=== PATIENT | female | born 1955 | race Caucasian/White ===

== ENCOUNTER 2016-10-04 20:28 | Emergency (ER) | payer MEDICAID ==
[~2016-10-04] VITALS: Ht 160 cm; Wt 81.2 kg
[~2016-10-04 20:28] MED LIST: ACYCLOVIR800 MG PO; ASPIRIN ADULT L81 M2 PO; BACTRIM DS 8001 TA1 PO; BACTRIM DS 8001 TAB PO; CARVEDILOL6.25 M1 PO; CEPHALEXIN500 MG PO; CHEWABLE ASPIRI81 MG PO; CIPRO 500MG TA500 MG PO; CIPROFLOXACIN500 MG PO; CYCLOBENZAPRINE5 MG PO; EFFIENT10 M2 PO; ETODOLAC400 MG PO; FENOFIBRATE MI200 MG PO; FENOFIBRATE160 MG PO; FLEXERIL10 MG PO; FLOMAX 0.4MG C0.4 MG PO; FLOMAX0.4 MG PO; GABAPENTIN300 MG PO; GLIPIZIDE 5MG TA5 MG PO; GLIPIZIDE10 MG PO; HABITROL21 MG/24 H TD; IBU-8800 MG PO; IBU800 MG PO; KEFLEX 500MG.500 MG PO; KEFLEX500 M1 PO; LANTUS INS100 UNITS/ SC; LIPITOR80 MG PO; LISINOPRIL 10MG10 MG PO; LORTAB 5/500 501 TAB PO; LORTAB 500 MG-71 TAB PO; MECLIZINE 25MG25 MG PO; MEDROL 4MG. DOSE4 MG PO; METFORMIN1000 MG PO; MOTRIN600 M1 PO; NAPROSYN375 MG PO; NAPROXEN SODIU500 MG PO; NAPROXEN375 M1 PO; NITROSTAT 0.4M0.4 MG SL; NIZORAL 2%15 GM/TUBE EX; NORCO 325 MG-51 TAB PO; PERCOCET 5/3251 EACH PO; PHENAZOPYRIDIN200 MG PO; PHENERGAN 25MG.25 M1 PO; PREDNISONE 20MG20 MG PO; PREDNISONE50 MG PO; PROZAC 20MG CAP20 MG PO; PROZAC10 MG PO; PROZAC20 MG PO; PYRIDIUM200 M1 PO; PYRIDIUM200 M2 PO; REQUIP0.25 MG PO; ROPINIROLE HYDRO1 M1 PO; SEPTRA DS 800 M1 TAB PO; TESSALON PERLE100 MG PO; TRAZODONE 50MG50 MG PO; TRICOR145 MG PO; TRICOR160 MG PO; TRIMOX500 MG PO; VESICARE5 MG PO; VIBRAMYCIN 100100 MG PO; VICODIN ES 7501 TAB PO; ZITHROMAX Z PA250 MG PO; ZOFRAN ODT4 MG PO; ZOFRAN4 MG PO; [UNRECOGNIZED DRUG - OTHER] OT
[2016-10-04] MEDS ORDERED: FENOFIBRATE MI200 MG PO (20:40)
[2016-10-04] MEDS ORDERED: CLOPIDOGREL75 M2 PO (20:42)
--- OUTSIDE RECORDS SUMMARY | 2016-10-04 20:57 | External Medical Summary Rpt ---
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 45 20 20 14 AI E 30 17 17 50 D 10 1 84 PH AR MG MA CY TA BL #3 ET 93 8 ME 42 03 04 30 30 00 RI Ac TF 80 -3 -2 .0 00 TE ti OR 60 0- 8- 00 01 ve ID 22 20 20 14 AI N 10 17 17 50 D HC 5 86 PH L AR 1, MA 00 CY 0 MG #3 93 TA 8 BL ET NI 00 03 04 14 7 00 RI Ac TR 18 -3 -2 .0 00 TE ti OF 50 1- 8- 00 01 ve UR 12 20 20 17 AI AN 20 17 17 81 D TO 1 17 PH IN AR MA MO CY NO -M #3 CR 93 8 10 0 MG AC 31 04 04 14 7 00 RI Ac YC 72 -0 -2 .0 00 TE ti LO 20 3- 8- 00 01 ve 77 20 20 17 AI R 70 17 17 83 D 40 1 19 PH 0 AR MG MA CY TA BL #3 ET 93 8 PH 42 03 04 6. 2 00 RI Ac EN 19 -2 -2 00 00 TE ti AZ 20 8- 1- 0 01 ve OP 80 20 20 17 AI YR 20 17 17 74 D ID 1 79 PH IN AR E MA 20 CY 0 MG #3 93 TA 8 B AC 65 03 04 50 25 00 RI Ac CU 70 -2 -2 .0 00 TE ti -C 20 8- 1- 00 01 ve HE 49 20 20 14 AI K 21 17 17 51 D SM 0 21 PH AR AR TV MA IE CY W TE #[address] RI P AT 60 03 04 30 30 00 RI Ac OR 50 -2 -2 .0 00 TE ti VA 52 6- 1- [address] 67 20 20 17 AI AT 10 17 17 70 D IN 9 70 PH AR 80 MA CY MG #3 TA 93 BL 8 ET COLEY 53 03 04 10 5 00 RI Ac LF 48 -2 -2 .0 00 TE ti AM 90 8- 1- 00 01 ve ET 14 20 20 17 AI HO 60 17 17 74 D XA 1 78 PH ZO AR LE MA -T CY MP #3 DS 93 8 TA BL ET CA 68 03 04 60 30 00 RI Ac RV 38 -2 -2 .0 00 TE ti ED 20 6- 1- 00 01 ve IL 09 20 20 17 AI OL 30 17 17 70 D 1 71 PH 6. AR 25 MA CY MG #3 TA 93 BL 8 ET NI 59 03 04 25 15 00 RI Ac TR 76 -2 -2 .0 00 TE ti OG 23 6- 1- 00 01 ve LY 30 20 20 17 AI CE 40 17 17 70 D RI 3 72 PH N AR 0. MA 4 CY MG #3 TA 93 BL 8 ET SL RA 11 03 04 14 14 00 RI Ac 82 -2 -2 .0 00 TE ti NI 22 6- 1- 00 01 ve CO 22 20 20 17 AI TI 59 17 17 70 D NE 0 73 PH AR 21 MA CY MG /2 #3 4H 93 R 8 PA TC H CL 60 03 04 30 30 00 RI Ac OP 50 -2 -2 .0 00 TE ti ID 50 7- 1- 00 01 ve OG 25 20 20 17 AI RE 30 17 17 72 D L 2 63 PH 75 AR MA MG CY TA #3 BL 93 ET 8 AC 65 03 04 10 30 00 RI Ac CU 70 -2 -2 0. 00 TE ti -C 20 8- 1- 00 01 ve HE 28 20 20 0 14 AI K 81 17 17 51 D FA [address] AR CL MA IX CY LA #3 NC 93 ET 8 S LA 00 03 03 3. 30 00 RI Ac NT 08 -0 -3 00 00 TE ti US 82 3- 1- 0 01 ve 21 20 20 14 AI SO 90 17 17 73 D LO [address] AR AR MA CY 10 0 #3 UN 93 IT 8 S/ ML LI 00 02 03 30 30 00 RI Ac SI 18 -2 -2 .0 00 TE ti NO 50 7- 4- 00 01 ve NV 62 20 20 14 AI IL 00 17 17 50 D 1 81 PH 20 AR MA MG CY TA #3 BL 93 ET 8 FE 00 02 03 30 30 00 RI Ac NO 37 -2 -2 .0 00 TE ti FI 88 7- 4- 00 01 ve BR 63 20 20 14 AI AT 07 17 17 50 D E 7 83 PH 20 AR 0 MA MG CY CA #3 PS 93 UL 8 E GL 00 02 03 30 30 00 RI Ac IP 78 -2 -2 .0 00 TE ti IZ 11 7- 4- 00 01 ve ID 45 20 20 14 AI E 30 17 17 50 D 10 1 84 PH AR MG MA CY TA BL #3 ET 93 8 ME 42 02 03 30 30 00 RI Ac TF 80 -2 -2 .0 00 TE ti OR 60 7- 4- 00 01 ve ID 22 20 20 14 AI N 10 17 17 50 D HC 5 86 PH L AR 1, MA 00 CY 0 MG #3 93 TA 8 BL ET RO 43 02 03 30 30 00 RI Ac PI 54 -2 -2 .0 00 TE ti NI 70 7- 4- 00 01 ve RO 27 20 20 14 AI LE 01 17 17 50 D 0 80 PH HC AR L MA 1 CY MG #3 TA 93 BL 8 ET GA 43 02 03 40 1 00 RI Ac 38 -1 -1 00 00 TE ti LY 60 5- 0- .0 01 ve TE 09 20 20 00 17 AI -G 01 17 17 13 D 9 00 PH SO AR CHEPE MA TI CY ON #3 93 8 LA 00 02 02 3. 30 00 RI Ac NT 08 -0 -2 00 00 TE ti US 82 1- 4- 0 01 ve 21 20 20 14 AI SO 90 17 17 73 D LO [address] AR AR MA CY 10 0 #3 UN 93 IT 8 S/ ML RO 43 01 02 30 30 00 RI Ac PI 54 -3 -2 .0 00 TE ti NI 70 0- 4- 00 01 ve RO 27 20 20 14 AI LE 01 17 17 50 D 0 80 PH HC AR L MA 1 CY MG #3 TA 93 BL 8 ET LI 00 01 02 30 30 00 RI Ac SI 18 -3 -2 .0 00 TE ti NO 50 0- 4- 00 01 ve NV 62 20 20 14 AI IL 00 17 17 50 D 1 81 PH 20 AR MA MG CY TA #3 BL 93 ET 8 FE 00 01 02 30 30 00 RI Ac NO 37 -3 -2 .0 00 TE ti FI 88 0- 4- 00 01 ve BR 63 20 20 14 AI AT 07 17 17 50 D E 7 83 PH 20 AR 0 MA MG CY CA #3 PS 93 UL 8 E GL 00 01 02 30 30 00 RI Ac IP 78 -3 -2 .0 00 TE ti IZ 11 0- 4- 00 01 ve ID 45 20 20 14 AI E 30 17 17 50 D 10 1 84 PH AR MG MA CY TA BL #3 ET 93 8 ME 42 01 02 30 30 00 RI Ac TF 80 -3 -2 .0 00 TE ti OR 60 0- 4- 00 01 ve ID 22 20 20 14 AI N 10 17 17 50 D HC 5 86 PH L AR 1, MA 00 CY 0 MG #3 93 TA 8 BL ET GL 00 12 01 30 30 00 RI Ac IP 78 -3 -2 .0 00 TE ti IZ 11 0- 7- 00 01 ve ID 45 20 20 14 AI E 30 16 17 50 D 10 1 84 PH AR MG MA CY TA BL #3 ET 93 8 LA 00 01 01 3. 30 00 RI Ac NT 08 -0 -2 00 00 TE ti US 82 3- 7- 0 01 ve 21 20 20 14 AI SO 90 17 17 73 D LO [address] AR AR MA CY 10 0 #3 UN 93 IT 8 S/ ML RO 43 12 01 30 30 00 RI Ac PI 54 -3 -2 .0 00 TE ti NI 70 0- 7- 00 01 ve RO 27 20 20 14 AI LE 01 16 17 50 D 0 80 PH HC AR L MA 1 CY MG #3 TA 93 BL 8 ET FE 00 12 30 30 00 RI Ac NO 37 -3 -2 .0 00 TE ti FI 88 0- 7- 00 01 ve BR 63 20 20 14 AI AT 07 16 17 50 D E 7 83 PH 20 AR 0 MA MG CY CA #3 PS 93 UL 8 E LI 00 12 30 30 00 RI Ac SI 18 -3 -2 .0 00 TE ti NO 50 0- 7- 00 01 ve NV 62 20 20 14 AI IL 00 16 17 50 D 1 81 PH 20 AR MA MG CY TA #3 BL 93 ET 8 ME 23 12 01 30 30 00 RI Ac TF 15 -3 -2 .0 00 TE ti OR 50 0- 7- 00 01 ve ID 10 20 20 14 AI N 40 16 17 50 D HC 5 86 PH L AR 1, MA 00 CY 0 MG #3 93 TA 8 BL ET 66 11 0 No PI 55 -2 RI 30 0- Lo N 00 20 ng 32 10 13 er 5 1 MG Ac ti TA ve BL ET CI 65 10 10 20 10 RI 90 GR Ac NV 86 -3 -3 .0 TE 57 AY ti OF 20 1- 1- 00 35 ve LO 07 20 20 AI RO XA 70 11 11 D BE CI 1 PH RT N AR B HC MA L CY 50 0 03 MG 93 8 TA # B 03 93 NV 00 10 10 15 2 RI 90 GR Ac OM 60 -3 -3 .0 TE 57 AY ti ET 35 1- 1- 00 34 ve VALLEJO 43 20 20 AI RO ZI 82 11 11 D BE NE 1 PH RT AR B 25 MA CY MG 03 TA 93 BL 8 ET # 03 93 OX 00 10 10 15 2 RI 90 GR Ac YC 60 -3 -3 .0 TE 57 AY ti OD 34 1- 1- 00 32 ve ON 99 20 20 AI RO E- 82 11 11 D BE AC 1 PH RT ET AR B AM MA IN CY OP HE 03 N 93 5- 8 32 # 5 03 93 NV 00 10 10 25 5 RI 90 GR Ac ED 59 -2 -2 .0 TE 44 AY ti NI 15 1- 1- 00 38 ve SO 44 20 20 AI RO NE 20 11 11 D BE 1 PH RT 10 AR B MA MG CY TA 03 BL 93 ET 8 # 03 93 AC 00 10 10 42 7 RI 90 GR Ac YC 09 -2 -2 .0 TE 44 AY ti LO 38 1- 1- 00 37 ve 94 20 20 AI RO R 30 11 11 D BE 40 1 PH RT 0 AR B MG MA CY TA BL 03 ET 93 8 # 03 93 00 10 10 15 2 RI 90 GR Ac 60 -2 -2 .0 TE 44 AY ti 33 1- 1- 00 35 ve 88 20 20 AI RO 12 11 11 D BE 8 PH RT AR B MA CY 03 93 8 # 03 93 TR 00 06 08 1 30 30 RI 89 RA Ac IC 07 -2 -0 .0 TE 33 O ti OR 46 0- 3- 00 91 PA ve 12 20 20 AI DM 14 39 11 11 D A 5 0 PH G MG AR MA TA CY BL ET 03 93 8 # 03 93 LI 68 06 08 1 30 30 RI 89 RA Ac SI 18 -2 -0 .0 TE 33 O ti NO 00 0- 3- 00 90 PA ve NV 51 20 20 AI DM IL 40 11 11 D A 1 PH G 10 AR MA MG CY TA 03 BL 93 ET 8 # 03 93 LI 68 06 06 2 30 30 CV 50 RA Ac SI 18 -2 -2 .0 S 29 O ti NO 00 0- 0- 00 PH 20 PA ve NV 51 20 20 AR DM IL 40 11 11 MA A 3 CY G 10 # MG 02 33 TA 2 BL ET FL 50 06 06 2 30 30 CV 50 RA Ac UO 11 -2 -2 .0 S 29 O ti XE 10 0- 0- 00 PH 21 PA ve TI 64 20 20 AR DM NE 70 11 11 MA A 1 CY G HC # L 10 02 33 MG 2 CA PS UL E TR 00 06 06 2 30 30 CV 50 RA Ac IC 07 -2 -2 .0 S 29 O ti OR 46 0- 0- 00 PH 24 PA ve 12 20 20 AR DM 14 39 11 11 MA A 5 0 CY G MG # TA 02 BL 33 ET 2 AC 61 06 06 0 25 5 CV 50 RA Ac YC 44 -2 -2 .0 S 29 O ti LO 20 0- 0- 00 PH 28 PA ve 11 20 20 AR DM R 10 11 11 MA A 20 1 CY G 0 # MG 02 CA 33 PS 2 UL E CY 00 06 06 0 10 10 CV 49 RA Ac CL 37 -0 -0 .0 S 69 O ti OB 80 2- 2- 00 PH 52 PA ve EN 75 20 20 AR DM ZA 11 11 11 MA A NV 0 CY G IN # E 10 02 33 MG 2 TA BL ET LI 68 03 05 0 30 30 CV 49 RA Ac SI 18 -0 -1 .0 S 20 O ti NO 00 8- 8- 00 PH 34 PA ve NV 51 20 20 AR DM IL 40 11 11 MA A 3 CY G 10 # MG 02 33 TA 2 BL ET TR 00 03 05 0 30 30 CV 49 RA Ac IC 07 -0 -1 .0 S 20 O ti OR 46 8- 8- 00 PH 35 PA ve 12 20 20 AR DM 14 39 11 11 MA A 5 0 CY G MG # TA 02 BL 33 ET 2 AZ 00 04 04 6. 5 RI 87 RA Ac IT 78 -1 -1 00 TE 93 O ti HR 11 4- 4- 0 25 PA ve OM 49 20 20 AI DM YC 66 11 11 D A IN 8 PH G AR 25 MA 0 CY MG 03 TA 93 BL 8 ET # 03 93 63 03 04 2 30 30 RI 87 RA Ac 30 -0 -1 .0 TE 40 O ti 40 8- 0- 00 48 PA ve 53 20 20 AI DM 30 11 11 D A 1 PH G AR MA CY 03 93 8 # 03 93 TR 00 03 04 2 30 30 RI 87 RA Ac IC 07 -0 -1 .0 TE 40 O ti OR 46 8- 0- 00 49 PA ve 12 20 20 AI DM 14 39 11 11 D A 5 0 PH G MG AR MA TA CY BL ET 03 93 8 # 03 93 TR 00 03 03 2 30 30 RI 87 RA Ac IC 07 -0 -0 .0 TE 40 O ti OR 46 8- 8- 00 49 PA ve 12 20 20 AI DM 14 39 11 11 D A 5 0 PH G MG AR MA TA CY BL ET 03 93 8 # 03 93 63 03 03 2 30 30 RI 87 RA Ac 30 -0 -0 .0 TE 40 O ti 40 8- 8- 00 48 PA ve 53 20 20 AI DM 30 11 11 D A 1 PH G AR MA CY 03 93 8 # 03 93 FL 00 03 03 2 30 30 RI 87 RA Ac UO 09 -0 -0 .0 TE 40 O ti XE 37 8- 8- 00 50 PA ve TI 18 20 20 AI DM NE 85 11 11 D A 6 PH G HC AR L MA 10 CY MG 03 93 TA 8 BL # ET 03 93 PE 00 02 02 59 1 RI 87 RA Ac RM 47 -2 -2 .0 TE 26 O ti ET 25 8- 8- 00 68 PA ve HR 24 20 20 AI DM IN 26 11 11 D A 7 PH G 1% AR MA LO CY TI ON 03 93 8 # 03 93 COLEY 53 02 02 30 15 RI 87 GR Ac LF 74 -2 -2 .0 TE 24 AY ti AM 60 5- 5- 00 23 ve ET 27 20 20 AI RO HO 20 11 11 D BE XA 5 PH RT ZO AR B LE MA -T CY MP 03 DS 93 8 TA # BL 03 ET 93 00 02 02 12 2 RI 87 GR Ac 60 -2 -2 .0 TE 24 AY ti 33 5- 5- 00 22 ve 88 20 20 AI RO 12 11 11 D BE 8 PH RT AR B MA CY 03 93 8 # 03 93 [place] 51 02 02 30 5 RI [address] 67 -1 -2 .0 TE 14 IN ti AT 21 9- 0- 00 61 EY ve IN 28 20 20 AI 90 11 11 D ID 10 2 PH CH 0, AR AE 00 MA L 0 CY S UN IT 03 /G 93 M 8 CR # EA 03 M 93 ME 00 02 02 21 6 RI 87 GA Ac TH 60 -1 -2 .0 TE 14 IN ti YL 34 9- 0- 00 62 EY ve NV 59 20 20 AI ED 31 11 11 D ID NI 5 PH CH SO AR AE LO MA L NE CY S 4 03 MG 93 8 DO # SE 03 PK 93 DO 00 02 02 20 10 RI 87 GA Ac XY 14 -1 -2 .0 TE 14 IN ti CY 33 9- 0- 00 63 EY ve CL 14 20 20 AI IN 20 11 11 D ID E 5 PH CH HY AR AE CL MA L AT CY S E 10 03 0 93 MG 8 # CA 03 P 93 AC 00 11 11 15 7 RI 85 VALDEMAR Ac ET 60 -1 -1 .0 TE 78 HN ti IC 37 1- 2- 00 72 SO ve 03 20 20 AI N AC 84 10 10 D CH ID 1 PH AR AR LE 2% MA S CY M EA R 03 SO 93 CHEPE 8 TI # ON 03 93 IB 53 11 11 21 7 RI 85 VALDEMAR Ac UP 74 -1 -1 .0 TE 78 HN ti RO 60 1- 1- 00 12 SO ve FE 46 20 20 AI N N 60 10 10 D CH 80 5 PH AR 0 AR LE MG MA S CY M TA BL 03 ET 93 8 # 03 93 AM 00 11 11 30 10 RI 85 VALDEMAR Ac OX 78 -1 -1 .0 TE 78 HN ti IC 12 1- 1- 00 11 SO ve IL 61 20 20 AI N LI 30 10 10 D CH N 5 PH AR 50 AR LE 0 MA S MG CY M CA 03 PS 93 UL 8 E # 03 93 63 09 10 1 30 30 RI 84 RA Ac 30 -0 -0 .0 TE 82 O ti 40 2- 7- 00 67 PA ve 53 20 20 AI DM 30 10 10 D A 1 PH G AR MA CY 03 93 8 # 03 93 TR 00 09 09 2 30 30 RI 84 RA Ac IC 07 -1 -1 .0 TE 98 O ti OR 46 4- 4- 00 21 PA ve 12 20 20 AI DM 14 39 10 10 D A 5 0 PH G MG AR MA TA CY BL ET 03 93 8 # 03 93 CI 65 09 09 14 7 RI 84 RA Ac NV 86 -0 -0 .0 TE 82 O ti OF 20 2- 2- 00 68 PA ve LO 07 20 20 AI DM XA 70 10 10 D A CI 1 PH G N AR HC MA L CY 50 0 03 MG 93 8 TA # B 03 93 63 09 09 1 30 30 RI 84 RA Ac 30 -0 -0 .0 TE 82 O ti 40 2- 2- 00 67 PA ve 53 20 20 AI DM 30 10 10 D A 1 PH G AR MA CY 03 93 8 # 03 93 [place] 51 06 06 0 60 7 CV [address] 67 -2 -2 .0 S 85 VA ti AT 24 5- 5- 00 PH 45 GE ve IN 11 20 20 AR 70 10 10 MA SA 10 4 CY ND 0, # RA 00 L 0 02 UN 33 IT 2 /M L COLEY SP CY 00 06 06 15 5 RI 83 SO Ac CL 37 -1 -1 .0 TE 81 KA ti OB 80 5- 5- 00 21 N ve EN 75 20 20 AI BA ZA 11 10 10 D BA NV 0 PH TU IN AR ND E MA E 10 CY O MG 03 93 TA 8 BL # ET 03 93 IB 53 06 06 15 5 RI 83 SO Ac UP 74 -1 -1 .0 TE 81 KA ti RO 60 5- 5- 00 19 N ve FE 46 20 20 AI BA N 60 10 10 D BA 80 5 PH TU 0 AR ND MG MA E CY O TA BL 03 ET 93 8 # 03 93 00 06 06 12 2 RI 83 SO Ac 40 -1 -1 .0 TE 81 KA ti 60 5- 5- 00 18 N ve 35 20 20 AI BA 70 10 10 D BA 5 PH TU AR ND MA E CY O 03 93 8 # 03 93 TA 00 04 04 7. 7 RI 83 Ac MS 11 -1 -1 00 TE 03 OL ti UL 58 8- 8- 0 06 ET ve OS 21 20 20 AI TE IN 10 10 10 D 1 PH JE HC AR FF L MA RE 0. CY Y 4 M MG 03 93 CA 8 PS # UL 03 E 93 00 04 04 12 3 RI 83 Ac 40 -1 -1 .0 TE 03 OL ti 60 8- 8- 00 05 ET ve 36 20 20 AI TE 00 10 10 D 5 PH JE AR FF MA RE CY Y M 03 93 8 # 03 93 PH 65 04 04 6. 2 CV 35 SA Ac EN 16 -1 -1 00 S 53 VA ti AZ 20 5- 5- 0 PH 22 GE ve OP 52 20 20 AR YR 01 10 10 MA SA ID 0 CY ND IN # RA E L 20 02 0 33 MG 2 TA B NI 00 04 04 20 10 CV 35 SA Ac TR 37 -1 -1 .0 S 53 VA ti OF 83 5- 5- 00 PH 23 GE ve UR 42 20 20 AR AN 20 10 10 MA SA TO 1 CY ND IN # RA L MO 02 NO 33 -M 2 CR 10 0 MG 50 03 03 9. 3 CV 34 GA Ac 11 -2 -2 00 S 90 IN ti 10 5- 6- 0 PH 79 EY ve 85 20 20 AR 10 10 10 MA ID 1 CY CH # AE L 02 S 33 2 CI 16 03 03 14 7 CV 34 GA Ac NV 25 -2 -2 .0 S 90 IN ti OF 20 5- 6- 00 PH 80 EY ve LO 51 20 20 AR XA 50 10 10 MA ID CI 1 CY CH N # AE HC L L 02 S 50 33 0 2 MG TA B FL 00 12 12 00 14 14 CV 31 FA Ac OM 59 -0 -1 .0 S 05 RA ti AX 70 6- 7- 00 PH 11 GA ve 05 20 20 AR SS 0. 80 09 09 MA O 4 1 CY DE MG 23 N CA 32 PS UL E OX 00 12 12 00 20 1 CV 31 FA Ac YC 40 -0 -1 .0 S 05 RA ti OD 60 6- 7- 00 PH 09 GA ve ON 51 20 20 AR SS E- 20 09 09 MA O AC 1 CY DE ET AM 23 N IN 32 OP HE N 5- 32 5 IB 55 12 12 00 24 7 CV 31 FA Ac UP 11 -0 -1 .0 S 05 RA ti RO 10 6- 7- 00 PH 08 GA ve FE 68 20 20 AR SS N 40 09 09 MA O 80 5 CY DE 0 MG 23 N 32 TA BL ET CI 16 12 12 00 14 7 CV 31 FA Ac NV 25 -0 -1 .0 S 05 RA ti OF 20 6- 7- 00 PH 10 GA ve LO 51 20 20 AR SS XA 50 09 09 MA O CI 1 CY DE N HC 23 N L 32 50 0 MG TA B ET 51 08 08 00 30 10 CV 26 No Ac OD 67 -0 -1 .0 S 25 t ti OL 24 2- 3- 00 PH 04 Av ve AC 01 20 20 AR ai 70 09 09 MA la 30 1 CY bl 0 e MG 23 32 CA PS UL E SK 60 08 08 00 30 10 CV 26 No Ac EL 79 -0 -1 .0 S 25 t ti AX 30 2- 3- 00 PH 05 Av ve IN 13 20 20 AR ai 60 09 09 MA la 80 1 CY bl 0 e MG 23 32 TA BL ET CY 00 07 08 00 10 3 CV 26 CE Ac CL 37 -2 -1 .0 S 22 LL ti OB 80 6- 3- 00 PH 02 AR ve EN 75 20 20 AR OS ZA 11 09 09 MA I NV 0 CY - IN YO E 23 RB 10 32 A PA MG TR IC TA K BL M ET TR 00 07 08 00 15 3 CV 26 CE Ac AM 09 -2 -1 .0 S 22 LL ti AD 30 6- 3- 00 PH 04 AR ve OL 05 20 20 AR OS 80 09 09 MA I HC 5 CY - L YO 50 23 RB 32 A MG PA TR TA IC BL K ET M FL 00 06 06 00 2. 4 CV 24 OV Ac UC 17 -0 -1 00 S 41 ER ti ON 25 3- 8- 0 PH 92 BE ve AZ 41 20 20 AR E OL 21 09 09 MA TE E 1 CY RR 15 I 0 23 MG 32 TA BL ET NA 00 06 06 00 60 30 CV 24 OV Ac NV 09 -0 -1 .0 S 41 ER ti OX 30 3- 8- 00 PH 93 BE ve EN 14 20 20 AR E 90 09 09 MA TE 50 5 CY RR 0 I MG 23 32 TA BL ET ME 68 02 06 02 30 30 CV 21 OV Ac TF 38 -2 -1 .0 S 11 ER ti OR 20 7- 8- 00 PH 37 BE ve ID 02 20 20 AR E N 81 09 09 MA TE HC 0 CY RR L I 50 23 0 32 MG TA BL ET LI 68 06 06 00 30 30 CV 24 OV Ac SI 18 -0 -1 .0 S 41 ER ti NO 00 3 8- 00 PH 90 BE ve NV 51 20 20 AR E IL 40 09 09 MA TE 3 CY RR 10 I 23 MG 32 TA BL ET TR 00 05 06 00 12 4 RI 78 AH Ac AM 09 -2 -1 .0 TE 64 ME ti AD 30 9- 8- 00 06 D ve OL 05 20 20 AI MU 80 09 09 D VALLEJO HC 1 PH MM L AR AD 50 M A #3 MG 93 8 TA BL ET TR 00 05 06 00 15 2 CV 24 CE Ac AM 09 -2 -0 .0 S 00 LL ti AD 30 1- 4- 00 PH 73 AR ve OL 05 20 20 AR OS 80 09 09 MA I HC 5 CY - L YO 50 23 RB 32 A MG PA TR TA IC BL K ET M 00 05 05 00 15 3 CV 23 WA Ac 40 -0 -2 .0 S 57 GN ti 60 8- 1- 00 PH 72 ER ve 35 20 20 AR 70 09 09 MA PH 5 CY IL LI 23 P 32 L LI 68 01 04 03 30 30 CV 19 OV Ac SI 18 -0 -2 .0 S 32 ER ti NO 00 2- 3- 00 PH 74 BE ve NV 51 20 20 AR E IL 40 09 09 MA TE 3 CY RR 10 I 23 MG 32 TA BL ET ME 68 02 04 01 30 30 CV 21 OV Ac TF 38 -2 -2 .0 S 11 ER ti OR 20 7- 3- 00 PH 37 BE ve ID 02 20 20 AR E N 81 09 09 MA TE HC 0 CY RR L I 50 23 0 32 MG TA BL ET NA 00 02 04 01 60 30 CV 21 OV Ac NV 09 -2 -2 .0 S 11 ER ti OX 30 7- 3- 00 PH 36 BE ve EN 14 20 20 AR E 90 09 09 MA TE 50 5 CY RR 0 I MG 23 32 TA BL ET TR 00 03 04 00 12 4 CV 21 AH Ac AM 09 -2 -0 .0 S 91 ME ti AD 30 1- 9- 00 PH 22 D ve OL 05 20 20 AR MU 80 09 09 MA VALLEJO HC 5 CY MM L AD 50 23 A 32 MG TA BL ET LI 68 01 03 02 30 30 CV 19 OV Ac SI 18 -0 -1 .0 S 32 ER ti NO 00 2- 2- 00 PH 74 BE ve NV 51 20 20 AR E IL 40 09 09 MA TE 3 CY RR 10 I 23 MG 32 TA BL ET NA 00 02 03 00 60 30 CV 21 OV Ac NV 09 -2 -1 .0 S 11 ER ti OX 30 7- 2- 00 PH 36 BE ve EN 14 20 20 AR E 90 09 09 MA TE 50 5 CY RR 0 I MG 23 32 TA BL ET ME 68 02 03 00 30 30 CV 21 OV Ac TF 38 -2 -1 .0 S 11 ER ti OR 20 7- 2- 00 PH 37 BE ve ID 02 20 20 AR E N 81 09 09 MA TE HC 0 CY RR L I 50 23 0 32 MG TA BL ET 00 02 02 00 12 1 CV 20 CE Ac 60 -1 -2 .0 S 68 LL ti 33 6- 6- 00 PH 88 AR ve 88 20 20 AR OS 23 09 09 MA I 2 CY - YO 23 RB 32 A PA TR IC K M OX 00 01 02 00 40 14 CV 20 SL Ac YB 83 -2 -1 .0 S 07 AB ti UT 20 6- 2- 00 PH 66 AU ve YN 03 20 20 AR GH IN 85 09 09 MA 5 0 CY JR MG 23 TH 32 OM TA BL K ET LI 68 01 02 01 30 30 CV 19 No Ac SI 18 -0 -1 .0 S 32 t ti NO 00 2- 2- 00 PH 74 Av ve NV 51 20 20 AR ai IL 40 09 09 MA la 3 CY bl 10 e 23 MG 32 TA BL ET PH 65 01 01 00 20 6 CV 19 SL Ac EN 16 -1 -3 .0 S 65 AB ti AZ 20 3- 0- 00 PH 83 AU ve OP 52 20 20 AR GH YR 01 09 09 MA ID 0 CY JR IN E 20 32 OM 0 MG K TA B 60 01 01 00 20 10 CV 19 SL Ac 50 -1 -3 .0 S 65 AB ti 51 3- 0- 00 PH 81 AU ve 30 20 20 AR GH 90 09 09 MA 1 CY JR 23 TH 32 OM K ME 59 01 01 00 21 6 CV 19 SL Ac TH 74 -1 -3 .0 S 65 AB ti YL 60 3- 0- 00 PH 82 AU ve NV 00 20 20 AR GH ED 10 09 09 MA NI 3 CY JR SO LO 23 TH NE 32 OM 4 K MG DO SE PK 00 01 01 00 30 2 CV 19 SL Ac 40 -0 -1 .0 S 56 AB ti 60 9- 5- 00 PH 62 AU ve 35 20 20 AR GH 70 09 09 MA 5 CY JR 23 TH 32 OM K PH 65 01 01 00 30 10 CV 19 SL Ac EN 16 -0 -1 .0 S 56 AB ti AZ 20 9- 5- 00 PH 63 AU ve OP 52 20 20 AR GH YR 09 09 MA ID 0 CY JR IN E 20 32 OM 0 MG K TA B 60 12 01 00 20 10 CV 19 SL Ac 50 -3 -1 .0 S 23 AB ti 51 0- 5- 00 PH 93 AU ve 30 20 20 AR GH 90 08 09 MA 1 CY JR 23 TH 32 OM K 00 01 01 00 20 4 CV 19 SL Ac 40 -0 -1 .0 S 31 AB ti 60 2- 5- 00 PH 73 AU ve 35 20 20 AR GH 80 09 09 MA 5 CY JR 23 TH 32 OM K 00 12 01 00 30 7 CV 19 SL Ac 40 -3 -1 .0 S 23 AB ti 60 0- 5- 00 PH 92 AU ve 35 20 20 AR GH 70 08 09 MA 5 CY JR 23 TH 32 OM K 60 01 01 00 14 7 CV 19 SL Ac 50 -0 -1 .0 S 38 AB ti 51 5- 5- 00 PH 02 AU ve 30 20 20 AR GH 90 09 09 MA 1 CY JR 23 TH 32 OM K COLEY 53 12 01 00 14 7 CV 19 CE Ac LF 74 -2 -1 .0 S 14 LL ti AM 60 9- 5- 00 PH 91 AR ve ET 27 20 20 AR OS HO 20 08 09 MA I XA 5 CY - ZO YO LE 23 RB -T 32 A MP PA TR DS IC K TA M BL ET FL 00 12 01 00 10 10 CV 19 CE Ac OM 59 -2 -1 .0 S 12 LL ti AX 70 7- 5- 00 PH 65 AR ve 05 20 20 AR OS 0. 80 08 09 MA I 4 1 CY - MG YO 23 RB CA 32 A PS PA UL TR E IC K M 00 12 01 00 20 3 CV 19 CE Ac 40 -2 -1 .0 S 16 LL ti 60 9- 5- 00 PH 45 AR ve 35 20 20 AR OS 70 08 09 MA I 5 CY - YO 23 RB 32 A PA TR IC K M NV 00 12 01 00 15 4 CV 19 CE Ac OM 78 -2 -1 .0 S 12 LL ti ET 11 7- 5- 00 PH 66 AR ve VALLEJO 83 20 20 AR OS ZI 00 08 09 MA I NE 1 CY - YO 25 23 RB 32 A MG PA TR TA IC BL K ET M 00 12 01 00 15 2 CV 19 CE Ac 40 -2 -1 .0 S 12 LL ti 60 7- 5- 00 PH 67 AR ve 35 20 20 AR OS 70 08 09 MA I 5 CY - YO 23 RB 32 A PA TR IC K M HY 00 12 01 00 30 30 CV [address] 60 -0 -1 .0 S 28 t ti OC 33 1- 5- 00 PH 73 Av ve HL 85 20 20 AR ai OR 63 08 09 MA la OT 2 CY bl HI e AZ 23 ID 32 E 25 MG TA B LI 68 01 01 00 30 30 CV 19 No Ac SI 18 -0 -1 .0 S 32 t ti NO 00 2- 5- 00 PH 74 Av ve NV 51 20 20 AR ai IL 40 09 09 MA la 3 CY bl 10 e 23 MG 32 TA BL ET HY 00 12 12 00 30 30 CV [address] 60 -0 -1 .0 S 28 AV ti OC 33 1- 8- 00 PH 64 ES ve HL 85 20 20 AR OR 63 08 08 MA LE OT 2 CY SL HI IE AZ 23 W ID 32 E 25 MG TA B NA 00 01 12 01 [address] Ac NV 09 -2 -1 .0 S 26 EP ti OX 30 1- 8- 00 PH 78 HE ve EN 14 20 20 AR NS 90 08 08 MA 50 5 CY DO 0 N MG 23 R 32 TA BL ET HY 00 11 11 00 30 30 CV [address] 60 -1 -2 .0 S 78 AV ti OC 33 3- 0- 00 PH 49 ES ve HL 85 20 20 AR OR 63 08 08 MA AL OT 2 CY EC HI IA AZ 23 E ID 32 E 25 MG TA B 00 10 11 00 10 2 CV 17 WA Ac 40 -2 -0 .0 S 10 GN ti 60 3- 7- 00 PH 54 ER ve 35 20 20 AR 70 08 08 MA PH 5 CY IL LI 23 P 32 L 63 09 10 00 14 7 CV 16 SA Ac 30 -2 -0 .0 S 31 DE ti 40 8- 9- 00 PH 06 K ve 71 20 20 AR MO 00 08 08 MA VALLEJO 1 CY ME D 23 H 32 00 09 10 00 10 3 CV 16 SA Ac 40 -2 -0 .0 S 31 DE ti 60 8- 9- 00 PH 07 K ve 35 20 20 AR MO 70 08 08 MA VALLEJO 5 CY ME D 23 H 32 NA 00 01 09 00 [address] Ac NV 09 -2 -1 .0 S 26 EP ti OX 30 1- 1- 00 PH 78 HE ve EN 14 20 20 AR NS 90 08 08 MA 50 5 CY DO 0 N MG 23 R 32 TA BL ET CY 00 08 08 00 12 4 CV 15 CE Ac CL 37 -1 -2 .0 S 09 LL ti OB 80 9- 8- 00 PH 02 AR ve EN 75 20 20 AR OS ZA 11 08 08 MA I NV 0 CY - IN YO E 23 RB 10 32 A PA MG TR IC TA K BL M ET 00 08 08 00 15 1 CV 15 CE Ac 40 -1 -2 .0 S 09 LL ti 60 9- 8- 00 PH 01 AR ve 35 20 20 AR OS 70 08 08 MA I 5 CY - YO 23 RB 32 A PA TR IC K M 00 06 07 00 12 2 RI 73 SO Ac 40 -2 -0 .0 TE 89 KA ti 60 5- 3- 00 35 N ve 35 20 20 AI BA 80 08 08 D BA 1 PH TU AR ND M E #3 O 93 8 NA 00 01 07 02 [address] Ac NV 09 -2 -0 .0 TE 59 EP ti OX 30 1- 3- 00 48 HE ve EN 14 20 20 AI NS 90 08 08 D 50 1 PH DO 0 AR N MG M R #3 TA 93 BL 8 ET 00 05 05 00 30 7 RI 73 No Ac 60 -0 -2 .0 TE 19 t ti 35 5- 2- 00 56 Av ve 46 20 20 AI ai 82 08 08 D la 8 PH bl AR e M #3 93 8 00 05 05 00 30 7 RI 73 No Ac 60 -1 -2 .0 TE 36 t ti 35 6- 2- 00 00 Av ve 46 20 20 AI ai 82 08 08 D la 8 PH bl AR e M #3 93 8 NA 00 01 04 01 60 30 RI 71 No Ac NV 09 -2 -1 .0 TE 59 t ti OX 30 1- 0- 00 48 Av ve EN 14 20 20 AI ai 90 08 08 D la 50 1 PH bl 0 AR e MG M #3 TA 93 BL 8 ET NA 00 01 03 00 60 30 RI 71 No Ac NV 09 -2 -2 .0 TE 59 t ti OX 30 1- 5- 00 48 Av ve EN 14 20 20 AI ai 90 08 08 D la 50 1 PH bl 0 AR e MG M #3 TA 93 BL 8 ET 00 01 03 00 30 15 RI 71 No Ac 59 -1 -2 .0 TE 52 t ti 10 6- 5- 00 98 Av ve 33 20 20 AI ai 90 08 08 D la 1 PH bl AR e M #3 93 8 00 01 03 00 10 2 RI 71 No Ac 40 -1 -2 .0 TE 46 t ti 60 1- 4- 00 05 Av ve 35 20 20 AI ai 70 08 08 D la 5 PH bl AR e M #3 93 8 Vital Signs 03-22-2013 21:20 Name Value Interpretat Reference Comment ion Range Body 97.9 [degF] Temperature BP 92 mm[Hg] Diastolic BP Systolic 144 mm[Hg] Heart 74 /min Rate/Pulse O2% 97 % Respiratory 20 /min Rate 03-22-2013 20:03 Name Value Interpretat Reference Comment ion Range BP 83 mm[Hg] Diastolic BP Systolic 141 mm[Hg] Heart 91 /min Rate/Pulse O2% 98 % Respiratory 20 /min Rate Results Labs Lab Lab Date Result Refere Interp Status Commen Order Detail nces retati t Range on COMPREHENSIVE METABOLIC PANEL (03-22-2013 19:45) Glucose 20-2 247 74-106 complet 013 mg/dL ed Bld-mCn 19:45 c BUN 20-2 22 7-18 complet Bld-mCn 013 mg/dL ed c 19:45 Creat -20-2 0.9 0.6-1.0 complet SerPl-m 013 mg/dL ed Cnc 19:45 ESTIMAT -20-2 90 50-200 complet ED 013 ML/MIN ed CREATIN 19:45 INE CLEARAN CE GFR 20-2 64 59- complet (ESTIMA 013 ML/MIN ed MIKY) 19:45 Sodium 20-2 139 136-145 complet SerPl-s 013 mmoL/L ed Cnc 19:45 Potassi 20-2 3.6 3.5-5.1 complet um 013 mmoL/L ed SerPl-s 19:45 Cnc Chlorid 20-2 102 98-107 complet e 013 mmoL/L ed SerPl-s 19:45 Cnc CO2 20-2 25 21.0-32 complet SerPl-s 013 mmoL/L .0 ed Cnc 19:45 Calcium -20-2 8.6 8.5-10. complet 013 mg/dL 1 ed SerPl-m 19:45 Cnc Prot -20-2 7.6 6.4-8.2 complet SerPl-m 013 gm/dL ed Cnc 19:45 Albumin 11-20-2 3.9 3.4-5.0 complet 013 gm/dL ed SerPl-m 19:45 Cnc Globuli -20-2 3.7 1.3-3.2 complet n 013 gm/dL ed Ser-mCn 19:45 c Albumin -20-2 1.1 UNK 1.1-1.8 complet /Glob 013 ed SerPl-m 19:45 Rto Bilirub -20-2 0.6 0.2-1.0 complet 013 mg/dL ed SerPl-m 19:45 Cnc AST 11-20-2 20 U/L 15-37 complet SerPl-c 013 ed Cnc 19:45 ALT 11-20-2 46 U/L 30-65 complet SerPl-c 013 ed Cnc 19:45 ALP 11-20-2 144 U/L 50-136 complet SerPl-c 013 ed Cnc 19:45 CBC with AUTO DIFF (03-22-2013 19:45) WBC # 11-20-2 8.4 4.8-10. complet Bld 013 K/MM3 8 ed Auto 19:45 RBC # 11-20-2 5.00 4.2-5.4 complet Bld 013 M/mm3 ed Auto 19:45 Hgb 11-20-2 15.8 12.2-16 complet Bld-mCn 013 g/dL .2 ed c 19:45 Hct Fr 11-20-2 46.1 % 37.0-47 complet Bld 013 .0 ed 19:45 MCV RBC 11-20-2 92.2 fl 82.2-97 complet 013 .8 ed 19:45 MCH RBC 11-20-2 31.6 pg 27-31.2 complet Qn 013 ed Auto 19:45 MEAN 11-20-2 34.3 31.8-35 complet CORPUSC 013 g/dl .4 ed ULAR 19:45 HGB CONC RDW RBC 11-20-2 15.4 % 11.5-17 complet Auto 013 .5 ed 19:45 Platele 11-20-2 238 142-424 complet t Bld 013 K/mm3 ed Ql 19:45 Manual MEAN 11-20-2 7.4 fl 7.4-10. complet PLATELE 013 4 ed T 19:45 VOLUME Granulo 11-20-2 58.9 % 37.0-80 complet cytes 013 .0 ed Fr Bld 19:45 Auto LYMPH % 11-20-2 33.6 % 10-50.0 complet 013 ed 19:45 Monocyt 11-20-2 4.4 % 1.7-9.3 complet es Fr 013 ed Bld 19:45 Auto Eosinop 11-20-2 2.5 % 0.1-12. complet hil Fr 013 0 ed Bld 19:45 Auto Basophi 11-20-2 0.5 % 0.1-2.0 complet ls Fr 013 ed Bld 19:45 Auto Granulo 11-20-2 5.0 1.8-7.8 complet cytes # 013 K/mm3 ed Bld 19:45 Auto Lymphoc 03-22-2 2.8 0.7-4.5 complet ytes Fr 013 K/mm3 ed Bld 19:45 Auto Monocyt 20-2 0.4 0.1-1.0 complet es # 013 K/mm3 ed Bld 19:45 Auto Eosinop 03-22-2 0.2 0.0-0.4 complet hil # 013 K/mm3 ed Bld 19:45 Auto Basophi 20-2 0.0 0-0.2 complet ls # 013 K/MM3 ed Bld 19:45 Auto Procedures Procedure DOS Code Location Performer Comment ECG 20217 LEONEL LEE ROUTINE 7 PHYSICIAN ECG S, PLLC W/LEAST 12 LDS I&R ONLY RADIOLOGI 55909 [facility] 7 MEDICAL EXAMINATI IMAGING ON CHEST ASS SINGLE VIEW FRONTAL CULTURE 08618 [facility] BACTERIAL 7 [facility] [place], INC. INC. QUANTTATI VE COLONY COUNT URINE CULTURE 93217 [facility] BCT 7 [facility] [place], ISOL&PRSM INC. INC. PTV ID ISOLATE EA URINE URNLS DIP 74733 [facility] STICK/TAB INC INC LET RGNT AUTO W/[place] PRQ [address] [facility] NATHALIE TRLUML 7 PHYSICIAN CORONARY S GROUP STENT W/ANGIO ONE ART/BRNCH CATH PLMT 71063 [facility] 7 PHYSICIAN PHYSICIAN HRT/ARTS/ S GROUP S GROUP GRFTS WNJX & ANGIO IMG S&I ECG 86376 [facility] MAURICIO ROUTINE 7 [facility] W/LEAST P 12 LDS I&R ONLY CREATINE 25475 [facility] KINASE 7 [place] [address] [facility] HEAD/BRAI 7 [facility] N W/[place] [address] [facility] TROPONIN 7 [facility] QUANTITAT INC INC FAWAD BLOOD 62806 [facility] COUNT 7 [facility] HOSP COMPLETE INC INC AUTO&AUTO DIFRNTL WBC ECG 07552 [facility] ROUTINE 7 [facility] HOSP ECG INC INC W/LEAST 12 LDS TRCG ONLY W/O I&R ECG 84031 [facility] MAURICIO ROUTINE 7 [facility] W/LEAST P 12 LDS I&R ONLY RADIOLOGI 09991 [place] LIN[place] C EXAM 7 MEDICAL CHEST 2 IMAGING VIEWS ASS FRONTAL&L ATERAL FINAL G9638 [facility] REPORTS 7 MEDICAL W/O DOC IMAGING 1/MORE ASS DOSE REDUCTION TECH CREATINE 71207 [facility] KINASE MB 7 [facility] HOSP FRACTION INC INC ONLY COMPREHEN 72624 [facility] SIVE 7 [facility] HOSP METABOLIC INC INC PANEL FOR DIAB A5512 [place] [place] ONLY MX 7 MEDICAL MEDICAL DNSITY SUPPLY SUPPLY INSRT DIR [facility] FORMD PRFAB EA DIAB ONLY A5500 [place] FIT CSTM 7 MEDICAL MEDICAL PREP&SPL SUPPLY SUPPLY [employer] DNSITY INSRT BLOOD 04232 [facility] COUNT 7 [facility] [place], COMPLETE INC. INC. AUTO&AUTO DIFRNTL WBC LIPID 62619 [facility] PANEL 7 [facility] [employer], INC. INC. HEMOGLOBI 76524 [facility] N 7 [facility] [place], GLYCOS[employer]LA INC. INC. MIKY A1C COMPREHEN 67920 [facility] SIVE 7 [facility] [place], METABOLIC INC. INC. PANEL CYTP C/V 34148 [facility] AUTO THIN 7 [facility] [place], LYR INC. INC. PREPJ SCR MNL RESCR PHYS SCREENING G0202 [facility] [place] RADMANESH 6 RADIOLOGY SHA MAMMOGRAP HY TERESA INCL CAD WHEN PERFORMD COMPUTER- 78289 [facility] [place] RAD[facility] AIDED 6 RADIOLOGY SHA DETECTION SCREENING MAMMOGRAP HY VISUAL 18248 SCIFRES SCIFRES FIELD XM 6 ANG ANG UNI/BI W/INTERP EXTENDED EXAM OPHTH 87755 [facility] 6 ANG ANG XM&EVAL COMPRE NEW PT 1/> VST ARTHROCEN 52772 [facility] PETTEY TESIS 6 PHYSICIAN JAY ASPIR&/IN S GROUP J MAJOR JT/BURSA W/O US INJ J0702 [facility] PETTEY BETAMETHA 6 PHYSICIAN JAY SONE S GROUP ACETATE & PHOSPHATE 3 MG CREATINE 64697 [facility] KINASE MB 6 [facility] FRACTION INC INC ONLY COMPREHEN 71351 [facility] SIVE 6 [facility] METABOLIC INC INC PANEL RADEX 34244 [facility] ELBOW 6 [facility] COMPLETE INC INC MINIMUM 3 VIEWS BLOOD 59917 [facility] COUNT 6 [facility] COMPLETE INC INC AUTO&AUTO DIFRNTL WBC CREATINE 90686 [facility] KINASE 6 [facility] [place] [address] [facility] TROPONIN 6 [facility] QUANTITAT INC INC FAWAD ECG 18882 [facility] ROUTINE 6 [facility] ECG INC INC W/LEAST 12 LDS TRCG ONLY W/O I&R ECG 25450 LULY MAURICIO ROUTINE 6 ANGELICA ANGELICA ECG W/LEAST 12 LDS I&R ONLY RADEX 88729 [facility] SHOULDER 6 [facility] COMPLETE INC INC MINIMUM 2 VIEWS PHYSICAL 76556 [facility] THERAPY 6 [facility] EVALUATIO INC INC N ARTHROCEN 84793 CHANCE TRA CHANCE TRA TESIS 6 ASPIR&/IN J MAJOR JT/BURSA W/O US INJECTION S0020 CHANCE TRA CHANCE TRA 6 BUPIVICAI NE HYDROCHLO RIDE 30 ML RADEX HIP 86732 CHANCE TRA CHANCE TRA 6 UNILATERA L WITH PELVIS 2-3 VIEWS INJ J0702 CHANCE TRA CHANCE TRA BETAMETHA 6 SONE ACETATE & PHOSPHATE 3 MG SERVICE G0151 [facility]ERAP [facility] HE[facility] HOME AGENCY AGENCY HLTH/HOSP ICE [place] [address] [place] [address] [facility] LIPASE 6 [facility] INC INC BLOOD 69545 [facility] COUNT 6 [facility] COMPLETE INC INC AUTO&AUTO DIFRNTL WBC URNLS DIP 20776 [facility] 6 [facility] STICK/TAB INC INC LET REAGENT AUTO MICROSCOP Y INJECTION J2405 [facility] 6 [facility] ONDANSETR INC INC ON HCL PER 1 [place] [address] [facility] INFUSION 6 [facility] THERAPY/P INC INC ROPHYLAXI S /DX 1ST TO 1 HR THERAPEUT 01478 [facility] IC 6 [facility] INJECTION INC [place] [address] [facility] ALL ABDOMEN & 6 MEDICAL PELVIS IMAGING W/O ASS CONTRAST MATERIAL SERVICE G0151 [facility] PH[facility] 5 HOME HOME THERAP HEALTH HEALTH HOME AGENCY AGENCY HLTH/HOSP ICE EA 15 MIN SERVICE G0151 [facility] 5 HOME HOME THERAP HEALTH HEALTH HOME AGENCY AGENCY HLTH/HOSP ICE EA 15 MIN CREATINE 68371 [facility] KINASE 5 [facility] TOTAL INC INC ECG 87800 [facility] ROUTINE 5 [facility] ECG INC INC W/LEAST 12 LDS TRCG ONLY W/O I&[place] [address] [facility] TROPONIN 5 [facility] QUANTITAT INC INC FAWAD GLUC BLD 83914 [facility] GLUC MNTR 5 [facility] DEV INC INC CLEARED FDA SPEC HOME USE URNLS DIP 12330 [facility] 5 [facility] STICK/TAB INC INC LET REAGENT AUTO MICROSCOP Y NATRIURET 48304 [facility] IC 5 [facility] PEPTIDE INC INC RADIOLOGI 16376 [place] LIN[facility] C EXAM 5 MEDICAL KARLY CHEST 2 IMAGING VIEWS ASS FRONTAL&L ATERAL BLOOD 32885 [facility] COUNT 5 [facility] COMPLETE INC INC AUTO&AUTO DIFRNTL WBC THER 16877 [facility] PROPH/DX 5 [facility] NJX IV INC INC PUSH SINGLE/1S T SBST/DRUG CREATINE 21793 [facility] KINASE MB 5 [facility] FRACTION INC INC ONLY COMPREHEN 57964 [facility] SIVE 5 [facility] METABOLIC INC INC PANEL SERVICE G0151 [facility] PHYS 5 HOME HOME [facility] HE[facility] HOME AGENCY AGENCY HLTH/HOSP ICE EA 15 MIN SERVICE G0151 [facility] PHYS 5 HOME HOME [facility]ERAP [facility] HE[facility] HOME AGENCY AGENCY HLTH/HOSP ICE EA 15 MIN SERVICE G0151 [facility] PHYS 5 HOME HOME THERAP [facility] HEALTH HOME AGENCY AGENCY HLTH/HOSP ICE EA 15 MIN HEMOGLOBI 61750 [facility] N 5 DIAGNOSTI DIAGNOSTI GLYCOSYLA CS CS MIKY A1C COMPREHEN 38589 [facility] SIVE 5 DIAGNOSTI DIAGNOSTI METABOLIC CS CS PANEL SERVICE G0151 [facility] PHYS 5 HOME HOME [facility] HOME AGENCY AGENCY HLTH/HOSP ICE EA 15 MIN RADEX HIP 83765 CHANEC TRA CHANCE TRA 5 UNILATERA L COMPLETE MINIMUM 2 VIEWS ARTHROCEN 95039 CHANCE TRA CHANCE TRA TESIS 5 ASPIR&/IN J MAJOR JT/BURSA W/O US INJECTION S0020 CHANCE TRA CHANCE TRA 5 BUPIVICAI NE HYDROCHLO RIDE 30 ML INJ J0702 CHANCE TRA CHANCE TRA BETAMETHA 5 SONE ACETATE & PHOSPHATE 3 MG RADEX HIP 64038 [facility] TRA 5 [place] UNILATER[place] ORTHOPAED L [facility] COMPLETE MINIMUM 2 VIEWS SBSQ 87553 [facility] 5 JUAN JUAN CARE/DAY 25 MINUTES SBSQ 42421 [facility] 5 JUAN JUNA CARE/DAY 25 MINUTES SBSQ 61529 [facility] 5 JUAN JUAN CARE/DAY 25 MINUTES WALKER E0143 [facility] FOLDING 5 WHEELED ADJUSTABL E/FIXED HEIGHT COMMODE E0163 [facility] CHAIR 5 MOBILE OR STATIONAR Y W/FIXED ARMS ARTHRP 30614 [facility] CHANCE TRA ACETBLR/P 5 [place] CANDACE FEM ORTHOPAED PROSTC ICS PLC AGRFT/ALG RFT REPL LT [id number] [facility] HIP JNT [address] [place] [address] CERAM POLY SYNTH UNCEMENTE D OPEN ANESTHESI 73197 ANESTHESI TERRA HEA A OPEN 5 A TOTAL HIP ASSOCIATE S PSC ARTHROPLA STY LEVEL III 00419 [place] SURG 5 [facility] PATHOLOGY CLINIC PSC GROSS&AZAR ROSCOPIC EXAM DECALCIFI 99063 [place] CATION 5 [facility] PROCEDURE CLINIC PSC INITIAL [address] [place] [address] JUAN JUAN CARE/DAY 70 MINUTES RADIOLOGI 73375 [facility] [place] RABIA C EXAM 5 RADIOLOGY RHO CHEST 2 VIEWS FRONTAL&L ATERAL RADIOLOGI 92653 [facility] [place] WESTERFIE C EXAM 5 RADIOLOGY LD IV ALL CHEST 2 VIEWS FRONTAL&L ATERAL LIPID [address] HEPATIC [address] PANEL HEMOGLOBI [address] GLYCOSYLA MIKY A1C ECG [address] ECG W/LEAST 12 LDS TRCG ONLY W/O I&R URNLS DIP [address] STICK/TAB LET RGNT AUTO W/O MICROSCOP Y BLOOD [address] COMPLETE AUTOMATED PROTHROMB 66706 [facility] IN TIME [address] [place] [address] PANEL CALCIUM TOTAL THROMBOPL 62002 [facility] AST[address] TIME PARTIAL PLASMA/WH OLE BLOOD RADIOLOGI 41077 CHRISTI BRASWELL ALL C EXAM 5 MEDICAL CHEST 2 IMAGING VIEWS ASS FRONTAL&L ATERAL INJECTION J2785 [address] REGADENOS ON 0.1 MG TECHNETIU A9502 [facility] TC-99M [address] [place] [address] TETROFOSM IN DX PER STUDY DOSE MYOCARDIA 59425 [facility] SPECT [address] [place] [address] MULTIPLE STUDIES RADEX 57147 [facility] CHANCE TRA SPINE 5 [place] LUMBOSACR ORTHOPAED AL 2/3 [facility] VIEWS CANE INCL E0100 IDRIS IDRIS CANES 5 HOME HOME ALL MEDICAL MEDICAL MATERIAL EQUIPME EQUIPME ADJUSTBLE /FIX W/TIP APPLICATI 92444 [facility] ON 5 [facility] MODALITY INC INC 1/> AREAS HOT/COLD PACKS APPL 83152 [facility] MODALITY 5 [facility] 1/> AREAS INC INC ULTRASOUN D EA 15 MIN APPL 79891 [facility] MODALITY 5 [facility] 1/> AREAS INC INC ELEC STIMJ UNATTENDE D THERAPEUT 46610 [facility] IC PX 1/> 5 [facility] AREAS INC INC EACH 15 MIN EXERCISES THERAPEUT 01776 [facility] IC PX 1/> 5 [facility] AREAS INC INC EACH 15 MIN EXERCISES APPL 19127 [facility] MODALITY 5 [facility] 1/> AREAS INC INC ELEC STIMJ UNATTENDE D APPL 23398 [facility] MODALITY 5 [facility] 1/> AREAS INC INC ULTRASOUN D EA 15 MIN APPLICATI 26405 [facility] ON 5 [facility] MODALITY INC INC 1/> AREAS HOT/COLD PACKS APPLICATI 64562 [facility] ON 5 [facility] MODALITY INC INC 1/> AREAS HOT/COLD PACKS APPL 99653 [facility] MODALITY 5 [facility] 1/> AREAS INC INC ULTRASOUN D EA 15 MIN APPL 14555 [facility] MODALITY 5 [facility] 1/> AREAS INC INC ELEC STIMJ UNATTENDE D THERAPEUT 76067 [facility] IC PX 1/> 5 [facility] AREAS INC INC EACH 15 MIN EXERCISES THERAPEUT 89866 [facility] IC PX 1/> 5 [facility] AREAS INC INC EACH 15 MIN EXERCISES APPL 40578 [facility] MODALITY 5 [facility] 1/> AREAS INC INC ELEC STIMJ UNATTENDE D MANUAL 42301 [facility] THERAPY 5 [facility] TQS 1/> INC INC REGIONS EACH 15 MINUTES APPLICATI 95081 [facility] ON 5 [facility] MODALITY INC INC 1/> AREAS HOT/COLD PACKS PHYSICAL 69264 [facility] THERAPY 5 [facility] EVALUATIO INC INC N RADIOLOGI 15093 [facility] [place] RABIA C EXAM 5 RADIOLOGY RHO CHEST 2 VIEWS FRONTAL&L ATERAL RADIOLOGI 04280 [facility] TRA C 5 [place] EXAMINATI ORTHOPAED ON PELVIS [facility] 1/2 VIEWS RADEX 61272 [facility]AL CHANCE TRA SPINE 5 [place] LUMBOSACR ORTHOPAED AL 2/[address] [place] [address] [facility] [place] ABDOMEN & 4 MEDICAL KARLY PELVIS IMAGING W/O ASS CONTRAST MATERIAL RADEX 48039 [facility] SHOULDER 4 N N COMPLETE [facility] MINIMUM 2 HOSPITA HOSPITA VIEWS RADEX 28263 [facility] SPINE 4 N N CERVICAL [facility] 2 OR 3 HOSPITA HOSPITA VIEWS RADEX 39402 [facility]RISTI [place] HUMERUS 4 MEDICAL KARLY MINIMUM 2 IMAGING VIEWS ASS RADEX 40489 [facility] [place] FOREARM 2 4 MEDICAL KARLY VIEWS IMAGING ASS ECG 79456 SHAZIA ANGELICA SHAZIA ANGELICA ROUTINE 4 ECG W/LEAST 12 LDS I&R ONLY RADIOLOGI 32032 CHRISTI MCCARTNEYCHER C EXAM 4 MEDICAL KARLY CHEST 2 IMAGING VIEWS ASS FRONTAL&L ATERAL LIPID 44419 [facility] CHERYL PANEL 4 [place] [employer] [employer] HEMOGLOBI 59175 [facility] LAB CHERYL N 4 [facility]Y GLYCOSYLA [employer] HOLDINGS MIKY A1C COMPREHEN 92042 [facility] CHERYL SIVE 4 [place] METABOLIC [employer] PANEL COMPREHEN 59185 LAB [facility] LAB CHERYL SIVE 3 [facility] BONY METABOLIC [employer] PANEL ECG 41139 JOSE MARIA ROSS ROUTINE 3 MARCELINA ECG PEDIATRIC W/LEAST S & INTER 12 LDS W/I&R BLOOD 95309 LAB [facility] LAB CHERYL COUNT 3 BONY BONY COMPLETE [employer] HOLDINGS AUTO&[place] [address] CHRISTI [place] HEAD/BRAI 3 MEDICAL KARLY N W/O IMAGING CONTRAST ASS MATERIAL ECG 70940 COURTNEY PACHECO ROUTINE 3 EMERGENCY AZAR ECG SERVICES W/LEAST 12 LDS I&R ONLY RADIOLOGI 96217 CHRISTI [place] C EXAM 3 MEDICAL KARLY CHEST 2 IMAGING VIEWS ASS FRONTAL&L ATERAL RADEX HIP 34339 [facility] 3 N N UNILATERA [facility] L HOSPITA HOSPITA COMPLETE MINIMUM 2 VIEWS RADEX 61113 COURTNEY BELLAMY BRA FOOT 3 EMERGENCY COMPLETE SERVICES MINIMUM 3 VIEWS HEMOGLOBI 28318 LAB [facility] LAB CHERYL N 3 BONY BONY GLYCOSYLA [employer] MIKY A1C BASIC 16753 LAB [facility] LAB CHERYL METABOLIC 3 BONY BONY PANEL [employer] CALCIUM TOTAL RADIOLOGI 46347 [facility] [place] LESLIE MAT C 3 RADIOLOGY EXAMINATI ON KNEE 3 VIEWS CYTP C/V 29663 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 THIN 3 Y CHERYL OF Y CHERYL OF LYR BONY BONY PREPJ SCR H H MNL RESCR PHYS IADNA 86222 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 PAPILLOMA 3 Y CHERYL OF Y CHERYL OF VIRUS BONY BONY HUMAN H H AMPLIFIED PROBE TQ COMPREHEN 96030 LAB [facility]L LAB CHERYL SIVE 3 B[place] BONY METABOLIC [employer] PANEL HEMOGLOBI 81638 LAB [facility]L LAB CHERYL N 3 BONY BONY GLYCOSYLA [employer] MIKY A1C LIPID 89779 LAB [facility]L LAB CHERYL PANEL 3 [facility] [employer] INCISION 26131 [facility] & 3 [facility] DRAINAGE INC INC ABSCESS SIMPLE/SI NGLE NONEMERG A0120 LKLP LKLP TRNSPRT: 2 [facility] MINI-BUS ACTION ACTION MTN AREA/OTH SYS COMPREHEN 15112 [facility] GARCIAON SIVE 2 [facility] METABOLIC INC INC PANEL CREATINE 43447 [facility] KINASE MB 2 [facility] FRACTION INC INC ONLY ECG 28315 COURT[facility] STEPHENS ROUTINE 2 EMERGENCY III ADRIENNE ECG SERVICES W/LEAST 12 LDS I&[place] [address] CHRISTI [place] HEAD/BRAI 2 MEDICAL KARLY N W/O IMAGING CONTRAST ASS MATERIAL CREATINE 68734 [facility] KINASE 2 [facility] TOTAL INC INC BLOOD 57060 [facility] COUNT 2 [facility] COMPLETE INC INC AUTO&AUTO DIFRNTL WBC ECG 71094 [facility] ROUTINE 2 [facility] ECG INC INC W/LEAST 12 LDS TRCG ONLY W/O I&[place] [address] [facility] TROPONIN 2 [facility] QUANTITAT INC INC FAWAD 3D 63212 [facility] RENDERING 2 [facility] W/INTERP INC INC & POSTPROCE SS SUPERVISI ON THERAPEUT 23773 [facility] IC 2 [facility] PROPHYLAC INC INC TIC/DX INJECTION SUBQ/IM BLOOD 27563 [facility] COUNT 2 [facility] COMPLETE INC INC AUTO&AUTO DIFRNTL WBC URNLS DIP 40013 [facility] GARCIAON 2 [facility] STICK/TAB INC INC LET REAGENT AUTO MICROSCOP Y BASIC 75614 B[facility] METABOLIC 2 [facility] [place] [address] CHRISTI PERALTAUTCHER ABDOMEN & 2 MEDICAL KARLY PELVIS IMAGING W/O ASS CONTRAST MATERIAL 3D 54906 CHRISTI LINUS RENDERING 2 MEDICAL KARLY IMAGING W/INTERP& ASS POSTPROC DIFF WORK STATION THERAPEUT 63248 [facility] IC 2 [facility] PROPHYLAC INC INC TIC/DX INJECTION SUBQ/IM NONEMERG A0120 LKLP LKLP TRNSPRT: 2 [facility] MINI-BUS ACTION ACTION MTN AREA/OT SYS CREATINE 48611 [facility] KINASE MB 2 [facility] FRACTION INC INC ONLY COMPREHEN 10038 [facility] SIVE 2 [facility] METABOLIC INC INC PANEL ECG 48319 COURTNEY RIVAS ROUTINE 2 EMERGENCY ECG SERVICES W/LEAST 12 LDS I&R ONLY ECG 21927 [facility] ROUTINE 2 [facility] ECG INC INC W/LEAST 12 LDS TRCG ONLY W/O I&[place] [address] [facility] TROPONIN 2 [facility] QUANTITAT INC INC FAWAD BLOOD 69312 [facility] COUNT 2 [facility] COMPLETE INC INC AUTO&AUTO DIFRNTL WBC CREATINE 99917 B[facility] KINASE 2 [facility] TOTAL INC INC RADIOLOGI 33142 [facility] 2 MEDICAL KARLY EXAMINATI IMAGING ON CHEST ASS SINGLE VIEW FRONTAL BASIC 19648 [facility] METABOLIC 2 [facility] PANEL INC INC CALCIUM TOTAL URNLS DIP 72881 [facility] 1 [facility] LET RGNT P P NON-AUTO W/O MICRSCP FIBRIN 61604 [facility] DGRADJ 1 [facility] PRODUCTS INC INC D-DIMER QUAL/SEMI JUANIS BLOOD 71562 [facility] COUNT 1 [facility] COMPLETE INC INC AUTO&AUTO DIFRNTL WBC RADEX 39347 [facility] ABDOMEN 1 1 MEDICAL MEDICAL IMAGING IMAGING ANTEROPOS ASS ASS TERIOR VIEW URNLS DIP 76581 [facility] 1 [facility] STICK/TAB INC INC LET REAGENT AUTO MICROSCOP Y BASIC 64320 [facility] METABOLIC 1 [facility] PANEL INC INC CALCIUM TOTAL DUP-SCAN 92739 [facility] XTR VEINS 1 [facility] COMPLETE INC INC BILATERAL STUDY CULTURE 07738 [facility] BACTERIAL 1 [facility] INC INC QUANTTATI VE COLONY COUNT URINE CALCULUS 17397 [facility] INFRARED 1 DIAGNOSTI DIAGNOSTI SPECTROSC CS CS OPY PROSTHETI L8699 NEW NEW C IMPLANT 1 [facility] NOT CLINIC CLINIC OTHERWISE PSC PSC SPECIFIED CYSTO 92133 NEW NEW W/INSERT 1 [facility] URETERAL CLINIC CLINIC STENT PSC PSC CYSTO 75379 NEW NEW W/URETERO 1 [facility] SCOPY CLINIC CLINIC W/LITHOTR PSC PSC IPSY INJECTION J2405 NEW NEW 1 [facility] ONDANSETR CLINIC CLINIC ON HCL PSC PSC PER 1 MG URNLS DIP 02720 [facility] VALERO 1 [facility] STICK/TAB [facility] LET RGNT P NON-AUTO W/O MICRSCP URNLS DIP 35857 [facility] VALERO 1 [facility] STICK/TAB [facility] LET RGNT P NON-AUTO W/O MICRSCP THERAPEUT 09591 [facility] IC 1 [facility] INJECTION INC [place] [address] [facility] INFUSION 1 [facility] THERAPY/P INC INC ROPHYLAXI S /DX 1ST TO 1 HR CYSTO 11448 [facility] W/INSERT 1 [facility] URETERAL INC INC STENT ECG 25641 [facility] ROUTINE 1 [facility] ECG INC INC W/LEAST 12 LDS TRCG ONLY W/O I&R ECG 82822 [facility] TEJADA JR ROUTINE 1 [facility] W/LEAST P 12 LDS I&R ONLY RAD 6045F [facility] EXPOS/ROBERT 1 MEDICAL MEDICAL E IN LAST IMAGING IMAGING RPRT ASS ASS FLUORO PRXD DOCD INTRO 42248 [facility] URETERAL 1 [facility] CATH/STEN INC INC T PRQ RS&I FLUOROSCO 25813 [facility] PY SPX UP 1 MEDICAL MEDICAL TO 1 IMAGING IMAGING HOUR ASS ASS PHYS/QHP TIME STENT C2617 [facility] NON-COR 1 [facility] TEMPORARY INC INC WITHOUT DELIVERY SYSTEM GUIDE C1769 [facility] WIRE 1 [facility] INC INC 3D 91747 [place] [facility] 1 MEDICAL [facility] IMAGING W/INTERP& ASS POSTPROC DIFF WORK STATION CULTURE 10-31-201 77966 [facility] BACTERIAL 1 [facility] INC [place] [address] [facility] PERALTAUT[facility] ABDOMEN & 1 MEDICAL [facility] PELVIS IMAGING W/O ASS CONTRAST MATERIAL URNLS DIP 32941 [facility] 1 [facility] STICK/TAB INC INC LET REAGENT AUTO MICROSCOP Y BLOOD 21309 [facility] COUNT 1 [facility] COMPLETE INC INC AUTO&[place] [address] [facility] INFUSION 1 [facility] THERAPY/P INC INC ROPHYLAXI S /DX 1ST TO 1 HR COMPREHEN 56025 [facility] SIVE 1 [facility] METABOLIC INC INC PANEL INJECTION J2405 [facility] 1 [facility] ONDANSETR INC INC ON HCL [place] 1 [place] [address] [facility] INFUSION 1 [facility] THER INC INC PROPH ADDL SEQUENTIA L TO 1 HR SLINGS A4565 HE L.P. HE L.P. 1 CREATINE 18056 [facility] KINASE 1 N N [facility] COMPREHEN 85398 [facility] SIVE 1 N N METABOLIC [facility] PANEL HOSPITA HOSPITA COLLECTIO 22699 [facility] N VENOUS 1 N N BLOOD [facility] VENIPUNCT HOSPITA HOSPITA URE HEMOGLOBI 67300 [facility] N 1 [facility] GLYCOSYLA MIKY A1C MRI BRAIN 39004 [facility] BRAIN 1 N N STEM W/O COMMUNITY COMMUNITY W/CONTRAS HOSPITA HOSPITA T MATERIAL LIPOPROTE 72012 [facility] IN DIRECT 1 [facility] MEASUREME NT LDL CHOLESTER OL LIPID 59004 [facility] PANEL 1 [facility] INC COMPREHEN 05318 [facility] SIVE 1 [facility] INC METABOLIC PANEL COLLECTIO 88534 LEE PAD LEE PAD N VENOUS 1 BLOOD VENIPUNCT URE 3D 20949 [facility] RENDERING 1 MEDICAL MEDICAL W/INTERP IMAGING IMAGING & [place] [address] [place] [facility] HEAD/BRAI 1 MEDICAL KARLY N W/O IMAGING CONTRAST ASS MATERIAL CYANOCOBA 49488 [facility] KNECHI 1 [facility] VITAMIN INC INC B-12 BLOOD 63019 [facility] COUNT 1 [facility] COMPLETE INC INC AUTO&AUTO DIFRNTL WBC COMPREHEN 56603 [facility] SIVE 1 [facility] METABOLIC INC INC PANEL SEDIMENTA 44691 B[facility] TIMATEO RATE 1 [facility] RBC INC INC NON-AUTOM ATED RADEX 49367 [facility]BS [facility] W/POSTERO INC INC ANT CH MINIMUM 3 VIEWS URNLS DIP 31734 [facility] STICK/TAB INC INC LET REAGENT AUTO MICROSCOP Y RADIOLOGI 06907 [place] [facility] C EXAM 0 MEDICAL KARLY CHEST 2 IMAGING VIEWS ASS FRONTAL&L ATERAL CULTURE 95472 [facility] BACTERIAL [facility] INC INC QUANTTATI VE COLONY COUNT URINE [facility] A4258 M E D M E D WERED 0 SUPPLIES SUPPLIES DEVICE FOR LANCET EACH BLD GLU A4253 M E D M E D TEST/REAG 0 SUPPLIES SUPPLIES T STRIPS HOME BLD GLU MON-50 NORMAL A4256 M E D M E D LOW AND 0 SUPPLIES SUPPLIES HIGH CALIBRATO R SOLUTION/ CHIPS LANCETS A4259 M E D M E D PER BOX 0 SUPPLIES SUPPLIES OF 100 SCREENING G0202 [facility] [place]AB[place] 0 RADIOLOGY RHO MAMMOGRAP HY TERESA INCL CAD WHEN PERFORMD COMPUTER- 52575 [facility] [place] AIDED 0 RADIOLOGY RHO DETECTION SCREENING MAMMOGRAP HY LIPID 22237 [facility] PANEL 0 [facility] INC HEMOGLOBI 60949 [facility] N 0 [facility] GLYCOSYLA MIKY A1C LIPOPROTE 06518 [facility] IN DIRECT 0 [facility] MEASUREME NT LDL CHOLESTER OL CYTP C/V 57359 PATHOLOGY PATHOLOGY AUTO THIN 0 & & LYR CYTOLOGY CYTOLOGY PREPJ SCR LAB LAB MNL RESCR PHYS COMPREHEN 63428 [facility] SIVE 0 [facility] METABOLIC PANEL COLLECTIO 09443 LEE PAD LEE PAD N VENOUS 0 BLOOD VENIPUNCT URE COMPREHEN 48567 [facility] SIVE [facility] METABOLIC INC INC PANEL URNLS DIP 89798 [facility] STICK/TAB INC INC LET REAGENT AUTO MICROSCOP Y RADIOLOGI 43363 [facility] C EXAM 0 [facility] CHEST 2 INC INC VIEWS FRONTAL&L ATERAL BLOOD 16477 [facility] COUNT 0 [facility] COMPLETE INC INC AUTO&AUTO DIFRNTL WBC BLD GLU A4253 M E D M E D TEST/REAG 0 SUPPLIES SUPPLIES T STRIPS HOME BLD GLU WED-50 LANCETS A4259 M E D M E D PER BOX 0 SUPPLIES SUPPLIES OF 100 REPL JOSE DE JESUS A4235 M E D M E D LITHIUM 0 SUPPLIES SUPPLIES MED NECES AYLIN BG MON OWN PT EA BLD GLU A4253 M E D M E D TEST/REAG 0 SUPPLIES SUPPLIES T STRIPS HOME BLD GLU WED-50 NORMAL A4256 M E D M E D LOW AND 0 SUPPLIES SUPPLIES HIGH CALIBRATO R SOLUTION/ [place] LANCETS A4259 M E D M E D PER BOX 0 SUPPLIES SUPPLIES OF 100 LANCETS A4259 M E D M E D PER BOX 0 SUPPLIES SUPPLIES OF 100 BLD GLU A4253 M E D M E D TEST/REAG 0 SUPPLIES SUPPLIES T STRIPS HOME BLD GLU WED-50 RADIOLOGI 94977 Carlos ALCAZAR EXAM 0 MEDICAL MONIQUE CHEST 2 IMAGING VIEWS ASSOCIATE FRONTAL&L S ATERAL URNLS DIP 16098 [facility] STICK/TAB INC INC LET REAGENT AUTO MICROSCOP Y URINE 69172 [facility] TEST INC INC VISUAL COLOR CMPRSN METHS CULTURE 52908 [facility] BACTERIAL [facility] INC INC QUANTTATI VE COLONY COUNT URINE LANCETS A4259 M E D M E D PER BOX 0 SUPPLIES SUPPLIES OF 100 BLD GLU A4253 M E D M E D TEST/REAG 0 SUPPLIES SUPPLIES T STRIPS HOME BLD GLU MON-50 BLD GLU A4253 M E D M E D TEST/REAG 0 SUPPLIES SUPPLIES T STRIPS HOME BLD GLU MON-50 LANCETS A4259 M E D M E D PER BOX 0 SUPPLIES SUPPLIES OF 100 NORMAL A4256 M E D M E D LOW AND 0 SUPPLIES SUPPLIES HIGH CALIBRATO R SOLUTION/ [place] [address] [facility] ABDOMEN 0 [facility] W/O INC INC CONTRAST MATERIAL CT PELVIS 09256 [facility] W/O 0 [facility] CONTRAST INC INC MATERIAL URNLS DIP 50912 [facility] STICK/TAB INC INC LET REAGENT AUTO MICROSCOP Y 3D 88938 [place] CHRISTY WILSON 0 MEDICAL JAMES P IMAGING W/INTERP& ASSOCIATE POSTPROC S DIFF WORK STATION LANCETS A4259 M E D M E D PER BOX 0 SUPPLIES SUPPLIES OF 100 BLD GLU A4253 M E D M E D TEST/REAG 0 SUPPLIES SUPPLIES T STRIPS HOME BLD GLU MON-50 [place] [address] [facility] STREPTOCO [facility] CCUS INC INC GROUP A BLD GLU A4253 M E D M E D TEST/REAG 0 SUPPLIES SUPPLIES T STRIPS HOME BLD GLU MON-50 LANCETS A4259 M E D M E D PER BOX 0 SUPPLIES SUPPLIES OF 100 REPL JOSE DE JESUS A4235 M E D M E D LITHIUM 0 SUPPLIES SUPPLIES MED NECES AYLIN BG MON OWN PT EA SPRING-PO A4258 M E D M E D WERED 0 SUPPLIES SUPPLIES DEVICE FOR LANCET EACH BLD GLU A4253 M E D M E D TEST/REAG 0 SUPPLIES SUPPLIES T STRIPS HOME BLD GLU MON-50 LANCETS A4259 M E D M E D PER BOX 0 SUPPLIES SUPPLIES OF 100 NORMAL A4256 M E D M E D LOW AND 0 SUPPLIES SUPPLIES HIGH CALIBRATO R SOLUTION/ [place] BLD GLU A4253 M E D M E D TEST/REAG 9 SUPPLIES SUPPLIES T STRIPS HOME BLD GLU MON-50 LANCETS A4259 M E D M E D PER BOX 9 [place] [address] [place] [address] [facility] [place], ABDOMEN 9 RADIOLOGY MARY K W/O CONTRAST MATERIAL CT PELVIS 42221 [facility] [place], W/O 9 RADIOLOGY MARY K CONTRAST MATERIAL LANCETS A4259 M E D M E D PER BOX 9 SUPPLIES SUPPLIES OF 100 BLD GLU A4253 M E D M E D TEST/REAG 9 SUPPLIES SUPPLIES T STRIPS HOME BLD GLU MON-50 BLD GLU A4253 M E D M E D TEST/REAG 9 SUPPLIES SUPPLIES T STRIPS HOME BLD GLU MON-50 NORMAL 200 A4256 M E D M E D LOW AND 9 SUPPLIES SUPPLIES HIGH CALIBRATO R SOLUTION/ [place] LANCETS A4259 M E D M E D PER BOX 9 SUPPLIES SUPPLIES OF 100 LANCETS A4259 M E D M E D PER BOX 9 SUPPLIES SUPPLIES OF 100 BLD GLU A4253 M E D M E D TEST/REAG 9 SUPPLIES SUPPLIES T STRIPS HOME BLD GLU MON-50 BLD GLU 200 A4253 M E D M E D TEST/REAG 9 SUPPLIES SUPPLIES T STRIPS HOME BLD GLU MON-50 LANCETS 200 A4259 M E D M E D PER BOX 9 SUPPLIES SUPPLIES OF 100 NORMAL 200 A4256 M E D M E D LOW AND 9 SUPPLIES SUPPLIES HIGH CALIBRATO R SOLUTION/ [place] BLD GLU 200 A4253 M E D M E D TEST/REAG 9 SUPPLIES SUPPLIES T STRIPS HOME BLD GLU MON-50 LANCETS 200 A4259 M E D M E D PER BOX 9 SUPPLIES SUPPLIES OF 100 REPL JOSE DE JESUS A4235 M E D M E D LITHIUM 9 SUPPLIES SUPPLIES MED NECES AYLIN BG MON OWN PT EA INCISION 74479 COURTNEY LAZARO, & 9 EMERGENCY ALVERTO L DRAINAGE SERVICES ABSCESS SIMPLE/SI ASSOCIATE DORIE S BLD GLU A4253 M E D M E D TEST/REAG 9 SUPPLIES SUPPLIES T STRIPS HOME BLD GLU MON-50 LANCETS A4259 M E D M E D PER BOX 9 SUPPLIES SUPPLIES OF 100 INCISION 97871 MICHELLE YOUNG, & 9 KEVIN ANITA L DRAINAGE EMERGENCY ABSCESS PHYS INC COMPLICAT ED/MULTIP LE BLD GLU A4253 M E D M E D TEST/REAG 9 SUPPLIES SUPPLIES T STRIPS HOME BLD GLU MON-50 LANCETS A4259 M E D M E D PER BOX 9 SUPPLIES SUPPLIES OF 100 RADIOLOGI 62933 [facility] TIFFANY EH, C 9 RADIOLOGY J EXAMINATI ON KNEE 3 VIEWS HOME E0607 M E D M E D BLOOD 9 SUPPLIES SUPPLIES GLUCOSE MONITOR LANCETS A4259 M E D M E D PER BOX 9 SUPPLIES SUPPLIES OF 100 BLD GLU A4253 M E D M E D TEST/REAG 9 SUPPLIES SUPPLIES T STRIPS HOME BLD GLU MON-50 NORMAL A4256 M E D M E D LOW AND 9 SUPPLIES SUPPLIES HIGH CALIBRATO R SOLUTION/ [place] BLD GLU A4253 M E D M E D TEST/REAG 9 SUPPLIES SUPPLIES T STRIPS HOME BLD GLU MON-50 LANCETS A4259 M E D M E D PER BOX 9 SUPPLIES SUPPLIES OF 100 COMPREHEN 13173 LAB [facility] LAB CHERYL SIVE 9 [facility] METABOLIC [employer]ING PANEL COLLECTIO 35357 Broderick ROE VENOUS 9 [facility] VENIPUNCT URE LIPID 34294 LAB CH[facility]L LAB CHERYL PANEL 9 [employer]ING BLD GLU A4253 M E D M E D TEST/REAG 9 SUPPLIES SUPPLIES T STRIPS HOME BLD GLU MON-50 LANCETS A4259 M E D M E D PER BOX 9 SUPPLIES SUPPLIES OF 100 URNLS DIP 03890 [facility] 9 LTH JR, STICK/TAB UROLOGY MAR Osuna LET RGNT PSC AUTO W/O MICROSCOP Y LANCETS A4259 M E D M E D PER BOX 9 SUPPLIES SUPPLIES OF 100 NORMAL A4256 M E D M E D LOW AND 9 SUPPLIES SUPPLIES HIGH CALIBRATO R SOLUTION/ [place] BLD GLU A4253 M E D M E D TEST/REAG 9 SUPPLIES SUPPLIES T STRIPS HOME BLD GLU WED-50 REPL JOSE DE JESUS A4235 M E D M E D LITHIUM 9 SUPPLIES SUPPLIES MED NECES AYLIN BG MON OWN PT EA SPRING-PO A4258 M E D M E D WERED 9 SUPPLIES SUPPLIES DEVICE FOR LANCET EACH CT PELVIS 58774 [facility] [place], W/O 9 [place] [address] [facility] [place], ABDOMEN 9 RADIOLOGY MARY K W/O CONTRAST MATERIAL CYSTO 94575 [facility] [place] W/INSERT 9 LTH JR, URETERAL UROLOGY MAR Osuna STENT PSC CYSTO 54297 [facility] [place] W/URETERO 9 LTH JR, SCOPY UROLOGY MAR Osuna W/RMVL/MA PSC [place] STONES ANES 94299 ANESTHESI TORIFEE, TRANSURET 9 Deniz Murphy HRAL ASSOCIATE W/URETHRO S, PSC CYSTOSCOP Y NOS URNLS DIP 73224 [facility] 9 LTH JR, STICK/TAB UROLOGY MAR Osuna LET RGNT PSC AUTO W/O MICROSCOP Y CYSTO 38748 [facility] [place] W/INSERT 8 LTH JR, URETERAL UROLOGY MAR Osuna STENT PSC ANES 40219 ANESTHESI SMITH, TRANSURET 8 Deniz Gonzalez HRAL ASSOCIATE W/URETHRO S, PSC CYSTOSCOP Y NOS URETERAL [address] AMB A0427 [facility] SERVICE 8 CARTER MACHADO [facility] EMS [facility] EMS EMERGENCY TRANSPORT LEVEL 1 CT PELVIS 12-29-200 21144 [facility] [place] NER[place], W/O 8 RADIOLOGY J CONTRAST MATERIAL ECG 02282 [place], ROUTINE 8 [place] J C ECG CLINIC W/LEAST PSC 12 LDS I&R ONLY INITIAL 81234 [facility] 8 [facility] JR, CARE/DAY UROLOGY [place] [address] [place] [address] [place] [place]ER[place], ABDOMEN 8 RADIOLOGY J W/O CONTRAST MATERIAL GROUND A0425 [facility] CARTER [facility]ACH[facility] [place] [address] [facility] [place], ABDOMEN 8 RADIOLOGY MARY Osuna W/O CONTRAST MATERIAL CT PELVIS 65748 [facility] [place], W/O 8 RADIOLOGY MARY Osuna CONTRAST MATERIAL COLLECTIO 79900 [facility] COL[place], N VENOUS 8 [facility] BLOOD [facility] CENTER VENIPUNCT URE HEMOGLOBI 71445 LAB CHERYL LAB CHERYL N 8 [facility] GLYCOSYLA HOLDING HOLDING MIKY A1C GLUCOSE 20681 LAB [facility] LAB CHERYL QUANTITAT 8 [facility] FAWAD BLOOD HOLDING HOLDING XCPT REAGENT STRIP LIPID 55122 LAB [facility] LAB CHERYL PANEL 8 [facility] [facility] SCREENING G0202 [facility] 8 N N MAMMOGRAP [facility] INCL CAD WHEN PERFORMD COLLECTIO 21500 H[place]IZ[place] OVERBEE, N VENOUS 8 [facility] BLOOD E CENTER VENIPUNCT URE GENERAL 95548 LAB CHERYL LAB CHERYL HEALTH 8 [facility] [employer] 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- 07353 [facility] AIDED 8 N N [facility] SCREENING MAMMOGRAP HY IADNA 60317 [facility] [place], CHLAMYDIA 8 [place] INC MICHAEL D TRACHOMAT IS AMPLIFIED PROBE TQ CYTP 86223 [facility] [place], CERV/VAG 8 [place] INC MICHAEL D AUTO THIN LAYER PREP MNL SCREEN IADNA 56272 [facility] [place], NEISSERIA 8 [place] INC MICHAEL D GONORRHOE AE AMPLIFIED PROBE TQ IADNA 93710 [facility] [place], MELLO 8 [place] INC MICHAEL D SPECIES AMPLIFIED PROBE TQ IADNA 23435 [facility] [place], GARDNEREL 8 [place] INC MICHAEL D LA VAGINALIS AMPLIFIED PROBE TQ IADNA 55871 [facility] TRICHOMON 8 [facility] INC INC VAGINALIS DIRECT PROBE TQ URNLS DIP 81945 [facility] OSP[place], 8 [facility] STICK/TAB E CENTER LET RGNT AUTO W/[place] [address] [facility] [place] MARCEL[place], ABDOMEN 8 RADIOLOGY ONIEL P W/O CONTRAST MATERIAL CT PELVIS 11433 [facility] [place] MARCEL[place], W/O 8 RADIOLOGY ONIEL P CONTRAST MATERIAL 3D 29050 [place] [facility], RENDERING 8 MEDICAL MONIQUE IMAGING W/INTERP& [place]OCI[place] [address] [place] [facility], ABDOMEN 8 MEDICAL MONIQUE W/O IMAGING CONTRAST ASSOCIATE MATERIAL S CT PELVIS 14387 [place] [facility], W/O 8 MEDICAL MONIQUE CONTRAST IMAGING MATERIAL ASSOCIATE S URNLS DIP 35111 [facility] STICK/TAB INC INC LET REAGENT AUTO MICROSCOP Y RADIOLOGI 62236 [facility] C EXAM 8 [facility] CHEST 2 INC INC VIEWS FRONTAL&L ATERAL BLOOD 96080 [facility] COUNT 8 [facility] COMPLETE INC INC AUTO&AUTO DIFRNTL WBC IAADI 78652 [facility] INFLUENZA 8 [facility] B VIRUS INC INC IAADI 58602 [facility] INFFLUENZ 8 [facility] A A VIRUS INC INC BASIC 54134 [facility] METABOLIC 8 [facility] [place] [address] [facility] [facility] THER 8 [facility] PROPH/DX INC INC 1ST >1 HR THERAPEUT 42185 [facility] IC PX 1/> 8 [facility] AREAS INC INC EACH 15 MIN EXERCISES PHYSICAL 86833 [facility] THERAPY 8 [facility] EVALUATIO INC INC N APPL 19852 [facility] MODALITY 8 [facility] 1/> AREAS INC INC ELEC STIMJ UNATTENDE D CT LUMBAR 89631 [facility] SPINE 8 [facility] W/O INC INC CONTRAST MATERIAL 3D 01601 [facility] RENDERING 8 [facility] INC INC W/INTERP& POSTPROC DIFF WORK STATION RADEX HIP 35732 [facility] 8 [facility] UNILATERA INC INC L COMPLETE MINIMUM 2 VIEWS RADIOLOGI 47280 [facility] C 8 [facility] EXAMINATI INC INC ON FEMUR 2 VIEWS RADEX 44507 [facility] SPINE 8 [facility] LUMBOSACR INC INC AL MINIMUM 4 VIEWS Encounters Encounter Start End Date Code Location Performer Type Date [facility] 7 7 [facility] OUTPATIEN INC T EMERGENCY 55860 LEONEL LEE DEPT 7 7 PHYSICIAN VISIT S, PLLC HIGH SEVERITY& THREAT FUNCJ EMERGENCY 01766 [facility] 7 7 [facility] DEPARTMEN INC T VISIT LOW/MODER SEVERITY [facility] 7 [facility] OUTPATIEN INC T OFFICE 81152 [facility] AGUILERAEN 7 7 [facility] T VISIT 5 INC MINUTES EMERGENCY 37384 [facility] 7 7 [facility] DEPARTMEN INC T VISIT LOW/MODER SEVERITY [facility] 7 7 [facility] OUTPATIEN INC T OFFICE 06503 JOSE MARIA ROSS OUTPATIEN 6 6 MARCELINA T VISIT PEDIATRIC 15 S & INTER MINUTES HOSPITAL [facility] 6 6 N OUTPATIEN COMMUNTIY T HOSPITA OFFICE 51030 SCIFRES SCIFRES OUTPATIEN 6 6 ANG ANG T VISIT 15 MINUTES OFFICE 24219 SCIFRES SCIFRES OUTPATIEN 6 6 ANG ANG T VISIT 15 MINUTES OFFICE 30933 [facility] PETTEY OUTPATIEN 6 6 PHYSICIAN JAM T NEW 20 S GROUP MINUTES EMERGENCY 15956 LEONEL CROWDER DEPT 6 6 PHYSICIAN OLGA VISIT [facility] HIGH SEVERITY& THREAT FUNCJ EMERGENCY 81934 [facility] 6 6 [facility] DEPARTMEN INC T VISIT MODERATE SEVERITY [facility] 6 6 [facility] OUTPATIEN INC T OFFICE 28643 ANN KEARNS OUTPATIEN 6 6 PHYSCIAN LES T VISIT PRACTICE 15 LL MINUTES [facility]OSPITAL [facility] 6 6 [facility] OUTPATIEN INC T OFFICE 19599 CHANCE TRA CHANCE TRA OUTPATIEN 6 6 T VISIT 15 MINUTES OFFICE 22087 ANN KEARNS CONSULTAT 6 6 PHYSCIAN LES ION PRACTICE NEW/ESTAB LL PATIENT 40 MIN OFFICE 65857 JOSE MARIA ROSS OUTPATIEN 6 6 MARCELINA T VISIT PEDIATRIC 15 S & INTER MINUTES HOME [facility], 6 6 HOME INPATIENT HEALTH AGENCY EMERGENCY 01705 [facility] 6 6 [facility] DEPARTMEN INC T VISIT MODERATE SEVERITY [facility]OSP[facility] - 6 6 [facility] OUTPATIEN INC T EMERGENCY 68983 LEONEL US 6 6 PHYSICIAN Payal KINSEY DEPARTMEN S, [facility] T VISIT HIGH/URGE NT SEVERITY [facility]OSPITAL [facility] - 5 5 [facility] OUTPATIEN INC T EMERGENCY 46681 LEONEL PACHECO DEPT 5 5 PHYSICIAN AZAR VISIT S, [facility] HIGH SEVERITY& THREAT FUNCJ EMERGENCY 35006 [facility] 5 5 [facility] DEPARTMEN INC T VISIT HIGH/URGE NT SEVERITY OFFICE 47079 JOSE MARIA ROSS OUTPATIEN 5 5 MARCELINA T VISIT PEDIATRIC 15 S & INTER MINUTES HOME [facility], 5 5 HOME INPATIENT HEALTH [facility] [address] INPATIENT HOSPITAL [facility] - 5 5 N OUTPATIEN COMMUNTIY T HOSPITA OFFICE 24595 LISAMONICA ROSS OUTPATIEN 5 5 MARCELINA T VISIT PEDIATRIC 15 S & INTER MINUTES HOSPITAL [address] OUTPATIEN T EMERGENCY 72206 LEONEL PACHECO DEPT 5 5 PHYSICIAN AZAR VISIT S, PLL HIGH SEVERITY& THREAT [facility] [address] OUTPATIEN T OFFICE 14089 JOSE MARIA ROSS OUTPATIEN 5 5 MARCELINA T VISIT PEDIATRIC 15 S & INTER MINUTES OFFICE 89483 [facility] CHANCE TRA OUTPATIEN 5 5 [place] T VISIT ORTHOPAED 15 [facility] MINUTES EMERGENCY 46861 BARRY Ruth 5 5 DEPARTMEN T VISIT MODERATE SEVERITY OFFICE 26722 JOSE MARIA ROSS OUTPATIEN 5 5 MARCELINA T VISIT PEDIATRIC 15 S & INTER MINUTES EMERGENCY 19133 NALLELY PACHECO DEPT 5 5 AZAR AZAR VISIT HIGH SEVERITY& THREAT FUNCJ OFFICE 63142 [facility] TRA OUTPATIEN 5 5 [place] T VISIT ORTHOPAED 15 [facility] MINUTES HOSPITAL [facility] - 5 5 [facility] OUTPATIEN INC T EMERGENCY 05201 CHRISTEL KEARNEY 5 5 DORI DORI DEPARTMEN T VISIT HIGH/URGE NT SEVERITY OFFICE 90377 [facility] CHANCE TRA OUTPATIEN 5 5 [place] T NEW 45 ORTHOPAED MINUTES [facility] OFFICE 78440 JOSE MARIA ROSS OUTPATIEN 4 4 MARCELINA T VISIT PEDIATRIC 15 S & INTER MINUTES EMERGENCY 14504 NALLELY PACHECO 4 4 AZAR AZAR DEPARTMEN T VISIT MODERATE SEVERITY EMERGENCY 95320 NALLELY PACHECO DEPT 4 4 AZAR AZAR VISIT HIGH SEVERITY& THREAT [facility] - 4 4 N OUTPATIEN COMMUNITY T HOSPITA EMERGENCY 98437 LEATHA MURISAIN 4 4 IMT IMT DEPARTMEN T VISIT MODERATE SEVERITY OFFICE 74160 JOSE MARIA ROSS OUTPATIEN 4 4 MARCELINA T VISIT PEDIATRIC 15 S & INTER MINUTES EMERGENCY 16503 ALFARIS ALFARIS 4 4 [facility] MOH DEPARTMEN T VISIT HIGH/URGE NT SEVERITY EMERGENCY 94190 SHAZIA ANGELICA SHAZIA ANGELICA DEPT 4 4 VISIT HIGH SEVERITY& THREAT FUNCJ OFFICE 30312 JOSE MARIA ROSS OUTPATIEN 4 4 MARCELINA T VISIT PEDIATRIC 15 S & INTER MINUTES EMERGENCY 66887 [facility] 4 4 BRO BRO DEPARTMEN T VISIT HIGH/URGE NT SEVERITY OFFICE 43003 JOSE MARIA ROSS OUTPATIEN 3 3 MARCELINA T VISIT PEDIATRIC 15 S & INTER MINUTES Emergency PAULINE Pacheco MD (ER) 3 19:30 3 21:20 [facility] EMERGENCY 22441 COURTNEY PACHECO DEPT 3 3 EMERGENCY AZAR VISIT SERVICES HIGH SEVERITY& THREAT FUNJ OFFICE 96045 JOSE MARIA ROSS OUTPATIEN 3 3 MARCELINA T VISIT PEDIATRIC 15 S & INTER MINUTES HOSPITAL [facility] - 3 3 N OUTPATIEN COMMUNITY T HOSPITA OFFICE 25796 JOSE MARIA ROSS OUTPATIEN 3 3 MARCELINA T VISIT PEDIATRIC 10 S & INTER MINUTES EMERGENCY 54646 COURTNEY LEWIS 3 3 EMERGENCY DEPARTMEN SERVICES T VISIT MODERATE SEVERITY OFFICE 33455 JOSE MARIA ROSS OUTPATIEN 3 3 MARCELINA T VISIT PEDIATRIC 15 S & INTER MINUTES EMERGENCY 86471 COURTNEY GARCIA 3 3 EMERGENCY RYA DEPARTMEN SERVICES T VISIT HIGH/URGE NT SEVERITY PERIODIC 49814 LISAMONICA VANDANA PREVENTIV 3 3 MARCELINA E MED EST PEDIATRIC PATIENT S & INTER 40-64YRS OFFICE 08998 LUZ BAKER 3 3 MARKO MARKO T VISIT 15 MINUTES OFFICE 93022 [facility] EDIL BAKER 3 3 PHYSICIAN CAM T NEW 45 S GROUP MINUTES EMERGENCY 68306 [facility] 3 3 [facility] DEPARTMEN INC T VISIT LOW/MODER SEVERITY EMERGENCY 43797 COURTNEY STEPHENS 3 3 EMERGENCY III ADRIENNE DEPARTMEN SERVICES T VISIT HIGH/URGE NT SEVERITY [facility] - 3 3 [facility] OUTPATIEN INC T OFFICE 04246 LUZ BAKER 2 2 MARKO MARKO T VISIT 15 MINUTES HOSPITAL [facility] - 2 2 [facility] OUTPATIEN INC T EMERGENCY 20931 COURTNEY STEPHENS DEPT 2 2 EMERGENCY III ADRIENNE VISIT SERVICES HIGH SEVERITY& THREAT FUNCJ EMERGENCY 27068 [facility] 2 2 [facility] DEPARTMEN INC T VISIT MODERATE SEVERITY EMERGENCY 44703 [facility] 2 2 [facility] DEPARTMEN INC T VISIT MODERATE SEVERITY EMERGENCY 42008 COURTNEY MCKENNA DEPT 2 2 EMERGENCY ADRIENNE VISIT SERVICES HIGH SEVERITY& THREAT FUN [facility] [place] - 2 2 [facility] OUTPATIEN INC T OFFICE 39681 LUZ BAKER 2 2 MARKO MARKO T VISIT 15 MINUTES EMERGENCY 52372 COURTNEY MCKENNA 2 2 EMERGENCY ADRIENNE DEPARTMEN SERVICES T VISIT HIGH/URGE NT SEVERITY [facility] - 2 2 [facility] OUTPATIEN INC T EMERGENCY 32616 [facility] 2 2 [facility] DEPARTMEN INC T VISIT MODERATE SEVERITY EMERGENCY 34681 COURTNEY PACHECO 2 2 EMERGENCY AZAR DEPARTMEN SERVICES T VISIT MODERATE SEVERITY OFFICE 34952 TIFFANY VILLAGOMEZ CONSULTAT 2 2 MEDICAL L ION SERV NEW/ESTAB FOUNDATIO PATIENT 80 MIN OFFICE 38923 LUZ ESCOBAR OUTPATIEN 2 2 MARKO MARKO T VISIT 15 MINUTES EMERGENCY 10934 [facility] 2 2 [facility] DEPARTMEN INC T VISIT MODERATE SEVERITY EMERGENCY 12732 COURTNEY FRANKS DEPT 2 2 EMERGENCY VISIT SERVICES HIGH SEVERITY& THREAT [facility] - 2 2 [facility] OUTPATIEN INC T EMERGENCY 43098 COURTNEY VALDEZ 1 1 EMERGENCY EMERGENCY DEPARTMEN SERVICES SERVICES T VISIT HIGH/URGE NT SEVERITY [facility] T EMERGENCY 06613 [facility] T VISIT MODERATE SEVERITY OFFICE 90944 [facility] 1 [facility] 25 P MINUTES OFFICE 10327 [facility] 1 1 [facility] 25 P MINUTES [facility] [place] [facility] T EMERGENCY 19353 COURTNEY RIVAS DEPT 1 1 EMERGENCY VISIT SERVICES HIGH SEVERITY& THREAT [facility] [place] [facility] T EMERGENCY 18427 [facility] T VISIT HIGH/URGE NT SEVERITY EMERGENCY 93172 [facility] T VISIT LOW/MODER SEVERITY [facility] [place] [facility] 1 1 [facility] T EMERGENCY 49440 COURTNEY FRANKS 1 1 EMERGENCY DEPARTMEN SERVICES T VISIT HIGH/URGE NT SEVERITY EMERGENCY 26269 [place] 1 1 [facility] INC T VISIT LOW/MODER SEVERITY EMERGENCY 45194 COURTNEY FRANKS 1 1 EMERGENCY DEPARTMEN SERVICES T VISIT HIGH/URGE NT SEVERITY [facility] [place] [facility] 1 1 [facility] T [facility] [place] [facility] 1 1 [facility] T EMERGENCY 37395 [facility] T VISIT LOW/MODER SEVERITY EMERGENCY 66306 COURTNEY FRANKS 1 1 EMERGENCY DEPARTMEN SERVICES T VISIT MODERATE SEVERITY [facility]OS[facility] - 1 N OUTPATIEN COMMUNITY T HOSPITA OFFICE 65138 [facility] OUTPATIEN 1 1 T VISIT 15 MINUTES [facility] [place] [facility] 1 1 [facility] INC T EMERGENCY 54175 [place] 1 1 [facility] LOW/MODER SEVERITY EMERGENCY 94769 COURTNEY STOVALL BAB 1 1 EMERGENCY DEPARTMEN SERVICES T VISIT MODERATE SEVERITY OFFICE 99032 L[facility] PAD L[facility] PAD OUTPATIEN 1 1 T VISIT 25 MINUTES [facility] [place] [id number] 1 N OUTPATIEN COMMUNITY T HOSPITA EMERGENCY 29846 [place] 1 1 [facility] DE[facility]MEN INC T VISIT LOW/MODER SEVERITY EMERGENCY 70100 COURTNEY FRANKS DEPT 1 1 EMERGENCY VISIT SERVICES HIGH SEVERITY& THREAT [facility] [place] [facility] 1 1 [facility] INC T [facility] [place] [facility] 1 1 [facility] INC T EMERGENCY 96574 [facility] 1 1 [facility] DE[facility] INC T VISIT LOW/MODER SEVERITY EMERGENCY 60783 COURTNEY PACHECO 1 1 EMERGENCY [facility] DEPARTMEN SERVICES T VISIT HIGH/URGE NT SEVERITY EMERGENCY 54063 COURTNEY ROSS 0 0 EMERGENCY [facility] DEPARTMEN SERVICES T VISIT MODERATE SEVERITY EMERGENCY 81531 [facility] INC T VISIT LOW/MODER SEVERITY [facility] [place] [facility] OUTPATIEN INC T EMERGENCY 87567 [facility] 0 0 [facility] DE[facility]MEN INC T VISIT LOW/MODER SEVERITY [facility] [place] [facility] OUT[facility] INC T EMERGENCY 12235 COURTNEY ROSS 0 0 EMERGENCY [facility] DEPARTMEN SERVICES T VISIT HIGH/URGE NT SEVERITY OFFICE 94929 LEE PAD LEE PAD OUTPATIEN 0 0 T VISIT 15 MINUTES [facility] OUTPATIEN COMMUNITY T HOSPITA [facility] 53783 LEE PAD LEE PAD [facility] 0 0 E MED EST PATIENT [id number] [facility] [place] 0 0 [facility] INC T EMERGENCY 40351 COURTNEY [place] 0 0 EMERGENCY DEPARTMEN SERVICES T VISIT HIGH/URGE NT SEVERITY EMERGENCY 11159 [facility] INC T VISIT MODERATE SEVERITY OFFICE 81376 LEE PAD LEE PAD OUTPATIEN 0 0 T NEW 30 MINUTES EMERGENCY 15616 COURTNEY KEARNEY, 0 0 EMERGENCY [facility] DEPARTMEN SERVICES T VISIT MODERATE ASSOCIATE SEVERITY S EMERGENCY 65699 [facility] 0 0 [facility] INC T VISIT LOW/MODER SEVERITY [facility] [facility] 0 [facility] OUTPATI[facility] INC T EMERGENCY 59879 COURTNEY STOVALL, 0 0 EMERGENCY [facility] DEPARTMEN SERVICES O T VISIT HIGH/URGE ASSOCIATE NT S SEVERITY [facility] [facility] 0 0 [facility] OUT[facility] INC T EMERGENCY 76526 COURTNEY NELSON, DEPT 0 0 EMERGENCY [facility] VISIT SERVICES M HIGH SEVERITY& ASSOCIATE THREAT S [facility] EMERGENCY 96701 [place] 0 0 [facility] DEPARTMEN INC T VISIT LOW/MODER SEVERITY EMERGENCY 68169 COURTNEY PARIKH 0 0 [facility]ISIT MODERATE SEVERITY EMERGENCY 23212 COURTNEY PARIKH 0 0 [facility] T VISIT MODERATE SEVERITY EMERGENCY 58178 COURTNEY [place], 0 0 EMERGENCY [facility] DEPARTMEN SERVICES T VISIT HIGH/URGE ASSOCIATE NT S SEVERITY [facility] [place] [facility] 0 0 [facility] OUTPATIEN INC T EMERGENCY 89507 [place] 0 0 [facility] DEPARTMEN INC T VISIT MODERATE SEVERITY [facility] N OUTPATIEN [facility] EMERGENCY 28796 COURTNEY HERNANDEZ DEPT 9 9 EMERGENCY , KAYLYNN VISIT SERVICES HIGH SEVERITY& ASSOCIATE THREAT S FUNCJ EMERGENCY 56002 COURTNEY FOY, 9 9 EMERGENCY MIKY DEPARTMEN SERVICES T VISIT MODERATE ASSOCIATE SEVERITY S EMERGENCY 82987 COURTNEY MCCORD 9 9 EMERGENCY - YORBA, DEPARTMEN SERVICES BRI T VISIT M MODERATE ASSOCIATE SEVERITY S EMERGENCY 47592 COURTNEY ZHENGAROSI 9 9 EMERGENCY - YORBA, DEPARTMEN SERVICES BRI T VISIT M MODERATE ASSOCIATE SEVERITY S EMERGENCY 84329 COURTNEY LAZARO, 9 9 EMERGENCY ALVERTO L DEPARTMEN SERVICES T VISIT HIGH/URGE ASSOCIATE NT S SEVERITY EMERGENCY 40055 [place] 9 9 N DEPARTMEN COMMUNITY T VISIT HOSPITAL MODERATE SEVERITY [facility] 9 9 N OUTPATIEN [facility] T H[facility]PITAL OFFICE 12001 [facility] OUT[facility] 9 9 [facility] T VISIT E CENTER 15 MINUTES [facility]OSPITAL [facility] - 9 9 N OUTPATIEN COMM[facility]ITY T HOSPITAL EMERGENCY 95134 [facility] 9 9 N DEPARTMEN COMMUNITY T VISIT HOSPITAL LOW/MODER SEVERITY EMERGENCY 87509 [facility] 9 9 N DEPARTMEN COMMUNITY T VISIT HOSPITAL LOW/MODER SEVERITY HOSPITAL [facility] - 9 9 N OUTPATIEN COMMUNITY T HOSPITAL EMERGENCY 61931 [facility], 9 9 KEVIN Ruth DEPARTMEN EMERGENCY T VISIT PHYS INC MODERATE SEVERITY EMERGENCY 00415 [facility] 9 9 [facility] T VISIT PHYS INC M MODERATE SEVERITY EMERGENCY 70844 [facility] 9 9 N DEPARTMEN COMMUNITY T VISIT HOSPITAL LOW/MODER SEVERITY [facility]OSPITAL [facility] - 9 9 N OUTPATIEN COMMUNITY T HOSPITAL EMERGENCY 73665 [facility], 9 9 KEVIN Ruth DEPARTMEN EMERGENCY T VISIT PHYS INC MODERATE SEVERITY EMERGENCY 65541 [facility], 9 9 KEVIN SALLY Hendricks DEPARTMEN EMERGENCY T VISIT PHYS INC MODERATE SEVERITY EMERGENCY 77952 [facility], 9 9 KEVIN HENRY DEPARTMEN EMERGENCY A T VISIT PHYS INC MODERATE SEVERITY OFFICE 05015 [facility] OUT[facility] 9 9 [facility] T VISIT E CENTER 15 MINUTES EMERGENCY 89691 [facility] 9 9 KEVIN Sheila LESTER DEPARTMEN EMERGENCY BRI T VISIT PHYS INC M MODERATE SEVERITY OFFICE 26805 [facility] 9 9 [facility] T VIS[facility] CENTER 15 MINUTES OFFICE 98343 [facility] 9 9 LTH JR, T VISIT UROLOGY MAR K 15 PSC MINUTES EMERGENCY 27036 [facility] 9 9 KEVIN - YORBA, DEPARTMEN EMERGENCY BRI T VISIT PHYS INC M HIGH/URGE NT SEVERITY OFFICE 08565 [facility] 9 9 [facility] T VIS[facility] CENTER 15 MINUTES OFFICE 50625 [facility] 9 9 LTH JR, T VISIT UROLOGY MAR K 10 PSC MINUTES OFFICE 54095 [facility] 9 9 LTH JR, T VISIT UROLOGY MAR K 10 PSC MINUTES OFFICE 00162 [facility] 9 9 [facility] T VISIT E CENTER 15 MINUTES EMERGENCY 53513 [facility] DEPT 8 8 KEVIN - YORBA, VISIT EMERGENCY BRI HIGH PHYS INC M SEVERITY& THREAT [facility] [place] [address] 8 HOSPITAL INPATIENT EMERGENCY 59535 [facility] 8 8 KEVIN - YORBA, DEPARTMEN EMERGENCY BRI T VISIT PHYS INC M HIGH/URGE NT SEVERITY OFFICE 23821 [facility] 8 8 [facility] T VISIT E CENTER 15 MINUTES HOSPITAL [place] [address]95 8 N OUTPATIEN [facility] OFFICE 89729 [facility] 8 8 [facility] T VISIT E CENTER 15 MINUTES EMERGENCY 11536 [facility], 8 8 KEVIN ANITA Ruth DEPARTMEN EMERGENCY T VISIT PHYS INC HIGH/URGE NT SEVERITY OFFICE 80819 [facility] [place] OUTPATIEN 8 8 [facility] T [facility] MINUTES EMERGENCY 44725 [facility] EMERGENCY BRI T VISIT PHYS INC M MODERATE SEVERITY OFFICE 17438 [facility]E OUTPATIEN 8 8 DON R DON R T VISIT 15 MINUTES EMERGENCY 98170 [place] 8 8 [facility] T VISIT MODERATE SEVERITY [facility] [place] - 8 8 [facility] [place] [facility] 8 8 [facility] EMERGENCY 76564 [place] 8 8 [facility] VISIT MODERATE [facility]VERITY [facility] [place] - 8 8 [facility] [place] - 8 8 [facility] OFFICE 56737 MIKKI KAYE OUTPATIEN 8 8 DON R DON R T VISIT 15 MINUTES EMERGENCY 23497 [place] 8 8 [facility] T VISIT LOW/MODER SEVERITY EMERGENCY 95445 [place], 8 8 [facility] T VISIT PROF SERV MODERATE SEVERITY [facility]PITAL [place] - 8 8 [facility]
--- OUTSIDE RECORDS SUMMARY | 2016-10-04 20:57 | External Medical Summary Rpt ---
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 33486 [facility] THERAPY 6 [facility] EVALUATIO INC INC N ARTHROCEN 46886 CHANCE TRA CHANCE TRA TESIS 6 ASPIR&/IN J MAJOR JT/BURSA W/O US INJECTION S0020 CHANCE TRA CHANCE TRA 6 BUPIVICAI NE HYDROCHLO RIDE 30 ML RADEX HIP 62387 CHANCE TRA CHANCE TRA 6 UNILATERA L WITH PELVIS 2-3 VIEWS INJ J0702 CHANCE TRA CHANCE TRA BETAMETHA 6 SONE ACETATE & PHOSPHATE 3 MG SERVICE G0151 [facility] THERAP HEALTH HEALTH HOME AGENCY AGENCY HLTH/HOSP ICE EA 15 [place] [address] [facility] LIPASE 6 [facility] INC INC BLOOD 37467 [facility] COUNT 6 [facility] COMPLETE INC INC AUTO&AUTO DIFRNTL WBC URNLS DIP 45964 [facility] 6 [facility] STICK/TAB INC INC LET REAGENT AUTO MICROSCOP Y INJECTION J2405 [facility] 6 [facility] ONDANSETR INC INC ON HCL PER 1 [place] [address] [facility] INFUSION 6 [facility] THERAPY/P INC INC ROPHYLAXI S /DX 1ST TO 1 HR THERAPEUT 81707 [facility] IC 6 [facility] INJECTION [place] [address] [facility] ALL ABDOMEN & 6 MEDICAL PELVIS IMAGING W/O ASS CONTRAST MATERIAL SERVICE G0151 [facility] 5 HOME HOME THERAP HEALTH HEALTH HOME AGENCY AGENCY HLTH/HOSP ICE EA 15 MIN SERVICE G0151 [facility] 5 HOME HOME THERAP [facility] HEALTH HOME AGENCY AGENCY HLTH/HOSP ICE EA 15 MIN CREATINE 14478 [facility] KINASE 5 [facility] TOTAL INC INC ECG 54205 [facility] ROUTINE 5 [facility] ECG INC INC W/LEAST 12 LDS TRCG ONLY W/O I&[place] [address] [facility] TROPONIN 5 [facility] QUANTITAT INC INC FAWAD GLUC BLD 78250 [facility] GLUC MNTR 5 [facility] DEV INC INC CLEARED FDA SPEC HOME USE URNLS DIP 35251 [facility] 5 [facility] STICK/TAB INC INC LET REAGENT AUTO MICROSCOP Y NATRIURET 66945 [facility] IC 5 [facility] PEPTIDE INC INC RADIOLOGI 39652 [place] LIN[place] C EXAM 5 MEDICAL KARLY CHEST 2 IMAGING VIEWS ASS FRONTAL&L ATERAL BLOOD 37490 [facility] COUNT 5 [facility] COMPLETE INC INC AUTO&AUTO DIFRNTL WBC THER 26783 [facility] PROPH/DX 5 [facility] NJX IV INC INC PUSH SINGLE/1S T SBST/DRUG CREATINE 28115 [facility] KINASE MB 5 [facility] FRACTION INC INC ONLY COMPREHEN 49347 B[facility] SIVE 5 [facility] MEM [...] AGENCY HLTH/HOSP ICE EA 15 MIN HEMOGLOBI 81350 [facility] N 5 DIAGNOSTI DIAGNOSTI GLYCOSYLA CS CS MIKY A1C COMPREHEN 99187 [facility] QUEST SIVE 5 DIAGNOSTI DIAGNOSTI METABOLIC CS CS PANEL SERVICE G0151 [facility] PHYS 5 HOME HOME [facility] HOME AGENCY AGENCY HLTH/HOSP ICE EA 15 MIN RADEX HIP 16231 CHANCE TRA CHANCE TRA 5 UNILATERA L COMPLETE MINIMUM 2 VIEWS ARTHROCEN 33951 CHANCE TRA CHANCE TRA TESIS 5 ASPIR&/IN J MAJOR JT/BURSA W/O US INJECTION S0020 CHANCE TRA CHANCE TRA 5 BUPIVICAI NE HYDROCHLO RIDE 30 ML INJ J0702 CHANCE TRA CHANCE TRA BETAMETHA 5 SONE ACETATE & PHOSPHATE 3 MG RADEX HIP 73627 [facility] TRA 5 [place] UNILATER[place] ORTHOPAED L [facility] COMPLETE MINIMUM 2 VIEWS SBSQ 98331 [facility] 5 JUAN JUAN CARE/DAY 25 MINUTES SBSQ 28254 [facility] 5 JUAN JUAN CARE/DAY 25 MINUTES SBSQ 94460 [facility] 5 JUAN JUAN CARE/DAY 25 MINUTES WALKER E0143 [facility] FOLDING 5 WHEELED ADJUSTABL E/FIXED HEIGHT COMMODE E0163 [facility] CHAIR 5 MOBILE OR STATIONAR Y W/FIXED ARMS ARTHRP 68266 [facility] CHANCE TRA ACETBLR/P 5 [place] CANDACE FEM ORTHOPAED PROSTC [facility] AGRFT/ALG RFT REPL LT [id number] [facility] HIP JNT [address] [place] [address] CERAM POLY SYNTH UNCEMENTE D OPEN ANESTHESI 87407 ANESTHESI TERRA HEA A OPEN 5 A TOTAL HIP ASSOCIATE S PSC ARTHROPLA STY LEVEL III 03248 [facility] [place] SURG 5 [facility] PATH[facility]Y [facility]IN[facility] PSC GROSS&AZAR ROSCOPIC EXAM DECALCIFI 02625 [place] CATION 5 [facility] PROCEDURE CLINIC PSC INITIAL [address] [place] [address] JUAN JUAN CARE/DAY 70 MINUTES RADIOLOGI 79397 [facility] [place] RABIA C EXAM 5 RADIOLOGY RHO CHEST 2 VIEWS FRONTAL&L ATERAL RADIOLOGI 88357 [facility] [place] WESTERFIE C EXAM 5 RADIOLOGY LD IV ALL CHEST 2 VIEWS FRONTAL&L ATERAL LIPID [address] HEPATIC [address] PANEL HEMOGLOBI [address] GLYCOSYLA MIKY A1C ECG [address] ECG W/LEAST 12 LDS TRCG ONLY W/O I&R URNLS DIP [address] STICK/TAB LET RGNT AUTO W/O MICROSCOP Y BLOOD [address] COMPLETE AUTOMATED PROTHROMB 12466 [facility] IN TIME [address] [place] [address] PANEL CALCIUM TOTAL THROMBOPL 32654 [facility] AST[address] TIME PARTIAL PLASMA/WH OLE BLOOD RADIOLOGI 24298 CHRISTI BRASEWLL ALL C EXAM 5 MEDICAL CHEST 2 IMAGING VIEWS ASS FRONTAL&L ATERAL INJECTION J2785 [address] REGADENOS ON 0.1 MG TECHNETIU A9502 [facility] TC-99M [address] [place] [address] TETROFOSM IN DX PER STUDY DOSE MYOCARDIA 84675 [facility] SPECT [address] [place] [address] MULTIPLE STUDIES RADEX 19311 [facility] CHANCE TRA SPINE 5 [place] LUMBOSACR ORTHOPAED AL 2/3 [facility] VIEWS CANE INCL E0100 IDRIS IDRIS CANES 5 HOME HOME ALL MEDICAL MEDICAL MATERIAL EQUIPME EQUIPME ADJUSTBLE /FIX W/TIP APPLICATI 37880 [facility] ON 5 [facility] MODALITY INC INC 1/> AREAS HOT/COLD PACKS APPL 78047 [facility] MODALITY 5 [facility] 1/> AREAS INC INC ULTRASOUN D EA 15 MIN APPL 80733 [facility] MODALITY 5 [facility] 1/> AREAS INC INC ELEC STIMJ UNATTENDE D THERAPEUT 90380 [facility] IC PX 1/> 5 [facility] AREAS INC INC EACH 15 MIN EXERCISES THERAPEUT 46813 [facility] IC PX 1/> 5 [facility] AREAS INC INC EACH 15 MIN EXERCISES APPL 15798 [facility] MODALITY 5 [facility] 1/> AREAS INC INC ELEC STIMJ UNATTENDE D APPL 19248 [facility] MODALITY 5 [facility] 1/> AREAS INC INC ULTRASOUN D EA 15 MIN APPLICATI 41228 [facility] ON 5 [facility] MODALITY INC INC 1/> AREAS HOT/COLD PACKS APPLICATI 70207 [facility] ON 5 [facility] MODALITY INC INC 1/> AREAS HOT/COLD PACKS APPL 17174 [facility] MODALITY 5 [facility] 1/> AREAS INC INC ULTRASOUN D EA 15 MIN APPL 10974 [facility] MODALITY 5 [facility] 1/> AREAS INC INC ELEC STIMJ UNATTENDE D THERAPEUT 89701 [facility] IC PX 1/> 5 [facility] AREAS INC INC EACH 15 MIN EXERCISES THERAPEUT 24767 [facility] IC PX 1/> 5 [facility] AREAS INC INC EACH 15 MIN EXERCISES APPL 47169 [facility] MODALITY 5 [facility] 1/> AREAS INC INC ELEC STIMJ UNATTENDE D MANUAL 65957 [facility] THERAPY 5 [facility] TQS 1/> INC INC REGIONS EACH 15 MINUTES APPLICATI 17042 [facility] ON 5 [facility] MODALITY INC INC 1/> AREAS HOT/COLD PACKS PHYSICAL 73770 [facility] THERAPY 5 [facility] EVALUATIO INC INC N RADIOLOGI 51703 [facility] [place] RAB[place] C EXAM 5 RADIOLOGY RHO CHEST 2 VIEWS FRONTAL&L ATERAL RADIOLOGI 80458 [facility]ANCE TRA C 5 [place] EXAMINATI ORTHOPAED ON PELVIS [facility] 1/2 VIEWS RADEX 90396 [facility] CHANCE TRA SPINE 5 [place] LUMBOSACR ORTHOPAED AL 2/[address] [place] [address] [facility] [place] ABDOMEN & 4 MEDICAL KARLY PELVIS IMAGING W/O ASS CONTRAST MATERIAL RADEX 08372 [facility] SHOULDER 4 N N COMPLETE [facility] MINIMUM 2 HOSPITA HOSPITA VIEWS RADEX 65521 [facility] SPINE 4 N N CERVICAL [facility] 2 OR 3 HOSPITA HOSPITA VIEWS RADEX 81045 [facility]RISTI [place] HUMERUS 4 MEDICAL KARLY MINIMUM 2 IMAGING VIEWS ASS RADEX 61505 [facility] [place] FOREARM 2 4 MEDICAL KARLY VIEWS IMAGING ASS ECG 36017 SHAZIA ANGELICA SHAZIA ANGELICA ROUTINE 4 ECG W/LEAST 12 LDS I&R ONLY RADIOLOGI 90621 CHRISTI MCCARTNEYCHER C EXAM 4 MEDICAL KARLY CHEST 2 IMAGING VIEWS ASS FRONTAL&L ATERAL LIPID 18658 [facility] PANEL 4 [place] HEMOGLOBI 99177 [facility] CHERYL N 4 [place] GLYCOSYLA [facility] [facility] MIKY A1C COMPREHEN 54368 [facility] CH[facility] SIVE 4 [place] METABOLIC [facility] [facility] PANEL COMPREHEN 65263 [facility] LAB CHERYL SIVE 3 OBNY BONY METABOLIC [facility] PANEL ECG 52191 JOSE MARIA ROSS ROUTINE 3 MARCELINA ECG PEDIATRIC W/LEAST S & INTER 12 LDS W/I&R BLOOD 93220 LAB [facility] CHERYL COUNT 3 BONY BONY COMPLETE [facility] HOLDINGS AUTO&[place] [address] CHIRSTI [place] HEAD/BRAI 3 MEDICAL KARLY N W/O IMAGING CONTRAST ASS MATERIAL ECG 12105 COURTNEY PACHECO ROUTINE 3 EMERGENCY AZAR ECG SERVICES W/LEAST 12 LDS I&R ONLY RADIOLOGI 61639 CHRISTI [place] C EXAM 3 MEDICAL KARLY CHEST 2 IMAGING VIEWS ASS FRONTAL&L ATERAL RADEX HIP 82613 [facility] 3 N N UNILATERA [facility] L HOSPITA HOSPITA COMPLETE MINIMUM 2 VIEWS RADEX 74085 COURTNEY BELLAMY BRA FOOT 3 EMERGENCY COMPLETE SERVICES MINIMUM 3 VIEWS HEMOGLOBI 73113 [facility] CHERYL N 3 B[place] B[place]Y GLYCOSYLA [facility] [facility] MIKY A1C BASIC 26893 LAB [facility] LAB CHERYL METABOLIC 3 BONY BONY PANEL [facility] HOLDINGS CALCIUM TOTAL RADIOLOGI 79404 [facility] [place] LESLIE MAT C 3 RADIOLOGY EXAMINATI ON KNEE 3 VIEWS CYTP C/V 71765 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 THIN 3 Y CHERYL OF Y CHERYL OF LYR BONY BONY PREPJ SCR H H MNL RESCR PHYS IADNA 27394 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 PAPILLOMA 3 Y CHERYL OF Y CHERYL OF VIRUS BONY BONY HUMAN H H AMPLIFIED PROBE TQ COMPREHEN 90715 LAB [facility] LAB CHERYL SIVE 3 [place] METABOLIC [facility] PANEL HEMOGLOBI 25667 LAB [facility] LAB CHERYL N 3 BONY BONY GLYCOSYLA [facility] HOLDINGS MIKY A1C LIPID 08876 LAB [facility]L LAB CHERYL PANEL 3 B[place] B[place] [employer] INCISION 75146 [facility] & 3 [facility] DRAINAGE INC INC ABSCESS SIMPLE/SI NGLE NONEMERG A0120 LKLP LKLP TRNSPRT: 2 [facility] MINI-BUS ACTION ACTION MTN AREA/OTH SYS COMPREHEN 41091 [facility] GARCIAON SIVE 2 [facility] METABOLIC INC INC PANEL CREATINE 89333 [facility] KINASE MB 2 [facility] FRACTION INC INC ONLY ECG 51484 COURTNEY STEPHENS ROUTINE 2 EMERGENCY III ADRIENNE ECG SERVICES W/LEAST 12 LDS I&[place] [address] CHRISTI [place] HEAD/BRAI 2 MEDICAL KARLY N W/O IMAGING CONTRAST ASS MATERIAL CREATINE 43420 [facility] KINASE 2 [facility] TOTAL INC INC BLOOD 27527 [facility] COUNT 2 [facility] COMPLETE INC INC AUTO&AUTO DIFRNTL WBC ECG 43139 [facility] ROUTINE 2 [facility] ECG INC INC W/LEAST 12 LDS TRCG ONLY W/O I&[place] [address] [facility] TROPONIN 2 [facility] QUANTITAT INC INC FAWAD 3D 51728 [facility] RENDERING 2 [facility] W/INTERP INC INC & POSTPROCE SS SUPERVISI ON THERAPEUT 41464 [facility] IC 2 [facility] PROPHYLAC INC INC TIC/DX INJECTION SUBQ/IM BLOOD 51908 [facility] COUNT 2 [facility] COMPLETE INC INC AUTO&AUTO DIFRNTL WBC URNLS DIP 59744 [facility]MATEO GARCIAON 2 [facility] STICK/TAB INC INC LET REAGENT AUTO MICROSCOP Y BASIC 44601 [facility] METABOLIC 2 [facility] [place] [address] CHRISTI PERALTAUTCHER ABDOMEN & 2 MEDICAL KARLY PELVIS IMAGING W/O ASS CONTRAST MATERIAL 3D 51632 CHRISTI LINUS RENDERING 2 MEDICAL KARLY IMAGING W/INTERP& ASS POSTPROC DIFF WORK STATION THERAPEUT 82730 [facility] IC 2 [facility] PROPHYLAC INC INC TIC/DX INJECTION SUBQ/IM NONEMERG A0120 LKLP LKLP TRNSPRT: 2 [facility] MINI-BUS ACTION ACTION MTN AREA/OT SYS CREATINE 69846 [facility] KINASE MB 2 [facility] FRACTION INC INC ONLY COMPREHEN 15384 [facility] SIVE 2 [facility] METABOLIC INC INC PANEL ECG 65954 COURTNEY RIVAS ROUTINE 2 EMERGENCY ECG SERVICES W/LEAST 12 LDS I&R ONLY ECG 11258 [facility] ROUTINE 2 [facility] ECG INC INC W/LEAST 12 LDS TRCG ONLY W/O I&[place] [address] [facility] TROPONIN 2 [facility] QUANTITAT INC INC FAWAD BLOOD 89744 [facility] COUNT 2 [facility] COMPLETE INC INC AUTO&AUTO DIFRNTL WBC CREATINE 33532 [facility] KINASE 2 [facility] TOTAL INC INC RADIOLOGI 13717 [facility] 2 MEDICAL KARLY EXAMINATI IMAGING ON CHEST ASS SINGLE VIEW FRONTAL BASIC 70138 [facility] METABOLIC 2 [facility] PANEL INC INC CALCIUM TOTAL URNLS DIP 88541 [facility] 1 [facility] LET RGNT P P NON-AUTO W/O MICRSCP FIBRIN 58348 [facility] DGRADJ 1 [facility] PRODUCTS INC INC D-DIMER QUAL/SEMI JUANIS BLOOD 68900 [facility] COUNT 1 [facility] COMPLETE INC INC AUTO&AUTO DIFRNTL WBC RADEX 43654 [facility] ABDOMEN 1 1 MEDICAL MEDICAL IMAGING IMAGING ANTEROPOS ASS ASS TERIOR VIEW URNLS DIP 98274 [facility] 1 [facility] STICK/TAB INC INC LET REAGENT AUTO MICROSCOP Y BASIC 04973 [facility] METABOLIC 1 [facility] PANEL INC INC CALCIUM TOTAL DUP-SCAN 22522 [facility] XTR VEINS 1 [facility] COMPLETE INC INC BILATERAL STUDY CULTURE 73722 [facility] BACTERIAL 1 [facility] INC INC QUANTTATI VE COLONY COUNT URINE CALCULUS 56534 [facility] QUEST INFRARED 1 DIAGNOSTI DIAGNOSTI SPECTROSC CS CS OPY PROSTHETI L8699 NEW NEW C IMPLANT 1 [facility] NOT CLINIC CLINIC OTHERWISE PSC PSC SPECIFIED CYSTO 84589 NEW NEW W/INSERT 1 [facility] URETERAL CLINIC CLINIC STENT PSC PSC CYSTO 92584 NEW NEW W/URETERO 1 [facility] SCOPY CLINIC CLINIC W/LITHOTR PSC PSC IPSY INJECTION J2405 NEW NEW 1 [facility] ONDANSETR CLINIC CLINIC ON HCL PSC PSC PER 1 MG URNLS DIP 70671 [facility] VALERO 1 [facility] STICK/TAB [facility] LET RGNT P NON-AUTO W/O MICRSCP URNLS DIP 16197 [facility] VALERO 1 [facility] STICK/TAB [facility] LET RGNT P NON-AUTO W/O MICRSCP THERAPEUT 27030 [facility] IC 1 [facility] INJECTION INC [place] [address] [facility] INFUSION 1 [facility] THERAPY/P INC INC ROPHYLAXI S /DX 1ST TO 1 HR CYSTO 34887 [facility] W/INSERT 1 [facility] URETERAL INC INC STENT ECG 32380 [facility] ROUTINE 1 [facility] ECG INC INC W/LEAST 12 LDS TRCG ONLY W/O I&R ECG 50879 [facility] TEJADA JR ROUTINE 1 [facility] W/LEAST P 12 LDS I&R ONLY RAD 6045F [facility] EXPOS/ROBERT 1 MEDICAL MEDICAL E IN LAST IMAGING IMAGING RPRT ASS ASS FLUORO PRXD DOCD INTRO 10238 [facility] URETERAL 1 [facility] CATH/STEN INC INC T PRQ RS&I FLUOROSCO 97587 [facility] PY SPX UP 1 MEDICAL MEDICAL TO 1 IMAGING IMAGING HOUR ASS ASS PHYS/QHP TIME STENT C2617 [facility] NON-COR 1 [facility] TEMPORARY INC INC WITHOUT DELIVERY SYSTEM GUIDE C1769 [facility] WIRE 1 [facility] INC INC 3D 91904 [place] LIN[place] RENDERING 1 MEDICAL KARLY IMAGING W/INTERP& ASS POSTPROC DIFF WORK STATION CULTURE 10-31-201 40115 [facility] BACTERIAL 1 [facility] INC [place] [address] CHRISTI PERALTAUTCHER ABDOMEN & 1 MEDICAL KARLY PELVIS IMAGING W/O ASS CONTRAST MATERIAL URNLS DIP 10238 [facility] 1 [facility] STICK/TAB INC INC LET REAGENT AUTO MICROSCOP Y BLOOD 51088 [facility] COUNT 1 [facility] COMPLETE INC INC AUTO&[place] [address] [facility] INFUSION 1 [facility] THERAPY/P INC INC ROPHYLAXI S /DX 1ST TO 1 HR COMPREHEN 00061 [facility] SIVE 1 [facility] METABOLIC INC INC PANEL INJECTION J2405 [facility] VERMA 1 [facility] ONDANSETR INC INC ON HCL [place] 1 [place] [address] [facility] INFUSION 1 [facility] THER INC INC PROPH ADDL SEQUENTIA L TO 1 HR SLINGS A4565 HE L.P. HE L.P. 1 CREATINE 07036 [facility] KINASE 1 N N TOTAL [facility] H[facility] HOSPITA COMPREHEN 02986 [facility] SIVE 1 N N METABOLIC [facility] PANEL HOSPITA HOSPITA COLLECTIO 95341 [facility] N VENOUS 1 N N BLOOD [facility] VENIPUNCT HOSPITA HOSPITA URE HEMOGLOBI 62753 [facility] OF N 1 [facility] GLYCOSYLA MIKY A1C MRI BRAIN 76351 [facility] BRAIN 1 N N STEM W/O COMMUNITY COMMUNITY W/CONTRAS HOSPITA HOSPITA T MATERIAL LIPOPROTE 14219 [facility] OF IN DIRECT 1 [employer] [facility] [employer] [facility] MEASUREME NT LDL CHOLESTER OL LIPID 44324 [facility] PANEL 1 [facility] INC COMPREHEN 71931 [facility] OF SIVE 1 [employer] [facility] INC METABOLIC PANEL COLLECTIO 78987 LEE PAD LEE PAD N VENOUS 1 BLOOD VENIPUNCT URE 3D 53694 [facility] RENDERING 1 MEDICAL MEDICAL W/INTERP IMAGING IMAGING & [place] [address] [place] HEAD/BRAI 1 MEDICAL KARLY N W/O IMAGING CONTRAST ASS MATERIAL CYANOCOBA 43470 [facility] NKECHI 1 [facility] VITAMIN INC INC B-12 BLOOD 72976 [facility] COUNT 1 [facility] COMPLETE INC INC AUTO&AUTO DIFRNTL WBC COMPREHEN 48553 [facility] SIVE 1 [facility] METABOLIC INC INC PANEL SEDIMENTA 18742 [facility] TIMATEO RATE 1 [facility] RBC INC INC NON-AUTOM ATED RADEX 65937 [facility] RIBS UNI 0 [facility] W/POSTERO INC INC ANT CH MINIMUM 3 VIEWS URNLS DIP 74171 [facility] 0 [facility] STICK/TAB INC INC LET REAGENT AUTO MICROSCOP Y RADIOLOGI 45270 [place] LIN[place] C EXAM 0 MEDICAL KARLY CHEST 2 IMAGING VIEWS ASS FRONTAL&L ATERAL CULTURE 14742 [facility] BACTERIAL 0 [facility] INC INC QUANTTATI VE COLONY COUNT URINE [facility] A4258 M E D M E D [...] HY TERESA INCL CAD WHEN PERFORMD COMPUTER- 25519 [facility] [place] AIDED 0 RADIOLOGY RHO DETECTION SCREENING MAMMOGRAP HY LIPID 31841 [facility] PANEL 0 [facility] INC HEMOGLOBI 84322 [facility] N 0 [facility] GLYCOSYLA MIKY A1C LIPOPROTE 06470 [facility] IN DIRECT 0 [facility] MEASUREME NT LDL CHOLESTER OL CYTP C/V 68140 PATHOLOGY PATHOLOGY AUTO THIN 0 & & LYR CYTOLOGY CYTOLOGY PREPJ SCR LAB LAB MNL RESCR PHYS COMPREHEN 26609 [facility] SIVE 0 [facility] METABOLIC PANEL COLLECTIO 73485 LEE PAD LEE PAD N VENOUS 0 BLOOD VENIPUNCT URE COMPREHEN 26592 [facility] [facility] SIVE 0 [facility] MET[facility]OLIC INC INC PANEL URNLS DIP 22142 [facility] [facility] STICK/TAB INC INC LET REAGENT AUTO MICROSCOP Y RADIOLOGI 64100 [place] [facility] C EXAM 0 [facility] CHEST 2 INC INC VIEWS FRONTAL&L ATERAL BLOOD 74610 [facility] [facility] COUNT 0 [facility] MEM [...] T STRIPS HOME BLD GLU WED-50 RADIOLOGI 81050 Carlos ALCAZAR EXAM 0 MEDICAL MONIQUE CHEST 2 IMAGING VIEWS ASSOCIATE FRONTAL&L S ATERAL URNLS DIP 38830 [facility] [facility] STICK/TAB INC INC LET REAGENT AUTO MICROSCOP Y URINE 09475 [place] [facility] 0 [facility] TEST INC INC VISUAL COLOR CMPRSN METHS CULTURE 21230 [facility] BACTERIAL 0 [facility] INC INC QUANTTATI VE COLONY COUNT [...] SUPPLIES HIGH CALIBRATO R SOLUTION/ [place] [address] [facility] [facility] ABDOMEN 0 [facility] W/O INC INC CONTRAST MATERIAL CT PELVIS 67861 [facility] [facility] W/O 0 [facility] CONTRAST INC INC MATERIAL URNLS DIP 52999 [place] [facility] 0 [facility] STICK/TAB INC INC LET REAGENT AUTO MICROSCOP Y 3D 93640 [place] CHRISTY WILSON 0 MEDICAL JAMES P IMAGING W/INTERP& ASSOCIATE POSTPROC S DIFF WORK STATION LANCETS A4259 M E D M E D PER BOX 0 SUPPLIES SUPPLIES OF 100 BLD GLU A4253 M E D M E D TEST/REAG 0 SUPPLIES SUPPLIES T STRIPS HOME [place]LD GLU MON-50 [place] [address] [facility] [facility] STREPTOCO 0 [facility] MEM [...] BOX [address] [place] [address] [place] [address] [facility] [place], ABDOMEN 9 RADIOLOGY MARY K W/O CONTRAST MATERIAL CT PELVIS 86047 [facility] [place], W/O 9 RADIOLOGY MARY [...] AYLIN BG MON OWN PT EA INCISION 06488 COURTNEY LAZARO, & 9 EMERGENCY ALVERTO L DRAINAGE SERVICES ABSCESS SIMPLE/SI ASSOCIATE DORIE S BLD GLU A4253 M E D M E D TEST/REAG 9 SUPPLIES SUPPLIES T STRIPS HOME BLD GLU MON-50 LANCETS A4259 M E D M E D PER BOX 9 SUPPLIES SUPPLIES OF 100 INCISION 15168 MICHELLE YOUNG, & 9 KEVIN ANITA L DRAINAGE EMERGENCY ABSCESS PHYS INC COMPLICAT ED/MULTIP LE BLD GLU A4253 M E D M E D TEST/REAG 9 SUPPLIES SUPPLIES T STRIPS HOME BLD GLU MON-50 LANCETS A4259 M E D M E D PER BOX 9 SUPPLIES SUPPLIES OF 100 RADIOLOGI 86639 [facility] [place] HE, C 9 RADIOLOGY J EXAMINATI ON KNEE [...] BOX 9 SUPPLIES SUPPLIES OF 100 COMPREHEN 62017 LAB CHERYL LAB CHERYL SIVE 9 [employer] PANEL COLLECTIO 32428 [place] ROE VENOUS 9 [facility] BLOOD E CENTER VENIPUNCT URE LIPID 84430 LAB CHERYL LAB CHERYL PANEL 9 [employer] BLD GLU A4253 M E D M E D TEST/REAG 9 SUPPLIES SUPPLIES T STRIPS HOME BLD GLU MON-50 LANCETS A4259 M E D M E D PER BOX 9 SUPPLIES SUPPLIES OF 100 URNLS DIP 57192 [facility] [place] 9 LTH JR, STICK/TAB UROLOGY [...] SUPPLIES DEVICE FOR LANCET EACH CT PELVIS 24489 [facility] [place], W/O 9 [place] [address] [facility] [place], ABDOMEN 9 RADIOLOGY MARY K W/O CONTRAST MATERIAL CYSTO 31879 [facility] [place] W/INSERT 9 LTH JR, URETERAL UROLOGY MAR [place] STENT PSC CYSTO 12676 [facility] [place] W/URETERO 9 LTH JR, SCOPY UROLOGY MAR [place] W/RMVL/MA PSC [place] STONES ANES 25898 ANESTHESI [place]OR[place], TRANSURET 9 Deniz Murphy HRAL ASSOCIATE W/URETHRO S, PSC CYSTOSCOP Y NOS URNLS DIP 08029 [facility] 9 LTH JR, STICK/TAB UROLOGY MAR Osuna LET RGNT PSC AUTO W/O MICROSCOP Y CYSTO 10851 [facility] W/INSERT 8 LTH JR, URETERAL UROLOGY MAR Osuna STENT PSC ANES 60000 ANESTHESI SMITH, TRANSURET 8 Deniz Gonzalez HRAL ASSOCIATE W/URETHRO S, PSC CYSTOSCOP Y NOS URETERAL [address] AMB [id number] [facility] SERVICE 8 [facility] EMS CO EMS EMERGENCY TRANSPORT LEVEL 1 CT PELVIS 12-29-200 39455 [facility] [place] NER[place], W/O 8 RADIOLOGY J CONTRAST MATERIAL ECG 11405 [place], ROUTINE 8 [place] J C ECG CLINIC W/LEAST PSC 12 LDS I&R ONLY INITIAL 36395 [facility] 8 [facility] JR, CARE/DAY [place]OLOGY [place] [address] [place] [address] [facility], ABDOMEN 8 RADIOLOGY J W/O CONTRAST MATERIAL GROUND A0425 [facility] [place] [address] [facility] [place] KOSTEL[place], ABDOMEN 8 RADIOLOGY MARY Osuna W/O CONTRAST MATERIAL CT PELVIS 51237 [facility] [place] KOST[place], W/O 8 RADIOLOGY MARY Osuna CONTRAST MATERIAL COLLECTIO 52446 H[facility] COLIN, N VENOUS 8 [facility] BLOOD E CENTER VENIPUNCT URE HEMOGLOBI 05731 LAB [facility]ERYL LAB CHERYL N 8 [facility] GLYCOSYLA HOLDING HOLDING MIKY A1C GLUCOSE 49039 LAB [facility]L LAB CHERYL QUANTITAT 8 [facility] FAWAD BLOOD HOLDING HOLDING XCPT REAGENT STRIP LIPID 48040 LAB [facility]L LAB CHERYL PANEL 8 [facility] SCREENING G0202 [facility] 8 N N MAMMOGRAP [facility] INCL CAD WHEN PERFORMD COLLECTIO 58941 H[facility] OVERBEE, N VENOUS 8 [facility] BLOOD E CENTER VENIPUNCT URE GENERAL 77679 LAB CHERYL LAB CHERYL HEALTH 8 AMERIC AMER[employer] 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- 06919 [facility] AIDED 8 N N DETECTION [facility] SCREENING MAMMOGRAP HY IADNA 23815 [facility] [place], CHLAMYDIA 8 [place] INC MICHAEL D TRACHOMAT IS AMPLIFIED PROBE TQ CYTP 05779 [facility] [place], CERV/VAG 8 [place] INC MICHAEL D AUTO THIN LAYER PREP MNL SCREEN IADNA 20914 [facility] [place], NEISSERIA 8 [place] INC MICHAEL D GONORRHOE AE AMPLIFIED PROBE TQ IADNA 73434 [facility] [place], MELLO 8 [place] INC MICHAEL D SPECIES AMPLIFIED PROBE TQ IADNA 18017 [facility] [place], GARDNEREL 8 [place] INC MICHAEL D LA VAGINALIS AMPLIFIED PROBE TQ IADNA 04034 [facility] TRICHOMON 8 [facility] INC INC VAGINALIS DIRECT PROBE TQ URNLS DIP 26727 [facility] OSPINA, 8 [facility] STICK/TAB E CENTER LET RGNT AUTO W/[place] [address] [place] MARCELINO, ABDOMEN 8 RADIOLOGY ONIEL P W/O CONTRAST MATERIAL CT PELVIS 02325 [facility] [place] MARCEL[place], W/O 8 RADIOLOGY ONIEL P CONTRAST MATERIAL 3D 10408 [place] [facility], RENDERING 8 [facility]ICAL [place] IMAGING W/INTERP& [place]OCI[place] [address] [place] [facility], ABDOMEN 8 MEDICAL [place] W/O IMAGING CONTRAST ASSOCIATE MATERIAL S CT PELVIS 84839 [place] [facility], W/O 8 MEDICAL [place] CONTRAST IMAGING MATERIAL ASSOCIATE S URNLS DIP 62564 [facility] [facility] 8 [facility] STICK/TAB INC INC LET REAGENT AUTO MICROSCOP Y RADIOLOGI 75301 [facility] C EXAM 8 [facility] CHEST 2 INC INC VIEWS FRONTAL&L ATERAL BLOOD 18977 [facility] COUNT 8 [facility] COMPLETE INC INC AUTO&AUTO DIFRNTL WBC IAADI 56126 [facility] INFLUENZA 8 [facility] B VIRUS INC INC IAADI 98665 [facility] INFFLUENZ 8 [facility] A A VIRUS INC INC BASIC 19782 [facility] METABOLIC 8 [facility] [place] [address] [place] [facility] THER 8 [facility] PROPH/DX INC INC 1ST >1 HR THERAPEUT 80872 [facility] IC PX 1/> 8 [facility] AREAS INC INC EACH 15 MIN EXERCISES PHYSICAL 89531 [facility] THERAPY 8 [facility] EVALUATIO INC INC N APPL 20583 [facility] MODALITY 8 [facility] 1/> AREAS INC INC ELEC STIMJ UNATTENDE D CT LUMBAR 06764 [facility] [facility] SPINE 8 [facility] W/O INC INC CONTRAST MATERIAL 3D 21318 [facility] [facility] RENDERING 8 [facility] INC INC W/INTERP& POSTPROC DIFF WORK STATION RADEX HIP 04935 [facility] [facility] 8 [facility] UNILATERA INC INC L COMPLETE MINIMUM 2 VIEWS RADIOLOGI 19920 [facility] C 8 [facility] EXAMINATI INC INC ON FEMUR 2 VIEWS RADEX 60926 [facility] [facility] SPINE 8 [facility] LUMBOSACR INC INC AL MINIMUM 4 VIEWS Encounters Encounter Start End Date Code Location Performer Type Date [facility] 7 [facility] OUTPATIEN INC T EMERGENCY 85355 LEONEL LEE DEPT 7 7 PHYSICIAN VISIT S, PLLC HIGH SEVERITY& THREAT [facility] EMERGENCY 49406 [facility] 7 7 [facility] DEPARTMEN INC T VISIT LOW/MODER SEVERITY [facility] OUTPATIEN INC T OFFICE 73951 [facility] AGUILERAEN 7 7 [facility] T VISIT 5 INC MINUTES EMERGENCY 63853 [facility] 7 7 [facility] DEPARTMEN INC T VISIT LOW/MODER SEVERITY [facility] OUTPATIEN INC T OFFICE 17631 JOSE MARIA ROSS OUTPATIEN 6 6 MARCELINA T VISIT PEDIATRIC 15 S & INTER MINUTES [facility]OSP[facility] 6 6 N OUTPATIEN COMMUNTIY T HOSPITA OFFICE 68976 SCIFRES SCIFRES OUTPATIEN 6 6 ANG ANG T VISIT 15 MINUTES OFFICE 39808 SCIFRES SCIFRES OUTPATIEN 6 6 ANG ANG T VISIT 15 MINUTES OFFICE 33077 [facility] PETTEY OUTPATIEN 6 6 PHYSICIAN JAM T NEW 20 S GROUP MINUTES EMERGENCY 96985 LEONEL CROWDER DEPT 6 6 PHYSICIAN OLGA VISIT [facility] HIGH SEVERITY& THREAT FUNCJ EMERGENCY 01922 [place] 6 6 [facility] DEPARTMEN INC T VISIT MODERATE SEVERITY [facility] 6 6 [facility] OUTPATIEN INC T OFFICE 88278 NAN KEARNS OUTPATIEN 6 6 PHYSCIAN LES T VISIT PRACTICE 15 LL MINUTES [facility]OSP[facility] 6 6 [facility] OUTPATIEN INC T OFFICE 82730 CHANCE TRA CHANCE TRA OUTPATIEN 6 6 T VISIT 15 MINUTES OFFICE 83121 ANN KEARNS CONSULTAT 6 6 PHYSCIAN LES ION PRACTICE NEW/ESTAB LL PATIENT 40 MIN OFFICE 84298 JOSE MARIA ROSS OUTPATIEN 6 6 MARCELINA T VISIT PEDIATRIC 15 S & INTER MINUTES HOME [facility], 6 6 HOME INPATIENT HEALTH AGENCY EMERGENCY 77997 [place] 6 6 [facility] DEPARTMEN INC T VISIT MODERATE SEVERITY [facility] [place] - 6 6 [facility] OUTPATIEN INC T EMERGENCY 46461 LEONEL US 6 6 PHYSICIAN Payal KINSEY DEPARTMEN S, [facility] T VISIT HIGH/URGE NT SEVERITY [facility] 5 5 [facility] OUTPATIEN INC T EMERGENCY 10093 LEONEL PACHECO DEPT 5 5 PHYSICIAN ZAAR VISIT S, [facility] HIGH SEVERITY& THREAT FUNCJ EMERGENCY 18061 [place] 5 5 [facility] DEPARTMEN INC T VISIT HIGH/URGE NT SEVERITY OFFICE 51292 JOSE MARIA ROSS OUTPATIEN 5 5 MARCELINA T VISIT PEDIATRIC 15 S & INTER MINUTES HOME [facility] 5 5 HOME INPATIENT HEALTH [facility] [address] INPATIENT HOSPITAL [facility] - 5 5 N OUTPATIEN COMMUNTIY T HOSPITA OFFICE 51296 LISAMONICA ROSS OUTPATIEN 5 5 MARCELINA T VISIT PEDIATRIC 15 S & INTER MINUTES HOSPITAL [address] OUTPATIEN T EMERGENCY 72716 LEONEL PACHECO DEPT 5 5 PHYSICIAN AZAR VISIT S, PLL HIGH SEVERITY& THREAT [facility] [address] OUTPATIEN T OFFICE 51137 JOSE MARIA ROSS OUTPATIEN 5 5 MARCELINA T VISIT PEDIATRIC 15 S & INTER MINUTES OFFICE 30740 [facility] TRA OUTPATIEN 5 5 [place] T VISIT ORTHOPAED 15 [facility] MINUTES EMERGENCY 10805 BARRY Ruth 5 5 DEPARTMEN T VISIT MODERATE SEVERITY OFFICE 20818 JOSE MARIA ROSS OUTPATIEN 5 5 MARCELINA T VISIT PEDIATRIC 15 S & INTER MINUTES EMERGENCY 99326 NALLELY PACHECO DEPT 5 5 AZAR AZAR VISIT HIGH SEVERITY& THREAT FUNCJ OFFICE 24927 [facility] OUTPATIEN 5 5 [place] T VISIT ORTHOPAED 15 [facility] MINUTES [facility] 5 5 [facility] OUTPATIEN INC T EMERGENCY 56392 CHRISTEL KEARNEY 5 5 DORI DORI DEPARTMEN T VISIT HIGH/URGE NT SEVERITY OFFICE 70504 [facility] TRA OUTPATIEN 5 5 [place] T NEW 45 ORTHOPAED MINUTES [facility] OFFICE 08067 JOSE MARIA ROSS OUTPATIEN 4 4 MARCELINA T VISIT PEDIATRIC 15 S & INTER MINUTES EMERGENCY 24828 NALLELY PACHECO 4 4 AZAR AZAR DEPARTMEN T VISIT MODERATE SEVERITY EMERGENCY 52918 NALLELY PACHECO DEPT 4 4 AZAR AZAR VISIT HIGH SEVERITY& THREAT [facility]OSPITAL [facility] - 4 4 N OUTPATIEN COMMUNITY T HOSPITA EMERGENCY 52000 LEATHA MUIRSAIN 4 4 IMT IMT DEPARTMEN T VISIT MODERATE SEVERITY OFFICE 79940 JOSE MARIA ROSS OUTPATIEN 4 4 MARCELINA T VISIT PEDIATRIC 15 S & INTER MINUTES EMERGENCY 22465 ALFARIS ALFARIS 4 4 [facility] MOH DEPARTMEN T VISIT HIGH/URGE NT SEVERITY EMERGENCY 02309 SHAZIA ANGELICA SHAZIA ANGELICA DEPT 4 4 VISIT HIGH SEVERITY& THREAT FUNCJ OFFICE 14434 JOSE MARIA ROSS OUTPATIEN 4 4 MARCELNIA T VISIT PEDIATRIC 15 S & INTER MINUTES EMERGENCY 53355 [facility] 4 4 BRO BRO DEPARTMEN T VISIT HIGH/URGE NT SEVERITY OFFICE 31197 JOSE MAIRA ROSS OUTPATIEN 3 3 MARCELINA T VISIT PEDIATRIC 15 S & INTER MINUTES Emergency PAULINE Pacheco MD (ER) 3 19:30 3 21:20 [facility] EMERGENCY 12000 COURTNEY PACHECO DEPT 3 3 EMERGENCY AZAR VISIT SERVICES HIGH SEVERITY& THREAT FUNJ OFFICE 82432 JOSE MARIA ROSS OUTPATIEN 3 3 MARCELINA T VISIT PEDIATRIC 15 S & INTER MINUTES HOSPITAL [facility] - 3 3 N OUTPATIEN COMMUNITY T HOSPITA OFFICE 45349 JOSE MARIA ROSS OUTPATIEN 3 3 MARCELINA T VISIT PEDIATRIC 10 S & INTER MINUTES EMERGENCY 96818 COURTNEY LEWIS 3 3 EMERGENCY DEPARTMEN SERVICES T VISIT MODERATE SEVERITY OFFICE 30754 JOSE MARIA ROSS OUTPATIEN 3 3 MARCELINA T VISIT PEDIATRIC 15 S & INTER MINUTES EMERGENCY 99305 COURTNEY GARCIA 3 3 EMERGENCY RYA DEPARTMEN SERVICES T VISIT HIGH/URGE NT SEVERITY PERIODIC 73436 LISAMONICA VANDANA PREVENTIV 3 3 MARCELINA E MED EST PEDIATRIC PATIENT S & INTER 40-64YRS OFFICE 97210 LUZ BAKER 3 3 MARKO MARKO T VISIT 15 MINUTES OFFICE 79894 [facility] EDIL BAKER 3 3 PHYSICIAN CAM T NEW 45 S GROUP MINUTES EMERGENCY 11971 [facility] 3 3 [facility] DEPARTMEN INC T VISIT LOW/MODER SEVERITY EMERGENCY 55104 COURTNEY STEPHENS 3 3 EMERGENCY III ADRIENNE DEPARTMEN SERVICES T VISIT HIGH/URGE NT SEVERITY [facility] - 3 3 [facility] OUTPATIEN INC T OFFICE 51485 LUZ BAKER 2 2 MARKO MARKO T VISIT 15 MINUTES [facility]OSPITAL [facility] - 2 2 [facility] OUTPATIEN INC T EMERGENCY 73389 COURTNEY STEPHENS DEPT 2 2 EMERGENCY III ADRIENNE VISIT SERVICES HIGH SEVERITY& THREAT FUNCJ EMERGENCY 27986 [facility] 2 2 [facility] DEPARTMEN INC T VISIT MODERATE SEVERITY EMERGENCY 10752 [facility] 2 2 [facility] DEPARTMEN INC T VISIT MODERATE SEVERITY EMERGENCY 70435 COURTNEY MCKENNA DEPT 2 2 EMERGENCY ADRIENNE VISIT SERVICES HIGH SEVERITY& THREAT FUN [facility] [place] 2 2 [facility] OUTPATIEN INC T OFFICE 14711 LUZ BAKER 2 2 MARKO MARKO T VISIT 15 MINUTES EMERGENCY 50744 COURTNEY MCKENNA 2 2 EMERGENCY ADRIENNE DEPARTMEN SERVICES T VISIT HIGH/URGE NT SEVERITY [facility] 2 2 [facility] OUTPATIEN INC T EMERGENCY 72083 [facility] 2 2 [facility] DEPARTMEN INC T VISIT MODERATE SEVERITY EMERGENCY 56606 COURTNEY PACHECO 2 2 EMERGENCY AZAR DEPARTMEN SERVICES T VISIT MODERATE SEVERITY OFFICE 35562 TIFFANY VILLAGOMEZ CONSULTAT 2 2 MEDICAL L ION SERV NEW/ESTAB FOUNDATIO PATIENT 80 MIN OFFICE 62880 LUZ ESCOBAR OUTPATIEN 2 2 MARKO MARKO T VISIT 15 MINUTES EMERGENCY 80312 [facility] 2 2 [facility] DEPARTMEN INC T VISIT MODERATE SEVERITY EMERGENCY 55204 COURTNEY FRANKS DEPT 2 2 EMERGENCY VISIT SERVICES HIGH SEVERITY& THREAT [facility] [place] - 2 2 [facility] OUTPATIEN INC T EMERGENCY 37143 COURTNEY VALDEZ 1 1 EMERGENCY EMERGENCY DEPARTMEN SERVICES SERVICES T VISIT HIGH/URGE NT SEVERITY [facility] 1 1 [facility] OUTPATIEN INC T EMERGENCY 54985 [facility] 1 1 [facility] DEPARTMEN INC T VISIT MODERATE SEVERITY OFFICE 25706 [facility] VALERO OUTPATIEN 1 1 [facility] 25 P MINUTES OFFICE 32165 [facility] OUTPATIEN 1 1 [facility] 25 P MINUTES [facility]OSP[facility] [place] - 1 1 [facility] OUTPATIEN INC T EMERGENCY 41070 COURTNEY RIVAS DEPT 1 1 EMERGENCY VISIT SERVICES HIGH SEVERITY& THREAT [facility] [place] - 1 1 [facility] OUTPATIEN INC T EMERGENCY 20256 [facility] 1 1 [facility] DEPARTMEN INC T VISIT HIGH/URGE NT SEVERITY EMERGENCY 77300 [facility] 1 1 [facility] DEPARTMEN INC T VISIT LOW/MODER SEVERITY [facility] - 1 1 [facility] OUTPATIEN INC T EMERGENCY 28690 COURTNEY FRANKS 1 1 EMERGENCY DEPARTMEN SERVICES T VISIT HIGH/URGE NT SEVERITY EMERGENCY 64707 [facility] 1 1 [facility] DEPARTMEN INC T VISIT LOW/MODER SEVERITY EMERGENCY 83974 COURTNEY FRANKS 1 1 EMERGENCY DEPARTMEN SERVICES T VISIT HIGH/URGE NT SEVERITY [facility] 1 1 [facility] OUTPATIEN [facility] T [facility]OSPITAL [place] - 1 1 [facility] OUTPATIEN INC T EMERGENCY 52025 [facility] 1 1 [facility] T VISIT LOW/MODER SEVERITY EMERGENCY 12558 COURTNEY FRANKS 1 1 EMERGENCY DEPARTMEN SERVICES T VISIT MODERATE SEVERITY HOSPITAL [facility] - 1 N OUTPATIEN COMMUNITY T HOSPITA OFFICE 17706 LEE PAD LEE PAD OUTPATIEN 1 1 T VISIT 15 MINUTES HOSPITAL [facility] 1 1 [facility] OUTPATIEN INC T EMERGENCY 75607 [facility] 1 1 [facility] T VISIT LOW/MODER SEVERITY EMERGENCY 96540 COURTNEY STOVALL BAB 1 1 EMERGENCY DEPARTMEN SERVICES T VISIT MODERATE SEVERITY OFFICE 59989 LEE PAD LEE PAD OUTPATIEN 1 1 T VISIT 25 MINUTES [facility] [place] [address] 1 N OUTPATIEN COMMUNITY T HOSPITA EMERGENCY 75047 [place] 1 1 [facility] DEPARTMEN INC T VISIT LOW/MODER SEVERITY EMERGENCY 38777 COURTNEY FRANKS DEPT 1 1 EMERGENCY VISIT SERVICES HIGH SEVERITY& THREAT [facility] [place] - 1 1 [facility] OUTPATIEN INC T [facility]OSPITAL [place] - 1 1 [facility] OUTPATIEN INC T EMERGENCY 33948 [facility] 1 1 [facility] DEPARTMEN INC T VISIT LOW/MODER SEVERITY EMERGENCY 33497 COURTNEY PACHECO 1 1 EMERGENCY [facility] DEPARTMEN SERVICES T VISIT HIGH/URGE NT SEVERITY EMERGENCY 29362 COURTNEY ROSS 0 0 EMERGENCY [facility] DEPARTMEN SERVICES T VISIT MODERATE SEVERITY EMERGENCY 78514 [facility] 0 0 [facility] DEPARTMEN INC T VISIT LOW/MODER SEVERITY [facility] 0 0 [facility] OUTPATIEN INC T EMERGENCY 95966 [facility] 0 0 [facility] DEPARTMEN INC T VISIT LOW/MODER SEVERITY [facility] 0 0 [facility] OUTPATIEN INC T EMERGENCY 12713 COURTNEY ROSS 0 0 EMERGENCY [facility] DEPARTMEN SERVICES T VISIT HIGH/URGE NT SEVERITY OFFICE 15583 LEE PAD LEE PAD OUTPATIEN 0 0 T VISIT 15 MINUTES [facility] 0 0 N OUTPATIEN COMMUNITY T HOSPITA PERIODIC 28106 LEE PAD LEE PAD PREVENTIV 0 0 E MED EST PATIENT 40-64YRS [facility] - 0 0 [facility] OUTPATIEN INC T EMERGENCY 90111 COURTNEY SCHO[place] 0 0 EMERGENCY DEPARTMEN SERVICES T VISIT HIGH/URGE NT SEVERITY EMERGENCY 80440 [facility] 0 0 [facility] DEPARTMEN INC T VISIT MODERATE SEVERITY OFFICE 94493 LEE PAD LEE PAD OUTPATIEN 0 0 T NEW 30 MINUTES EMERGENCY 82564 COURTNEY KEARNEY, 0 0 EMERGENCY [facility] DEPARTMEN SERVICES T VISIT MODERATE ASSOCIATE SEVERITY S EMERGENCY 10237 [facility] 0 0 [facility] DEPARTMEN INC T VISIT LOW/MODER SEVERITY [facility] 0 0 [facility] OUTPATIEN INC T EMERGENCY 91057 COURTNEY STOVALL, 0 0 EMERGENCY [place] DEPARTMEN SERVICES O T VISIT HIGH/URGE ASSOCIATE NT S SEVERITY [facility] 0 0 [facility] OUTPATIEN INC T EMERGENCY 21807 COURTNEY NELSON, DEPT 0 0 EMERGENCY MARJORIE VISIT SERVICES M HIGH SEVERITY& ASSOCIATE THREAT S F[facility]J EMERGENCY 02587 [facility] 0 0 [facility] DEPARTMEN INC T VISIT LOW/MODER SEVERITY EMERGENCY 05370 COURTNEY PARIKH 0 0 [facility] T VISIT MODERATE SEVERITY EMERGENCY 43525 COURTNEY PARIKH 0 0 [facility] T VISIT MODERATE SEVERITY EMERGENCY 78356 COURTNEY PACHECO, 0 0 EMERGENCY [facility] DEPARTMEN SERVICES T VISIT HIGH/URGE ASSOCIATE NT S SEVERITY [facility] 0 0 [facility] OUTPATIEN INC T EMERGENCY 67208 [facility] 0 0 [facility] DEPARTMEN INC T VISIT MODERATE SEVERITY [facility] - 0 0 N OUTPATIEN [facility] EMERGENCY 46533 COURTNEY HERNANDEZ DEPT 9 9 EMERGENCY , KAYLYNN VISIT SERVICES HIGH SEVERITY& ASSOCIATE THREAT S FUNCJ EMERGENCY 23588 COURTNEY FOY, 9 9 EMERGENCY MIKY DEPARTMEN SERVICES T VISIT MODERATE ASSOCIATE SEVERITY S EMERGENCY 90646 COURTNEY MCCORD 9 9 EMERGENCY - YORBA, DEPARTMEN SERVICES BRI T VISIT M MODERATE ASSOCIATE SEVERITY S EMERGENCY 97266 COURTNEY ZHENGAROSI 9 9 EMERGENCY - YORBA, DEPARTMEN SERVICES BRI T VISIT M MODERATE ASSOCIATE SEVERITY S EMERGENCY 31698 COURTNEY LAZARO, 9 9 EMERGENCY ALVERTO L DEPARTMEN SERVICES T VISIT HIGH/URGE ASSOCIATE NT S SEVERITY EMERGENCY 47734 [facility] 9 9 N DEPARTMEN COMMUNITY T VISIT HOSPITAL MODERATE SEVERITY [facility] 9 9 N OUTPATIEN COMMUNITY T HOSPITAL OFFICE 32483 [facility] OUTPATIEN 9 9 [facility] T VISIT E CENTER 15 MINUTES [facility]OSP[facility] - 9 9 N OUTPATIEN COMMUNITY T HOSPITAL EMERGENCY 61134 [facility] 9 9 N DEPARTMEN COMMUNITY T VISIT HOSPITAL LOW/MODER SEVERITY EMERGENCY 60954 [facility] 9 9 N DEPARTMEN COMMUNITY T VISIT HOSPITAL LOW/MODER SEVERITY [facility]OSPITAL [facility] - 9 9 N OUTPATIEN COMMUNITY T HOSPITAL EMERGENCY 97896 [facility] 2], 9 9 KEVIN Ruth DEPARTMEN EMERGENCY T VISIT PHYS INC MODERATE SEVERITY EMERGENCY 30572 [facility] 9 9 KEVIN [facility] BRI T VISIT PHYS INC M MODERATE SEVERITY EMERGENCY 77253 [facility] 9 9 N DEPARTMEN COMMUNITY T VISIT HOSPITAL LOW/MODER SEVERITY [facility]OSPITAL [facility] - 9 9 N OUTPATIEN COMMUNITY T HOSPITAL EMERGENCY 24219 [facility]NOTE 2], 9 9 KEVIN Ruth DEPARTMEN EMERGENCY T VISIT PHYS INC MODERATE SEVERITY EMERGENCY 15179 [facility], 9 9 KEVIN SALLY Hendricks DEPARTMEN EMERGENCY T VISIT PHYS INC MODERATE SEVERITY EMERGENCY 81801 [facility], 9 9 KEVIN HENRY DEPARTMEN EMERGENCY A T VISIT PHYS INC MODERATE SEVERITY OFFICE 51126 [facility] OUTPATIEN 9 9 [facility] T VISIT E CENTER 15 MINUTES EMERGENCY 73348 [facility] CE[facility] 9 9 EKVIN Sheila LESTER DEPARTMEN EMERGENCY BRI T VISIT PHYS INC M MODERATE SEVERITY OFFICE 50761 [facility] OUTPATIEN 9 9 [facility] T VISIT E CENTER 15 MINUTES OFFICE 49395 [facility] OUT[facility]IEN 9 9 LTH JR, T VISIT UROLOGY MAR K 15 PSC MINUTES EMERGENCY 04920 [facility] 9 9 KEVIN - YORBA, DEPARTMEN EMERGENCY BRI T VISIT PHYS INC M HIGH/URGE NT SEVERITY OFFICE 13094 JORGE LUIS [facility]AB[facility] OUTPATIEN 9 9 [facility] W T VISIT E CENTER 15 MINUTES OFFICE 39901 [facility] OUT[facility] 9 9 LTH JR, T VISIT UROLOGY MAR K 10 PSC MINUTES OFFICE 50436 [facility] OUT[facility] 9 9 LTH JR, T VISIT UROLOGY MAR K 10 PSC MINUTES OFFICE 24339 JORGE LUIS [facility] OUTPATIEN 9 9 [facility]ALTH[facility]ELENE W T VISIT E CENTER 15 MINUTES EMERGENCY 93749 [facility] DEPT 8 8 KEVIN - YORBA, VISIT EMERGENCY BRI HIGH PHYS INC M SEVERITY& THREAT [facility] [place] [address] 8 HOSPITAL INPATIENT EMERGENCY 00820 [facility] 8 8 KEVIN - YORBA, DEPARTMEN EMERGENCY BRI T VISIT PHYS INC M HIGH/URGE NT SEVERITY OFFICE 61315 [facility] OUTPATIEN 8 8 [facility] W T VISIT E CENTER 15 MINUTES [facility] [place] [address] 8 N OUTPATIEN [facility] OFFICE 34543 [facility] OUTPATIEN 8 8 [facility]ELENE W T VISIT E CENTER 15 MINUTES EMERGENCY 07515 [facility] 2], 8 8 KEVIN ANITA Ruth DEPARTMEN EMERGENCY T VISIT PHYS INC HIGH/URGE NT SEVERITY OFFICE 47269 JORGE LUIS OSPINA OUTPATIEN 8 8 [facility]ONATHAN T [facility] E [facility]ENTER MINUTES [facility]GENCY [id number] [facility] EM[facility]GENC[facility] BRI T VISIT PHYS INC M MODERATE SEVERITY OFFICE 07584 MIKKI KAYE OUTPATIEN 8 8 DON R DON R T VISIT 15 MINUTES EMERGENCY 35078 [place] 8 8 [facility] T VISIT MODERATE [facility]VERITY [facility] [place] - 8 8 [facility] [id number] [facility] 8 8 [facility] VIS[facility] MOD[facility]VER[facility] [place] - 8 8 [facility] [place] [facility] 8 8 [facility] [id number] MIKKI KAYE OUTPATIEN 8 8 DON R DON R T VISIT 15 MINUTES EMERGENCY 26287 [place] 8 8 [facility] T VISIT LOW/MODER SEVERITY EMERGENCY 22950 [place], 8 8 [facility] T VISIT PROF SERV MODERATE SEVERITY [facility] [place] - 8 8 [facility]
[2016-10-04 21:08] LABS: HEMOGLOBIN 12.5 g/dL (12.2-16.2); LYMPH # 2.3 K/mm3 (0.7-4.5); LYMPH % 36.6 % (10-50.0)
--- OUTSIDE RECORDS SUMMARY | 2016-10-04 21:10 | External Medical Summary Rpt ---
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 BE 8 PH RT AR B MA CY 03 93 8 # 03 93 COLEY [...] 8 TA # BL 03 ET 93 [place] 51 02 02 30 5 RI [address] 67 -1 -2 .0 TE 14 IN ti AT 21 9- 0- 00 61 EY ve IN 28 20 20 AI 90 11 11 D TN 10 2 PH CH 0, AR AE 00 MA L 0 CY S UN IT 03 /G 93 M 8 CR # EA 03 M 93 ME 00 02 02 21 6 RI 87 GA Ac TH 60 -1 -2 .0 TE 14 IN ti YL 34 9- 0- 00 62 EY ve IL 59 20 20 AI ED 31 11 11 D TN NI 5 PH CH SO AR AE LO MA L NE CY S 4 03 MG 93 8 DO # SE 03 PK 93 DO 00 02 02 20 10 RI 87 GA Ac XY 14 -1 -2 .0 TE 14 IN ti CY 33 9- 0- 00 63 EY ve CL 14 20 20 AI IN 20 11 11 D TN E 5 PH CH HY AR AE [...] CHEPE 8 TI # ON 03 93 AM 00 11 11 30 [...] 93 UL 8 E # 03 93 IB 53 11 11 21 7 RI 85 VALDEMAR Ac UP 74 -1 -1 .0 TE 78 HN ti RO 60 1- 1- 00 12 SO ve FE 46 20 20 AI N N 60 10 10 D CH 80 5 PH AR 0 AR LE MG MA S CY M TA BL 03 ET 93 8 # 03 93 63 09 10 1 [...] 03 93 8 # 03 93 63 09 09 1 30 30 RI 84 RA Ac 30 -0 -0 .0 TE 82 O ti 40 2- 2- 00 67 PA ve 53 20 20 AI DM 30 10 10 D A 1 PH G AR MA CY 03 93 8 # 03 93 CI 65 09 09 14 7 RI 84 RA Ac IL 86 -0 -0 .0 TE 82 O ti OF 20 2- 2- 00 68 PA ve LO 07 20 20 AI DM XA 70 10 10 D A CI 1 PH G N AR HC MA L CY 50 0 03 MG 93 8 TA # B 03 93 [place] 51 06 06 0 60 7 CV [address] 67 -2 -2 .0 S 85 VA ti AT 24 5- 5- 00 PH 45 GE ve IN 11 20 20 AR 70 10 10 MA SA 10 4 CY ND 0, # RA 00 L 0 02 UN 33 IT 2 /M L COLEY SP 00 06 06 12 2 RI 83 SO Ac 40 -1 -1 .0 TE 81 KA ti 60 5- 5- 00 18 N ve 35 20 20 AI BA 70 10 10 D BA 5 PH TU AR ND MA E CY O 03 93 8 # 03 93 IB 53 06 06 15 5 RI 83 SO Ac UP 74 -1 -1 .0 TE 81 KA ti RO 60 5- 5- 00 19 N ve FE 46 20 20 AI BA N 60 10 10 D BA 80 5 PH TU 0 AR ND MG MA E CY O TA BL 03 ET 93 8 # 03 93 CY 00 06 06 15 5 RI 83 SO Ac CL 37 -1 -1 .0 TE 81 KA ti OB 80 5- 5- 00 21 N ve EN 75 20 20 AI BA ZA 11 10 10 D BA IL 0 PH TU IN AR ND E MA E 10 CY O MG 03 93 TA 8 BL # ET 03 93 00 04 04 12 3 RI 83 Ac 40 -1 -1 .0 TE 03 OL ti 60 8- 8- 00 05 ET ve 36 20 20 AI TE 00 10 10 D 5 PH JE AR FF MA RE CY Y M 03 93 8 # 03 93 TA [...] 8 PS # UL 03 E 93 PH 65 04 04 6. 2 [...] 20 20 AR 10 10 10 MA TN 1 CY CH # AE L 02 S 33 2 CI 16 03 03 14 7 CV 34 GA Ac IL 25 -2 -2 .0 S 90 IN ti OF 20 5- 6- 00 PH 80 EY ve LO 51 20 20 AR XA 50 10 10 MA TN CI 1 CY CH N # AE [...] 00 14 7 CV 31 FA Ac IL 25 -0 -1 .0 S 05 RA [...] OS ZA 11 09 09 MA I IL 0 CY - IN YO E 23 [...] 00 60 30 CV 24 OV Ac IL 09 -0 -1 .0 S 41 ER [...] 7- 8- 00 PH 37 BE ve TN 02 20 20 AR E N 81 09 09 MA TE HC 0 CY RR L I 50 23 0 32 MG TA BL ET LI 68 06 06 00 30 30 CV 24 OV Ac SI 18 -0 -1 .0 S 41 ER ti NO 00 3 8- 00 PH 90 BE ve IL 51 20 20 AR E IL 40 [...] .0 S 00 LL ti AD 30 1 4- 00 PH 73 AR ve OL [...] CY IL LI 23 P 32 L NA 00 02 04 01 60 30 CV 21 OV Ac IL 09 -2 -2 .0 S 11 ER [...] 7- 3- 00 PH 37 BE ve TN 02 20 20 AR E N 81 09 09 MA TE HC 0 CY RR L I 50 23 0 32 MG TA BL ET LI 68 01 04 03 30 30 CV 19 OV Ac SI 18 -0 -2 .0 S 32 ER ti NO 00 2- 3- 00 PH 74 BE ve IL 51 20 20 AR E IL 40 09 09 MA TE 3 CY RR 10 I 23 MG 32 TA BL ET TR 00 03 [...] 2- 2- 00 PH 74 BE ve IL 51 20 20 AR E IL 40 09 09 MA TE 3 CY RR 10 I 23 MG 32 TA BL ET NA 00 02 03 00 60 30 CV 21 OV Ac IL 09 -2 -1 .0 S 11 ER [...] 7- 2- 00 PH 37 BE ve TN 02 20 20 AR E N 81 [...] 32 A PA TR IC K M LI 68 01 02 01 30 30 CV 19 No Ac SI 18 -0 -1 .0 S 32 t ti NO 00 2- 2- 00 PH 74 Av ve IL 51 20 20 AR ai IL 40 09 09 MA la 3 CY bl 10 e 23 MG 32 TA BL ET OX 00 01 02 00 40 14 CV 20 SL Ac YB 83 -2 -1 .0 S 07 AB ti UT 20 6- 2- 00 PH 66 AU ve YN 03 20 20 AR GH IN 85 09 09 MA 5 0 CY JR MG 32 OM TA BL K ET PH 65 01 01 00 20 6 CV 19 SL Ac EN 16 -1 -3 .0 S 65 AB ti AZ 20 3- 0- 00 PH 83 AU ve OP 52 20 20 AR GH YR 01 09 09 MA ID 0 CY JR IN E 20 32 OM 0 MG K TA B ME 59 01 01 00 21 6 CV 19 SL Ac TH 74 -1 -3 .0 S 65 AB ti YL 60 3- 0- 00 PH 82 AU ve IL 00 20 20 AR GH ED 10 09 09 MA NI 3 CY JR SO LO 23 TH NE 32 OM 4 K MG DO SE PK 60 01 01 00 20 10 CV 19 SL Ac 50 -1 -3 .0 S 65 AB ti 51 3- 0- 00 PH 81 AU ve 30 20 20 AR GH 90 09 09 MA 1 CY JR 32 OM K 00 01 01 00 20 4 CV 19 SL Ac 40 -0 -1 .0 S 31 AB ti 60 2- 5- 00 PH 73 AU ve 35 20 20 AR GH 80 09 09 MA 5 CY JR 23 32 OM K 60 12 01 00 20 10 CV 19 SL Ac 50 -3 -1 .0 S 23 AB ti 51 0- 5- 00 PH 93 AU ve 30 20 20 AR GH 90 08 09 MA 1 CY JR 23 32 OM K 00 12 01 00 30 7 CV 19 SL Ac 40 -3 -1 .0 S 23 AB ti 60 0- 5- 00 PH 92 AU ve 35 20 20 AR GH 70 08 09 MA 5 CY JR 23 32 OM K PH 65 01 01 00 30 10 CV 19 SL Ac EN 16 -0 -1 .0 S 56 AB ti AZ 20 9- 5- 00 PH 63 AU ve OP 52 20 20 AR GH YR 01 09 09 MA ID 0 CY JR IN E 20 32 OM 0 MG K TA B 00 01 01 00 30 2 CV 19 SL Ac 40 -0 -1 .0 S 56 AB ti 60 9- 5- 00 PH 62 AU ve 35 20 20 AR GH 70 09 09 MA 5 CY JR 32 OM K 60 01 01 00 14 7 CV 19 SL Ac 50 -0 -1 .0 S 38 AB ti 51 5- 5- 00 PH 02 AU ve 30 20 20 AR GH 90 09 09 MA 1 CY JR 23 TH 32 OM K HY 00 12 01 00 30 30 [...] 2- 5- 00 PH 74 Av ve IL 51 20 20 AR ai IL 40 09 09 MA la 3 CY bl 10 e 23 MG 32 TA BL ET FL 00 12 01 00 [...] 32 A PA TR IC K M IL 00 12 01 00 15 4 CV 19 CE Ac OM 78 -2 -1 .0 S 12 LL ti ET 11 7- 5- 00 PH 66 AR ve VALLEJO 83 20 20 AR OS ZI 00 08 09 MA I NE 1 CY - YO 25 23 RB 32 A MG PA TR TA IC BL K ET M COLEY 53 12 01 00 14 7 CV 19 CE Ac LF 74 -2 -1 .0 S 14 LL ti AM 60 9- 5- 00 PH 91 AR ve ET 27 20 20 AR OS HO 20 08 09 MA I XA 5 CY - ZO YO LE 23 RB -T 32 A MP PA TR DS IC K TA M BL ET 00 12 01 00 15 2 CV 19 CE Ac 40 -2 -1 .0 S 12 LL ti 60 7- 5- 00 PH 67 AR ve 35 20 20 AR OS 70 08 09 MA I 5 CY - YO 23 RB 32 A PA TR IC K M HY 00 12 12 00 30 30 [...] 01 [address] Ac IL 09 -2 -1 .0 S 26 EP [...] 00 [address] Ac IL 09 -2 -1 .0 S 26 EP ti OX 30 1- 1- 00 PH 78 HE ve EN 14 20 20 AR NS 90 08 08 MA 50 5 CY DO 0 N MG 23 R 32 TA BL ET 00 08 08 00 15 1 CV 15 CE Ac 40 -1 -2 .0 S 09 LL ti 60 9- 8- 00 PH 01 AR ve 35 20 20 AR OS 70 08 08 MA I 5 CY - YO 23 RB 32 A PA TR IC K M CY 00 08 08 00 12 4 CV 15 CE Ac CL 37 -1 -2 .0 S 09 LL ti OB 80 9- 8- 00 PH 02 AR ve EN 75 20 20 AR OS ZA 11 08 08 MA I IL 0 CY - IN YO E 23 RB 10 32 A PA MG TR IC TA K BL M ET 00 06 07 00 12 2 RI 73 SO Ac 40 -2 -0 .0 TE 89 KA ti 60 5- 3- 00 35 N ve 35 20 20 AI BA 80 08 08 D BA 1 PH TU AR ND M E #3 O 93 8 NA 00 01 07 02 [address] Ac IL 09 -2 -0 .0 TE 59 EP [...] 01 60 30 RI 71 No Ac IL 09 -2 -1 .0 TE 59 t ti OX 30 1- 0- 00 48 Av ve EN 14 20 20 AI ai 90 08 08 D la 50 1 PH bl 0 AR e MG M #3 TA 93 BL 8 ET NA 00 01 03 00 60 30 RI 71 No Ac IL 09 -2 -2 .0 TE 59 t [...] bl AR e M #3 93 8 Procedures Procedure DOS Code Location Performer Comment RADIOLOGI 55566 [facility] C 7 MEDICAL EXAMINATI IMAGING ON CHEST ASS SINGLE VIEW FRONTAL ECG 32808 LEONEL LEE ROUTINE 7 PHYSICIAN ECG S, PLLC W/LEAST 12 LDS I&R ONLY CULTURE 96335 [facility] BACTERIAL 7 [facility] [place] INC. INC. QUANTTATI VE COLONY COUNT URINE CULTURE 46670 [facility] BCT 7 [facility] [place], ISOL&PRSM INC. INC. PTV ID ISOLATE EA URINE URNLS DIP 40195 [facility] STICK/TAB INC INC LET RGNT AUTO W/[place]CROS[place] PRQ 81201 [facility] NATHALIE TRLUML 7 PHYSICIAN CORONARY S GROUP STENT W/ANGIO ONE ART/BRNCH CATH PLMT 80017 [facility] L 7 PHYSICIAN PHYSICIAN HRT/ARTS/ S GROUP S GROUP GRFTS WNJX & ANGIO IMG S&I ECG 01027 [facility] RICHARDSSON ROUTINE 7 [facility] W/LEAST P 12 LDS I&R ONLY ECG 95986 [facility] SUSIESON ROUTINE 7 [facility] W/LEAST P 12 LDS I&R ONLY [facility]OLOGI 33264 [facility] C EXAM 7 MEDICAL CHEST 2 IMAGING VIEWS ASS FRONTAL&L ATERAL CREATINE 00626 [facility] KINASE MB 7 [facility] [place] [address] [facility] TROPONIN 7 [facility] QUANTITAT INC INC FAWAD BLOOD 42181 [facility] COUNT 7 [facility] COMPLETE INC INC AUTO&AUTO DIFRNTL WBC ECG 31694 [facility] ROUTINE 7 [facility] ECG INC INC W/LEAST 12 LDS TRCG ONLY W/O I&R CREATINE 72888 [facility] KINASE 7 [facility] TOTAL INC INC COMPREHEN 03242 [facility] SIVE 7 [facility] [place] [address] CH[facility]STI [place] HEAD/BRAI 7 MEDICAL N W/O IMAGING CONTRAST ASS MATERIAL FINAL G9638 [place] LIN[place] REPORTS 7 MEDICAL W/O DOC IMAGING 1/MORE ASS DOSE REDUCTION TECH DIAB ONLY A5500 [facility] FIT CSTM 7 MEDICAL MEDICAL PREP&SPL SUPPLY SUPPLY SHOE MX Trapit [facility] DNSITY INSRT FOR DIAB A5512 [facility] ELITE ONLY MX 7 MEDICAL MEDICAL DNSITY SUPPLY SUPPLY INSRT DIR [employer] FORMD PRFAB EA HEMOGLOBI 10545 [facility] N 7 [facility] INC. INC. MIKY A1C LIPID 78675 [facility] PANEL 7 [facility] [place] INC. INC. BLOOD 18700 [facility] COUNT 7 [facility] [place], COMPLETE INC. INC. AUTO&AUTO DIFRNTL WBC COMPREHEN 02532 [facility] SIVE 7 [facility] [place], METABOLIC INC. INC. PANEL CYTP C/V 87465 [facility] AUTO THIN 7 [facility] [place], LYR INC. INC. PREPJ SCR MNL RESCR PHYS COMPUTER- 29014 [facility] [place] RADMANESH AIDED 6 RADIOLOGY SHA DETECTION SCREENING MAMMOGRAP HY SCREENING G0202 [facility] [place] RADMANESH 6 RADIOLOGY SHA MAMMOGRAP HY TERESA INCL CAD WHEN PERFORMD VISUAL 94700 [email or web address] FIELD XM 6 ANG ANG UNI/BI W/INTERP EXTENDED EXAM OPHTH 76483 [facility] MEDICAL 6 ANG ANG XM&EVAL COMPRE NEW PT 1/> VST ARTHROCEN 02103 [facility] PETTEY TESIS 6 PHYSICIAN JAY ASPIR&/IN S GROUP J MAJOR JT/BURSA W/O US INJ J0702 [facility] PETTEY BETAMETHA 6 PHYSICIAN JAY SONE S GROUP ACETATE & PHOSPHATE 3 MG ECG 50059 [facility] ROUTINE 6 [facility] ECG INC INC W/LEAST 12 LDS TRCG ONLY W/O I&R RADEX 63400 [place] BEINEKE ELBOW 6 MEDICAL AMELIE COMPLETE IMAGING MINIMUM 3 ASS VIEWS CREATINE 55859 [facility] KINASE 6 [facility] TOTAL INC INC COMPREHEN 63474 [facility] SIVE 6 [facility] METABOLIC INC INC PANEL BLOOD 42032 [facility] COUNT 6 [facility] COMPLETE INC INC AUTO&[place] [address] [facility] TROPONIN 6 [facility] QUANTITAT INC INC FAWAD RADEX 50990 [place] SHOULDER 6 MEDICAL AMELIE COMPLETE IMAGING MINIMUM 2 ASS VIEWS CREATINE 17069 [facility] KINASE MB 6 [facility] FRACTION INC INC ONLY ECG 44970 LULY MAURICIO ROUTINE 6 ANGELICA ANGELICA ECG W/LEAST 12 LDS I&R ONLY PHYSICAL 04588 [facility] THERAPY 6 [facility] EVALUATIO INC INC N INJ J0702 CHANCE TRA CHANCE TRA BETAMETHA 6 SONE ACETATE & PHOSPHATE 3 MG INJECTION S0020 CHANCE TRA CHANCE TRA 6 BUPIVICAI NE HYDROCHLO RIDE 30 ML ARTHROCEN 72878 CHANCE TRA CHANCE TRA TESIS 6 ASPIR&/IN J MAJOR JT/BURSA W/O US RADEX HIP 00158 CHANCE TRA CHANCE TRA 6 UNILATERA L WITH PELVIS 2-3 VIEWS SERVICE G0151 [facility] PH[facility] 6 HOME HOME THERAP HEALTH HEALTH HOME AGENCY AGENCY HLTH/HOSP ICE EA 15 MIN BLOOD 22464 [facility] COUNT 6 [facility] COMPLETE INC INC AUTO&[place] [address] [facility] LIPASE 6 [facility] INC INC URNLS DIP 18146 [facility] 6 [facility] STICK/TAB INC [place] [address] [facility] ABDOMEN & 6 [facility] PELVIS INC INC W/O CONTRAST MATERIAL INJECTION J2405 [facility] 6 [facility] ONDANSETR INC INC ON HCL PER 1 [place] [address] [facility] INFUSION 6 [facility] THERAPY/P INC INC ROPHYLAXI S /DX 1ST TO 1 HR THERAPEUT 64533 [facility] IC 6 [facility] INJECTION INC INC IV PUSH EACH NEW DRUG SERVICE G0151 [facility] PHYS 5 HOME HOME THERAP HEALTH HEALTH HOME AGENCY AGENCY HLTH/HOSP ICE EA 15 MIN SERVICE G0151 [facility] PHYS 5 HOME HOME THERAP HEALTH HEALTH HOME AGENCY AGENCY HLTH/HOSP ICE EA 15 MIN BLOOD 55349 [facility] COUNT 5 [facility] COMPLETE INC INC AUTO&[place] [address] [facility] TROPONIN 5 [facility] QUANTITAT INC INC FAWAD RADIOLOGI 97566 [facility] C EXAM 5 [facility] CHEST 2 INC INC VIEWS FRONTAL&L ATERAL CREATINE 21987 [facility] KINASE MB 5 [facility] FRACTION INC INC ONLY URNLS DIP 09378 [facility] 5 [facility] STICK/TAB INC INC LET REAGENT AUTO MICROSCOP Y GLUC BLD 70337 [facility] GLUC MNTR 5 [facility] DEV INC INC CLEARED FDA SPEC HOME USE NATRIURET 99055 [facility] IC 5 [facility] PEPTIDE INC INC THER 60679 [facility] PROPH/DX 5 [facility] NJX IV INC INC PUSH SINGLE/1S T SBST/DRUG ECG 81161 [facility] ROUTINE 5 [facility] ECG INC INC W/LEAST 12 LDS TRCG ONLY W/O I&R COMPREHEN 53929 [facility] SIVE 5 [facility] METABOLIC INC INC PANEL CREATINE 06797 [facility] KINASE 5 [facility] TOTAL INC INC SERVICE G0151 [facility] PHYS 5 HOME HOME THERAP HEALTH HEALTH HOME AGENCY AGENCY HLTH/HOSP ICE EA 15 MIN SERVICE G0151 [facility] PHYS 5 HOME HOME THERAP HEALTH HEALTH HOME AGENCY AGENCY HLTH/HOSP ICE EA 15 MIN SERVICE G0151 [facility] PHYS 5 HOME HOME THERAP HEALTH HEALTH HOME AGENCY AGENCY HLTH/HOSP ICE EA 15 MIN HEMOGLOBI 43848 [facility] N 5 DIAGNOSTI DIAGNOSTI GLYCOSYLA CS CS MIKY A1C COMPREHEN 29873 [facility]ST SIVE 5 DIAGNOSTI DIAGNOSTI METABOLIC CS CS PANEL SERVICE G0151 [facility] PHYS 5 HOME HOME THERAP HEALTH HEALTH HOME AGENCY AGENCY HLTH/HOSP ICE EA 15 MIN ARTHROCEN 50369 CHANCE TRA CHANCE TRA TESIS 5 ASPIR&/IN J MAJOR JT/BURSA W/O US INJECTION S0020 CHANCE TRA CHANCE TRA 5 BUPIVICAI NE HYDROCHLO RIDE 30 ML RADEX HIP 18331 CHANCE TRA CHANCE TRA 5 UNILATERA L COMPLETE MINIMUM 2 VIEWS INJ J0702 CHANCE TRA CHANCE TRA BETAMETHA 5 SONE ACETATE & PHOSPHATE 3 MG RADEX HIP 94568 [facility] TRA 5 [place] UNILATER[place] ORTHOPAED L [facility] PLC COMPLETE MINIMUM 2 VIEWS SBSQ 33693 [facility] 5 JUAN JUAN CARE/DAY 25 MINUTES SBSQ 94374 [facility] 5 JUAN JUAN CARE/DAY 25 MINUTES SBSQ 36667 [facility] 5 JUAN JUAN CARE/DAY 25 MINUTES WALKER E0143 [facility] F[facility]ING 5 WHEELED ADJUSTABL E/FIXED HEIGHT COMMODE E0163 [facility] CHAIR 5 MOBILE OR STATIONAR Y W/FIXED ARMS LEVEL III 54478 [facility] 5 [facility] PATHOLOGY CLINIC PSC GROSS&AZAR ROSCOPIC EXAM ANESTHESI [address] HEA A OPEN 5 A TOTAL HIP ASSOCIATE S PSC ARTHROPLA STY DECALCIFI 28010 [facility] CATION 5 [facility] PROCEDURE CLINIC PSC ARTHRP 36175 [facility] CHANCE TRA ACETBLR/P 5 [place] CANDACE FEM ORTHOPAED PROSTC ICS PLC AGRFT/ALG RFT INITIAL 32605 [facility] 5 JUAN JUAN CARE/DAY 70 MINUTES REPL LT [id number] [facility] HIP JNT [address] [place] [address] CERAM POLY SYNTH UNCEMENTE D OPEN RADIOLOGI 31020 [facility] [place] C EXAM 5 RADIOLOGY RHO CHEST 2 VIEWS FRONTAL&L ATERAL RADIOLOGI 16819 [facility] [place] WESTER[place] C EXAM 5 RADIOLOGY LD IV ALL CHEST 2 VIEWS FRONTAL&L ATERAL BLOOD [address] COMPLETE AUTOMATED HEMOGLOBI [address] GLYCOSYLA MIKY A1C HEPATIC 42906 [facility] FUNCTION [address] [place] [address] PANEL LIPID 88675 [facility] PANEL [address] [place] [address] HOSPITAL BASIC 89619 [facility] METABOLIC [address] [place] [address] PANEL CALCIUM TOTAL THROMBOPL 35808 [facility] ASTIN [address] [place] [address] TIME PARTIAL PLASMA/WH OLE BLOOD URNLS DIP [address] STICK/TAB LET RGNT AUTO W/O MICROSCOP Y ECG 20874 [facility] ROUTINE [address] [place] [address] ECG W/LEAST 12 LDS TRCG ONLY W/O I&R PROTHROMB 62775 [facility] IN TIME [address] [place] [address] RADIOLOGI 21202 XANDERY BRASWELL ALL C EXAM 5 MEDICAL CHEST 2 IMAGING VIEWS ASS FRONTAL&L ATERAL INJECTION J[address] REGADENOS ON 0.1 MG TECHNETIU A9502 [facility] TC-99M [address] [place] [address] TETROFOSM IN DX PER STUDY DOSE MYOCARDIA 56905 [facility] SPECT [address] [place] [address] MULTIPLE STUDIES RADEX 60942 [facility] TRA SPINE 5 [place] LUMBOSACR ORTHOPAED AL 2/3 [facility] VIEWS CANE INCL E0100 IDRIS IDRIS CANES 5 HOME HOME ALL MEDICAL MEDICAL MATERIAL EQUIPME EQUIPME ADJUSTBLE /FIX W/TIP APPL 00984 [facility] MODALITY 5 [facility] 1/> AREAS INC INC ELEC STIMJ UNATTENDE D THERAPEUT 95589 [facility] IC PX 1/> 5 [facility] AREAS INC INC EACH 15 MIN EXERCISES APPL 11038 [facility] MODALITY 5 [facility] 1/> AREAS INC INC ULTRASOUN D EA 15 MIN APPLICATI 71565 [facility] ON 5 [facility] MODALITY INC INC 1/> AREAS HOT/COLD PACKS APPLICATI 83775 [facility] ON 5 [facility] MODALITY INC INC 1/> AREAS HOT/COLD PACKS APPL 24035 [facility] MODALITY 5 [facility] 1/> AREAS INC INC ULTRASOUN D EA 15 MIN THERAPEUT 42170 [facility] IC PX 1/> 5 [facility] AREAS INC INC EACH 15 MIN EXERCISES APPL 84263 [facility] MODALITY 5 [facility] 1/> AREAS INC INC ELEC STIMJ UNATTENDE D APPL 00090 [facility] MODALITY 5 [facility] 1/> AREAS INC INC ELEC STIMJ UNATTENDE D THERAPEUT 20992 [facility] IC PX 1/> 5 [facility] AREAS INC INC EACH 15 MIN EXERCISES APPLICATI 81469 [facility] ON 5 [facility] MODALITY INC INC 1/> AREAS HOT/COLD PACKS APPL 79743 [facility] MODALITY 5 [facility] 1/> AREAS INC INC ULTRASOUN D EA 15 MIN APPLICATI 74780 [facility] ON 5 [facility] MODALITY INC INC 1/> AREAS HOT/COLD PACKS MANUAL 47487 [facility] THERAPY 5 [facility] TQS 1/> INC INC REGIONS EACH 15 MINUTES THERAPEUT 54155 [facility] IC PX 1/> 5 [facility] AREAS INC INC EACH 15 MIN EXERCISES APPL 18408 [facility] MODALITY 5 [facility] 1/> AREAS INC INC ELEC STIMJ UNATTENDE D PHYSICAL 93255 [facility] THERAPY 5 [facility] EVALUATIO INC INC N RADIOLOGI 56933 [facility] [place] C EXAM 5 RADIOLOGY RHO CHEST 2 VIEWS FRONTAL&L ATERAL RADIOLOGI 76288 [facility] TRA C 5 [place] EXAMINATI ORTHOPAED ON PELVIS [facility] 1/2 VIEWS RADEX 08499 [facility] TRA SPINE 5 [place] LUMBOSACR ORTHOPAED AL 2/[address] [place] [address] [place] LINUS ABDOMEN & 4 MEDICAL KARLY PELVIS IMAGING W/O ASS CONTRAST MATERIAL RADEX 71647 [facility] [place] SCALF MARKO SPINE 4 RADIOLOGY CERVICAL 2 OR 3 VIEWS RADEX 81971 [facility] [place] SCALF MARK[place] SHOULDER 4 RADIOLOGY COMPLETE MINIMUM 2 VIEWS RADEX 54775 [facility] LINUS HUMERUS 4 MEDICAL KARLY MINIMUM 2 IMAGING VIEWS ASS RADEX 59873 [facility] PERALTAUTCHER FOREARM 2 4 MEDICAL KARLY VIEWS IMAGING ASS RADIOLOGI 13339 [facility] BARRIGA C EXAM 4 MEDICAL KARLY CHEST 2 IMAGING VIEWS ASS FRONTAL&L ATERAL ECG 39914 [facility] ANGELICA SHAZIA ANGELICA ROUTINE 4 ECG W/LEAST 12 LDS I&R ONLY LIPID 07223 [facility] PANEL 4 [facility] HEMOGLOBI 97207 [facility] CH[facility] N 4 [facility]ON[facility] BONY GLYCOSYLA [facility] MIKY A1C COMPREHEN 23669 [facility] CH[facility] SIVE 4 [facility]ONY METABOLIC [facility] PANEL COMPREHEN 07677 LAB CHERYL LAB CHERYL SIVE 3 [facility] METABOLIC [facility] HOLD[facility] PANEL ECG 09127 JOSE MARIA ROSS ROUTINE 3 MARCELINA ECG PEDIATRIC W/LEAST S & INTER 12 LDS W/I&R BLOOD 03381 LAB CHERYL LAB CHERYL COUNT 3 [facility] COMPLETE [facility] AUTO&AUTO DIFRNTL WBC ECG 41354 COURTNEY BROWNING ROUTINE 3 EMERGENCY AZAR ECG SERVICES W/LEAST 12 LDS I&R ONLY RADIOLOGI 68539 CHRISTI BARRIGA C EXAM 3 MEDICAL KARLY CHEST 2 IMAGING VIEWS ASS FRONTAL&[place] [address] CHRISTI BARRIGA HEAD/BRAI 3 MEDICAL KARLY N W/O IMAGING CONTRAST ASS MATERIAL RADEX HIP 02565 [facility] 3 N N [facility] L H[facility] HOSPITA COMPLETE MINIMUM 2 VIEWS RADEX 31264 COURTNEY BELLAMY BRA FOOT 3 EMERGENCY COMPLETE SERVICES MINIMUM 3 VIEWS BASIC 43950 LAB [facility] LAB CHERYL METABOLIC 3 [facility] PANEL [facility] CALCIUM TOTAL HEMOGLOBI 22813 LAB CHERYL LAB CHERYL N 3 [facility] GLYCOSYLA [facility] HOLDINGS MIKY A1C RADIOLOGI 25881 COURTNEY GARCIA C 3 EMERGENCY RYA EXAMINATI SERVICES ON KNEE 3 VIEWS IADNA 42503 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 PAPILLOMA 3 Y CHERYL OF Y CHERYL OF VIRUS BONY BONY HUMAN H H AMPLIFIED PROBE TQ CYTP C/V 48332 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 THIN 3 Y CHERYL OF Y CHERYL OF LYR BONY BONY PREPJ SCR H H MNL RESCR PHYS COMPREHEN 63315 LAB CHERYL LAB CHERYL SIVE 3 [facility] METABOLIC [facility] HOLDINGS PANEL HEMOGLOBI 53292 LAB [facility]ERYL LAB CHERYL N 3 [facility] GLYCOSYLA [facility]INGS HOLDINGS MIKY A1C LIPID 92251 LAB CHERYL LAB CHERYL PANEL 3 [facility] INCISION 83390 COURTNEY STEPHENS & 3 EMERGENCY III [facility] DRAINAGE SERVICES ABSCESS SIMPLE/SI NGLE NONEMERG A0120 LKLP LKLP TRNSPRT: 2 [facility] ACTION ACTION MTN AREA/[place] [address] XANDERParag LINUS HEAD/BRAI 2 MEDICAL KARLY N W/O IMAGING CONTRAST ASS MATERIAL COMPREHEN 27227 [facility] SIVE 2 [facility] METABOLIC INC INC PANEL CREATINE 38923 [facility] KINASE MB 2 [facility] FRACTION INC INC ONLY CREATINE 77826 [facility] KINASE 2 [facility] TOTAL INC INC ECG 79105 [facility] ROUTINE 2 [facility] ECG INC INC W/LEAST 12 LDS TRCG ONLY W/O I&R 3D 12766 [facility] RENDERING 2 [facility] W/INTERP INC INC & POSTPROCE SS SUPERVISI ON ECG 41487 COURTNEY STEPHENS ROUTINE 2 EMERGENCY III ADRIENNE ECG SERVICES W/LEAST 12 LDS I&[place] [address] [facility] TROPONIN 2 [facility] QUANTITAT INC INC FAWAD BLOOD 50852 [facility] COUNT 2 [facility] COMPLETE INC INC AUTO&AUTO DIFRNTL WBC THERAPEUT 45900 [facility] IC 2 [facility] PROPHYLAC INC INC TIC/DX INJECTION SUBQ/IM 3D 46524 CHRISTI PERALTAUTCHER RENDERING 2 MEDICAL KARLY IMAGING W/INTERP& [place] [address] CHRISTI BARRIGA ABDOMEN & 2 MEDICAL KARLY PELVIS IMAGING W/O ASS CONTRAST MATERIAL BASIC 61190 [facility] METABOLIC 2 [facility] PANEL INC INC CALCIUM TOTAL BLOOD 92581 [facility] COUNT 2 [facility] COMPLETE INC INC AUTO&AUTO DIFRNTL WBC URNLS DIP 68653 [facility] 2 [facility] STICK/TAB INC INC LET REAGENT AUTO MICROSCOP Y THERAPEUT 69407 [facility] IC 2 [facility] PROPHYLAC INC INC TIC/DX INJECTION SUBQ/IM NONEMERG A0120 LKLP LKLP TRNSPRT: 2 [facility] ACTION ACTION MTN AREA/OTH SYS ECG 20514 [facility]MA ROUTINE 2 [facility] W/LEAST P P 12 LDS I&R ONLY RADIOLOGI 18511 [facility] C 2 [facility] EXAMINATI INC INC ON CHEST SING[place] VIEW FRONTAL BASIC 23907 [facility] PANEL INC INC CALCIUM TOTAL CREATINE 29059 [facility] KINASE 2 [facility] TOTAL INC INC CREATINE 92347 [facility] KINASE MB 2 [facility] FRACTION INC INC ONLY COMPREHEN 99395 [facility] SIVE 2 [facility] METABOLIC INC INC PANEL ECG 77079 [facility] ROUTINE 2 [facility] ECG INC INC W/LEAST 12 LDS TRCG ONLY W/O I&R BLOOD 23705 [facility] COUNT 2 [facility] COMPLETE INC INC AUTO&[place] [address] [facility] TROPONIN 2 [facility] QUANTITAT INC INC FAWAD URNLS DIP 41537 [facility] 1 [facility] LET RGNT P P NON-AUTO W/O MICRSCP BASIC 31233 [facility] METABOLIC 1 [facility] PANEL INC INC CALCIUM TOTAL CULTURE 30880 [facility] BACTERIAL [address] [facility] INC INC QUANTTATI VE COLONY COUNT URINE RADEX 38783 [facility] ABDOMEN 1 1 MEDICAL MEDICAL IMAGING IMAGING ANTEROPOS ASS ASS TERIOR VIEW FIBRIN 72287 [facility] DGRADJ 1 [facility] PRODUCTS INC INC D-DIMER QUAL/SEMI JUANIS DUP-SCAN 52282 [facility] XTR VEINS 1 [facility] COMPLETE INC INC BILATERAL STUDY BLOOD 97165 [facility] COUNT [address] [facility] COMPLETE INC INC AUTO&AUTO DIFRNTL WBC URNLS DIP 09942 [facility] 1 [facility] STICK/TAB INC INC LET REAGENT AUTO MICROSCOP Y CYSTO 48120 ANJUM VALERO W/INSERT 1 ROBERT ROBERT URETERAL STENT PROSTHETI L8699 [facility] IMPLANT 1 [facility] CLINIC OTHERWISE PSC PSC SPECIFIED INJECTION [id number] [facility] ON HCL PSC PSC PER 1 MG CYSTO 84167 ANJUM VALERO W/URETERO 1 ROBERT ROBERT SCOPY W/LITHOTR IPSY CALCULUS 56046 [facility] INFRARED 1 DIAGNOSTI DIAGNOSTI SPECTROSC CS CS OPY URNLS DIP 25634 [facility] VALERO 1 [facility] LET RGNT P NON-AUTO W/O MICRSCP URNLS DIP 36035 [facility] 1 [facility] LET RGNT P P NON-AUTO W/O MICRSCP STENT C2617 [facility] NON-COR 1 [facility] TEMPORARY INC INC WITHOUT DELIVERY SYSTEM INTRO 83583 [facility] URETERAL 1 [facility] CATH/STEN INC INC T PRQ RS&I FLUOROSCO 95483 [facility] PY SPX UP 1 MEDICAL MEDICAL TO 1 IMAGING IMAGING HOUR ASS ASS PHYS/QHP TIME ECG 24287 [facility] ROUTINE 1 [facility] ECG INC INC W/LEAST 12 LDS TRCG ONLY W/O I&R GUIDE C1769 [facility] WIRE 1 [facility] INC INC RAD 6045F [facility] EXPOS/ROBERT 1 MEDICAL MEDICAL E IN LAST IMAGING IMAGING RPRT ASS ASS FLUORO PRXD DOCD ECG 02544 [facility] TERRELL CALHOUN ROUTINE 1 [facility] W/LEAST P 12 LDS I&[place] [address] [facility] INFUSION 1 [facility] THERAPY/P INC INC ROPHYLAXI S /DX 1ST TO 1 HR THERAPEUT 88169 [facility] IC [address] [facility] INJECTION INC INC IV PUSH EACH NEW DRUG CYSTO 57576 [facility] W/INSERT 1 [facility] URETERAL INC INC STENT BLOOD 39492 [facility] COUNT 1 [facility] COMPLETE INC INC AUTO&AUTO DIFRNTL WBC URNLS DIP 32259 [facility] 1 [facility] STICK/TAB INC [place] [address] [facility] INFUSION 1 [facility] THERAPY/P INC INC ROPHYLAXI S /DX 1ST TO 1 HR INJECTION J2405 [facility] [address] [facility] ONDANSETR INC INC ON HCL [place] 1 [place] [address] [facility] INFUSION 1 [facility] THER INC INC PROPH ADDL SEQUENTIA L TO 1 HR 3D 12010 [place] LIN[place] RENDERING 1 MEDICAL KARLY IMAGING W/INTERP& [place] [address] [place] ABDOMEN & 1 MEDICAL KARLY PELVIS IMAGING W/O ASS CONTRAST MATERIAL CULTURE 69098 [facility] BACTERIAL 1 [facility] INC INC QUANTTATI VE COLONY COUNT URINE COMPREHEN 49891 [facility] SIVE 1 [facility] METABOLIC INC INC PANEL SLINGS A4565 [facility] 1 COMPREHEN 11663 [facility] SIVE 1 N N METABOLIC COMM[facility]ITY COMM[facility]ITY PANEL HOSPITA HOSPITA CREATINE 65061 [facility] KINASE 1 N N TOTAL COMMUNITY COMMUNITY HOSPITA HOSPITA COLLECTIO 15135 [facility] N VENOUS 1 N N BLOOD [facility] VENIPUNCT HOSPITA HOSPITA URE HEMOGLOBI 98444 [facility] N 1 [employer] INC GLYCOSYLA MIKY A1C MRI BRAIN 83874 [facility] [place] L[place] MAT BRAIN 1 RADIOLOGY STEM W/O W/CONTRAS T MATERIAL COLLECTIO 83590 LEE PAD LEE PAD N VENOUS 1 BLOOD VENIPUNCT URE COMPREHEN 06838 [facility] SIVE 1 Intoo [facility] METABOLIC PANEL LIPOPROTE 36797 [facility] IN DIRECT 1 Intoo [place] LS9 MEASUREME NT LDL CHOLESTER OL LIPID 37803 [facility] PANEL 1 [place] [employer] 3D 29376 [facility] RENDERING 1 MEDICAL MEDICAL W/INTERP IMAGING IMAGING & [place] [address] [place] LIN[place] HEAD/BRAI 1 MEDICAL KARLY N W/O IMAGING CONTRAST ASS MATERIAL SEDIMENTA 34529 [facility] TION RATE [address] [facility] RBC INC INC NON-AUTOM ATED COMPREHEN 30592 [facility] SIVE [address] [facility] METABOLIC INC INC PANEL CYANOCOBA 29318 [facility] NKECHI 1 [facility] VITAMIN INC INC B-12 BLOOD 12956 [facility] COUNT 1 [facility] COMPLETE INC INC AUTO&AUTO DIFRNTL WBC RADIOLOGI 53695 [facility] C EXAM 0 MEDICAL KARLY CHEST 2 IMAGING VIEWS ASS FRONTAL&L ATERAL URNLS DIP [address] [facility] [address] [facility] STICK/TAB INC INC LET REAGENT AUTO MICROSCOP Y CULTURE 60650 [facility] BACTERIAL 0 [facility] INC INC QUANTTATI VE COLONY COUNT URINE RADEX 09411 [facility] RIBS UNI 0 MEDICAL KARLY W/POSTERO IMAGING ANT CH ASS MINIMUM 3 VIEWS LANCETS A4259 M E D M E D PER BOX 0 SUPPLIES SUPPLIES OF 100 NORMAL A4256 M E D M E D LOW AND 0 SUPPLIES SUPPLIES HIGH CALIBRATO R SOLUTION/ CHIPS BLD GLU A4253 M E D M E D TEST/REAG 0 SUPPLIES SUPPLIES T STRIPS HOME BLD GLU SPRING-PO A4258 M E D M E D WERED 0 SUPPLIES SUPPLIES DEVICE FOR LANCET EACH COMPUTER- 24018 [facility] [place]AB[place] AIDED 0 RADIOLOGY RHO DETECTION SCREENING MAMMOGRAP HY SCREENING G0202 [facility] [place] RABIA 0 RADIOLOGY RHO MAMMOGRAP HY TERESA INCL CAD WHEN PERFORMD LIPID 25764 [facility] PANEL 0 [facility] HEMOGLOBI 25423 [facility] N 0 [facility] GLYCOSYLA MIKY A1C LIPOPROTE 58718 [facility] IN DIRECT 0 [facility] MEASUREME NT LDL CHOLESTER OL CYTP C/V 82377 PATHOLOGY PATHOLOGY AUTO THIN 0 & & LYR CYTOLOGY CYTOLOGY PREPJ SCR LAB LAB MNL RESCR PHYS COMPREHEN 67454 [facility] SIVE 0 [facility] METABOLIC PANEL COLLECTIO 19968 LEE PAD LEE PAD N VENOUS 0 BLOOD VENIPUNCT URE COMPREHEN 39561 [facility] SIVE 0 [facility] METABOLIC INC INC PANEL URNLS DIP 80298 [facility] 0 [facility] STICK/TAB INC INC LET REAGENT AUTO MICROSCOP Y BLOOD 94620 [facility] COUNT 0 [facility] COMPLETE INC INC AUTO&AUTO DIFRNTL WBC RADIOLOGI 53178 [facility] C EXAM 0 [facility] CHEST 2 INC INC VIEWS FRONTAL&L ATERAL BLD GLU A4253 M E D M E D TEST/REAG 0 SUPPLIES SUPPLIES T STRIPS HOME BLD GLU LANCETS A4259 M E D M E [...] SUPPLIES T STRIPS HOME BLD GLU MON-50 REPL JOSE DE JESUS A4235 M E D M E D LITHIUM 0 SUPPLIES SUPPLIES MED NECES AYLIN BG MON OWN PT EA BLD GLU A4253 M E D M E D TEST/REAG 0 SUPPLIES SUPPLIES T STRIPS HOME BLD GLU MON-50 LANCETS A4259 M E D M E D PER BOX 0 SUPPLIES SUPPLIES OF 100 URINE 53186 [facility] 0 [facility] TEST INC INC VISUAL COLOR CMPRSN METHS CULTURE 16625 [facility] BACTERIAL 0 [facility] INC INC QUANTTATI VE COLONY COUNT URINE RADIOLOGI 29750 [place] Carlos BARRIGA EXAM 0 MEDICAL MONIQUE CHEST 2 IMAGING VIEWS ASSOCIATE FRONTAL&L S ATERAL URNLS DIP 14691 [facility] 0 [facility] STICK/TAB INC INC LET REAGENT AUTO MICROSCOP Y LANCETS A4259 M E D [...] SUPPLIES SUPPLIES HIGH CALIBRATO R SOLUTION/ CHIPS 3D 76047 [place]AT[place], RENDERING 0 MEDICAL JAMES P IMAGING W/INTERP& ASSOCIATE POSTPROC S DIFF WORK STATION CT PELVIS 99097 [place] KAT[place], W/O 0 MEDICAL JAMES [place] [address] [place], ABDOMEN 0 MEDICAL JAMES P W/O IMAGING CONTRAST ASSOCIATE MATERIAL S URNLS DIP 31462 [facility] 0 [facility] STICK/TAB INC INC LET REAGENT AUTO MICROSCOP Y LANCETS A4259 M E D M E D PER BOX 0 SUPPLIES SUPPLIES OF 100 BLD GLU A4253 M E D M E D TEST/REAG 0 SUPPLIES SUPPLIES T STRIPS HOME BLD GLU MON-50 [place] [address] [facility] STREPTOCO 0 [facility] [...] SUPPLIES T STRIPS HOME BLD GLU MON-50 SPRING-PO A4258 M E D M E D WERED 0 SUPPLIES SUPPLIES DEVICE FOR LANCET EACH REPL JOSE DE JESUS A4235 M E D M E D LITHIUM 0 SUPPLIES SUPPLIES MED NECES AYLIN BG MON OWN PT EA BLD GLU A4253 M E D M E D TEST/REAG 9 SUPPLIES SUPPLIES T STRIPS HOME BLD GLU MON-50 LANCETS A4259 M E D M E D PER BOX 9 SUPPL[address] SUP[address] P[place] [address] [facility] [place], W/O 9 [place] [address] [facility] [place], ABDOMEN 9 RADIOLOGY MARY K W/O CONTRAST MATERIAL LANCETS A4259 M E D [...] BOX 9 SUPPLIES SUPPLIES OF 100 NORMAL 10-26-200 A4256 M E D M E D [...] SUPPLIES T STRIPS HOME BLD GLU MON-50 REPL JOSE DE JESUS A4235 M E D M E D LITHIUM 9 SUPPLIES SUPPLIES MED NECES AYLIN BG MON OWN PT EA INCISION 32187 COURTNEY LAZARO, & 9 EMERGENCY ALVERTO L DRAINAGE SERVICES ABSCESS SIMPLE/SI ASSOCIATE NGLE S BLD GLU A4253 M E D M E D TEST/REAG 9 SUPPLIES SUPPLIES T STRIPS HOME BLD GLU MON-50 LANCETS A4259 M E D M E D PER BOX 9 SUPPLIES SUPPLIES OF 100 INCISION 87378 MICHELLE YOUNG, & 9 KEVIN ANITA L DRAINAGE EMERGENCY ABSCESS PHYS INC COMPLICAT ED/MULTIP LE LANCETS A4259 M E D M E D PER BOX 9 SUPPLIES SUPPLIES OF 100 BLD GLU 200 A4253 M E D M E D TEST/REAG 9 SUPPLIES SUPPLIES T STRIPS HOME BLD GLU MON-50 RADIOLOGI 56631 [facility] LYLES 9 RADIOLOGY J EXAMINATI ON KNEE 3 VIEWS LANCETS A4259 M E D M E D PER BOX 9 SUPPLIES SUPPLIES OF 100 NORMAL 200 A4256 M E D M E D LOW AND 9 SUPPLIES SUPPLIES HIGH CALIBRATO R SOLUTION/ CHIPS BLD GLU A4253 M E D M E D TEST/REAG 9 SUPPLIES SUPPLIES T STRIPS HOME BLD GLU MON-50 HOME E0607 M E D M E D BLOOD 9 SUPPLIES SUPPLIES GLUCOSE MONITOR BLD GLU A4253 M E D M E D TEST/REAG 9 SUPPLIES SUPPLIES T STRIPS HOME BLD GLU MON-50 LANCETS A4259 M E D M E D PER BOX 9 SUPPLIES SUPPLIES OF 100 COLLECTIO 91237 [facility], N VENOUS 9 [facility] B[facility] VENIPUNCT URE COMPREHEN 52302 [facility] CH[facility] SIVE 9 [employer] MET[employer]OL[employer] HOLDING PANEL LIPID 53773 LAB [facility] CHERYL PANEL 9 [employer] LANCETS A4259 M E D M E D PER BOX 9 SUPPLIES SUPPLIES OF 100 BLD GLU A4253 M E D M E D TEST/REAG 9 SUPPLIES SUPPLIES T STRIPS HOME BLD GLU WED-50 URNLS DIP 85545 [facility] 9 LTH JR, STICK/TAB UROLOGY MAR Osuna LET RGNT PSC AUTO W/O MICROSCOP Y BLD GLU A4253 M E D M E D TEST/REAG 9 SUPPLIES SUPPLIES T STRIPS HOME BLD GLU WED-50 NORMAL A4256 M E D M E D LOW AND 9 SUPPLIES SUPPLIES HIGH CALIBRATO R SOLUTION/ CHIPS REPL JOSE DE JESUS A4235 M E D M E D LITHIUM 9 SUPPLIES SUPPLIES MED NECES AYLIN BG MON OWN PT EA SPRING-PO A4258 M E D M E D WERED 9 SUPPLIES SUPPLIES DEVICE FOR LANCET EACH LANCETS A4259 M E D M E D PER BOX 9 SUPPLIES SUPPLIES OF [address] P[place] [address] [facility] [place], W/O [address] [place] [address] [facility] [place], ABDOMEN 9 RADIOLOGY MARY K W/O CONTRAST MATERIAL CYSTO 34480 [facility] W/URETERO 9 LTH JR, SCOPY UROLOGY MAR [place] W/RMVL/MA PSC [place] STONES ANES 38865 ANESTHESI DUNSHEREE, TRANSURET 9 A REYNA Murphy HRAL ASSOCIATE W/URETHRO S, PSC CYSTOSCOP Y NOS CYSTO 18816 [facility] W/INSERT 9 LTH JR, URETERAL UROLOGY MAR [place] STENT PSC URNLS DIP 83600 [facility] 9 LTH JR, STICK/TAB UROLOGY MAR [place] LET RGNT PSC AUTO W/O MICROSCOP Y ANES 99542 ANESTHESI SMITH, TRANSURET 8 Deniz Gonzalez HRAL ASSOCIATE W/URETHRO S, PSC CYSTOSCOP Y NOS CYSTO 05594 [facility] W/INSERT 8 LTH JR, URETERAL UROLOGY MAR [place] STENT PSC URETERAL [address] GROUND A0425 [facility] MILEAGE 8 CARTER MACHADO PER CO EMS CO EMS STATUTE MILE AMB A0427 [facility] SERVICE 8 [facility]TER [place] ALS CO EMS CO EMS EMERGENCY TRANSPORT LEVEL 1 INITIAL 22350 [facility] 8 LT JR, CARE/DAY UROLOGY MAR [place] [address] PELVIS [address] [facility] [place] NERI, W/O 8 RADIOLOGY J CONTRAST MATERIAL ECG 53202 [place], ROUTINE 8 [place] J C ECG CLINIC W/LEAST PSC 12 LDS I&[place] [address] [facility] [place], ABDOMEN 8 RADIOLOGY J W/[place] [address] [facility] [place] LUZ ELENATELIC, ABDOMEN 8 RADIOLOGY MARY K W/O CONTRAST MATERIAL CT PELVIS 38673 [facility] [place]OST[place], W/O 8 RADIOLOGY MARY K CONTRAST MATERIAL COLLECTIO 68673 [facility], N VENOUS 8 [facility] SARAH BLOOD E CENTER VENIPUNCT URE HEMOGLOBI 69695 LAB [facility] CHERYL N 8 [facility] [employer] GLYCOSYLA HOLDING HOLDING MIKY A1C GLUCOSE 08585 [facility] CH[facility]L QUANTITAT 8 [employer] FAWAD BLOOD HOLDING HOLDING XCPT REAGENT STRIP LIPID 79866 [facility]L PANEL 8 [employer] HOLDING SCREENING G0202 [facility] 8 N N MAMMOGRAP [facility] INCL CAD WHEN PERFORMD COLLECTIO 53210 [facility] OVER[place]EE, N VENOUS 8 [facility] BLOOD E CENTER VENIPUNCT URE COMPUTER- 17916 [facility] AIDED 8 N N DETECTION [facility] SCREENING MAMMOGRAP HY GENERAL 67618 LAB CHERYL LAB CHERYL HEALTH 8 [employer] PANEL HOLDING HOLDING IADNA 47299 [employer] [place], MELLO 8 [place] INC MICHAEL D SPECIES AMPLIFIED PROBE TQ IADNA 09960 [employer] [place], GARDNEREL 8 [place] INC MICHAEL D LA VAGINALIS AMPLIFIED PROBE TQ IADNA 63609 [facility] TRICHOMON 8 [facility] INC INC VAGINALIS DIRECT PROBE TQ IADNA 93452 [employer] [place], CHLAMYDIA 8 [place] INC MICHAEL D TRACHOMAT IS AMPLIFIED PROBE TQ CYTP 21236 [employer] [place], CERV/VAG 8 [place] INC MICHAEL D AUTO THIN LAYER PREP MNL SCREEN IADNA 66837 [employer] [place], NEISSERIA 8 [place] INC MICHAEL D GONORRHOE AE AMPLIFIED PROBE TQ URNLS DIP 79756 [facility] OSPINA, 8 [facility] JONATHAN STICK/TAB E CENTER LET RGNT AUTO W/[place] [address] [place] MARCEL[place], ABDOMEN 8 RADIOLOGY ONIEL P W/O CONTRAST [place] PELVIS 22403 [facility] [place] MARCEL[place], W/O 8 RADIOLOGY ONIEL P CONTR[place] PELVIS 57879 [facility] W/O 8 [facility] CONTRAST INC INC MATERIAL 3D 66215 [facility] RENDERING 8 [facility] INC INC W/INTERP& [place] [address] [facility] ABDOMEN 8 [facility] W/O INC INC CONTRAST MATERIAL URNLS DIP 71598 [facility] 8 [facility] STICK/TAB INC INC LET REAGENT AUTO MICROSCOP Y RADIOLOGI 32683 [facility] C EXAM 8 [facility] CHEST 2 INC INC VIEWS FRONTAL&L ATERAL BLOOD 94966 [facility] COUNT 8 [facility] COMPLETE INC INC AUTO&AUTO DIFRNTL WBC IAADI 72853 [facility] INFLUENZA 8 [facility] B VIRUS INC INC BASIC 99897 [facility] METABOLIC 8 [facility] PANEL INC INC CALCIUM TOTAL IAADI 50438 [facility] INFFLUENZ 8 [facility] [place] [address] [facility] THER 8 [facility] PROPH/DX INC INC 1ST >1 HR APPL 07934 [facility] MODALITY 8 [facility] 1/> AREAS INC INC ELEC STIMJ UNATTENDE D PHYSICAL 51260 [facility] THERAPY 8 [facility] EVALUATIO INC INC N THERAPEUT 16155 [facility] IC PX 1/> 8 [facility] AREAS INC INC EACH 15 MIN EXERCISES 3D 34012 [place] KAT[place], RENDERING 8 MEDICAL JAMES P IMAGING W/INTERP& ASSOCIATE POSTPROC S DIFF WORK STATION CT LUMBAR 72549 [place]AT[place], SPINE 8 MEDICAL JAMES P W/O IMAGING CONTRAST ASSOCIATE MATERIAL S RADIOLOGI 88528 [facility] Gonzalez 8 [facility] EXAMINATI INC INC ON FEMUR 2 VIEWS RADEX 26874 [place] KAT[place], SPINE 8 MEDICAL JAMES P LUMBOSACR IMAGING AL ASSOCIATE MINIMUM 4 S VIEWS RADEX HIP 35116 [place]AT[place], 8 MEDICAL JAMES P UNILATERA IMAGING L ASSOCIATE COMPLETE S MINIMUM 2 VIEWS Encounters Encounter Start End Date Code Location Performer Type Date EMERGENCY 95546 [facility] 7 7 [facility] DEPARTMEN INC T VISIT LOW/MODER SEVERITY EMERGENCY 42188 LEONEL LEE DEPT 7 7 PHYSICIAN VISIT S, [facility] HIGH SEVERITY& THREAT [facility] Sosa 7 7 [facility] OUTPATIEN INC T OFFICE 37051 [facility] OUTPATIEN 7 7 [facility] T VISIT 5 INC MINUTES [facility] - 7 7 [facility] OUTPATIEN INC T [facility] - 7 7 [facility] OUTPATIEN INC T EMERGENCY 86706 [facility] 7 7 [facility] DEPARTMEN INC T VISIT LOW/MODER SEVERITY OFFICE 63955 JOSE MARIA ROSS OUTPATIEN 6 6 MARCELINA T VISIT PEDIATRIC 15 S & INTER MINUTES [facility]OSP[facility] - 6 6 N OUTPATIEN COMMUNTIY T HOSPITA OFFICE 52785 GENE SCIFRRENUKA OUTPATIEN 6 6 ANG ANG T VISIT 15 MINUTES OFFICE 53690 GENE SCIFRES OUTPATIEN 6 6 ANG ANG T VISIT 15 MINUTES OFFICE 02770 [facility] PRIYANK OUTPATIEN 6 6 PHYSICIAN JAY T NEW 20 S GROUP MINUTES EMERGENCY 00066 [facility] DEPT 6 6 PHYSICIAN OLGA VISIT S, [facility] HIGH SEVERITY& THREAT [facility] - 6 6 [facility] OUTPATIEN INC T EMERGENCY 00437 [facility] [address] [facility] DEPARTMEN INC T VISIT MODERATE SEVERITY OFFICE 99842 ANN KEARNS OUTPATIEN 6 6 PHYSCIAN LES T VISIT PRACTICE 15 LL MINUTES [facility]OSPITAL [facility] - 6 6 [facility] OUTPATIEN INC T OFFICE 00557 [facility] TRA CHANCE TRA OUTPATIEN 6 6 T VISIT 15 MINUTES OFFICE 48489 ANN KEARNS CONSULTAT 6 6 PHYSCIAN LES ION PRACTICE NEW/ESTAB LL PATIENT 40 MIN OFFICE 17453 JOSE MARIA ROSS OUTPATIEN 6 6 MARCELINA T VISIT PEDIATRIC 15 S & INTER MINUTES HOME [facility], 6 6 HOME INPATIENT HEALTH AGENCY EMERGENCY 29340 [facility] 6 6 [facility] DEPARTMEN INC T VISIT MODERATE SEVERITY EMERGENCY 92561 LEONEL US 6 6 PHYSICIAN U AMEILE DEPARTMEN S, PLLC T VISIT HIGH/URGE NT SEVERITY [facility]OSP[facility] - 6 6 [facility] OUTPATIEN INC T EMERGENCY 57550 LEONEL BROWNING DEPT 5 5 PHYSICIAN AZAR VISIT S, PLLC HIGH SEVERITY& THREAT [facility] EMERGENCY 44726 [facility] 5 5 [facility] DEPARTMEN INC T VISIT HIGH/URGE NT SEVERITY [facility] - 5 5 [facility] OUTPATIEN INC T OFFICE 27487 JOSE MARIA ROSS OUTPATIEN 5 5 MARCELINA T VISIT PEDIATRIC 15 S & INTER MINUTES HOME [place] [address] 5 HOME [facility] [address] INPATIENT HOSPITAL [place] [address] 5 N OUTPATIEN COMMUNTIY T HOSPITA OFFICE 99154 JOSE MARIA ROSS OUTPATIEN 5 5 MARCELINA T VISIT PEDIATRIC 15 S & INTER MINUTES HOSPITAL [address] OUTPATIEN T EMERGENCY 40619 LEONEL BROWNING DEPT 5 5 PHYSICIAN AZAR VISIT S, PLLC HIGH SEVERITY& THREAT [facility] [address] OUTPATIEN T OFFICE 95023 JOSE MARIA ROSS OUTPATIEN 5 5 MARCELINA T VISIT PEDIATRIC 15 S & INTER MINUTES OFFICE 67229 JOELLEN DAVIS OUTPATIEN 5 5 [place] T VISIT ORTHOPAED [facility] MINUTES EMERGENCY 68186 BARRY Ruth 5 5 DEPARTMEN T VISIT MODERATE SEVERITY OFFICE 41752 JOSE MARIA ROSS OUTPATIEN 5 5 MARCELINA T VISIT PEDIATRIC 15 S & INTER MINUTES EMERGENCY 61222 NALLELY BROWNING DEPT 5 5 AZAR AZAR VISIT HIGH SEVERITY& THREAT FUN OFFICE 24169 [facility] TRA OUTPATIEN 5 5 [place] T VISIT ORTHOPAED 15 [facility] MINUTES HOSPITAL [facility] - 5 5 [facility] OUTPATIEN INC T EMERGENCY 70731 CHRISTEL KEARNEY 5 5 DORI DORI DEPARTMEN T VISIT HIGH/URGE NT SEVERITY OFFICE 75876 [facility] TRA OUTPATIEN 5 5 [place] T NEW 45 ORTHOPAED MINUTES ICS [facility] OFFICE 19214 JOSE MARIA ROSS OUTPATIEN 4 4 MARCELINA T VISIT PEDIATRIC 15 S & INTER MINUTES EMERGENCY 82917 NALLELY BROWNING 4 4 AZAR AZAR DEPARTMEN T VISIT MODERATE SEVERITY EMERGENCY 05321 NALLELY BROWNING DEPT 4 4 AZAR AZAR VISIT HIGH SEVERITY& THREAT [facility] - 4 4 N OUTPATIEN COMMUNITY T HOSPITA EMERGENCY 44051 LEATHA LEMONIN 4 4 IMT IMT DEPARTMEN T VISIT MODERATE SEVERITY OFFICE 50899 JOSE MARIA ROSS OUTPATIEN 4 4 MARCELINA T VISIT PEDIATRIC 15 S & INTER MINUTES EMERGENCY 04540 ALFARIS ALFARIS [address] [facility] DEPARTMEN T VISIT HIGH/URGE NT SEVERITY EMERGENCY 28265 SHAZIA ANGELICA SHAZIA ANGELICA DEPT 4 4 VISIT HIGH SEVERITY& THREAT FUN OFFICE 45982 JOSE MARIA ROSS OUTPATIEN 4 4 MARCELINA T VISIT PEDIATRIC 15 S & INTER MINUTES EMERGENCY 97719 ABIGAIL HAYES 4 4 BRO BRO DEPARTMEN T VISIT HIGH/URGE NT SEVERITY OFFICE 84956 JOSE MARIA ROSS OUTPATIEN 3 3 MARCELINA T VISIT PEDIATRIC 15 S & INTER MINUTES EMERGENCY 93007 COURTNEY BROWNING DEPT 3 3 EMERGENCY AZAR VISIT SERVICES HIGH SEVERITY& THREAT FUNCJ OFFICE 09297 JOSE MARIA ROSS OUTPATIEN 3 3 MARCELINA T VISIT PEDIATRIC 15 S & INTER MINUTES HOSPITAL [facility] - 3 3 N OUTPATIEN COMMUNITY T HOSPITA OFFICE 28798 JOSE MARIA ROSS OUTPATIEN 3 3 MARCELINA T VISIT PEDIATRIC 10 S & INTER MINUTES EMERGENCY 72832 COURTNEY LEWIS 3 3 EMERGENCY DEPARTMEN SERVICES T VISIT MODERATE SEVERITY OFFICE 96977 JOSE MARIA ROSS OUTPATIEN 3 3 MARCELINA T VISIT PEDIATRIC 15 S & INTER MINUTES EMERGENCY 16934 COURTNEY GARCIA 3 3 EMERGENCY RYA DEPARTMEN SERVICES T VISIT HIGH/URGE NT SEVERITY PERIODIC 13059 JOSE MARIA ROSS PREVENTIV 3 3 MARCELINA E MED EST PEDIATRIC PATIENT S & INTER 40-64YRS OFFICE 38087 LUZ BAKER 3 3 MARKO MARKO T VISIT 15 MINUTES OFFICE 63744 [facility] EDIL BAKER 3 3 PHYSICIAN CAM T NEW 45 S GROUP MINUTES EMERGENCY 15148 COURTNEY STEPHENS 3 3 EMERGENCY III ADRIENNE DEPARTMEN SERVICES T VISIT HIGH/URGE NT SEVERITY EMERGENCY 26851 [facility] DEPART[facility] INC T VISIT LOW/MODER SEVERITY [facility] OUT[facility] T OFFICE 96083 LUZ BAKER 2 2 MARKO MARKO T VISIT 15 MINUTES [facility] 2 [facility] OUTPATI[facility] INC T EMERGENCY 22142 [facility] 2 2 [facility] DEPARTMEN INC T VISIT MODERATE SEVERITY EMERGENCY 95942 COURTNEY STEPHENS DEPT 2 2 EMERGENCY III ADRIENNE VISIT SERVICES HIGH SEVERITY& THREAT FUNCJ [facility] 2 [facility] OUTPATIEN INC T EMERGENCY 08144 [facility] 2 2 [facility] DEPARTMEN INC T VISIT MODERATE SEVERITY EMERGENCY 84245 COURTNEY MCKENNA DEPT 2 2 EMERGENCY ADRIENNE VISIT SERVICES HIGH SEVERITY& THREAT FUNCJ OFFICE 41166 LUZ BOATENGPATIEN 2 2 MARKO MARKO T VISIT 15 MINUTES EMERGENCY 59231 COURTNEY MCKENNA 2 2 EMERGENCY ADRIENNE DEPARTMEN SERVICES T VISIT HIGH/URGE NT SEVERITY EMERGENCY 07964 [facility] 2 2 [facility] DEPARTMEN INC T VISIT MODERATE SEVERITY [facility] 2 [facility] OUTPATIEN INC T EMERGENCY 79587 COURTNEY BROWNING 2 2 EMERGENCY AZAR DEPARTMEN SERVICES T VISIT MODERATE SEVERITY OFFICE 06530 TIFFANY VILLAGOMEZ CONSULTAT 2 2 MEDICAL L ION SERV NEW/ESTAB FOUNDATIO PATIENT 80 MIN OFFICE 93975 LUZ BAKER 2 2 MARKO MARKO T VISIT 15 MINUTES [facility] 2 [facility] OUTPATIEN INC T EMERGENCY 52950 COURTNEY RIVAS DEPT 2 2 EMERGENCY VISIT SERVICES HIGH SEVERITY& THREAT FUNCJ EMERGENCY 75535 [facility] 2 2 [facility] DEPARTMEN INC T VISIT MODERATE SEVERITY EMERGENCY 29544 [facility] 1 1 [facility] DE[facility]MEN INC T VISIT MODERATE SEVERITY [facility] OUT[facility] T EMERGENCY 39775 COURTNEY VALDEZ 1 1 EMERGENCY EMERGENCY DEPARTMEN SERVICES SERVICES T VISIT HIGH/URGE NT SEVERITY OFFICE 64716 [facility] BAKER [address] [facility] T VISIT HOSPITAL 25 P MINUTES OFFICE 71711 [facility] OUTPATIEN 1 1 [facility] T V[facility] 25 P MINUTES [facility] [address] [facility] OUTPATIEN INC T EMERGENCY [address] [place] [address] [facility] DEPARTMEN INC T VISIT HIGH/URGE NT SEVERITY EMERGENCY 51383 COURTNEY FRANKS DEPT 1 1 EMERGENCY VISIT SERVICES HIGH SEVERITY& THREAT [facility] [facility] [address] [facility] OUTPATIEN INC T EMERGENCY [address] [facility] [address] [facility] [facility] T VISIT LOW/MODER SEVERITY [facility] [place] [facility] [address] [facility] OUTPATIEN INC T EMERGENCY 89709 COURTNEY FRANKS 1 1 EMERGENCY DEPARTMEN SERVICES T VISIT HIGH/URGE NT SEVERITY [facility] [place] [facility] [address] [facility] OUTPATIEN INC T EMERGENCY 20798 COURTNEY FRANKS 1 1 EMERGENCY DEPARTMEN SERVICES T VISIT HIGH/URGE NT SEVERITY EMERGENCY [address] [place] [address] [facility] DEPARTMEN INC T VISIT LOW/MODER SEVERITY EMERGENCY 42633 COURTNEY FRANKS 1 1 EMERGENCY DEPARTMEN SERVICES T VISIT MODERATE SEVERITY EMERGENCY [address] [place] [address] [facility] DEPARTMEN INC T VISIT LOW/MODER SEVERITY [facility] [place] [facility] [address] [facility] OUTPATIEN INC T OFFICE 70703 LEE PAD LEE PAD OUTPATIEN 1 1 T VISIT 15 MINUTES [facility] N OUTPATIEN COMM[facility]ITY T HOSPITA EMERGENCY 9[address]34 [place] [address] [facility] DEPARTMEN INC T VISIT LOW/MODER SEVERITY EMERGENCY 32649 COURTNEY STOVALL BAB 1 1 EMERGENCY DEPARTMEN SERVICES T VISIT MODERATE SEVERITY [facility] [place] [facility] 1 [facility] OFFICE 15854 LEE PAD LEE PAD OUTPATIEN 1 1 T VISIT 25 MINUTES [facility]OSPITAL [facility] 1 1 N OUTPATIEN [facility] [place] [facility] 1 [facility] EMERGENCY 31076 COURTNEY RIVAS DEPT 1 1 EMERGENCY VISIT SERVICES HIGH SEVERITY& THREAT FUNCJ EMERGENCY [address] [place] [address] [facility]OW/MODER SEVERITY [facility] [place] [facility] 1 1 [facility] EMERGENCY [address] [place] [address] [facility] T VISIT LOW/MODER SEVERITY EMERGENCY 20762 COURTNEY BROWNING 1 1 EMERGENCY [facility] SERVICES T VISIT HIGH/URGE NT SEVERITY EMERGENCY [address] [place] [address] [facility] LOW/MODER SEVERITY [facility] [place] [facility] 0 0 [facility] T EMERGENCY 39186 COURTNEY ROSS 0 0 [facility] T VISIT MODERATE SEVERITY EMERGENCY 18318 COURTNEY ROSS 0 0 [facility] T VISIT HIGH/URGE NT SEVERITY EMERGENCY [address] [place] [address] [facility] LOW/MODER SEVERITY [facility] [place] [facility] 0 0 [facility] - 0 0 N [facility]EN [facility] 75500 LEE PAD LEE PAD OUTPATIEN 0 0 T VISIT 15 MINUTES PERIODIC 88759 LEE PAD LEE PAD PREVENTIV 0 0 E MED EST PATIENT 40-64YRS EMERGENCY 73405 [place] 0 0 [facility] DEPARTMEN INC T VISIT MODERATE SEVERITY [facility] [place] [facility] 0 [facility] INC T EMERGENCY 83964 COURTNEY DEGROOT AND 0 0 EMERGENCY DEPARTMEN SERVICES T VISIT HIGH/URGE NT SEVERITY OFFICE 34637 LEE PAD LEE PAD OUTPATIEN 0 0 T NEW 30 MINUTES EMERGENCY 44748 COURTNEY KEARNEY, 0 0 EMERGENCY [facility] DEPARTMEN SERVICES T VISIT MODERATE ASSOCIATE SEVERITY S EMERGENCY 61500 [place] 0 0 [facility] T VISIT LOW/MODER SEVERITY [facility] [place] [facility] OUT[facility] INC T EMERGENCY 62505 COURTNEY STOVALL, 0 0 EMERGENCY [place] DEPARTMEN SERVICES O T VISIT HIGH/URGE ASSOCIATE NT S SEVERITY EMERGENCY 44666 COURTNEY NELSON, DEPT 0 0 EMERGENCY [place] VISIT SERVICES M HIGH SEVERITY& ASSOCIATE THREAT S FUNCJ EMERGENCY 36644 [place] 0 0 [facility] INC T VISIT LOW/MODER SEVERITY [facility] [place] [facility] INC T EMERGENCY 20752 COURTNEY HERNANDEZAGE 0 0 EMERGENCY [facility] DEPARTMEN SERVICES T VISIT MODERATE SEVERITY EMERGENCY 27139 COURTNEY PARIKH 0 0 [facility] VISIT MODERATE SEVERITY EMERGENCY 28567 COURTNEY BROWNING, 0 0 EMERGENCY [facility] DEPARTMEN SERVICES T VISIT HIGH/URGE ASSOCIATE NT S SEVERITY EMERGENCY 12974 [place] 0 0 [facility] INC T VISIT MODERATE SEVERITY [facility] [place] [facility] [place] - 0 0 N OUTPATIEN [facility]OSPITAL EMERGENCY 15621 COURTNEY HERNANDEZ DEPT 9 9 EMERGENCY , [place] VISIT SERVICES HIGH SEVERITY& ASSOCIATE THREAT S FUNCJ EMERGENCY 90663 COURTNEY FOY, 9 9 EMERGENCY [place] DEPARTMEN SERVICES T VISIT MODERATE ASSOCIATE SEVERITY S EMERGENCY 44542 COURTNEY CELLAROSI 9 9 EMERGENCY - Y[place], DEPARTMEN SERVICES BRI T VISIT M MODERATE ASSOCIATE SEVERITY S EMERGENCY 67192 COURTNEY CELLAROSI 9 9 EMERGENCY - [place], DEPARTMEN SERVICES BRI T VISIT M MODERATE ASSOCIATE SEVERITY S EMERGENCY 23582 [facility] 9 9 N [facility] COMMUNITY T VISIT HOSPITAL MODERATE SEVERITY [facility] - 9 9 N [facility] H[facility] EMERGENCY 42681 COURTNEY LAZARO, 9 9 EMERGENCY [place] [facility] DEPARTMEN SERVICES T VISIT HIGH/URGE ASSOCIATE NT S SEVERITY OFFICE 48124 [facility] 9 9 [facility] T VIS[facility] E CENTER 15 MINUTES EMERGENCY 10853 [facility] 9 9 N [facility] T VISIT HOSPITAL LOW/MODER SEVERITY [facility]OSPITAL [facility] - 9 9 N [facility] - 9 9 N [facility] HOSPITAL EMERGENCY 78220 [facility] 9 9 N [facility] COMMUNITY T VISIT HOSPITAL LOW/MODER SEVERITY EMERGENCY 90271 MICHELLE YOUNG, 9 9 KEVIN Ruth DEPARTMEN EMERGENCY T VISIT PHYS INC MODERATE SEVERITY EMERGENCY 59315 [facility] 9 9 KEVIN - YORBA, DEPARTMEN EMERGENCY BRI T VISIT PHYS INC M MODERATE SEVERITY [facility]OSPITAL [facility] - 9 9 N [facility] HOSP[facility] EMERGENCY 63188 MICHELLE YOUNG, 9 9 KEVIN Ruth DEPARTMEN EMERGENCY T VISIT PHYS INC MODERATE SEVERITY EMERGENCY 03437 [facility] 9 9 N [facility] COMMUNITY T VISIT HOSPITAL LOW/MODER SEVERITY EMERGENCY 39954 [facility], 9 9 KEVIN TASIAAMED H DEPARTMEN EMERGENCY T VISIT PHYS INC MODERATE SEVERITY EMERGENCY 86812 [facility] AHMED, 9 9 KEVIN FIGUEROA DEPARTMEN EMERGENCY A T VISIT PHYS INC MODERATE SEVERITY OFFICE 19609 [facility], OUTPATIEN 9 9 [facility] T VISIT E CENTER 15 MINUTES EMERGENCY 68414 [facility] CELLAROSI 9 9 KEVIN - YORBA, DEPARTMEN EMERGENCY BRI T VISIT PHYS INC M MODERATE SEVERITY OFFICE 22700 [facility], OUTPATIEN 9 9 [facility] T VISIT E CENTER 15 MINUTES OFFICE 17030 [facility] 9 9 LTH JR, T VISIT UROLOGY MAR K 15 PSC MINUTES EMERGENCY 62970 [facility] CELLAROSI 9 9 KEVIN - YORBA, DEPARTMEN EMERGENCY BRI T VISIT PHYS INC M HIGH/URGE NT SEVERITY OFFICE 20743 [facility], OUTPATIEN 9 9 [facility] T VISIT E CENTER 15 MINUTES OFFICE 69691 [facility] OUT[facility] 9 9 LTH JR, T VISIT UROLOGY MAR K 10 PSC MINUTES OFFICE 44291 [facility] OUTPATIEN 9 9 LTH JR, T VISIT UROLOGY MAR K 10 PSC MINUTES OFFICE 08538 [facility], OUTPATIEN 9 9 [facility] T VISIT E CENTER 15 MINUTES H[facility]PITAL [facility] - 8 8 HOSPITAL INPATIENT EMERGENCY 37455 [facility] CELLAROSI DEPT 8 8 KEVIN - YORBA, VISIT EMERGENCY BRI HIGH PHYS INC M SEVERITY& THREAT FUNCJ EMERGENCY 85510 [facility] CELLAROS[facility] 8 8 KEVIN - YORBA, DEPARTMEN EMERGENCY BRI T VISIT PHYS INC M HIGH/URGE NT SEVERITY OFFICE 99129 [facility]OR[facility] LUIS [facility] OUTPATIEN 8 8 [facility] T VISIT E CENTER 15 MINUTES [facility] N OUTPATIEN COMMUNITY T HOSPITAL OFFICE 26399 JORGE LUIS [facility] OUTPATIEN 8 8 [facility] W T VISIT E CENTER 15 MINUTES EMERGENCY 78217 [facility] YOUNG, 8 8 KEVIN ANITA Ruth [facility] EMERGENCY T VISIT PHYS INC HIGH/URGE NT SEVERITY OFFICE 15529 JORGE LUIS [place] OUTPATIEN 8 8 [facility]AN T [facility] E CENTER MINUTES EMERGENCY 86137 [facility] CELLAROS[facility] 8 8 KEVIN LESTER [facility] EMERGENCY BRI T VISIT PHYS INC M MODERATE SEVERITY OFFICE 82749 MIKKI KAYE OUTPATIEN 8 8 DON R DON R T VISIT 15 MINUTES EMERGENCY 62715 [place] 8 8 [facility] DE[facility]MEN INC T VISIT MODERATE SEVERITY [facility] [place] [facility] 8 [facility] T [facility] [place] [facility] 8 8 [facility] OUT[facility] INC T EMERGENCY 00225 [place] 8 8 [facility] DEPARTMEN INC T VISIT MODERATE SEVERITY [facility] [place] - 8 8 [facility] [place] [facility] INC T OFFICE 12417 MIKKI KAYE OUTPATIEN 8 8 DON R DON R T VISIT 15 MINUTES EMERGENCY 00362 [place] BROWN, 8 8 [facility] T VISIT PROF SERV MODERATE SEVERITY [facility] [place] - 8 8 [facility] OUTPATIEN INC T EMERGENCY 79705 [place] 8 8 [facility] DEPARTMEN INC T VISIT LOW/MODER SEVERITY
--- OUTSIDE RECORDS SUMMARY | 2016-10-04 21:10 | External Medical Summary Rpt ---
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 5 HOME HOME THERAP HEALTH HEALTH HOME AGENCY AGENCY HLTH/HOSP ICE EA 15 MIN SERVICE G0151 [facility] 5 HOME HOME THERAP HEALTH HEALTH HOME AGENCY AGENCY HLTH/HOSP ICE EA 15 MIN BLOOD 80370 [facility] COUNT 5 [facility] COMPLETE INC INC AUTO&[place] [address] [facility] TROPONIN 5 [facility] QUANTITAT INC INC FAWAD RADIOLOGI 70684 B[facility] C EXAM 5 [facility] CHEST 2 INC INC VIEWS FRONTAL&L ATERAL CREATINE 25860 [facility] KINASE MB 5 [facility] FRACTION INC INC ONLY URNLS DIP 36283 [facility] 5 [facility] STICK/TAB INC INC LET REAGENT AUTO MICROSCOP Y GLUC BLD 90340 [facility] GLUC MNTR 5 [facility] DEV INC INC CLEARED FDA SPEC HOME USE NATRIURET 39496 [facility] IC 5 [facility] PEPTIDE INC INC THER 55070 [facility] PROPH/DX 5 [facility] NJX IV INC INC PUSH SINGLE/1S T SBST/DRUG ECG 43704 [facility] ROUTINE 5 [facility] ECG INC INC W/LEAST 12 LDS TRCG ONLY W/O I&R COMPREHEN 73539 [facility] SIVE 5 [facility] METABOLIC INC INC PANEL CREATINE 29726 [facility] KINASE 5 [facility] MEM [...] AGENCY HLTH/HOSP ICE EA 15 MIN HEMOGLOBI 37295 [facility] N 5 DIAGNOSTI DIAGNOSTI GLYCOSYLA CS CS MIKY A1C COMPREHEN 92934 [facility] QUE[facility] SIVE 5 DIAGNOSTI DIAGNOSTI METABOLIC CS CS PANEL SERVICE G0151 [facility] PHYS 5 HOME HOME THERAP HEALTH HEALTH HOME AGENCY AGENCY HLTH/HOSP ICE EA 15 MIN ARTHROCEN 34468 CHANCE TRA CHANCE TRA TESIS 5 ASPIR&/IN J MAJOR JT/BURSA W/O US INJECTION S0020 CHANCE TRA CHANCE TRA 5 BUPIVICAI NE HYDROCHLO RIDE 30 ML RADEX HIP 53753 CHANCE TRA CHANCE TRA 5 UNILATERA L COMPLETE MINIMUM 2 VIEWS INJ J0702 CHANCE TRA CHANCE TRA BETAMETHA 5 SONE ACETATE & PHOSPHATE 3 MG RADEX HIP 36348 [facility]ANCE TRA 5 [place] UN[place]ATER[place] ORTHOPAED L [facility] COMPLETE MINIMUM 2 VIEWS SBSQ 93900 [facility] 5 JUAN JUAN CARE/DAY 25 MINUTES SBSQ 04833 [facility] 5 JUAN JUAN CARE/DAY 25 MINUTES SBSQ 12299 [facility] 5 JUAN JUAN CARE/DAY 25 MINUTES WALKER E0143 [facility] F[facility]ING 5 WHEELED ADJUSTABL E/FIXED HEIGHT COMMODE E0163 [facility] CHAIR 5 MOBILE OR STATIONAR Y W/FIXED ARMS LEVEL III 24966 [facility] 5 [facility] PATHOLOGY CLINIC PSC GROSS&AZAR ROSCOPIC EXAM ANESTHESI [address]RA HEA A OPEN 5 A TOTAL HIP ASSOCIATE S PSC ARTHROPLA STY DECALCIFI 10106 [facility] CATION 5 [facility] PROCEDURE CLINIC PSC ARTHRP 48586 [facility] CHANCE TRA ACETBLR/P 5 [place] CANDACE FEM ORTHOPAED PROSTC ICS PLC AGRFT/ALG RFT INITIAL 26576 [facility] 5 JUAN JUAN CARE/DAY 70 MINUTES REPL LT [id number] [facility] HIP JNT [address] [place] [address] CERAM POLY SYNTH UNCEMENTE D OPEN RADIOLOGI 15790 [facility] [place] RABIA C EXAM 5 RADIOLOGY RHO CHEST 2 VIEWS FRONTAL&L ATERAL RADIOLOGI 69019 [facility] [place] WESTERFIE C EXAM 5 RADIOLOGY LD IV ALL CHEST 2 VIEWS FRONTAL&L ATERAL BLOOD [address] COMPLETE AUTOMATED HEMOGLOBI [address] GLYCOSYLA MIKY A1C HEPATIC 14179 [facility] FUNCTION [address] [place] [address] PANEL LIPID 07837 [facility] PANEL [address] [place] [address] HOSPITAL BASIC 29017 [facility] METABOLIC [address] [place] [address] PANEL CALCIUM TOTAL THROMBOPL 14777 [facility] ASTIN [address] [place] [address] TIME PARTIAL PLASMA/WH OLE BLOOD URNLS DIP [address] STICK/TAB LET RGNT AUTO W/O MICROSCOP Y ECG 39091 [facility] ROUTINE [address] [place] [address] ECG W/LEAST 12 LDS TRCG ONLY W/O I&R PROTHROMB 02828 [facility] IN TIME [address] [place] [address] RADIOLOGI 58105 XANDERY BRASWELL ALL C EXAM 5 MEDICAL CHEST 2 IMAGING VIEWS ASS FRONTAL&L ATERAL INJECTION J2785 [address] REGADENOS ON 0.1 MG TECHNETIU A9502 [facility] TC-99M [address] [place] [address] TETROFOSM IN DX PER STUDY DOSE MYOCARDIA 79331 [facility] SPECT [address] [place] [address] MULTIPLE STUDIES RADEX 38824 [facility] CHANCE TRA SPINE 5 [place] LUMBOSACR ORTHOPAED AL 2/3 [facility] VIEWS CANE INCL E0100 IDRIS IDRIS CANES 5 HOME HOME ALL MEDICAL MEDICAL MATERIAL EQUIPME EQUIPME ADJUSTBLE /FIX W/TIP APPL 83087 [facility] MODALITY 5 [facility] 1/> AREAS INC INC ELEC STIMJ UNATTENDE D THERAPEUT 26547 [facility] IC PX 1/> 5 [facility] AREAS INC INC EACH 15 MIN EXERCISES APPL 26508 [facility] MODALITY 5 [facility] 1/> AREAS INC INC ULTRASOUN D EA 15 MIN APPLICATI 89217 [facility] ON 5 [facility] MODALITY INC INC 1/> AREAS HOT/COLD PACKS APPLICATI 55411 [facility] ON 5 [facility] MODALITY INC INC 1/> AREAS HOT/COLD PACKS APPL 07486 [facility] MODALITY 5 [facility] 1/> AREAS INC INC ULTRASOUN D EA 15 MIN THERAPEUT 43938 [facility] IC PX 1/> 5 [facility] AREAS INC INC EACH 15 MIN EXERCISES APPL 13724 [facility] MODALITY 5 [facility] 1/> AREAS INC INC ELEC STIMJ UNATTENDE D APPL 29044 [facility] MODALITY 5 [facility] 1/> AREAS INC INC ELEC STIMJ UNATTENDE D THERAPEUT 20228 [facility] IC PX 1/> 5 [facility] AREAS INC INC EACH 15 MIN EXERCISES APPLICATI 02108 [facility] ON 5 [facility] MODALITY INC INC 1/> AREAS HOT/COLD PACKS APPL 68242 [facility] MODALITY 5 [facility] 1/> AREAS INC INC ULTRASOUN D EA 15 MIN APPLICATI 19068 [facility] ON 5 [facility] MODALITY INC INC 1/> AREAS HOT/COLD PACKS MANUAL 95277 [facility] THERAPY 5 [facility] TQS 1/> INC INC REGIONS EACH 15 MINUTES THERAPEUT 38075 [facility] IC PX 1/> 5 [facility] AREAS INC INC EACH 15 MIN EXERCISES APPL 25718 [facility] MODALITY 5 [facility] 1/> AREAS INC INC ELEC STIMJ UNATTENDE D PHYSICAL 02775 B[facility] THERAPY 5 [facility] EVALUATIO INC INC N RADIOLOGI 26955 [facility] [place] RABIA C EXAM 5 RADIOLOGY RHO CHEST 2 VIEWS FRONTAL&L ATERAL RADIOLOGI 45717 [facility] CHANCE TRA C 5 [place] EXAMINATI ORTHOPAED ON PELVIS [facility] 1/2 VIEWS RADEX 08520 [facility] CHANCE TRA SPINE 5 [place] LUMBOSACR ORTHOPAED AL 2/[address] [place] [address] [place] LINUS ABDOMEN & 4 MEDICAL KARLY PELVIS IMAGING W/O ASS CONTRAST MATERIAL RADEX 36846 [facility] [place] SCALF MARKO SPINE 4 RADIOLOGY CERVICAL 2 OR 3 VIEWS RADEX 28349 [facility] [place] SCALF MARKO SHOULDER 4 RADIOLOGY COMPLETE MINIMUM 2 VIEWS RADEX 95016 [facility] LINUS HUMERUS 4 MEDICAL KARLY MINIMUM 2 IMAGING VIEWS ASS RADEX 01883 [facility] PERALTAUTCHER FOREARM 2 4 MEDICAL KARLY VIEWS IMAGING ASS RADIOLOGI 96091 CHRISTI BARRIGA C EXAM 4 MEDICAL KARLY CHEST 2 IMAGING VIEWS ASS FRONTAL&L ATERAL ECG 86922 SHAZIA ANGELICA SHAZIA ANGELICA ROUTINE 4 ECG W/LEAST 12 LDS I&R ONLY LIPID 91721 [facility] PANEL 4 [facility] HEMOGLOBI 41838 [facility]ERY[facility] N 4 [facility] GLYCOSYLA [facility] MIKY A1C COMPREHEN 67854 [facility] CH[facility] SIVE 4 [place] METABOLIC [facility] PANEL COMPREHEN 21055 [facility] LAB CHERYL SIVE 3 [facility] METABOLIC [facility] HOLDINGS PANEL ECG 06458 JOSE MARIA ROSS ROUTINE 3 MARCELINA ECG PEDIATRIC W/LEAST S & INTER 12 LDS W/I&R BLOOD 96004 [facility] COUNT 3 [place] COMPLETE [facility] HOLDINGS AUTO&AUTO DIFRNTL WBC ECG 52070 COURTNEY BROWNING ROUTINE 3 EMERGENCY AZAR ECG SERVICES W/LEAST 12 LDS I&R ONLY RADIOLOGI 31682 CHRISTI BARRIGA C EXAM 3 MEDICAL KARLY CHEST 2 IMAGING VIEWS ASS FRONTAL&[place] [address] CHRISTI BARRIGA HEAD/BRAI 3 MEDICAL KARLY N W/O IMAGING CONTRAST ASS MATERIAL RADEX HIP 11003 [facility] 3 N N [facility] COMMUNITY COMMUNITY L HOSPITA HOSPITA COMPLETE MINIMUM 2 VIEWS RADEX 85662 COURTNEY BELLAMY BRA FOOT 3 EMERGENCY COMPLETE SERVICES MINIMUM 3 VIEWS BASIC 60001 [facility] CHERYL METABOLIC 3 [place] PANEL [facility] CALCIUM TOTAL HEMOGLOBI 55018 LAB [facility] LAB CHERYL N 3 [facility] GLYCOSYLA HOLDINGS HOLDINGS MIKY A1C RADIOLOGI 06287 COURTNEY GARCIA C 3 EMERGENCY RYA EXAMINATI SERVICES ON KNEE 3 VIEWS IADNA 16321 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 PAPILLOMA 3 Y CHERYL OF Y CHERYL OF VIRUS BONY BONY HUMAN H H AMPLIFIED PROBE TQ CYTP C/V 54659 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 THIN 3 Y CHERYL OF Y CHERYL OF LYR BONY BONY PREPJ SCR H H MNL RESCR PHYS COMPREHEN 81947 [facility] LAB [facility]ERYL SIVE 3 [facility] METABOLIC HOLDINGS HOLDINGS PANEL HEMOGLOBI 11494 [facility] LAB CHERYL N 3 [facility] GLYCOSYLA HOLDINGS HOLDINGS MIKY A1C LIPID 95704 LAB [facility] LAB CHERYL PANEL 3 [place] [facility] INCISION 83283 COURTNEY STEPHENS & 3 EMERGENCY III ADRIENNE DRAINAGE SERVICES ABSCESS SIMPLE/SI NGLE NONEMERG A0120 LKLP LKLP TRNSPRT: 2 COMM[facility]ITY COMM[facility] ACTION ACTION MTN AREA/[place] [address] XANDERParag LINUS HEAD/BRAI 2 MEDICAL KARLY N W/O IMAGING CONTRAST ASS MATERIAL COMPREHEN 74825 [facility] SIVE 2 [facility] METABOLIC INC INC PANEL CREATINE 82563 [facility] KINASE MB 2 [facility] FRACTION INC INC ONLY CREATINE 98889 [facility] KINASE 2 [facility] TOTAL INC INC ECG 80067 [facility] ROUTINE 2 [facility] ECG INC INC W/LEAST 12 LDS TRCG ONLY W/O I&R 3D 19021 [facility] RENDERING 2 [facility] W/INTERP INC INC & POSTPROCE SS SUPERVISI ON ECG 63892 COURTNEY STEPHENS ROUTINE 2 EMERGENCY III ADRIENNE ECG SERVICES W/LEAST 12 LDS I&[place] [address] [facility] TROPONIN 2 [facility] QUANTITAT INC INC FAWAD BLOOD 97481 [facility] COUNT 2 [facility] COMPLETE INC INC AUTO&AUTO DIFRNTL WBC THERAPEUT 17475 [facility] IC 2 [facility] PROPHYLAC INC INC TIC/DX INJECTION SUBQ/IM 3D 57872 CHRISTI PERALTAUTCHER RENDERING 2 MEDICAL KARLY IMAGING W/INTERP& [place] [address] CHRISTI BARRIGA ABDOMEN & 2 MEDICAL KARLY PELVIS IMAGING W/O ASS CONTRAST MATERIAL BASIC 98118 [facility] METABOLIC 2 [facility] PANEL INC INC CALCIUM TOTAL BLOOD 95986 [facility] COUNT 2 [facility] COMPLETE INC INC AUTO&AUTO DIFRNTL WBC URNLS DIP 34105 [facility] 2 [facility] STICK/TAB INC INC LET REAGENT AUTO MICROSCOP Y THERAPEUT 26329 [facility] IC 2 [facility] PROPHYLAC INC INC TIC/DX INJECTION SUBQ/IM NONEMERG A0120 LKLP LKLP TRNSPRT: 2 [facility] COMMUNITY MINI-BUS ACTION ACTION MTN AREA/OTH SYS ECG 16887 [facility] ROUTINE 2 [facility] IMPERIAL POINT W/LEAST P P 12 LDS I&R ONLY RADIOLOGI 16865 [facility] C 2 [facility] EXAMINATI INC INC ON CHEST SING[place]IEW FRONTAL BASIC 33560 [facility] METABOLIC 2 [facility] PANEL INC INC CALCIUM TOTAL CREATINE 88213 [facility] KINASE 2 [facility] TOTAL INC INC CREATINE 84022 [facility] KINASE MB 2 [facility] FRACTION INC INC ONLY COMPREHEN 59076 [facility] SIVE 2 [facility] METABOLIC INC INC PANEL ECG 23723 [facility] ROUTINE 2 [facility] ECG INC INC W/LEAST 12 LDS TRCG ONLY W/O I&R BLOOD 39898 [facility] COUNT 2 [facility] COMPLETE INC INC AUTO&[place] [address] [facility] TROPONIN 2 [facility] QUANTITAT INC INC FAWAD URNLS DIP 56978 [facility] 1 [facility] LET RGNT P P NON-AUTO W/O MICRSCP BASIC 81976 [facility] METABOLIC 1 [facility] PANEL INC INC CALCIUM TOTAL CULTURE 26758 B[facility] BACTERIAL 1 [facility] INC INC QUANTTATI VE COLONY COUNT URINE RADEX 64038 [facility] ABDOMEN 1 1 MEDICAL MEDICAL IMAGING IMAGING ANTEROPOS ASS ASS TERIOR VIEW FIBRIN 69563 [facility] DGRADJ 1 [facility] PRODUCTS INC INC D-DIMER QUAL/SEMI JUANIS DUP-SCAN 71295 [facility] XTR VEINS 1 [facility] COMPLETE INC INC BILATERAL STUDY BLOOD 61685 [facility] COUNT 1 [facility] COMPLETE INC INC AUTO&AUTO DIFRNTL WBC URNLS DIP 33587 [facility] 1 [facility] MEM HOSP STICK/TAB INC INC LET REAGENT AUTO MICROSCOP Y CYSTO 99231 ANJUM VALERO W/INSERT 1 ROB[facility] ROBERT URETERAL STENT PROSTHETI L8699 [facility] IMPLANT 1 [facility] OTHERWISE PSC PSC SPECIFIED INJECTION J24[address] [facility] ON HCL PSC PSC PER 1 MG CYSTO 19851 ANJUM VALERO W/URETERO 1 [facility]ERT ROBERT SCOPY W/LITHOTR IPSY CALCULUS 85600 [facility] QUEST INFRARED 1 DIAGNOSTI DIAGNOSTI SPECTROSC CS CS OPY URNLS DIP 01533 [facility] VALERO 1 [facility] LET RGNT P NON-AUTO W/O MICRSCP URNLS DIP 56158 [facility] VERMA 1 [facility] LET RGNT P P NON-AUTO W/O MICRSCP STENT C2617 [facility] NON-COR 1 [facility] TEMPORARY INC INC WITHOUT DELIVERY SYSTEM INTRO 37972 [facility] URETERAL 1 [facility] CATH/STEN INC INC T PRQ RS&I FLUOROSCO 97936 [facility] PY SPX UP 1 MEDICAL MEDICAL TO 1 IMAGING IMAGING HOUR ASS ASS PHYS/QHP TIME ECG 79024 [facility] ROUTINE 1 [facility] ECG INC INC W/LEAST 12 LDS TRCG ONLY W/O I&R GUIDE C1769 [facility] WIRE 1 [facility] INC INC RAD 6045F [facility] EXPOS/ROBERT 1 MEDICAL MEDICAL E IN LAST IMAGING IMAGING RPRT ASS ASS FLUORO PRXD DOCD ECG 62882 [facility] TERRELL CALHOUN ROUTINE 1 [facility] W/LEAST P 12 LDS I&[place] [address] [facility] INFUSION 1 [facility] THERAPY/P INC INC ROPHYLAXI S /DX 1ST TO 1 HR THERAPEUT 63928 [facility] IC 1 [facility] INJECTION INC INC IV PUSH EACH NEW DRUG CYSTO 08297 [facility] W/INSERT 1 [facility] URETERAL INC INC STENT BLOOD 09816 [facility] COUNT 1 [facility] COMPLETE INC INC AUTO&AUTO DIFRNTL WBC URNLS DIP 74952 [facility]MA 1 [facility]OSP STICK/TAB INC [place] [address] [facility] INFUSION 1 [facility] THERAPY/P INC INC ROPHYLAXI S /DX 1ST TO 1 HR INJECTION J2405 [facility] 1 [facility] ONDANSETR INC INC ON HCL PER 1 [place] [address] [facility]AR[facility] VER[facility] INFUSION 1 [facility] THER INC INC PROPH ADDL SEQUENTIA L TO 1 HR 3D 26631 [place] LINUS RENDERING 1 MEDICAL KARLY IMAGING W/INTERP& [place] [address] [place] LINUS ABDOMEN & 1 MEDICAL KARLY PELVIS IMAGING W/O ASS CONTRAST MATERIAL CULTURE 08133 [facility] BACTERIAL 1 [facility] INC INC QUANTTATI VE COLONY COUNT URINE COMPREHEN 03235 [facility] SIVE 1 [facility] METABOLIC INC INC PANEL SLINGS A4565 [facility] L[facility] L.P. 1 COMPREHEN 79792 [facility] SIVE 1 N N METABOLIC COMMUNITY COMMUNITY PANEL HOSPITA HOSPITA CREATINE 71686 [facility] KINASE 1 N N TOTAL COMMUNITY COMMUNITY HOSPITA HOSPITA COLLECTIO 55043 [facility] N VENOUS 1 N N BLOOD [facility] HOSPITA URE HEMOGLOBI 91881 [facility] N 1 [employer] INC GLYCOSYLA MIKY A1C MRI BRAIN 12432 [facility] [place] LESLIE MAT BRAIN 1 RADIOLOGY STEM W/O W/CONTRAS T MATERIAL COLLECTIO 91847 LEE PAD LEE PAD N VENOUS 1 BLOOD VENIPUNCT URE COMPREHEN 05102 [facility] SIVE 1 [employer] [facility] METABOLIC PANEL LIPOPROTE 79742 [facility] IN DIRECT 1 [employer] [place] [employer] MEASUREME NT LDL CHOLESTER OL LIPID 98227 [facility] PANEL 1 [place] VIEO 3D 92659 [facility] RENDERING 1 MEDICAL MEDICAL W/INTERP IMAGING IMAGING & [place] [address] [place] LINUS HEAD/BRAI 1 MEDICAL KARLY N W/O IMAGING CONTRAST ASS MATERIAL SEDIMENTA 46525 [facility] TION RATE 1 [facility] RBC INC INC NON-AUTOM ATED COMPREHEN 90531 [facility] SIVE 1 [facility] METABOLIC INC INC PANEL CYANOCOBA 14676 [facility] NKECHI 1 [facility] VITAMIN INC INC B-12 BLOOD 31338 [facility] COUNT 1 [facility] COMPLETE INC INC AUTO&AUTO DIFRNTL WBC RADIOLOGI 85343 [facility] C EXAM 0 MEDICAL KARLY CHEST 2 IMAGING VIEWS ASS FRONTAL&L ATERAL URNLS DIP 33417 [facility] 0 [facility] STICK/TAB INC INC LET REAGENT AUTO MICROSCOP Y CULTURE 72934 [facility] BACTERIAL 0 [facility] INC INC QUANTTATI VE COLONY COUNT URINE RADEX 78375 [facility] RIBS UNI 0 MEDICAL KARLY W/POSTERO IMAGING [...] SUPPLIES SUPPLIES DEVICE FOR LANCET EACH COMPUTER- 65749 [facility] [place] R[place] AIDED 0 RADIOLOGY RHO DETECTION SCREENING MAMMOGRAP HY SCREENING G0202 [facility] [place] RABIA 0 RADIOLOGY RHO MAMMOGRAP HY TERESA INCL CAD WHEN PERFORMD LIPID 59923 [facility] PANEL 0 [facility] HEMOGLOBI 15053 [facility] N 0 [facility] GLYCOSYLA MIKY A1C LIPOPROTE 18401 [facility] IN DIRECT 0 [facility] MEASUREME NT LDL CHOLESTER OL CYTP C/V 93957 PATHOLOGY PATHOLOGY AUTO THIN 0 & & LYR CYTOLOGY CYTOLOGY PREPJ SCR LAB LAB MNL RESCR PHYS COMPREHEN 92846 [facility] SIVE 0 [facility] METABOLIC PANEL COLLECTIO 99745 LEE PAD LEE PAD N VENOUS 0 BLOOD VENIPUNCT URE COMPREHEN 68427 [facility] SIVE 0 [facility] METABOLIC INC INC PANEL URNLS DIP 42185 [facility] 0 [facility] STICK/TAB INC INC LET REAGENT AUTO MICROSCOP Y BLOOD 23396 [facility] COUNT 0 [facility] COMPLETE INC INC AUTO&AUTO DIFRNTL WBC RADIOLOGI 47834 B[facility] C EXAM 0 [facility] [...] BOX 0 SUPPLIES SUPPLIES OF 100 URINE 04869 [facility] 0 [facility] TEST INC INC VISUAL COLOR CMPRSN METHS CULTURE 26776 [facility] BACTERIAL [facility] INC INC QUANTTATI VE COLONY COUNT URINE RADIOLOGI 07831 [place] BARRIGA EXAM 0 MEDICAL MONIQUE CHEST 2 IMAGING VIEWS ASSOCIATE FRONTAL&L S ATERAL URNLS DIP 42615 [facility] [...] SUPPLIES HIGH CALIBRATO R SOLUTION/ CHIPS 3D 61407 [place] KATIE, RENDERING 0 MEDICAL JAMES P IMAGING W/INTERP& ASSOCIATE POSTPROC S DIFF WORK STATION CT PELVIS 47271 [place] KATIE, W/O 0 MEDICAL JAMES P [place] [address] [place]AT[place], ABDOMEN 0 MEDICAL JAMES P W/O IMAGING CONTRAST ASSOCIATE MATERIAL S URNLS DIP 71731 [facility] STICK/TAB INC INC LET REAGENT AUTO MICROSCOP Y LANCETS A4259 M E D M E D PER BOX 0 SUPPLIES SUPPLIES OF 100 BLD GLU A4253 M E D M E D TEST/REAG 0 SUPPLIES SUPPLIES T STRIPS HOME B[place] GLU MON-50 [place] [address] [facility]PTOC[facility] MEM [...] [address] PELVIS [address] [facility] [place], W/O 9 [place] [address] [facility] [place], ABDOMEN 9 RADIOLOGY MARY [...] AYLIN BG MON OWN PT EA INCISION 41763 COURTNEY LAZARO, & 9 EMERGENCY ALVERTO L DRAINAGE SERVICES ABSCESS SIMPLE/SI ASSOCIATE NGLE S BLD GLU A4253 M E D M E D TEST/REAG 9 SUPPLIES SUPPLIES T STRIPS HOME BLD GLU MON-50 LANCETS A4259 M E D M E D PER BOX 9 SUPPLIES SUPPLIES OF 100 INCISION 34796 MICHELLE YOUNG, & 9 KEVIN ANITA L DRAINAGE EMERGENCY ABSCESS PHYS INC COMPLICAT ED/MULTIP LE LANCETS A4259 M E D M E D PER BOX 9 SUPPLIES SUPPLIES OF 100 BLD GLU 200 A4253 M E D M E D TEST/REAG 9 SUPPLIES SUPPLIES T STRIPS HOME BLD GLU MON-50 RADIOLOGI 78191 [facility] [place] LYLES 9 RADIOLOGY J EXAMINATI [...] BOX 9 SUPPLIES SUPPLIES OF 100 COLLECTIO 69615 [place], N VENOUS 9 [facility] BLOOD [facility] CENTER VENIPUNCT URE COMPREHEN 77953 LAB CHERYL LAB CHERYL SIVE 9 [employer] PANEL LIPID 94701 LAB CHEYRL LAB CHERYL PANEL 9 [employer] LANCETS A4259 M E D M E D PER BOX 9 SUPPLIES SUPPLIES OF 100 BLD GLU A4253 M E D M E D TEST/REAG 9 SUPPLIES SUPPLIES T STRIPS HOME BLD GLU WED-50 URNLS DIP 47213 [facility] 9 LTH JR, STICK/TAB UROLOGY [...] 9 SUPPLIES SUP[address] PELVIS [address] [facility] [place], W/O 9 [place] [address] [facility] [place], ABDOMEN 9 RADIOLOGY MARY K W/O CONTRAST MATERIAL CYSTO 74146 [facility] W/URETERO 9 LTH JR, SCOPY UROLOGY MAR [place] W/RMVL/MA PSC [place] STONES ANES 70473 ANESTHESI DUNSHEREE, TRANSURET 9 A REYNA Murphy HRAL ASSOCIATE W/URETHRO S, PSC CYSTOSCOP Y NOS CYSTO 53146 [facility] W/INSERT 9 LTH JR, URETERAL UROLOGY MAR [place] STENT PSC URNLS DIP 76913 [facility] 9 LTH JR, STICK/TAB UROLOGY MAR [place] LET RGNT PSC AUTO W/O MICROSCOP Y ANES 54699 ANESTHESI SMITH, TRANSURET 8 Deniz Gonzalez HRAL ASSOCIATE W/URETHRO S, PSC CYSTOSCOP Y NOS CYSTO 59348 [facility] W/INSERT 8 LTH JR, URETERAL UROLOGY MAR [place] STENT PSC URETERAL [address] GROUND A0425 [facility] MILEAGE 8 CARTER MACHAD[facility] PER CO EMS CO EMS STATUTE MILE AMB A0427 [facility] SERVICE 8 CARTER [place] ALS CO EMS CO EMS EMERGENCY TRANSPORT LEVEL 1 INITIAL 74579 [facility] 8 LT JR, CARE/DAY UROLOGY MAR [place] [address] PELVIS [address] [facility] [place] NER[place], W/O 8 RADIOLOGY J CONTRAST MATERIAL ECG 41017 [place], ROUTINE 8 [place] J C ECG CLINIC W/LEAST PSC 12 LDS I&[place] [address] [facility] [place], ABDOMEN 8 RADIOLOGY J W/[place] [address] [facility] [place] LUZ ELENATELIC, ABDOMEN 8 RADIOLOGY MARY K W/O CONTR[place] [address] PELVIS 51794 [facility] [place], W/O 8 RADIOLOGY MARY K CONTRAST MATERIAL COLLECTIO 43604 [place], N VENOUS 8 [facility] SARAH BLOOD E CENTER VENIPUNCT URE HEMOGLOBI 76266 LAB CHERYL LAB CHERYL N 8 [employer] GLYCOSYLA HOLDING HOLDING MIKY A1C GLUCOSE 39579 LAB CHERYL LAB CHERYL QUANTITAT 8 AMERIC AMERIC FAWAD BLOOD HOLDING HOLDING XCPT REAGENT STRIP LIPID 89718 LAB [facility]ERY[facility] LAB CHERYL PANEL 8 [employer] [facility] HOLDING SCREENING G0202 [facility] 8 N N MAMMOGRAP [facility] INCL CAD WHEN PERFORMD COLLECTIO 70099 HORIZON OVERBEE, N VENOUS 8 [facility] BLOOD E CENTER VENIPUNCT URE COMPUTER- 72922 [facility] AIDED 8 N N DETECTION [facility] SCREENING MAMMOGRAP HY GENERAL 13281 LAB CHERYL LAB CHERYL HEALTH 8 AMERIC AMERIC PANEL HOLDING HOLDING IADNA 69948 [facility] [place], MELLO 8 [place] INC MICHAEL D SPECIES AMPLIFIED PROBE TQ IADNA 37391 [facility] [place], GARDNEREL 8 [place] INC MICHAEL D LA VAGINALIS AMPLIFIED PROBE TQ IADNA 33767 [facility] TRICHOMON 8 [facility] INC INC VAGINALIS DIRECT PROBE TQ IADNA 06081 [facility] [place], CHLAMYDIA 8 [place] INC MICHAEL D TRACHOMAT IS AMPLIFIED PROBE TQ CYTP 75191 [facility] [place], CERV/VAG 8 [place] INC MIC[place]EL D AUTO THIN LAYER PREP MNL SCREEN IADNA 99183 [facility] [place], NEISSERIA 8 [place] INC MICHAEL D GONORRHOE AE AMPLIFIED PROBE TQ URNLS DIP 33550 HORIZON OSPINA, 8 [facility] STICK/TAB E CENTER LET RGNT AUTO W/[place] [address] [place] MARCELINO, ABDOMEN 8 RADIOLOGY ONIEL P W/O CONTRAST MATERIAL CT PELVIS 78182 [facility] [place] MARCELINO, W/O 8 RADIOLOGY ONIEL P CONTR[place] [address] PELVIS 42824 [facility] W/O 8 [facility] CONTRAST INC INC MATERIAL 3D 14693 [facility] [facility] RENDERING 8 [facility] INC INC W/INTERP& [place] [address] [place] [facility] ABDOMEN 8 [facility] W/O INC INC CONTRAST MATERIAL URNLS DIP 15088 [facility] VERMA 8 [facility] STICK/TAB INC INC LET REAGENT AUTO MICROSCOP Y RADIOLOGI 81883 [facility] C EXAM 8 [facility] CHEST 2 INC INC VIEWS FRONTAL&L ATERAL BLOOD 59862 [facility] [facility] COUNT 8 [facility] COMPLETE INC INC AUTO&AUTO DIFRNTL WBC IAADI 90927 [facility] [facility] INFLUENZA 8 [facility] B VIRUS INC INC BASIC 29048 [facility] [facility] METABOLIC 8 [facility] PANEL INC INC CALCIUM TOTAL IAADI 85602 [facility] [facility] INFFLUENZ 8 [facility] [place] [place] [address] [place] [facility] THER 8 [facility] PROPH/DX INC INC 1ST >1 HR APPL 35422 [facility] MODALITY 8 [facility] 1/> AREAS INC INC ELEC STIMJ UNATTENDE D PHYSICAL 39976 [facility] [facility] THERAPY 8 [facility] EVALUATIO INC INC N THERAPEUT 21362 [facility] IC PX 1/> 8 [facility] AREAS INC INC EACH 15 MIN EXERCISES 3D 13228 [place] KATIE, RENDERING 8 MEDICAL JAMES P IMAGING W/INTERP& ASSOCIATE POSTPROC S DIFF WORK STATION CT LUMBAR 03136 [place] KATIE, SPINE 8 MEDICAL JAMES P W/O IMAGING CONTRAST ASSOCIATE MATERIAL S RADIOLOGI 33922 [facility] Gonzalez 8 [facility] EXAMINATI INC INC ON FEMUR 2 VIEWS RADEX 98910 [place] KATIE, SPINE 8 MEDICAL JAMES P LUMBOSACR IMAGING AL ASSOCIATE MINIMUM 4 S VIEWS RADEX HIP 55618 [place] KATIE, 8 MEDICAL JAMES P UNILATERA IMAGING L ASSOCIATE COMPLETE S MINIMUM 2 VIEWS Encounters Encounter Start End Date Code Location Performer Type Date EMERGENCY 60247 [facility] 7 7 [facility] DEPARTMEN INC T VISIT LOW/MODER SEVERITY EMERGENCY 48336 LEONEL LEE DEPT 7 7 PHYSICIAN VISIT S, [facility] HIGH SEVERITY& THREAT [facility] Sosa 7 7 [facility] OUTPATIEN INC T OFFICE 91319 [facility] OUTPATIEN 7 7 [facility] T VISIT 5 INC MINUTES [facility] T [facility] [place] OUTPATIEN INC T EMERGENCY 17846 [facility] 7 7 [facility] DEPARTMEN INC T VISIT LOW/MODER SEVERITY OFFICE 43224 JOSE MARIA ROSS OUTPATIEN 6 6 MARCELINA T VISIT PEDIATRIC 15 S & INTER MINUTES HOSPITAL [facility] - 6 6 N OUTPATIEN COMMUNTIY T HOSPITA OFFICE 07293 GENE SCIFRRENUKA OUTPATIEN 6 6 ANG ANG T VISIT 15 MINUTES OFFICE 37971 GENE SCIFRES OUTPATIEN 6 6 ANG ANG T VISIT 15 MINUTES OFFICE 70752 [facility] PRIYANK OUTPATIEN 6 6 PHYSICIAN JAY T NEW 20 S GROUP MINUTES EMERGENCY 29773 [facility] DEPT 6 6 PHYSICIAN OLGA VISIT S, [facility] HIGH SEVERITY& THREAT [facility] - 6 6 [facility] OUTPATIEN INC T EMERGENCY 89268 [facility] 6 6 [facility] DEPARTMEN INC T VISIT MODERATE SEVERITY OFFICE 42710 ANN KEARNS OUTPATIEN 6 6 PHYSCIAN LES T VISIT PRACTICE 15 LL MINUTES [facility]OSP[facility] [place] - 6 6 [facility] OUTPATIEN INC T OFFICE 60423 CHANCE TRA CHANCE TRA OUTPATIEN 6 6 T VISIT 15 MINUTES OFFICE 45347 ANN KEARNS CONSULTAT 6 6 PHYSCIAN LES ION PRACTICE NEW/ESTAB LL PATIENT 40 MIN OFFICE 29967 JOSE MARIA ROSS OUTPATIEN 6 6 MARCELINA T VISIT PEDIATRIC 15 S & INTER MINUTES HOME [facility], 6 6 HOME INPATIENT HEALTH AGENCY EMERGENCY 65588 [facility] 6 6 [facility] DEPARTMEN INC T VISIT MODERATE SEVERITY EMERGENCY 24778 LEONEL US 6 6 PHYSICIAN U AMELIE DEPARTMEN S, PLLC T VISIT HIGH/URGE NT SEVERITY [facility]OSP[facility] - 6 6 [facility] OUTPATIEN INC T EMERGENCY 18839 LEONEL BROWNING DEPT 5 5 PHYSICIAN AZAR VISIT S, PLLC HIGH SEVERITY& THREAT F[facility]J EMERGENCY 53237 [facility] 5 5 [facility] DEPARTMEN INC T VISIT HIGH/URGE NT SEVERITY [facility] - 5 5 [facility] OUTPATIEN INC T OFFICE 57322 JOSE MARIA ROSS OUTPATIEN 5 5 MARCELINA T VISIT PEDIATRIC 15 S & INTER MINUTES [place] [address] 5 [facility] [address] INPATIENT HOSPITAL [place] [address] 5 N OUTPATIEN COMMUNTIY T HOSPITA OFFICE 22649 JOSE MARIA ORSS OUTPATIEN 5 5 MARCELINA T VISIT PEDIATRIC 15 S & INTER MINUTES HOSPITAL [address] OUTPATIEN T EMERGENCY 18389 LEONEL BROWNING DEPT 5 5 PHYSICIAN AZAR VISIT S, PLLC HIGH SEVERITY& THREAT [facility] [address] OUTPATIEN T OFFICE 44042 JOSE MARIA ROSS OUTPATIEN 5 5 MARCELINA T VISIT PEDIATRIC 15 S & INTER MINUTES OFFICE 74610 JOELLEN DAVIS OUTPATIEN 5 5 [place] T VISIT ORTHOPAED 15 [facility] MINUTES EMERGENCY 11865 BARRY Ruth 5 5 DEPARTMEN T VISIT MODERATE SEVERITY OFFICE 14004 JOSE MARIA ROSS OUTPATIEN 5 5 MARCELINA T VISIT PEDIATRIC 15 S & INTER MINUTES EMERGENCY 72338 NALLELY BROWNING DEPT 5 5 AZAR AZAR VISIT HIGH SEVERITY& THREAT FUN OFFICE 54999 CENTRAL CHANCE TRA OUTPATIEN 5 5 [place] T VISIT ORTHOPAED 15 [facility] MINUTES [facility]OSP[facility] - 5 5 [facility] OUTPATIEN INC T EMERGENCY 91782 CHRISTEL KEARNEY 5 5 DORI DORI DEPARTMEN T VISIT HIGH/URGE NT SEVERITY OFFICE 50797 [facility] CHANCE TRA OUTPATIEN 5 5 [place] T NEW 45 ORTHOPAED MINUTES ICS [facility] OFFICE 57484 JOSE MARIA ROSS OUTPATIEN 4 4 MARCELINA T VISIT PEDIATRIC 15 S & INTER MINUTES EMERGENCY 04685 NALLELY BROWNING 4 4 AZAR AZAR DEPARTMEN T VISIT MODERATE SEVERITY EMERGENCY 43171 NALLELY BROWNING DEPT 4 4 AZAR AZAR VISIT HIGH SEVERITY& THREAT [facility] - 4 4 N OUTPATIEN COMMUNITY T HOSPITA EMERGENCY 76945 LEATHA LEMONIN 4 4 IMT IMT DEPARTMEN T VISIT MODERATE SEVERITY OFFICE 71150 JOSE MARIA ROSS OUTPATIEN 4 4 MARCELINA T VISIT PEDIATRIC 15 S & INTER MINUTES EMERGENCY 79550 ALFARIS ALFARIS 4 4 [facility] DEPARTMEN T VISIT HIGH/URGE NT SEVERITY EMERGENCY 60853 SHAZIA ANGELICA SHAZIA ANGELICA DEPT 4 4 VISIT HIGH SEVERITY& THREAT FUN OFFICE 21173 JOSE MARIA ROSS OUTPATIEN 4 4 AMRCELINA T VISIT PEDIATRIC 15 S & INTER MINUTES EMERGENCY 94614 ABIGAIL HAYES 4 4 BRO BRO DEPARTMEN T VISIT HIGH/URGE NT SEVERITY OFFICE 81409 JOSE MARIA ROSS OUTPATIEN 3 3 MARCELINA T VISIT PEDIATRIC 15 S & INTER MINUTES EMERGENCY 32358 COURTNEY BROWNING DEPT 3 3 EMERGENCY AZAR VISIT SERVICES HIGH SEVERITY& THREAT FUNCJ OFFICE 71142 JOSE MARIA ROSS OUTPATIEN 3 3 MARCELINA T VISIT PEDIATRIC 15 S & INTER MINUTES [facility]OSPITAL [facility] - 3 3 N OUTPATIEN COMMUNITY T HOSPITA OFFICE 44908 JOSE MARIA ROSS OUTPATIEN 3 3 MARCELINA T VISIT PEDIATRIC 10 S & INTER MINUTES EMERGENCY 29717 COURTNEY LEWIS 3 3 EMERGENCY DEPARTMEN SERVICES T VISIT MODERATE SEVERITY OFFICE 13757 JOSE MARIA ROSS OUTPATIEN 3 3 MARCELINA T VISIT PEDIATRIC 15 S & INTER MINUTES EMERGENCY 43499 COURTNEY GARCIA 3 3 EMERGENCY RYA DEPARTMEN SERVICES T VISIT HIGH/URGE NT SEVERITY PERIODIC 05516 JOSE MARIA ROSS PREVENTIV 3 3 MARCELINA E MED EST PEDIATRIC PATIENT S & INTER 40-64YRS OFFICE 95011 LUZ BAKER 3 3 MARKO MARKO T VISIT 15 MINUTES OFFICE 75237 [facility] EDIL BAKER 3 3 PHYSICIAN CAM T NEW 45 S GROUP MINUTES EMERGENCY 56928 COURTNEY STEPHENS 3 3 EMERGENCY III ADRIENNE DEPARTMEN SERVICES T VISIT HIGH/URGE NT SEVERITY EMERGENCY 39857 [facility] 3 3 [facility] DEPARTMEN INC T VISIT LOW/MODER SEVERITY [facility] 3 3 [facility] OUTPATIEN INC T OFFICE 94199 LUZ BAKER 2 2 MARKO MARKO T VISIT 15 MINUTES [facility]OSPITAL [place] - 2 2 [facility] OUTPATIEN INC T EMERGENCY 98981 [facility] 2 2 [facility] DEPARTMEN INC T VISIT MODERATE SEVERITY EMERGENCY 72836 COURTNEY STEPHENS DEPT 2 2 EMERGENCY III ADRIENNE VISIT SERVICES HIGH SEVERITY& THREAT [facility] [place] - 2 2 [facility] OUTPATIEN INC T EMERGENCY 07449 [facility] 2 2 [facility] DEPARTMEN INC T VISIT MODERATE SEVERITY EMERGENCY 35133 COURTNEY MCKENNA DEPT 2 2 EMERGENCY ADRIENNE VISIT SERVICES HIGH SEVERITY& THREAT FUNCJ OFFICE 00018 LUZ BOATENGPATIEN 2 2 MARKO MARKO T VISIT 15 MINUTES EMERGENCY 19555 COURTNEY MCKENNA 2 2 EMERGENCY ADRIENNE DEPARTMEN SERVICES T VISIT HIGH/URGE NT SEVERITY EMERGENCY 69358 [facility] 2 2 [facility] DEPARTMEN INC T VISIT MODERATE SEVERITY [facility] 2 2 [facility] OUTPATIEN INC T EMERGENCY 88565 COURTNEY BROWNING 2 2 EMERGENCY AZAR DEPARTMEN SERVICES T VISIT MODERATE SEVERITY OFFICE 48576 TIFFANY VILLAGOMEZ CONSULTAT 2 2 MEDICAL L ION SERV NEW/ESTAB FOUNDATIO PATIENT 80 MIN OFFICE 39258 LUZ BAKER 2 2 MARKO MARKO T VISIT 15 MINUTES HOSPITAL [facility] 2 2 [facility] OUTPATIEN INC T EMERGENCY 22183 COURTNEY RIVAS DEPT 2 2 EMERGENCY VISIT SERVICES HIGH SEVERITY& THREAT FUNCJ EMERGENCY 61550 [facility] 2 2 [facility] DEPARTMEN INC T VISIT MODERATE SEVERITY EMERGENCY 00316 [facility] 1 1 [facility] DEPARTMEN INC T VISIT MODERATE SEVERITY [facility] 1 1 [facility] OUTPATIEN INC T EMERGENCY 69764 COURTNEY VALDEZ 1 1 EMERGENCY EMERGENCY DEPARTMEN SERVICES SERVICES T VISIT HIGH/URGE NT SEVERITY OFFICE 80347 [facility] BAKER 1 1 [facility] T VISIT HOSPITAL 25 P MINUTES OFFICE 93681 [facility] OUTPATIEN 1 1 [facility] T VISIT HOSPITAL 25 P MINUTES [facility] [place] [facility] 1 1 [facility] INC T EMERGENCY 54198 [facility] 1 1 [facility] DEPARTMEN INC T VISIT HIGH/URGE NT SEVERITY EMERGENCY 24900 COURTNEY FRANKS DEPT 1 1 EMERGENCY VISIT SERVICES HIGH SEVERITY& THREAT [facility] [place] - 1 1 [facility] OUTPATIEN INC T EMERGENCY 72575 [facility] 1 1 [facility] DEPARTMEN INC T VISIT LOW/MODER SEVERITY [facility] [place] - 1 1 [facility] OUTPATIEN INC T EMERGENCY 74724 COURTNEY FRANKS 1 1 EMERGENCY DEPARTMEN SERVICES T VISIT HIGH/URGE NT SEVERITY [facility] [place] [facility] 1 1 [facility] OUT[facility] INC T EMERGENCY 24951 COURTNEY FRANKS 1 1 EMERGENCY DEPARTMEN SERVICES T VISIT HIGH/URGE NT SEVERITY EMERGENCY 88103 [facility] 1 1 [facility] DEPARTMEN INC T VISIT LOW/MODER SEVERITY EMERGENCY 65197 COURTNEY FRANKS 1 1 EMERGENCY DEPARTMEN SERVICES T VISIT MODERATE SEVERITY EMERGENCY 21744 [facility] 1 1 [facility] DEPARTMEN INC T VISIT LOW/MODER SEVERITY [facility] [facility] 1 1 [facility] OUTPAT[facility]EN INC T OFFICE 33264 LEE PAD LEE PAD OUTPATIEN 1 1 T VISIT 15 MINUTES [facility] N OUTPATIEN COMMUNITY T HOSPITA EMERGENCY 75767 [facility] 1 1 [facility] DEPARTMEN INC T VISIT LOW/MODER SEVERITY EMERGENCY 95176 COURTNEY STOVALL BAB 1 1 EMERGENCY DEPARTMEN SERVICES T VISIT MODERATE SEVERITY [facility] [place] 1 1 [facility] OUTPATIEN [facility] OFFICE 68890 LEE PAD LEE PAD OUTPATIEN 1 1 T VISIT 25 MINUTES HOSPITAL [facility] 1 1 N OUTPATIEN [facility] 1 1 [facility] EMERGENCY 53821 COURTNEY RIVAS DEPT 1 1 EMERGENCY VISIT SERVICES HIGH SEVERITY& THREAT FUNCJ EMERGENCY 10609 [facility]MODER [facility] 1 1 [facility] EMERGENCY 19372 [facility] T VISIT LOW/MODER SEVERITY EMERGENCY 42167 COURTNEY BROWNING 1 1 EMERGENCY [facility] SERVICES T VISIT HIGH/URGE NT SEVERITY EMERGENCY 63760 [facility] 0 [facility]OW/MODER SEVERITY [facility] [place] - 0 0 [facility] 16046 COURTNEY ROSS 0 0 [facility]ISIT MODERATE SEVERITY EMERGENCY 44584 COURTNEY ROSS 0 0 [facility]ISIT HIGH/URGE NT SEVERITY EMERGENCY 26317 [facility] 0 0 [facility] LOW/MODER SEVERITY [facility] [place] [facility] 0 0 [facility] - 0 0 N OUTPATIEN [facility] 82814 LEE PAD LEE PAD OUTPATIEN 0 0 T VISIT 15 MINUTES PERIODIC 75911 LEE PAD LEE PAD PREVENTIV 0 0 E MED EST PATIENT 40-64YRS EMERGENCY 80244 [facility] 0 0 [facility] DEPARTMEN INC T VISIT MODERATE SEVERITY [facility] - 0 0 [facility] OUTPATIEN INC T EMERGENCY 63186 COURTNEY DEGROOT AND 0 0 EMERGENCY DEPARTMEN SERVICES T VISIT HIGH/URGE NT SEVERITY OFFICE 00954 LEE PAD LEE PAD OUTPATIEN 0 0 T NEW 30 MINUTES EMERGENCY 43751 COURTNEY KEARNEY, 0 0 EMERGENCY [facility] DEPARTMEN SERVICES T VISIT MODERATE ASSOCIATE SEVERITY S EMERGENCY 69702 [facility] 0 0 [facility] DEPARTMEN INC T VISIT LOW/MODER SEVERITY [facility] - 0 0 [facility] OUTPATIEN INC T EMERGENCY 47853 COURTNEY STOVALL, 0 0 EMERGENCY [place] DEPARTMEN SERVICES O T VISIT HIGH/URGE ASSOCIATE NT S SEVERITY EMERGENCY 17673 COURTNEY NELSON, DEPT 0 0 EMERGENCY [place] VISIT SERVICES M HIGH SEVERITY& ASSOCIATE THREAT S FUNCJ EMERGENCY 45264 [facility] 0 0 [facility] DEPARTMEN INC T VISIT LOW/MODER SEVERITY [facility] [facility] 0 0 [facility] OUTPATIEN INC T EMERGENCY 10132 COURTNEY HERNANDEZAGE [address] [facility] DEPARTMEN SERVICES T VISIT MODERATE SEVERITY EMERGENCY 74843 COURTNEY PARKIH 0 0 [facility] T VISIT MODERATE SEVERITY EMERGENCY 87182 COURTNEY BROWNING, 0 0 EMERGENCY [facility] DEPARTMEN SERVICES T VISIT HIGH/URGE ASSOCIATE NT S SEVERITY EMERGENCY 38916 [facility] 0 0 [facility] DEPARTMEN INC T VISIT MODERATE SEVERITY [facility] 0 0 [facility]PAT[facility]EN [facility] T [facility] N OUTPATIEN COMM[facility] HOSPITAL EMERGENCY 78057 COURTNEY HERNANDEZ DEPT 9 9 EMERGENCY , KAYLYNN VISIT SERVICES HIGH SEVERITY& ASSOCIATE THREAT S FUNCJ EMERGENCY 30621 COURTNEY FOY, 9 9 EMERGENCY [place] DEPARTMEN SERVICES T VISIT MODERATE ASSOCIATE SEVERITY S EMERGENCY 02784 COURTNEY CELLAROSI 9 9 EMERGENCY - YORBA, DEPARTMEN SERVICES BRI T VISIT M MODERATE ASSOCIATE SEVERITY S EMERGENCY 12789 COURTNEY CELLAROSI 9 9 EMERGENCY - YORBA, DEPARTMEN SERVICES BRI T VISIT M MODERATE ASSOCIATE SEVERITY S EMERGENCY 35290 [facility] 9 9 N [facility] COMMUNITY T VISIT HOSPITAL MODERATE SEVERITY [facility]OSPITAL [facility] 9 9 [facility] 48286 COURTNEY LAZARO, 9 9 EMERGENCY ALVERT[place] L DEPARTMEN SERVICES T VISIT HIGH/URGE ASSOCIATE NT S SEVERITY OFFICE 55788 [facility] 9 9 [facility] SELENE W T [facility]ISIT E CENTER 15 MINUTES EMERGENCY 93502 [facility] 9 9 N [facility] T VISIT HOSPITAL LOW/MODER SEVERITY HOSPITAL [facility] - 9 9 N [facility] 9 9 [facility] 31757 [facility] 9 9 N [facility] COMMUNITY T VISIT HOSPITAL LOW/MODER SEVERITY EMERGENCY 04789 MICHELLE YOUNG, 9 9 KEVIN Ruth DEPARTMEN EMERGENCY T VISIT PHYS INC MODERATE SEVERITY EMERGENCY 98687 [facility] 9 9 KEVIN - YORBA, DEPARTMEN EMERGENCY BRI T VISIT PHYS INC M MODERATE SEVERITY HOSPITAL [facility] 9 9 N [facility] 00013 MICHELLE YOUNG, 9 9 KEVIN Ruth DEPARTMEN EMERGENCY T VISIT PHYS INC MODERATE SEVERITY EMERGENCY 47211 [facility] 9 9 N [facility] COMMUNITY T VISIT HOSPITAL LOW/MODER SEVERITY EMERGENCY 96808 [facility] SADEK, 9 9 KEVIN TASIAAMED H DEPARTMEN EMERGENCY T VISIT PHYS INC MODERATE SEVERITY EMERGENCY 73214 [facility] AHMED, 9 9 KEVIN FIGUEROA DEPARTMEN EMERGENCY A T VISIT PHYS INC MODERATE SEVERITY OFFICE 77218 HORIZON GRAVES, OUTPATIEN 9 9 [facility] T VISIT E CENTER 15 MINUTES EMERGENCY 00504 [facility] CELLAROSI 9 9 KEVIN - YORBA, DEPARTMEN EMERGENCY BRI T VISIT PHYS INC M MODERATE SEVERITY OFFICE 09563 HORIZON GRAVES, OUTPATIEN 9 9 [facility] W T VISIT E CENTER 15 MINUTES OFFICE 72194 [facility] OUT[facility] 9 9 LTH JR, T VISIT UROLOGY MAR K 15 PSC MINUTES EMERGENCY 62176 [facility] CELLAROSI 9 9 KEVIN - YORBA, DEPARTMEN EMERGENCY BRI T VISIT PHYS INC M HIGH/URGE NT SEVERITY OFFICE 58083 HORIZON GRAVES, OUTPATIEN 9 9 [facility] T VISIT E CENTER 15 MINUTES OFFICE 91383 [facility] OUTPATIEN 9 9 LTH JR, T VISIT UROLOGY MAR K 10 PSC MINUTES OFFICE 05386 [facility] OUTPATIEN 9 9 LTH JR, T VISIT UROLOGY MAR K 10 PSC MINUTES OFFICE 30222 HORIZON GRAVES, OUTPATIEN 9 9 [facility] W T VISIT E CENTER 15 MINUTES HOSPITAL [facility] - 8 8 HOSPITAL INPATIENT EMERGENCY 05182 [facility] CELLAROSI DEPT 8 8 KEVIN - YORBA, VISIT EMERGENCY BRI HIGH PHYS INC M SEVERITY& THREAT FUNCJ EMERGENCY 58881 [facility] CELLAROSI 8 8 KEVIN - YORBA, DEPARTMEN EMERGENCY BRI T VISIT PHYS INC M HIGH/URGE NT SEVERITY OFFICE 78160 JORGE LUIS [facility] OUTPATIEN 8 8 [facility] T VISIT E CENTER 15 MINUTES [facility] N OUTPATIEN COMMUN[facility] T [facility]PITAL OFFICE 75720 JORGE LUIS [facility] OUTPATIEN 8 8 [facility] W T VISIT E CENTER 15 MINUTES EMERGENCY 86371 [facility] YOUNG, 8 8 KEVIN ANITA Rtuh [facility] EMERGENCY T VISIT PHYS INC HIGH/URGE NT SEVERITY OFFICE 35218 JORGE LUIS OSP[facility] OUTPATIEN 8 8 [facility]ALTH[facility] JONATHAN T NEW 45 E CENTER MINUTES EMERGENCY 96833 [facility] CELLAROSI 8 8 KEVIN LESTER [facility] EMERGENCY BRI T VISIT PHYS INC M MODERATE SEVERITY OFFICE 78413 MIKKI KAYE OUTPATIEN 8 8 DON R DON R T VISIT 15 MINUTES EMERGENCY 32017 [facility] 8 8 [facility] DEPARTMEN INC T VISIT MODERATE SEVERITY [facility] - 8 8 [facility] OUTPATIEN INC T [facility] 8 8 [facility] OUTPATIEN INC T EMERGENCY 53200 [facility] 8 8 [facility] DEPARTMEN INC T VISIT MODERATE SEVERITY [facility] 8 8 [facility] OUTPATIEN INC [facility] - 8 8 [facility] OUTPATIEN INC T OFFICE 80524 MIKKI KAYE OUTPATIEN 8 8 DON R DON R T VISIT 15 MINUTES EMERGENCY 88819 [place] BROWN, 8 8 [facility] T VISIT PROF SERV MODERATE SEVERITY [facility] - 8 8 [facility] OUTPATIEN INC T EMERGENCY 73510 [facility] 8 8 [facility] DEPARTMEN INC T VISIT LOW/MODER SEVERITY
--- OUTSIDE RECORDS SUMMARY | 2016-10-04 21:12 | External Medical Summary Rpt ---
Demographics Preferred Language Occitan Marital Status Unknown Hoahaoism Affiliation Unknown Race Unknown Ethnic Group Unknown Author Author , Organization [employer] Address Unknown Phone Unavailable Purpose Continuity of Care Document - through 2016 Immunization No patient found.
--- OUTSIDE RECORDS SUMMARY | 2016-10-04 21:12 | External Medical Summary Rpt ---
Demographics Preferred Language Irish Marital Status Unknown Taoist Affiliation Unknown Race Unknown Ethnic Group Unknown Author Author , Organization [employer] Address Unknown Phone Unavailable Purpose Continuity of Care Document - through 2016 Immunization No patient found.
[2016-10-04] MEDS ORDERED: LORTAB 10/3251 TAB PO (22:52)
--- NOTE | 2016-10-04 22:53 | Emergency Room Report ---
History of Present Illness Time Seen by 2040 Presenting Problem in Triage Pt arrived:Wheelchair Presenting Problem:BILATERAL FOOT MULTIPLE TOE PAIN, CYANOSIS, COOLNESS TO TOUCH. PT STATES SHE HAS BEEN EVALUATED AND HAS A F/U WITH BUT HER APPT ISNT UNTIL OCTOBER. PT STATES HER SYMPTOMS AND PAIN ARE WORSENING. 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 N Clinical Suspician of Infection? N Mental Status: 1 - Regular (Normal Baseline) Sepsis Risk:Low Sepsis Risk Have you (or family members/close friends) recently traveled outside the [place]? N If Yes, where/when: Have you had exposure to infectious disease within the past month? TB? Other? Specify: Source patient, RN notes reviewed, family, RN/MD Exam Limitations no limitations Comment This is a 61-year-old diabetic female patient presenting to the emergency room bilateral lower extremities pain. She was recently diagnosed with peripheral arterial disease, and she was already seen at [facility]. Her next scheduled appointment not to November 02, and patient is here requesting pain medications, for her leg cramps. She has recently noticed an increase in her symptoms, with claudication triggered by shorter distances walked compared to just a few months ago. She quit smoking in July 2016. ALLERGIES Coded Allergies: No Known Allergies (07/28/16) Home Medications Active Scripts Carvedilol 6.25 MG PO BID #60 TAB Prov: 07/26/16 Atorvastatin Calcium (Atorvastatin) 80 MG PO DAILY #30 TABLET Prov: 07/26/16 Nitroglycerin (Nitrostat 0.4MG (1/150 Gr) Tabs #25) 0.4 MG SL [id number] PRN CHEST PAIN #20 TAB Prov: 07/26/16 Reported Medications Insulin Glargine (Lantus Insulin Vial) 10 UNITS SC QHS LISINOPRIL (Lisinopril) 20 MG PO DAILY METFORMIN HCL (Metformin) 1,000 MG PO DAILY Glipizide 10 MG PO DAILY Aspirin 81 MG PO DAILY FENOFIBRATE,MICRONIZED (Fenofibrate) 200 MG PO DAILY #30 CLOPIDOGREL BISULFATE (Clopidogrel) 75 MG PO DAILY #30 History Medical History General CAD? No Angina: Yes [place]: No Hypertension? Yes Hyperlipidemia? Yes CHF? No DVT? No PE? No COPD? No Asthma? No Anemia? No GERD? No Gastric ulcers? No GI Bleed? No Hernia? No Thyroid Problems? No Hypothyroidism? No CVA? No Seizures? No Diabetes? Yes Insulin Dependent: Yes Insulin Pump: No Home FSBS? Yes Renal Insuffiency? No End Stage Renal Disease? No UTI? Yes Stones? Yes BPH? No GB Disease: Yes Nephritic Syndrome? No Asplenia? No Hepatitis? No Sickle Cell Disease? No Arthritis? No Migraines? No Cataracts? No Glaucoma? No MRSA? No HIV? No TB? No Anxiety? No Depression? Yes Cancer? No Additional hx: 1. TIA 2. Kidney stones with stenting Immunization Hx DT/Tetanus Unknown Flu Refused Pneumonia Refuses Surgical Hx Previous Surgery?Y OPEN HEART-CYST ON ARTERY OVARIAN CYST REMOVAL [place] CYSTOSCOPY WITH [id number] STENT REMOVAL LITHOTRIPSY CYSTOSCOPY WITH [id number] L HIP REPLACEMENT HEART STENTS Family History Family Hx Diabetes Yes CAD Yes Hypertension Yes Hyperlipidemia Yes Cancer Yes TB No Social History Smoking Hx Smoker: Former Smoker Tobacco: No Packs/day < 1 Pack Alcohol Alcohol: No Review of Systems All Other Systems Reviewed and Negative Musculoskeletal see HPI (bilateral lower extr. pain) Skin other (bluish discoloration toes) Physical Exam Vital Signs Vital Signs Date Time Temp Pulse Resp B/P Pulse O2 O2 Flow FiO2 Ox Delivery Rate 10/04 2302 80 20 128/70 97 10/04 2221 76 18 136/76 98 10/04 2203 18 10/04 2111 84 20 93/50 98 10/04 2032 97.9 77 20 148/91 97 General Appearance normal appearance, WD/WN, mild distress Respiratory Status Yes: trachea midline, chest symmetrical, non tender chest. No: respiratory distress. Lung Sounds bilateral: normal breath sounds, lungs clear. Cardiovascular normal exam, regular rate/rhythm, no peripheral edema, no gallop, no JVD, no murmur, no rub, normal peripheral pulses Peripheral Pulses Pulses normal Yes (palpable dorsalis pedis pulses) Gastrointestinal normal bowel sounds, normal exam, non tender, soft, no organomegaly Extremities normal range of motion, normal inspection, toes tender to palpation Neurologic alert, architectural practice manager II-XII nml as tested, normal exam, oriented x 3 Mental status normal mood/affect Skin warm/dry, bluish discoloration of the toes, which are also warm. Medical Decision Making LABS/Meds/Orders Pt receiving controlled substance in ED? Yes Darrian was queried for this patient? Yes Reference #: [id number] Risks/benefits of using a controlled substance for treatment were discussed w/pt by me Comment Both dorsalis pedis pulses are palpable by digital evaluation. Additionally, portable Doppler ultrasound evaluation also reveals present distal pulsations in both dorsalis pedis. I spent extensive time discussing patient's condition and management with the patient. She has palpable distal dorsalis pedis pulses bilaterally, her toes are warm, and bluish. She appears to have flow in both lower extremities, at this time. The above was discussed with head athletic trainer/strength coach cotton weigher, Dr. Mio Mishra, made aware of patient's condition, and findings (history of PAD, with distal palpable dorsalis pedis pulses). Dr. Mio Mishra recommended patient to be discharged home at this time, w/ to follow-up with his office on 10/06/16, at 1 PM. I have also scheduled [facility] patient for ABIs for tomorrow morning, at [facility]. Results/Orders Laboratory Tests 10/04/162054: Lactic Acid 2.8 H 10/04/162054: Sodium 141, Potassium 3.9, Chloride 104, Carbon Dioxide 27, BUN 20 H, Creatinine 0.9, Estimated Creat Clear 83, Estimated GFR (MDRD) 63, Glucose 278 H, Calcium 9.4, Total Bilirubin 0.8, AST 20, ALT 41, Alkaline Phosphatase 85, Total Protein 7.6, Albumin 3.8, Globulin 3.8 H, Albumin/Globulin Ratio 1.0 L, WBC 6.4, RBC 4.21, Hgb 12.5, Hct 39.1, MCV 92.9, RDW 13.8, Plt Count 222, MPV 5.8 L, Gran % 52.8, Gran # 3.4, Lymphocytes % 36.6, Monocytes % 4.9, Eosinophils % 4.8, Basophils % 0.8, Lymphocytes # 2.3, Monocytes # 0.3, Eosinophils # 0.3, Basophils # 0.1, PUBS MCHC 32.0, MCH 29.7 Current Medication Orders Sig/Odilon Start time Last Medication Dose Route Stop Time Status Admin Tramadol HCl 1 RAPHAEL ONCE ONE 10/04 2300 DC / PO 10/04 Tramadol HCl 0 .STK-MED ONE 10/04 2259 DC PO Hydrocodone Bitart/ 1 TAB ONCE ONE 10/040 DC 10/04 Acetaminophen PO 10/04 Hydrocodone Bitart/ 0 .STK-MED ONE 10/04 2159 DC Acetaminophen PO Sodium Chloride 10 ML PRN PRN 10/04 2100 DCD IV 10/06 2051 Orders Procedure Date/time Status IV SALINE LOCK 10/04 2052 Active CULTURE, BLOOD 10/04 2052 Active LACTIC ACID 10/04 2052 Complete COMPLETE METABOLIC PANEL 10/04 2052 Complete CBC WITH AUTO DIFF 10/04 2052 Complete Departure Departure Time of Disposition 2248 Disposition DC Home or Self Care(routine) Clinical Impression Primary Impression: PAD (peripheral artery disease) Condition STABLE Referrals Mio Mishra MD: 2 Days-Call Office WEDNESDAY at 1:00pm Patient Instructions Peripheral Artery Disease Additional Instructions Please follow-up with Dr. Mio Mishra in the office on October 06, at 1 PM. The radiology department (from [facility]) will call in the morning in order to schedule the NATHALIE test. Take the medication prescribed as instructed. Discharge Counseling Counseled pt/family regarding diagnosis, test results, medications/RX, home care, follow up needs Comment Please follow-up with Dr. Mio Mishra in the office on October 06, at 1 PM. The radiology department (from [facility]) will call in the morning in order to schedule the NATHALIE test. Take the medication prescribed as instructed. Prescriptions Current Visit Scripts HYDROCODONE/ACETAMINOPHEN (Lortab 10-325 MG Tablet) 1 TAB PO TIDP PRN pain #12 TAB ED Critical Care Critical Care No at [id number]
--- NOTE | 2016-10-04 22:53 | Emergency Room Report ---
History of Present Illness Time Seen by 2040 Presenting Problem in Triage Pt arrived:Wheelchair Presenting Problem:BILATERAL FOOT MULTIPLE TOE PAIN, CYANOSIS, COOLNESS TO TOUCH. PT STATES SHE HAS BEEN EVALUATED AND HAS A F/U WITH BUT HER APPT ISNT UNTIL OCTOBER. PT STATES HER SYMPTOMS AND PAIN ARE WORSENING. 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 N Clinical Suspician of Infection? N Mental Status: 1 - Regular (Normal Baseline) Sepsis Risk:Low Sepsis Risk Have you (or family members/close friends) recently traveled outside the [place]? N If Yes, where/when: Have you had exposure to infectious disease within the past month? TB? Other? Specify: Source patient, RN notes reviewed, family, RN/MD Exam Limitations no limitations Comment This is a 61-year-old diabetic female patient presenting to the emergency room bilateral lower extremities pain. She was recently diagnosed with peripheral arterial disease, and she was already seen at [facility]. Her next scheduled appointment not to November 02, and patient is here requesting pain medications, for her leg cramps. She has recently noticed an increase in her symptoms, with claudication triggered by shorter distances walked compared to just a few months ago. She quit smoking in July 2016. ALLERGIES Coded Allergies: No Known Allergies (07/28/16) Home Medications Active Scripts Carvedilol 6.25 MG PO BID #60 TAB Prov: 07/26/16 Atorvastatin Calcium (Atorvastatin) 80 MG PO DAILY #30 TABLET Prov: 07/26/16 Nitroglycerin (Nitrostat 0.4MG (1/150 Gr) Tabs #25) 0.4 MG SL [id number] PRN CHEST PAIN #20 TAB Prov: 07/26/16 Reported Medications Insulin Glargine (Lantus Insulin Vial) 10 UNITS SC QHS LISINOPRIL (Lisinopril) 20 MG PO DAILY METFORMIN HCL (Metformin) 1,000 MG PO DAILY Glipizide 10 MG PO DAILY Aspirin 81 MG PO DAILY FENOFIBRATE,MICRONIZED (Fenofibrate) 200 MG PO DAILY #30 CLOPIDOGREL BISULFATE (Clopidogrel) 75 MG PO DAILY #30 History Medical History General CAD? No Angina: Yes [place]: No Hypertension? Yes Hyperlipidemia? Yes CHF? No DVT? No PE? No COPD? No Asthma? No Anemia? No GERD? No Gastric ulcers? No GI Bleed? No Hernia? No Thyroid Problems? No Hypothyroidism? No CVA? No Seizures? No Diabetes? Yes Insulin Dependent: Yes Insulin Pump: No Home FSBS? Yes Renal Insuffiency? No End Stage Renal Disease? No UTI? Yes Stones? Yes BPH? No GB Disease: Yes Nephritic Syndrome? No Asplenia? No Hepatitis? No Sickle Cell Disease? No Arthritis? No Migraines? No Cataracts? No Glaucoma? No MRSA? No HIV? No TB? No Anxiety? No Depression? Yes Cancer? No Additional hx: 1. TIA 2. Kidney stones with stenting Immunization Hx DT/Tetanus Unknown Flu Refused Pneumonia Refuses Surgical Hx Previous Surgery?Y OPEN HEART-CYST ON ARTERY OVARIAN CYST REMOVAL [place] CYSTOSCOPY WITH [id number] STENT REMOVAL LITHOTRIPSY CYSTOSCOPY WITH [id number] L HIP REPLACEMENT HEART STENTS Family History Family Hx Diabetes Yes CAD Yes Hypertension Yes Hyperlipidemia Yes Cancer Yes TB No Social History Smoking Hx Smoker: Former Smoker Tobacco: No Packs/day < 1 Pack Alcohol Alcohol: No Review of Systems All Other Systems Reviewed and Negative Musculoskeletal see HPI (bilateral lower extr. pain) Skin other (bluish discoloration toes) Physical Exam Vital Signs Vital Signs Date Time Temp Pulse Resp B/P Pulse O2 O2 Flow FiO2 Ox Delivery Rate 10/04 2302 80 20 128/70 97 10/04 2221 76 18 136/76 98 10/04 2203 18 10/04 2111 84 20 93/50 98 10/04 2032 97.9 77 20 148/91 97 General Appearance normal appearance, WD/WN, mild distress Respiratory Status Yes: trachea midline, chest symmetrical, non tender chest. No: respiratory distress. Lung Sounds bilateral: normal breath sounds, lungs clear. 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 Medical Decision Making LABS/Meds/Orders Pt receiving controlled substance in ED? Yes Darrian was queried for this patient? Yes Reference #: [id number] Risks/benefits of using a controlled substance for treatment were discussed w/pt by me Comment Both dorsalis pedis pulses are palpable by digital evaluation. Additionally, portable Doppler ultrasound evaluation also reveals present distal pulsations in both dorsalis pedis. I spent extensive time discussing patient's condition and management with the patient. She has palpable distal dorsalis pedis pulses bilaterally, her toes are warm, and bluish. She appears to have flow in both lower extremities, at this time. The above was discussed with stock hanger transportation planning technician, Dr. Mio Mishra, made aware of patient's condition, and findings (history of PAD, with distal palpable dorsalis pedis pulses). Dr. Mio Mishra recommended patient to be discharged home at this time, w/ to follow-up with his office on 10/06/16, at 1 PM. I have also scheduled [facility] patient for ABIs for tomorrow morning, at [facility]. Results/Orders Laboratory Tests 10/04/162054: Lactic Acid 2.8 H 10/04/162054: Sodium 141, Potassium 3.9, Chloride 104, Carbon Dioxide 27, BUN 20 H, Creatinine 0.9, Estimated Creat Clear 83, Estimated GFR (MDRD) 63, Glucose 278 H, Calcium 9.4, Total Bilirubin 0.8, AST 20, ALT 41, Alkaline Phosphatase 85, Total Protein 7.6, Albumin 3.8, Globulin 3.8 H, Albumin/Globulin Ratio 1.0 L, WBC 6.4, RBC 4.21, Hgb 12.5, Hct 39.1, MCV 92.9, RDW 13.8, Plt Count 222, MPV 5.8 L, Gran % 52.8, Gran # 3.4, Lymphocytes % 36.6, Monocytes % 4.9, Eosinophils % 4.8, Basophils % 0.8, Lymphocytes # 2.3, Monocytes # 0.3, Eosinophils # 0.3, Basophils # 0.1, PUBS MCHC 32.0, MCH 29.7 Current Medication Orders Sig/Odilon Start time Last Medication Dose Route Stop Time Status Admin Tramadol HCl 1 RAPHAEL ONCE ONE 10/04 2300 DC / PO 10/04 Tramadol HCl 0 .STK-MED ONE 10/04 2259 DC PO Hydrocodone Bitart/ 1 TAB ONCE ONE 10/040 DC 10/04 Acetaminophen PO 10/04 Hydrocodone Bitart/ 0 .STK-MED ONE 10/04 2159 DC Acetaminophen PO Sodium Chloride 10 ML PRN PRN 10/04 2100 DCD IV 10/06 2051 Orders Procedure Date/time Status IV SALINE LOCK 10/04 2052 Active CULTURE, BLOOD 10/04 2052 Active LACTIC ACID 10/04 2052 Complete COMPLETE METABOLIC PANEL 10/04 2052 Complete CBC WITH AUTO DIFF 10/04 2052 Complete Departure Departure Time of Disposition 2248 Disposition DC Home or Self Care(routine) Clinical Impression Primary Impression: PAD (peripheral artery disease) Condition STABLE Referrals Mio Mishra MD: 2 Days-Call Office WEDNESDAY at 1:00pm Patient Instructions Peripheral Artery Disease Additional Instructions Please follow-up with Dr. Mio Mishra in the office on October 06, at 1 PM. The radiology department (from [facility]) will call in the morning in order to schedule the NATHALIE test. Take the medication prescribed as instructed. Discharge Counseling Counseled pt/family regarding diagnosis, test results, medications/RX, home care, follow up needs Comment Please follow-up with Dr. Mio Mishra in the office on October 06, at 1 PM. The radiology department (from [facility]) will call in the morning in order to schedule the NATHALIE test. Take the medication prescribed as instructed. Prescriptions Current Visit Scripts HYDROCODONE/ACETAMINOPHEN (Lortab 10-325 MG Tablet) 1 TAB PO TIDP PRN pain #12 TAB ED Critical Care Critical Care No at [id number]
[2016-10-04 23:02] VITALS: BP 128/70
== END 2016-10-04 23:29 | disposition home or self-care (01) ==
LOC: ER 20:28
PROVIDERS: Emergency Medicine
DX: I70.208 Unspecified atherosclerosis of native arteries of extremities, other extremity (principal); Z87.891 Personal history of nicotine dependence; E11.9 Type 2 diabetes mellitus without complications; Z79.4 Long term (current) use of insulin; I10 Essential (primary) hypertension; G45.9 Transient cerebral ischemic attack, unspecified

== ENCOUNTER 2016-11-02 19:38 | Emergency (ER) | payer MEDICAID ==
[~2016-11-02] VITALS: Ht 160 cm; Wt 82.6 kg
[~2016-11-02 19:38] MED LIST changes: +CLOPIDOGREL75 M2 PO; +LORTAB 10/3251 TAB PO
--- OUTSIDE RECORDS SUMMARY | 2016-11-02 20:05 | External Medical Summary Rpt ---
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 1, MA 00 CY 0 MG #3 93 TA 8 BL ET RO 43 12 01 30 30 00 [...] NO 50 0- 7- 00 01 ve OR 62 20 20 14 AI IL 00 [...] OR 50 0- 7- 00 01 ve UT 10 20 20 14 AI N 40 [...] 10 0 #3 UN 93 IT 8 /M L 66 11 0 No PI 55 -2 RI 30 0- Lo N 00 20 ng 32 10 13 er 5 1 MG Ac ti TA ve BL ET OR 00 10 10 15 2 RI 90 [...] 10 20 10 RI 90 GR Ac OR 86 -3 -3 .0 TE 57 AY ti OF 20 1- 1- 00 35 ve LO 07 20 20 AI RO XA 70 11 11 D BE CI 1 PH RT N AR B HC MA L CY 50 0 03 MG 93 8 TA # B 03 93 OX 00 10 10 15 2 RI 90 GR Ac YC 60 -3 -3 .0 TE 57 AY ti OD 34 1- 1- 00 32 ve ON 99 20 20 AI RO E- 82 11 11 D BE AC 1 PH RT ET AR B AM MA IN CY OP HE 03 N 93 5- 8 32 # 5 03 93 00 10 10 15 2 [...] 03 ET 93 8 # 03 93 OR 00 10 10 25 5 RI 90 [...] 00 0- 3- 00 90 PA ve OR 51 20 20 AI DM IL 40 [...] 0- 0- 00 PH 20 PA ve OR 51 20 20 AR DM IL 40 [...] DM ZA 11 11 11 MA A OR 0 CY G IN # E 10 02 33 MG 2 TA BL ET LI 68 03 05 0 30 30 CV 49 RA Ac SI 18 -0 -1 .0 S 20 O ti NO 00 8- 8- 00 PH 34 PA ve OR 51 20 20 AR DM IL 40 [...] 20 20 AI 90 11 11 D UT 10 2 PH CH 0, AR AE 00 MA L 0 CY S UN IT 03 /G 93 M 8 CR # EA 03 M 93 ME 00 02 02 21 6 RI 87 GA Ac TH 60 -1 -2 .0 TE 14 IN ti YL 34 9- 0- 00 62 EY ve OR 59 20 20 AI ED 31 11 11 D UT NI 5 PH CH SO AR AE LO MA L NE CY S 4 03 MG 93 8 DO # SE 03 PK 93 DO 00 02 02 20 10 RI 87 GA Ac XY 14 -1 -2 .0 TE 14 IN ti CY 33 9- 0- 00 63 EY ve CL 14 20 20 AI IN 20 11 11 D UT E 5 PH CH HY AR AE [...] 09 14 7 RI 84 RA Ac OR 86 -0 -0 .0 TE 82 O [...] BA ZA 11 10 10 D BA OR 0 PH TU IN AR ND E [...] 20 20 AR 10 10 10 MA UT 1 CY CH # AE L 02 S 33 2 CI 16 03 03 14 7 CV 34 GA Ac OR 25 -2 -2 .0 S 90 IN ti OF 20 5- 6- 00 PH 80 EY ve LO 51 20 20 AR XA 50 10 10 MA UT CI 1 CY CH N # AE [...] 00 14 7 CV 31 FA Ac OR 25 -0 -1 .0 S 05 RA ti OF 20 6- 7- 00 PH 10 GA ve LO 51 20 20 AR SS XA 50 09 09 MA O CI 1 CY DE N HC 23 N L 32 50 0 MG TA B TR 00 07 08 00 15 3 CV 26 CE Ac AM 09 -2 -1 .0 S 22 LL ti AD 30 6- 3- 00 PH 04 AR ve OL 05 20 20 AR OS 80 09 09 MA I HC 5 CY - L YO 50 23 RB 32 A MG PA TR TA IC BL K ET M ET 51 08 08 00 30 10 CV 26 No Ac OD 67 -0 -1 .0 S 25 t ti OL 24 2- 3- 00 PH 04 Av ve AC 01 20 20 AR ai 70 09 09 MA la 30 1 CY bl 0 e MG 23 32 CA PS UL E CY 00 07 08 00 10 3 CV 26 CE Ac CL 37 -2 -1 .0 S 22 LL ti OB 80 6- 3- 00 PH 02 AR ve EN 75 20 20 AR OS ZA 11 09 09 MA I OR 0 CY - IN YO E 23 RB 10 32 A PA MG TR IC TA K BL M ET SK 60 08 08 00 30 10 CV 26 No Ac EL 79 -0 -1 .0 S 25 t ti AX 30 2- 3- 00 PH 05 Av ve IN 13 20 20 AR ai 60 09 09 MA la 80 1 CY bl 0 e MG 23 32 TA BL ET LI 68 06 06 00 30 30 CV 24 OV Ac SI 18 -0 -1 .0 S 41 ER ti NO 00 3- 8- 00 PH 90 BE ve OR 51 20 20 AR E IL 40 [...] #3 MG 93 8 TA BL ET FL 00 06 06 00 2. 4 [...] 00 60 30 CV 24 OV Ac OR 09 -0 -1 .0 S 41 ER [...] 7- 8- 00 PH 37 BE ve UT 02 20 20 AR E N 81 09 09 MA TE HC 0 CY RR L I 50 23 0 32 MG TA BL ET TR 00 05 06 [...] 2- 3- 00 PH 74 BE ve OR 51 20 20 AR E IL 40 09 09 MA TE 3 CY RR 10 I 23 MG 32 TA BL ET ME 68 02 04 01 30 30 CV 21 OV Ac TF 38 -2 -2 .0 S 11 ER ti OR 20 7- 3- 00 PH 37 BE ve UT 02 20 20 AR E N 81 09 09 MA TE HC 0 CY RR L I 50 23 0 32 MG TA BL ET NA 00 02 04 01 60 30 CV 21 OV Ac OR 09 -2 -2 .0 S 11 ER [...] 2- 2- 00 PH 74 BE ve OR 51 20 20 AR E IL 40 09 09 MA TE 3 CY RR 10 I 23 MG 32 TA BL ET NA 00 02 03 00 60 30 CV 21 OV Ac OR 09 -2 -1 .0 S 11 ER [...] 7- 2- 00 PH 37 BE ve UT 02 20 20 AR E N 81 [...] 2- 2- 00 PH 74 Av ve OR 51 20 20 AR ai IL 40 [...] TH 32 OM TA BL K ET PH 65 01 01 00 20 6 CV 19 SL Ac EN 16 -1 -3 .0 S 65 AB ti AZ 20 3- 0- 00 PH 83 AU ve OP 52 20 20 AR GH YR 01 09 09 MA ID 0 CY JR IN E 23 20 32 OM 0 MG K TA B 60 01 00 20 10 CV 19 SL Ac 50 -1 -3 .0 S 65 AB ti 51 3- 0- 00 PH 81 AU ve 30 20 20 AR GH 90 09 09 MA 1 CY JR 23 TH 32 OM K ME 59 01 00 21 6 CV 19 SL Ac TH 74 -1 -3 .0 S 65 AB ti YL 60 3- 0- 00 PH 82 AU ve OR 00 20 20 AR GH ED 10 09 09 MA NI 3 CY JR SO LO 23 TH NE 32 OM 4 K MG DO SE PK 60 01 00 14 7 CV 19 SL Ac 50 -0 -1 .0 S 38 AB ti 51 5- 5- 00 PH 02 AU ve 30 20 20 AR GH 90 09 09 MA 1 CY JR 23 TH 32 OM K HY 00 04 02 00 30 30 CV [address] 60 -0 -1 .0 S 28 t ti OC 33 1- 5- 00 PH 73 Av ve HL 85 20 20 AR ai OR 63 08 09 MA la OT 2 CY bl HI e AZ 23 ID 32 E 25 MG TA B 00 12 00 30 7 CV 19 SL Ac 40 -3 -1 .0 S 23 AB ti 60 0- 5- 00 PH 92 AU ve 35 20 20 AR GH 70 08 09 MA 5 CY JR 23 TH 32 OM K PH 65 01 00 30 10 CV 19 SL Ac EN 16 -0 -1 .0 S 56 AB ti AZ 20 9- 5- 00 PH 63 AU ve OP 52 20 20 AR GH YR 01 09 09 MA ID 0 CY JR IN E 23 20 32 OM 0 MG K TA B 00 05 03 00 30 2 CV 19 SL Ac 40 -0 -1 .0 S 56 AB ti 60 9- 5- 00 PH 62 AU ve 35 20 20 AR GH 70 09 09 MA 5 CY JR 23 TH 32 OM K LI 68 05 03 00 30 30 CV 19 No Ac SI 18 -0 -1 .0 S 32 t ti NO 00 2- 5- 00 PH 74 Av ve OR 51 20 20 AR ai IL 40 09 09 MA la 3 CY bl 10 e 23 MG 32 TA BL ET 00 12 00 15 2 CV 19 CE Ac 40 -2 -1 .0 S 12 LL ti 60 7- 5- 00 PH 67 AR ve 35 20 20 AR OS 70 08 09 MA I 5 CY - YO 23 RB 32 A PA TR IC K M 60 12 01 00 20 10 CV 19 SL Ac 50 -3 -1 .0 S 23 AB ti 51 0- 5- 00 PH 93 AU ve 30 20 20 AR GH 90 08 09 MA 1 CY JR 23 TH 32 OM K 00 12 01 00 20 3 CV 19 CE Ac 40 -2 -1 .0 S 16 LL ti 60 9- 5- 00 PH 45 AR ve 35 20 20 AR OS 70 08 09 MA I 5 CY - YO 23 RB 32 A PA TR IC K M OR 00 12 01 00 15 4 CV 19 CE Ac OM 78 -2 -1 .0 S 12 LL ti ET 11 7- 5- 00 PH 66 AR ve VALLEJO 83 20 20 AR OS ZI 00 08 09 MA I NE 1 CY - YO 25 23 RB 32 A MG PA TR TA IC BL K ET M COLEY 53 12 00 14 7 CV 19 CE Ac LF 74 -2 -1 .0 S 14 LL ti AM 60 9- 5- 00 PH 91 AR ve ET 27 20 20 AR OS HO 20 08 09 MA I XA 5 CY - ZO YO LE 23 RB -T 32 A MP PA TR DS IC K TA M BL ET 00 05 03 00 20 4 CV 19 SL Ac 40 -0 -1 .0 S 31 AB ti 60 2- 5- 00 PH 73 AU ve 35 20 20 AR GH 80 09 09 MA 5 CY JR 23 TH 32 OM K FL 00 12 01 00 10 10 CV 19 CE Ac OM 59 -2 -1 .0 S 12 LL ti AX 70 7- 5- 00 PH 65 AR ve 05 20 20 AR OS 0. 80 08 09 MA I 4 1 CY - MG YO 23 RB CA 32 A PS PA UL TR E IC K M HY 00 12 12 [...] 01 [address] Ac OR 09 -2 -1 .0 S 26 EP [...] 00 [address] Ac OR 09 -2 -1 .0 S 26 EP [...] OS ZA 11 08 08 MA I OR 0 CY - IN YO E 23 [...] 02 [address] Ac OR 09 -2 -0 .0 TE 59 EP [...] 01 60 30 RI 71 No Ac OR 09 -2 -1 .0 TE 59 t ti OX 30 1- 0- 00 48 Av ve EN 14 20 20 AI ai 90 08 08 D la 50 1 PH bl 0 AR e MG M #3 TA 93 BL 8 ET NA 00 01 03 00 60 30 RI 71 No Ac OR 09 -2 -2 .0 TE 59 t [...] on COMPREHENSIVE METABOLIC PANEL (03-22-2013 19:45) Glucose 247 74-106 complet 013 mg/dL ed Bld-mCn 19:45 c BUN 22 7-18 complet Bld-mCn 013 mg/dL ed c 19:45 Creat 20-2 0.9 0.6-1.0 complet SerPl-m 013 mg/dL ed Cnc 19:45 ESTIMAT -20-2 90 50-200 complet ED 013 ML/MIN ed CREATIN 19:45 INE CLEARAN CE GFR 03-22-2 64 59- complet (ESTIMA 013 ML/MIN ed MIKY) 19:45 Sodium 20-2 139 136-145 complet SerPl-s 013 mmoL/L ed Cnc 19:45 Potassi 20-2 3.6 3.5-5.1 complet um 013 mmoL/L ed SerPl-s 19:45 Cnc Chlorid 03-22-2 102 98-107 complet e 013 mmoL/L ed SerPl-s 19:45 Cnc CO2 03-22-2 25 21.0-32 complet SerPl-s 013 mmoL/L .0 ed Cnc 19:45 Calcium 20-2 8.6 8.5-10. complet 013 mg/dL 1 ed SerPl-m 19:45 Cnc Prot 20-2 7.6 6.4-8.2 complet SerPl-m 013 gm/dL ed Cnc 19:45 Albumin 03-22-2 3.9 3.4-5.0 complet 013 gm/dL ed SerPl-m 19:45 Cnc Globuli 20-2 3.7 1.3-3.2 complet n 013 gm/dL ed Ser-mCn 19:45 c Albumin 20-2 1.1 UNK 1.1-1.8 complet /Glob 013 ed SerPl-m 19:45 Rto Bilirub 03-22-2 0.6 0.2-1.0 complet 013 mg/dL ed SerPl-m 19:45 Cnc AST -20-2 20 U/L 15-37 complet SerPl-c 013 ed Cnc 19:45 ALT -20-2 46 U/L 30-65 complet SerPl-c 013 ed Cnc 19:45 ALP -20-2 144 U/L 50-136 complet SerPl-c 013 ed [...] 013 K/mm3 ed Bld 19:45 Auto Lymphoc 11-20-2 2.8 0.7-4.5 complet ytes Fr 013 K/mm3 ed Bld 19:45 Auto Monocyt 11-20-2 0.4 0.1-1.0 complet es # 013 K/mm3 ed Bld 19:45 Auto Eosinop 11-20-2 0.2 0.0-0.4 complet hil # 013 K/mm3 ed Bld 19:45 Auto Basophi 20-2 0.0 0-0.2 complet ls # 013 K/MM3 ed Bld 19:45 Auto Procedures Procedure DOS Code Location Performer Comment ECG 82144 [facility] ROUTINE 7 PHYSICIAN ECG S GROUP W/LEAST 12 LDS I&R ONLY ECG 16933 [facility] ROUTINE 7 PHYSICIAN ECG S GROUP W/LEAST 12 LDS I&R ONLY ECG 78662 [facility] ROUTINE 7 MEDICAL ECG SERV W/LEAST FOUNDATIO 12 LDS N I&R ONLY CTA ABDL 47410 TIFFANY WILLIAM AORTA&BI 7 MEDICAL SOFIA ILIOFEM SERV W/CONTRAS FOUNDATIO T&POSTP N AVULSION 37902 DERICK NANNETTE NAIL 7 FOOT & PLATE ANKLE CE PARTIAL/C OMP SIMPLE EA ADDL AVULSION 01820 MILO NANNETTE NAIL 7 FOOT & PLATE ANKLE CE PARTIAL/C OMPLETE SIMPLE 1 RADIOLOGI 00940 [place] [facility] C 7 MEDICAL EXAMINATI IMAGING ON CHEST ASS SINGLE VIEW FRONTAL ECG 63085 [facility] W/LEAST P 12 LDS I&R ONLY CULTURE 39169 [facility] BCT 7 [place], ISOL&PRSM INC. INC. PTV ID ISOLATE EA URINE CULTURE 16838 [facility] BACTERIAL 7 [place], INC. INC. QUANTTATI VE COLONY COUNT URINE URNLS DIP 08572 [facility] GARCIAON 7 [facility] STICK/TAB INC INC LET RGNT AUTO W/[facility] 27068 [facility] DISCHARGE 7 CARE DAY ASSOCIATE MANAGEMEN S T 30 MIN/< SBSQ 64362 [place] [address] CARE CARE/DAY ASSOCIATE 15 S MINUTES INITIAL 38138 [place] [address] CARE CARE/DAY ASSOCIATE 50 S MINUTES CATH PLMT 91902 [facility] L 7 PHYSICIAN PHYSICIAN HRT/ARTS/ S GROUP S GROUP GRFTS WNJX & ANGIO IMG S&I PRQ 32188 [facility] TRLUML 7 PHYSICIAN CORONARY S GROUP STENT W/ANGIO ONE ART/BRNCH ECG 32921 [facility] US ROUTINE 7 PHYSICIAN U ECG S, PLLC W/LEAST 12 LDS I&R ONLY COMPREHEN 02142 [facility] VERMA SIVE 7 [facility] METABOLIC INC INC PANEL CREATINE 47475 [facility] KINASE MB 7 [facility] [place] [address] [facility] HEAD/BRAI 7 [facility] N W/O INC INC CONTRAST MATERIAL ECG 15080 [facility] SUSIESON ROUTINE 7 [facility] W/LEAST P 12 LDS I&[place] [address] [facility] TROPONIN 7 [facility] QUANTITAT INC INC FAWAD FINAL G9638 [place] [facility] REPORTS 7 MEDICAL W/O DOC IMAGING 1/MORE ASS DOSE REDUCTION TECH BLOOD 51641 [facility] COUNT 7 [facility] COMPLETE INC INC AUTO&AUTO DIFRNTL WBC RADIOLOGI 55159 [facility] C EXAM 7 [facility] CHEST 2 INC INC VIEWS FRONTAL&L ATERAL CREATINE 05706 [facility] KINASE 7 [facility] TOTAL INC INC ECG 87396 [facility] ROUTINE 7 [facility] ECG INC INC W/LEAST 12 LDS TRCG ONLY W/O I&R FOR DIAB A5512 [place] ONLY MX 7 MEDICAL MEDICAL DNSITY SUPPLY SUPPLY INSRT DIR [employer] [facility] FORMD PRFAB EA DIAB ONLY A5500 [place] FIT CSTM 7 MEDICAL MEDICAL PREP&SPL SUPPLY SUPPLY SHOE MX [employer] DNSITY INSRT CYTP C/V 81050 [facility] AUTO THIN 7 [place], LYR INC. INC. PREPJ SCR MNL RESCR PHYS HEMOGLOBI 73058 [facility] N 7 [place], GLYCOSYLA INC. INC. MIKY A1C LIPID 59986 [facility] PANEL 7 [place]. INC. BLOOD 89543 [facility] COUNT 7 [place], COMPLETE INC. INC. AUTO&AUTO DIFRNTL WBC COMPREHEN 76835 [facility] SIVE 7 [place], METABOLIC INC. INC. PANEL SCREENING G0202 [facility] [place] RADMANESH 6 RADIOLOGY SHA MAMMOGRAP HY TERESA INCL CAD WHEN PERFORMD COMPUTER- 35285 [facility] [place] RAD[facility]ESH AIDED 6 RADIOLOGY SHA DETECTION SCREENING MAMMOGRAP HY VISUAL 82675 SCIFRES SCIFRES FIELD XM 6 ANG ANG UNI/BI W/INTERP EXTENDED EXAM OPHTH 31542 SCIFRES SCIFRES MEDICAL 6 ANG ANG XM&EVAL COMPRE NEW PT 1/> VST ARTHROCEN 70932 [facility] PETTEY TESIS 6 PHYSICIAN JAY ASPIR&/IN S GROUP J MAJOR JT/BURSA W/O US INJ J0702 [facility] PETTEY BETAMETHA 6 PHYSICIAN JAY SONE S GROUP ACETATE & PHOSPHATE 3 MG ECG 00404 [facility] BESSON ROUTINE 6 ANGELICA ANGELICA ECG W/LEAST 12 LDS I&R ONLY RADEX 34006 [facility] BEINEKE SHOULDER 6 MEDICAL AMELIE COMPLETE IMAGING MINIMUM 2 ASS VIEWS ECG 52559 [facility] ROUTINE 6 [facility] ECG INC INC W/LEAST 12 LDS TRCG ONLY W/O I&R COMPREHEN 41695 [facility] SIVE 6 [facility] METABOLIC INC INC PANEL CREATINE 92282 [facility] KINASE MB 6 [facility] [place] [address] [facility] TROPONIN 6 [facility] QUANTITAT INC INC FAWAD BLOOD 14297 [facility] GARCIAON COUNT 6 [facility] COMPLETE INC INC AUTO&AUTO DIFRNTL WBC CREATINE 03179 [facility] GARCIAON KINASE 6 [facility] TOTAL INC INC RADEX 16392 [facility] BEINEKE ELBOW 6 MEDICAL AMELIE COMPLETE IMAGING MINIMUM 3 ASS VIEWS PHYSICAL 64611 [facility] THERAPY 6 [facility] EVALUATIO INC INC N INJ J0702 HCANCE TRA CHANCE TRA BETAMETHA 6 SONE ACETATE & PHOSPHATE 3 MG RADEX HIP 60659 CHANCE TRA CHANCE TRA 6 UNILATERA L WITH PELVIS 2-3 VIEWS ARTHROCEN 90402 CHANCE TRA CHANCE TRA TESIS 6 ASPIR&/IN J MAJOR JT/BURSA W/O US INJECTION S0020 CHANCE TRA CHACNE TRA 6 BUPIVICAI NE HYDROCHLO RIDE 30 ML SERVICE G0151 [facility] PHYS 6 HOME HOME THERAP HEALTH HEALTH HOME AGENCY AGENCY HLTH/HOSP ICE EA 15 [place] [address] [facility] LIPASE 6 [place] [address] [facility] ABDOMEN & 6 [facility] PELVIS [place] [address] [facility] INFUSION 6 [facility] THERAPY/P INC INC ROPHYLAXI S /DX 1ST TO 1 HR URNLS DIP 89669 [facility] VERMA 6 [facility] STICK/TAB INC INC LET REAGENT AUTO MICROSCOP Y BLOOD 50487 [facility] COUNT 6 [facility] COMPLETE INC INC AUTO&AUTO DIFRNTL WBC THERAPEUT 89079 [facility] IC 6 [facility] INJECTION INC INC IV PUSH EACH NEW DRUG INJECTION J2405 [facility] VERMA 6 [facility] ONDANSETR INC INC ON HCL PER 1 MG SERVICE G0151 [facility] PHYS 5 HOME HOME THERAP HEALTH HEALTH HOME AGENCY AGENCY HLTH/HOSP ICE EA 15 MIN SERVICE G0151 [facility] PHYS 5 HOME HOME THERAP HEALTH HEALTH HOME AGENCY AGENCY HLTH/HOSP ICE EA 15 MIN URNLS DIP 05896 [facility] VERMA 5 [facility] STICK/TAB INC INC [place] [address] [facility] TROPONIN 5 [facility] QUANTITAT INC INC FAWAD NATRIURET 50552 [facility] IC 5 [facility] PEPTIDE INC INC GLUC BLD 87298 [facility] GLUC MNTR 5 [facility] DEV INC INC CLEARED FDA SPEC HOME USE CREATINE 53533 [facility] KINASE 5 [facility] TOTAL INC INC THER 48250 [facility] PROPH/DX 5 [facility] NJX IV INC INC PUSH SINGLE/1S T SBST/DRUG ECG 80942 [facility] ROUTINE 5 [facility] ECG INC INC W/LEAST 12 LDS TRCG ONLY W/O I&R COMPREHEN 40349 [facility] SIVE 5 [facility] METABOLIC INC INC PANEL CREATINE 86321 B[facility] GARCIAON KINASE MB 5 [facility] FRACTION INC INC ONLY BLOOD 72529 [facility] COUNT 5 [facility] COMPLETE INC INC AUTO&AUTO DIFRNTL WBC RADIOLOGI 28793 [facility] C EXAM 5 [facility] CHEST 2 INC INC VIEWS FRONTAL&L ATERAL SERVICE G0151 [facility] PHYS 5 HOME HOME THERAP HEALTH HEALTH HOME AGENCY AGENCY HLTH/HOSP ICE EA 15 MIN SERVICE G0151 [facility] PHYS 5 HOME HOME THERAP [facility] HEALTH HOME AGENCY AGENCY HLTH/HOSP ICE EA 15 MIN SERVICE G0151 [facility] PHYS 5 HOME HOME THERAP HEALTH HEALTH HOME AGENCY AGENCY HLTH/HOSP ICE EA 15 MIN COMPREHEN 90015 [facility] SIVE 5 DIAGNOSTI DIAGNOSTI METABOLIC CS CS PANEL HEMOGLOBI 55050 [facility] QUEST N 5 DIAGNOSTI DIAGNOSTI GLYCOSYLA CS CS MIKY A1C SERVICE G0151 [facility] PHYS 5 HOME HOME [facility] HE[facility] HOME AGENCY AGENCY HLTH/HOSP ICE EA 15 MIN INJ J0702 CHANCE TRA CHANCE TRA BETAMETHA 5 SONE ACETATE & PHOSPHATE 3 MG ARTHROCEN 06247 CHANCE TRA CHANCE TRA TESIS 5 ASPIR&/IN J MAJOR JT/BURSA W/O US INJECTION S0020 CHANCE TRA CHANCE TRA 5 BUPIVICAI NE HYDROCHLO RIDE 30 ML RADEX HIP 71798 CHANCE TRA CHANCE TRA 5 UNILATERA L COMPLETE MINIMUM 2 VIEWS RADEX HIP 95338 [facility] CHANCE TRA 5 [place] UNILATERA ORTHOPAED L [facility] COMPLETE MINIMUM 2 VIEWS SBSQ 70127 [facility] 5 JUAN JUAN CARE/DAY 25 MINUTES SBSQ 11731 [facility] 5 JUAN JUAN CARE/DAY 25 MINUTES SBSQ 58063 [facility] 5 JUAN JUAN CARE/DAY 25 MINUTES WALKER E0143 [facility] FOLDING 5 WHEELED ADJUSTABL E/FIXED HEIGHT COMMODE E0163 [facility] CHAIR 5 MOBILE OR STATIONAR Y W/FIXED ARMS ARTHRP 84778 [facility] CHANCE TRA ACETBLR/P 5 [place] CANDACE FEM ORTHOPAED PROSTC ICS PLC AGRFT/ALG RFT ANESTHESI 77137 ANESTHESI TERRA HEA A OPEN 5 A TOTAL HIP ASSOCIATE S PSC ARTHROPLA STY LEVEL III 21998 [facility] SURG 5 [facility] PSC GROSS&AZAR ROSCOPIC EXAM DECALCIFI 88848 [facility] 5 [facility] PROC[facility] PSC REPL LT [id number] [facility] HIP [address] CERAM POLY SYNTH UNCEMENTE D OPEN INITIAL 65095 [facility] 5 JUAN JUAN CARE/DAY 70 MINUTES RADIOLOGI 69611 [facility] EXAM 5 N N CHEST 2 COMMUNTIY COMMUNTIY VIEWS HOSPITA HOSPITA FRONTAL&L ATERAL LIPID [address] HEPATIC [address] PANEL HEMOGLOBI [address] GLYCOSYLA MIKY A1C BLOOD [address] COMPLETE AUTOMATED RADIOLOGI [address] CHEST 2 VIEWS FRONTAL&L ATERAL URNLS DIP [address] STICK/TAB LET RGNT AUTO W/O MICROSCOP Y BASIC [address] PANEL CALCIUM TOTAL THROMBOPL 89300 [facility] ASTIN [address] [place] [address] TIME PARTIAL PLASMA/WH OLE BLOOD PROTHROMB 40481 [facility] IN TIME [address] [place] [address] ECG 84526 [facility] ROUTINE [address] [place] [address] ECG W/LEAST 12 LDS TRCG ONLY W/O I&R RADIOLOGI 52018 [facility] ALL C EXAM 5 MEDICAL CHEST 2 IMAGING VIEWS ASS FRONTAL&L ATERAL TECHNETIU A9502 [facility] M TC-99M [address] [place] [address] TETROFOSM IN DX PER STUDY DOSE INJECTION [id number] [address] REGADENOS ON 0.1 MG MYOCARDIA 23924 [facility] SPECT [address] [place] [address] MULTIPLE STUDIES RADEX 83225 [facility] SPINE 5 [place] LUMBOSA[place] ORTHOPAED AL 2/3 [facility] VIEWS CANE INCL E0100 IDRIS IDRIS CANES 5 HOME HOME ALL MEDICAL MEDICAL MATERIAL EQUIPME EQUIPME ADJUSTBLE /FIX W/TIP APPL 77973 [facility]ALITY 5 [facility]/> AREAS INC INC ELEC STIMJ UNATTENDE D APPLICATI 78248 [facility] ON 5 [facility] MODALITY INC INC 1/> AREAS HOT/COLD PACKS APPL 16854 [facility] MODALITY 5 [facility] 1/> AREAS INC INC ULTRASOUN D EA 15 MIN THERAPEUT 74603 [facility] PX 1/> 5 [facility] AREAS INC INC EACH 15 MIN EXERCISES THERAPEUT 97714 [facility] PX 1/> 5 [facility] AREAS INC INC EACH 15 MIN EXERCISES APPL 00947 [facility] MODALITY 5 [facility] 1/> AREAS INC INC ULTRASOUN D EA 15 MIN APPLICATI 62985 [facility] ON 5 [facility] MODALITY INC INC 1/> AREAS HOT/COLD PACKS APPL 55672 [facility] MODALITY 5 [facility] 1/> AREAS INC INC ELEC STIMJ UNATTENDE D APPL 91334 [facility] MODALITY 5 [facility] 1/> AREAS INC INC ELEC STIMJ UNATTENDE D APPL 64672 [facility] MODALITY 5 [facility] 1/> AREAS INC INC ULTRASOUN D EA 15 MIN APPLICATI 71228 [facility] ON 5 [facility] MODALITY INC INC 1/> AREAS HOT/COLD PACKS THERAPEUT 16431 [facility] IC PX 1/> 5 [facility] AREAS INC INC EACH 15 MIN EXERCISES THERAPEUT 34468 [facility] IC PX 1/> 5 [facility] AREAS INC INC EACH 15 MIN EXERCISES APPLICATI 01403 [facility] ON 5 [facility] MODALITY INC INC 1/> AREAS HOT/COLD PACKS MANUAL 21622 [facility] THERAPY 5 [facility] TQS 1/> INC INC REGIONS EACH 15 MINUTES APPL 37039 [facility] MODALITY 5 [facility] 1/> AREAS INC INC ELEC STIMJ UNATTENDE D PHYSICAL 67191 [facility] THERAPY 5 [facility] EVALUATIO INC INC N RADIOLOGI 81053 [facility] [place] RABIA C EXAM 5 RADIOLOGY RHO CHEST 2 VIEWS FRONTAL&L ATERAL RADIOLOGI 50850 [facility] TRA C 5 [place] EXAMINATI ORTHOPAED ON PELVIS [facility] 1/2 VIEWS RADEX 84360 [facility] TRA SPINE 5 [place] LUM[place] ORTHOPAED AL 2/[address] [place] [address] [place] LINUS ABDOMEN & 4 MEDICAL KARLY PELVIS IMAGING W/O ASS CONTRAST MATERIAL RADEX 47168 [facility] SHOULDER 4 N N COMPLETE COMMUNITY COMMUNITY MINIMUM 2 HOSPITA HOSPITA VIEWS RADEX 96938 [facility] SPINE 4 N N CERVICAL COMMUNITY COMMUNITY 2 OR 3 HOSPITA HOSPITA VIEWS RADEX 82175 [facility] FORE[facility] 2 4 MEDICAL KARLY VIEWS IMAGING ASS [facility] 86554 [facility] 4 MEDICAL KARLY MINIMUM 2 IMAGING VIEWS ASS RADIOLOGI 45169 [place] LINUS C EXAM 4 MEDICAL KARLY CHEST 2 IMAGING VIEWS ASS FRONTAL&L ATERAL ECG 81973 [facility] ANGELICA ROUTINE 4 ECG W/LEAST 12 LDS I&R ONLY LIPID 07968 [facility] PANEL 4 [facility] [facility] HEMOGLOBI 55338 [facility] N 4 [facility] GLYCOSYLA [facility] MIKY A1C COMPREHEN 15504 [facility] CH[facility] SIVE 4 [facility] METABOLIC [facility] PANEL COMPREHEN 14611 [facility] LAB CHERYL SIVE 3 [facility] METABOLIC HOLDINGS HOLDINGS PANEL ECG 60264 JOSE MARIA ROSS ROUTINE 3 MARCELINA ECG PEDIATRIC W/LEAST S & INTER 12 LDS W/I&R BLOOD 29012 LAB CHERYL LAB CHERYL COUNT 3 BONY BONY COMPLETE HOLDINGS HOLDINGS AUTO&AUTO DIFRNTL WBC ECG 31841 COURTNEY PACHECO ROUTINE 3 EMERGENCY AZAR ECG SERVICES W/LEAST 12 LDS I&R ONLY RADIOLOGI 54218 [place] [facility] C EXAM 3 MEDICAL KARLY CHEST 2 IMAGING VIEWS ASS FRONTAL&[place] [address] [place] [facility] HEAD/BRAI 3 MEDICAL KARLY N W/O IMAGING CONTRAST ASS MATERIAL RADEX HIP 22437 [facility] 3 N N [facility] L HOSPITA HOSPITA COMPLETE MINIMUM 2 VIEWS RADEX 26555 COURTNEY BELLAMY BRA FOOT 3 EMERGENCY COMPLETE SERVICES MINIMUM 3 VIEWS BASIC 59377 LAB CHERYL LAB CHERYL METABOLIC 3 BONY BONY PANEL HOLDINGS HOLDINGS CALCIUM TOTAL HEMOGLOBI 26744 LAB CHERYL LAB CHERYL N 3 BONY BONY GLYCOSYLA HOLDINGS HOLDINGS MIKY A1C RADIOLOGI 78925 COURTNEY GARCIA C 3 EMERGENCY RYA EXAMINATI SERVICES ON KNEE 3 VIEWS CYTP C/V 44677 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 THIN 3 Y CHERYL OF Y CHERYL OF LYR BONY BONY PREPJ SCR H H MNL RESCR PHYS IADNA 23770 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 PAPILLOMA 3 Y CHERYL OF Y CHERYL OF VIRUS BONY BONY HUMAN H H AMPLIFIED PROBE TQ LIPID 50936 LAB CHERYL LAB CHERYL PANEL 3 BONY BONY HOLDINGS HOLDINGS HEMOGLOBI 27222 LAB CHERYL LAB CHERYL N 3 BONY BONY GLYCOSYLA HOLDINGS HOLDINGS MIKY A1C COMPREHEN 02556 LAB CHERYL LAB CHERYL SIVE 3 BONY BONY METABOLIC HOLDINGS HOLDINGS PANEL INCISION 68312 COURTNEY STEPHENS & 3 EMERGENCY III ADRIENNE DRAINAGE SERVICES ABSCESS SIMPLE/SI NGLE NONEMERG A0120 LKLP LKLP TRNSPRT: 2 COMMUNITY COMMUNITY [facility] ACTION [place] MTN AREA/[place] [address] CHRISIT BARRIGA HEAD/BRAI 2 MEDICAL KARLY N W/[place] [address] [facility] TROPONIN 2 [facility] QUANTITAT INC INC FAWAD BLOOD 64984 [facility] COUNT 2 [facility] COMPLETE INC INC AUTO&AUTO DIFRNTL WBC COMPREHEN 05410 [facility] SIVE 2 [facility] METABOLIC INC INC PANEL CREATINE 67171 [facility] KINASE MB 2 [facility] FRACTION INC INC ONLY CREATINE 98791 [facility] KINASE 2 [facility] TOTAL INC INC 3D 73058 [facility] RENDERING 2 [facility] W/INTERP INC INC & POSTPROCE SS SUPERVISI ON ECG 18623 [facility] ROUTINE 2 [facility] ECG INC INC W/LEAST 12 LDS TRCG ONLY W/O I&R ECG 11599 COURTNEY STEPHENS ROUTINE 2 EMERGENCY III ADRIENNE ECG SERVICES W/LEAST 12 LDS I&R ONLY THERAPEUT 28605 [facility] IC 2 [facility] PROPHYLAC INC INC TIC/DX INJECTION SUBQ/[place] [address] [facility] ABDOMEN & 2 [facility] PELVIS INC INC W/O CONTRAST MATERIAL URNLS DIP 62753 [facility] 2 [facility] STICK/TAB INC INC LET REAGENT AUTO MICROSCOP Y BLOOD 86035 [facility] COUNT 2 [facility] COMPLETE INC INC AUTO&AUTO DIFRNTL WBC BASIC 03313 [facility] METABOLIC 2 [facility] PANEL INC INC CALCIUM TOTAL 3D 61061 [facility] RENDERING 2 [facility] INC INC W/INTERP& POSTPROC DIFF WORK STATION THERAPEUT 80240 [facility] IC 2 [facility] PROPHYLAC INC INC TIC/DX INJECTION SUBQ/IM NONEMERG A0120 LKLP LKLP TRNSPRT: 2 COMMUNITY COMMUNITY MINI-[place] ACTION ACTION MTN AREA/OTH SYS ECG 99644 [facility] ROUTINE [address] [facility] W/LEAST P P 12 LDS I&R ONLY RADIOLOGI 03983 [place] [facility] C 2 MEDICAL KARLY EXAMINATI IMAGING ON CHEST ASS SINGLE VIEW FRONTAL BASIC 59816 [facility] METABOLIC 2 [facility] PANEL INC INC CALCIUM TOTAL COMPREHEN 75584 [facility] SIVE 2 [facility] METABOLIC INC INC PANEL CREATINE 03516 [facility] KINASE MB 2 [facility] FRACTION INC INC ONLY CREATINE 31491 [facility] KINASE 2 [facility] TOTAL INC INC ECG 95391 [facility] ROUTINE 2 [facility] ECG INC INC W/LEAST 12 LDS TRCG ONLY W/O I&[place] [address] [facility] TROPONIN 2 [facility] QUANTITAT INC INC FAWAD BLOOD 72036 [facility] COUNT 2 [facility] COMPLETE INC INC AUTO&AUTO DIFRNTL WBC URNLS DIP 08308 [facility] 1 [facility] LET RGNT P P NON-AUTO W/O MICRSCP BASIC 92851 [facility] METABOLIC 1 [facility] PANEL INC INC CALCIUM TOTAL CULTURE 28798 [facility] BACTERIAL 1 [facility] INC INC QUANTTATI VE COLONY COUNT URINE BLOOD 87796 [facility] COUNT 1 [facility] COMPLETE INC INC AUTO&AUTO DIFRNTL WBC URNLS DIP 51082 [facility] 1 [facility] HOSP STICK/TAB INC INC LET REAGENT AUTO MICROSCOP Y RADEX 78448 [facility] ABDOMEN 1 1 MEDICAL MEDICAL IMAGING IMAGING ANTEROPOS ASS ASS TERIOR VIEW FIBRIN 05767 [facility] DGRADJ 1 [facility] HOSP PRODUCTS INC INC D-DIMER QUAL/SEMI JUANIS DUP-SCAN 53227 [facility] XTR VEINS 1 [facility] HOSP COMPLETE INC INC BILATERAL STUDY CYSTO 17094 [facility] W/INSERT 1 ROBERT ROBERT URETERAL STENT CYSTO 52041 [facility] W/URETERO 1 ROBERT ROBERT SCOPY W/LITHOTR IPSY CALCULUS 32557 [employer] [facility] INFRARED 1 DIAGNOSTI DIAGNOSTI SPECTROSC CS CS OPY PROSTHETI L8699 [facility] IMPLANT 1 [facility] OTHERWISE PSC PSC SPECIFIED INJECTION J2405 [facility] 1 [facility] CLINIC ON HCL PSC PSC PER 1 MG URNLS DIP 72128 [facility] VALERO 1 [facility] STICK/[facility] LET RGNT P NON-AUTO W/O MICRSCP RAD 6045F [facility] EXPOS/ROBERT 1 MEDICAL MEDICAL E IN LAST IMAGING IMAGING RPRT ASS ASS FLUORO PRXD DOCD FLUOROSCO 64503 [facility] PY SPX UP 1 MEDICAL MEDICAL TO 1 IMAGING IMAGING HOUR ASS ASS PHYS/QHP TIME URNLS DIP 42087 [facility] 1 [facility] LET RGNT P P NON-AUTO W/O MICRSCP ECG 79812 [facility] TEJADA JR ROUTINE 1 [facility] W/LEAST P 12 LDS I&R ONLY INTRO 91493 [facility] URETERAL 1 [facility] HOSP CATH/STEN [place] T PRQ RS&[place] [address] [facility] INFUSION 1 [facility] HOSP THERAPY/P INC INC ROPHYLAXI S /DX 1ST TO 1 HR CYSTO 27596 [facility] W/INSERT 1 [facility] URETERAL INC INC STENT THERAPEUT 49501 [facility] IC 1 [facility] INJECTION INC INC IV PUSH EACH NEW DRUG ECG 27846 [facility] ROUTINE 1 [facility] ECG INC INC W/LEAST 12 LDS TRCG ONLY W/O I&R GUIDE C1769 [facility] WIRE 1 [facility] INC INC STENT C2617 [facility] NON-COR 1 [facility] TEMPORARY INC INC WITHOUT DELIVERY SYSTEM CULTURE 96178 [facility] BACTERIAL 1 [facility] INC INC QUANTTATI VE COLONY COUNT URINE 3D 95525 CHRIST[facility] LINUS RENDERING 1 MEDICAL KARLY IMAGING W/INTERP& ASS POSTPROC DIFF WORK STATION BLOOD 50098 [facility] COUNT 1 [facility] COMPLETE INC INC AUTO&AUTO DIFRNTL WBC URNLS DIP 15868 [facility] 1 [facility] STICK/TAB INC [place] [address] [facility] INFUSION 1 [facility] THERAPY/P INC INC ROPHYLAXI S /DX [address] [place] [address] [place] [address] CHRISTI BARRIGA ABDOMEN & 1 MEDICAL KARLY PELVIS IMAGING W/O ASS CONTRAST MATERIAL COMPREHEN 38964 [facility] SIVE 1 [facility] [place] [address] [facility] INFUSION 1 [facility] THER INC INC PROPH ADDL SEQUENTIA L TO 1 HR INJECTION J2405 [facility] 1 [facility] HOSP ONDANSETR INC INC ON HCL PER 1 MG SLINGS A4565 HE L.P. HE L.P. 1 CREATINE 86500 [facility] KINASE 1 N N TOTAL COMM[facility]ITY COMMUNITY HOSPITA HOSPITA COMPREHEN 89124 [facility] SIVE 1 N N METABOLIC [facility] COMMUNITY PANEL HOSPITA HOSPITA COLLECTIO 71108 [facility] N VENOUS 1 N N BLOOD [facility] COMMUNITY VENIPUNCT HOSPITA HOSPITA URE HEMOGLOBI 79464 [facility] N 1 [place] INC GLYCOSYLA MIKY A1C MRI BRAIN 24039 [facility] BRAIN 1 N N STEM W/O COMMUNITY COMMUNITY W/CONTRAS HOSPITA HOSPITA T MATERIAL LIPOPROTE 54198 [facility] IN DIRECT 1 [facility] MEASUREME NT LDL CHOLESTER OL LIPID 41772 [facility] PANEL 1 [facility] COMPREHEN 32884 [facility] SIVE 1 [facility] METABOLIC PANEL COLLECTIO 56351 LEE PAD LEE PAD N VENOUS [address] [place] [address] [facility] HEAD/BRAI 1 [facility] N W/O INC INC CONTRAST MATERIAL 3D 38471 [facility] RENDERING 1 [facility] W/INTERP INC INC & POSTPROCE SS SUPERVISI ON SEDIMENTA 88507 [facility] TION RATE 1 [facility] RBC INC INC NON-AUTOM ATED CYANOCOBA 47772 [facility] NKECHI 1 [facility] VITAMIN INC INC B-12 BLOOD 23482 [facility] COUNT 1 [facility] COMPLETE INC INC AUTO&AUTO DIFRNTL WBC COMPREHEN 31420 [facility] SIVE 1 [facility] METABOLIC INC INC PANEL RADIOLOGI 53454 [facility] C EXAM 0 [facility] CHEST 2 INC INC VIEWS FRONTAL&L ATERAL URNLS DIP 23019 [facility] 0 [facility] STICK/TAB INC INC LET REAGENT AUTO MICROSCOP Y RADEX 99049 [facility] RIBS UNI 0 [facility] W/POSTERO INC INC ANT CH MINIMUM 3 VIEWS CULTURE 82358 [facility] BACTERIAL 0 [facility] INC INC QUANTTATI VE COLONY COUNT URINE SPRING-PO A4258 M E D M E D WERED 0 SUPPLIES SUPPLIES DEVICE FOR LANCET EACH NORMAL A4256 M E D M E D LOW AND 0 SUPPLIES SUPPLIES HIGH CALIBRATO R SOLUTION/ CHIPS LANCETS A4259 M E D M E D PER BOX 0 SUPPLIES SUPPLIES OF 100 BLD GLU A4253 M E D M E D TEST/REAG 0 SUPPLIES SUPPLIES T STRIPS HOME BLD GLU MON-50 SCREENING G0202 [facility] 0 N N MAMMOGRAP [facility] HY ETRESA HOSPITA HOSPITA INCL CAD WHEN PERFORMD COMPUTER- 70022 [facility] AIDED 0 N N DETECTION [facility] HOSPITA HOSPITA SCREENING MAMMOGRAP HY CYTP C/V 11270 PATHOLOGY PATHOLOGY AUTO THIN 0 & & LYR CYTOLOGY CYTOLOGY PREPJ SCR LAB LAB MNL RESCR PHYS LIPOPROTE 73832 [facility] IN DIRECT 0 [facility] MEASUREME NT LDL CHOLESTER OL LIPID 88011 [facility] PANEL 0 [facility] HEMOGLOBI 54560 [facility] N 0 [facility] GLYCOSYLA MIKY A1C COMPREHEN 88840 [facility] SIVE 0 [facility] METABOLIC PANEL COLLECTIO 93636 LEE PAD LEE PAD N VENOUS 0 BLOOD VENIPUNCT URE COMPREHEN 53822 [facility] SIVE 0 [facility] METABOLIC [facility] INC PANEL RADIOLOGI 32902 [facility] C EXAM 0 [facility] CHEST 2 INC INC VIEWS FRONTAL&L ATERAL BLOOD 80785 [facility] V[facility]RA COUNT 0 [facility] COMPLETE INC INC AUTO&AUTO DIFRNTL WBC URNLS DIP 00563 [facility] 0 [facility] [...] PER BOX 0 SUPPLIES SUPPLIES OF 100 URNLS DIP 67051 [facility] 0 [facility] STICK/TAB INC INC LET REAGENT AUTO MICROSCOP Y RADIOLOGI 93651 [place] Carlos BARRIGA EXAM 0 MEDICAL MONIQUE CHEST 2 IMAGING VIEWS ASSOCIATE FRONTAL&L S ATERAL CULTURE 95229 [facility] BACTERIAL 0 [facility] INC INC QUANTTATI VE COLONY COUNT URINE URINE 57243 [facility] 0 [facility] TEST INC INC VISUAL COLOR CMPRSN METHS LANCETS A4259 M E D M E [...] SUPPLIES HIGH CALIBRATO R SOLUTION/ CHIPS CT PELVIS 97912 [facility] W/O 0 [facility] CONTRAST INC INC MATERIAL 3D 54662 [facility] RENDERING 0 [facility] INC INC W/INTERP& POSTPROC DIFF WORK STATION URNLS DIP 95296 [facility] 0 [facility] STICK/TAB INC [place] [address] [facility] ABDOMEN 0 [facility] W/O INC INC CONTRAST MATERIAL BLD GLU A4253 M E D M E D TEST/REAG 0 SUPPLIES SUPPLIES T STRIPS HOME BLD GLU MON-50 LANCETS A4259 M E D M E D PER BOX 0 SUPPLIES SUPPLIES OF [address] [place] [address] [facility] STREPTOCO 0 [facility] CCUS INC INC GROUP A LANCETS A4259 M E D M E [...] NECES AYLIN BG MON OWN PT EA NORMAL A4256 M E D M E [...] 9 SUPPL[address] SUPPL[address] PELVIS [address] [facility] [place] KOSTEL[place], W/O 9 [place] [address] [facility] [place], ABDOMEN 9 RADIOLOGY MARY K W/O CONTRAST MATERIAL BLD GLU A4253 M E D M [...] SUPPLIES HIGH CALIBRATO R SOLUTION/ CHIPS LANCETS 200 A4259 M E D M [...] AYLIN BG MON OWN PT EA INCISION 81552 COURTNEY LAZARO, & 9 EMERGENCY ALVERTO L DRAINAGE SERVICES ABSCESS SIMPLE/SI ASSOCIATE NGLE S LANCETS A4259 M E D M E D PER BOX 9 SUPPLIES SUPPLIES OF 100 BLD GLU A4253 M E D M E D TEST/REAG 9 SUPPLIES SUPPLIES T STRIPS HOME BLD GLU MON-50 INCISION 34469 [facility], & 9 KEVIN ANITA L DRAINAGE EMERGENCY ABSCESS PHYS INC COMPLICAT ED/MULTIP LE LANCETS A4259 M E D M E D PER BOX 9 SUPPLIES SUPPLIES OF 100 BLD GLU A4253 M E D M E D TEST/REAG 9 SUPPLIES SUPPLIES T STRIPS HOME BLD GLU MON-50 RADIOLOGI 66404 [facility] [place] [facility], C 9 RADIOLOGY J [...] SUPPLIES T STRIPS HOME BLD GLU WED-50 COLLECTIO 00232 [facility] [place], N VENOUS 9 [facility] BLOOD E CENTER VENIPUNCT URE COMPREHEN 68389 LAB CHERYL LAB CHERYL SIVE 9 [employer] METABOLIC HOLDING HOLDING PANEL LIPID 10932 LAB CHERYL LAB CHERYL PANEL 9 [employer] HOLDING HOLDING BLD GLU A4253 M E D M E D TEST/REAG 9 SUPPLIES SUPPLIES T STRIPS HOME BLD GLU WED-50 LANCETS A4259 M E D M E D PER BOX 9 SUPPLIES SUPPLIES OF 100 URNLS DIP 30669 [facility] SULEMA 9 LTH JR, STICK/TAB UROLOGY MAR Osuna [...] SUPPLIES SUPPLIES HIGH CALIBRATO R SOLUTION/ CHIPS SPRING-PO A4258 M E D M E D WERED 9 SUPPLIES SUPPLIES DEVICE FOR LANCET EACH REPL JOSE DE JESUS A4235 M E D M E D LITHIUM 9 SUPPLIES SUPPLIES MED [place] [address] [facility] [place], ABDOMEN 9 RADIOLOGY MARY K W/O CONTRAST MATERIAL CT PELVIS 63599 [facility] [place], W/O 9 RADIOLOGY MARY K CONTRAST MATERIAL ANES 05201 ANESTHESI DUNFEE, TRANSURET 9 A REYNA Murphy HRAL ASSOCIATE W/URETHRO S, PSC CYSTOSCOP Y NOS CYSTO 29892 [facility] SULEMA W/URETERO 9 LTH JR, SCOPY UROLOGY MAR sOuna W/RMVL/MA PSC [place] STONES CYSTO 09929 COMMONMARYBETH LEONE W/INSERT 9 LT JR, URETERAL UROLOGY MAR Osuna STENT PSC URNLS DIP 08725 [facility] 9 LTH JR, STICK/TAB UROLOGY MAR Osuna LET RGNT PSC AUTO W/O MICROSCOP Y ANES 68211 ANESTHESI SMITH, TRANSURET 8 A VINCE Gonzalez HRAL ASSOCIATE W/URETHRO S, PSC CYSTOSCOP Y NOS CYSTO 05818 [facility] W/INSERT 8 LTH JR, URETERAL UROLOGY MAR Osuna STENT PSC URETERAL 598 [facility] 8 [facility] ZATION GROUND A0425 [facility] MILEAGE 8 CARTER MACHADO PER CO EMS CO EMS STATUTE MILE INITIAL 55240 [facility] 8 LT JR, CARE/DAY UROLOGY MAR Osuna 70 PSC MINUTES ECG 32647 [place], ROUTINE 8 MILO J C ECG CLINIC W/LEAST PSC 12 LDS I&[place] [address] [facility] [place] [facility], ABDOMEN 8 RADIOLOGY J W/O CONTRAST MATERIAL AMB A0427 [facility] SERVICE 8 CARTER MACHADO ALS CO EMS CO EMS EMERGENCY TRANSPORT LEVEL [address] PELVIS [address] [facility] [place] NERI, W/O [address] [place] [address] [facility] [place] JUAN JOSE, ABDOMEN 8 RADIOLOGY MARY K W/O CONTRAST MATERIAL CT PELVIS 32676 [facility] [place], W/O 8 RADIOLOGY MARY K CONTRAST MATERIAL HEMOGLOBI 62774 LAB CHERYL LAB CHERYL N 8 [facility] GLYCOSYLA HOLDING HOLDING MIKY A1C COLLECTIO 78588 [facility], VENOUS 8 [facility] SARAH BLOOD E CENTER VENIPUNCT URE GLUCOSE 04847 LAB CHERYL LAB CHERYL QUANTITAT 8 AMER[facility] AMER[facility] FAWAD BLOOD HOLDING HOLDING XCPT REAGENT STRIP COLLECTIO 47156 [facility], N VENOUS 8 [facility] AMANDA BLOOD E CENTER VENIPUNCT URE SCREENING G0202 [facility] 8 N N MAMMOGRAP [facility] INCL CAD WHEN PERFORMD LIPID 59496 LAB CHERYL LAB CHERYL PANEL 8 [employer] HOLDING HOLDING COMPUTER- 81461 [facility] AIDED 8 N N DETECTION [facility] SCREENING MAMMOGRAP HY GENERAL 12117 LAB CHERYL LAB CHERYL HEALTH 8 [facility] [employer] PANEL HOLDING HOLDING CYTP 08017 [facility] [place], CERV/VAG 8 [place] INC MICHAEL D AUTO THIN LAYER PREP MNL SCREEN IADNA 70916 [facility], CHLAMYDIA 8 [place] INC MICHAEL D TRACHOMAT IS AMPLIFIED PROBE TQ IADNA 77924 [facility] [place], NEISSERIA 8 [place] INC MICHAEL D GONORRHOE AE AMPLIFIED PROBE TQ IADNA 75591 [facility], GARDNEREL 8 [place] INC MICHAEL D LA VAGINALIS AMPLIFIED PROBE TQ IADNA 91621 [facility] [place], MELLO 8 [place] INC MICHAEL D SPECIES AMPLIFIED PROBE TQ IADNA 22927 [facility] TRICHOMON 8 [facility] INC INC VAGINALIS DIRECT PROBE TQ URNLS DIP 23747 [facility] JONATHAN STICK/TAB E CENTER LET RGNT AUTO W/O MICROSCOP Y CT PELVIS 02861 [facility] [place] MARCELINO, W/O 8 [place] [address] [facility] MARCEL[facility], ABDOMEN 8 RADIOLOGY ONIEL P W/[place] [address] [place] [facility], ABDOMEN 8 MEDICAL MONIQUE W/O IMAGING CONTRAST ASSOCIATE MATERIAL S CT PELVIS 29025 [place] [facility], W/O 8 MEDICAL MONIQUE CONTRAST IMAGING MATERIAL ASSOCIATE S 3D 12078 [place] [facility], RENDERING 8 MEDICAL MONIQUE IMAGING W/INTERP& ASSOCIATE POSTPROC S DIFF WORK STATION URNLS DIP 31776 [facility] 8 [facility] STICK/TAB INC INC LET REAGENT AUTO MICROSCOP Y IAADI 76080 [facility] INFLUENZA 8 [facility] B VIRUS INC INC BASIC 25431 [facility] METABOLIC 8 [facility] [address] [facility] THER 8 [facility] PROPH/DX INC INC 1ST >1 HR IAADI 90256 [facility] INFFLUENZ 8 [facility] A A VIRUS INC INC BLOOD 90683 [facility] COUNT 8 [facility] COMPLETE INC INC AUTO&AUTO DIFRNTL WBC RADIOLOGI 96153 Carlos NUNEZ EXAM 8 MEDICAL JAMES P CHEST 2 IMAGING VIEWS ASSOCIATE FRONTAL&L S ATERAL APPL 86275 [facility] MODALITY 8 [facility] 1/> AREAS INC INC ELEC STIMJ UNATTENDE D THERAPEUT 38561 [facility] IC PX 1/> 8 [facility] AREAS INC INC EACH 15 MIN EXERCISES PHYSICAL 13422 [facility] THERAPY 8 [facility] EVALUATIO INC INC N CT LUMBAR 91254 CHRISTI WILSON SPINE 8 MEDICAL JAMES P W/O IMAGING CONTRAST ASSOCIATE MATERIAL S 3D 86853 [facility] RENDERING 8 [facility] INC INC W/INTERP& POSTPROC DIFF WORK STATION RADEX 90148 [facility] SPINE 8 [facility]OS[facility] LUMBOSACR INC INC AL MINIMUM 4 VIEWS RADIOLOGI 95200 Carlos NUNEZ 8 RIKI Norris EXAMINATI IMAGING ON FEMUR ASSOCIATE 2 VIEWS S RADEX HIP 11442 [facility] 8 [facility] UNILATERA INC INC L COMPLETE MINIMUM 2 VIEWS Encounters Encounter Start End Date Code Location Performer Type Date OFFICE 83070 [facility] NATHALIE OUTPATIEN 7 7 PHYSICIAN T VISIT S GROUP 25 MINUTES OFFICE 89051 [facility] NATHALIE OUTPATIEN 7 7 PHYSICIAN T VISIT S GROUP 40 MINUTES EMERGENCY 84421 TIFF[facility] BOWER 7 7 MEDICAL DEPARTMEN SERV T VISIT FOUNDATIO HIGH/URGE N NT SEVERITY [facility] - 7 7 [facility] OUTPATIEN E T HOSPITALS OFFICE 75234 DERICK BRUNSON OUTPATIEN 7 7 FOOT & T NEW 30 ANKLE CE MINUTES EMERGENCY 45738 [facility] 7 7 [facility] DEPARTMEN INC T VISIT LOW/MODER SEVERITY [facility] 7 7 [facility] OUTPATIEN INC T EMERGENCY 86733 LEONEL LEE DEPT 7 7 PHYSICIAN VISIT S, [facility] HIGH SEVERITY& THREAT [facility] - 7 7 [facility] OUTPATIEN INC T OFFICE 24278 [facility] OUT[facility]IEN 7 7 [facility] T VISIT 5 INC MINUTES [facility] - 7 7 [facility] OUTPATIEN INC T EMERGENCY 10651 [facility] 7 7 [facility] DEPARTMEN INC T VISIT LOW/MODER SEVERITY OFFICE 36152 JOSE MARIA ROSS OUTPATIEN 6 6 MARCELINA T VISIT PEDIATRIC 15 S & INTER MINUTES [facility] 6 6 N OUTPATIEN COMMUNTIY T HOSPITA OFFICE 08202 SCIFRES SCIFRES OUTPATIEN 6 6 ANG ANG T VISIT 15 MINUTES OFFICE 51761 SCIFRES SCIFRES OUTPATIEN 6 6 ANG ANG T VISIT 15 MINUTES OFFICE 51107 [facility] PETTEY OUTPATIEN 6 6 PHYSICIAN JAM T NEW 20 S GROUP MINUTES EMERGENCY 00571 LEONEL CROWDER DEPT 6 6 PHYSICIAN OLGA VISIT S, [facility] HIGH SEVERITY& THREAT [facility] [place] - 6 6 [facility] OUT[facility] T EMERGENCY 32870 [facility] 6 6 [facility] DEPARTMEN INC T VISIT MODERATE SEVERITY OFFICE 26162 [facility] SOM OUTPATIEN 6 6 PHYSCIAN LES T VISIT PRACTICE 15 LL MINUTES [facility] [place] - 6 6 [facility] OUT[facility] INC T OFFICE 52554 [facility] TRA CHANCE TRA OUTPATIEN 6 6 T VISIT 15 MINUTES OFFICE 66785 ANN KEARNS CONSULTAT 6 6 PHYSCIAN LES ION PRACTICE NEW/ESTAB LL PATIENT 40 MIN OFFICE 06479 JOSE MARIA ROSS OUTPATIEN 6 6 MARCELINA T VISIT PEDIATRIC 15 S & INTER MINUTES [facility], 6 6 HOME [facility] EMERGENCY 52916 [place] [address] [facility] MODERATE SEVERITY EMERGENCY 92145 LEONEL US 6 6 PHYSICIAN U [facility] T VISIT HIGH/URGE NT SEVERITY [facility] [place] - 6 6 [facility] [place] - 5 5 [facility] OUTPATIEN [facility] EMERGENCY 03772 [place] [address] [facility] T VISIT HIGH/URGE NT SEVERITY EMERGENCY 49407 LEONEL PACHECO DEPT 5 5 PHYSICIAN AZAR VISIT S, PLLC HIGH SEVERITY& THREAT [facility] OFFICE 69290 JOSE MARIA ROSS OUTPATIEN 5 5 MARCELINA T VISIT PEDIATRIC 15 S & INTER MINUTES [facility], 5 5 HOME [facility] [place] [address] [facility]PITAL INPATIENT OFFICE 76616 JOSE MARIA ROSS OUTPATIEN 5 5 MARCELINA T VISIT PEDIATRIC 15 S & INTER MINUTES HOSPITAL [place] [address] 5 N OUTPATIEN COMMUNTIY T [facility] [address] OUTPATIEN T EMERGENCY 12887 LEONEL PACHECO DEPT 5 5 PHYSICIAN AZ[facility] VISIT S, [facility] HIGH SEVERITY& THREAT [facility] [address] OUTPATIEN T OFFICE 33513 JOSE MARIA ROSS OUTPATIEN 5 5 MARCELINA T VISIT PEDIATRIC 15 S & INTER MINUTES OFFICE 30413 [facility] OUT[facility] 5 5 [place] VISIT ORTHOPAED 15 [facility] MINUTES EMERGENCY 74268 BARRY Ruth 5 5 DEPARTMEN T VISIT MODERATE SEVERITY OFFICE 77496 JOSE MARIA ROSS OUTPATIEN 5 5 MARCELINA T VISIT PEDIATRIC 15 S & INTER MINUTES EMERGENCY 32092 NALLELY PACHECO DEPT 5 5 AZAR AZAR VISIT HIGH SEVERITY& THREAT [facility] OFFICE 46829 [facility] OUTPATI[facility] 5 5 [place] T VISIT ORTHOPAED 15 [facility] MINUTES [facility] [place] - 5 5 [facility] OUTPATIEN INC T EMERGENCY 72173 CHRISTEL KEARNEY 5 5 DORI DORI DEPARTMEN T VISIT HIGH/URGE NT SEVERITY OFFICE 75518 [facility] OUTPATIEN 5 5 [place] T NEW 45 ORTHOPAED MINUTES [facility] OFFICE 61870 LISAMONICA VANDANA OUTPATIEN 4 4 MARCELINA T VISIT PEDIATRIC 15 S & INTER MINUTES EMERGENCY 02429 NALLELY PACHECO 4 4 AZAR AZAR DEPARTMEN T VISIT MODERATE SEVERITY EMERGENCY 83516 NALLELY PACHECO DEPT 4 4 AZAR AZAR VISIT HIGH SEVERITY& THREAT [facility] [place] - 4 4 N OUTPATIEN COMMUNITY T HOSPITA EMERGENCY 93909 LEATHA LEATHA 4 4 IMT IMT DEPARTMEN T VISIT MODERATE SEVERITY OFFICE 70663 LISAMONICA VANDANA OUTPATIEN 4 4 MARCELINA T VISIT PEDIATRIC 15 S & INTER MINUTES EMERGENCY 93459 ALFARIS ALFARIS 4 4 [facility] DEPARTMEN T VISIT HIGH/URGE NT SEVERITY EMERGENCY 10840 SHAZIA ANGELICA SHAZIA ANGELICA DEPT 4 4 VISIT HIGH SEVERITY& THREAT [facility] OFFICE 72390 JOSE MARIA ROSS OUTPATIEN 4 4 MARCELINA T VISIT PEDIATRIC 15 S & INTER MINUTES EMERGENCY 18491 ABIGAIL HAYES 4 4 [facility] DEPARTMEN T VISIT HIGH/URGE NT SEVERITY OFFICE 08434 JOSE MARIA ROSS OUTPATIEN 3 3 MARCELINA T VISIT PEDIATRIC 15 S & INTER MINUTES Emergency PAULINE [place] Pacheco MD (ER) 3 19:30 3 21:20 [facility] EMERGENCY 28579 COURTNEY PACHECO DEPT 3 3 EMERGENCY AZAR VISIT SERVICES HIGH SEVERITY& THREAT [facility] [place] - 3 3 N OUTPATIEN COMMUNITY T HOSPITA OFFICE [id number] JOSE MARIA ROSS OUTPATIEN 3 3 MARCELINA T VISIT PEDIATRIC 15 S & INTER MINUTES OFFICE 34801 JOSE MARIA ROSS OUTPATIEN 3 3 MARCELINA T VISIT PEDIATRIC 10 S & INTER MINUTES EMERGENCY 85448 COURTNEY LEWIS 3 3 EMERGENCY DEPARTMEN SERVICES T VISIT MODERATE SEVERITY OFFICE 84002 JOSE MARIA ROSS OUTPATIEN 3 3 AMRCELINA T VISIT PEDIATRIC 15 S & INTER MINUTES EMERGENCY 09819 COURTNEY GARCIA 3 3 EMERGENCY RYA DEPARTMEN SERVICES T VISIT HIGH/URGE NT SEVERITY PERIODIC 95294 JOSE MARIA ROSS PREVENTIV 3 3 MARCELINA E MED EST PEDIATRIC PATIENT S & INTER 40-64YRS OFFICE 72267 LUZ ESCOBAR OUTPATIEN 3 3 MARKO MARKO T VISIT 15 MINUTES OFFICE 54636 [facility] EDIL BAKER 3 3 PHYSICIAN CAM T NEW 45 S GROUP [facility] T EMERGENCY 40104 [facility] 3 3 [facility] DEPARTMEN INC T VISIT LOW/MODER SEVERITY EMERGENCY 66626 COURTNEY STEPHENS 3 3 EMERGENCY III ADRIENNE DEPARTMEN SERVICES T VISIT HIGH/URGE NT SEVERITY OFFICE 48183 LUZ BAKER 2 2 MARKO MARKO T VISIT 15 MINUTES [facility] [place] [facility] T EMERGENCY 25084 COURTNEY STEPHENS DEPT 2 2 EMERGENCY III ADRIENNE VISIT SERVICES HIGH SEVERITY& THREAT FUNCJ EMERGENCY 59878 [facility] 2 2 [facility] DEPARTMEN INC T VISIT MODERATE SEVERITY [facility] [place] [facility] INC T EMERGENCY 69434 COURTNEY MCKENNA DEPT 2 2 EMERGENCY ADRIENNE VISIT SERVICES HIGH SEVERITY& THREAT FUNCJ EMERGENCY 89616 [facility] 2 2 [facility] DEPARTMEN INC T VISIT MODERATE SEVERITY OFFICE 02865 LUZ BAKER 2 2 MARKO MARKO T VISIT 15 MINUTES [facility] [place] [facility] 2 2 [facility] OUT[facility] INC T EMERGENCY 99217 COURTNEY MCKENNA 2 2 EMERGENCY [facility] DEPARTMEN SERVICES T VISIT HIGH/URGE NT SEVERITY EMERGENCY 12265 [facility] 2 2 [facility] DEPARTMEN INC T VISIT MODERATE SEVERITY EMERGENCY 82461 COURTNEY PACHECO 2 2 EMERGENCY [facility] DEPARTMEN SERVICES T VISIT MODERATE SEVERITY OFFICE 01329 TIFFANY VILLAGOMEZ CONSULTAT 2 2 MEDICAL L ION SERV NEW/ESTAB FOUNDATIO PATIENT 80 MIN OFFICE 65165 LUZ BAKER 2 2 MARKO MARKO T VISIT 15 MINUTES EMERGENCY 72374 COURTNEY RIVAS DEPT 2 2 EMERGENCY VISIT SERVICES HIGH SEVERITY& THREAT FUNCJ [facility] [place] [facility] INC T EMERGENCY 34492 [facility] 2 2 [facility] DEPARTMEN INC T VISIT MODERATE SEVERITY EMERGENCY 64034 [facility] 1 1 [facility] DEPARTMEN INC T VISIT MODERATE SEVERITY [facility] OUT[facility] INC T EMERGENCY 20490 COURTNEY VALDEZ 1 1 EMERGENCY EMERGENCY DEPARTMEN SERVICES SERVICES T VISIT HIGH/URGE NT SEVERITY OFFICE 25206 [facility] VALERO OUTPATIEN 1 1 [facility] T VISIT HOSPITAL 25 P MINUTES OFFICE 00577 [place] OUT[facility]IEN 1 1 [facility] VISIT HOSPITAL 25 P MINUTES [facility] [place] [facility] 1 [facility]EN INC T EMERGENCY 30982 COURTNEY FRANKS DEPT 1 1 EMERGENCY VISIT SERVICES HIGH SEVERITY& THREAT FUN EMERGENCY 04900 [facility] 1 1 [facility] DEPARTMEN INC T VISIT HIGH/URGE NT SEVERITY [facility] OUT[facility] INC T EMERGENCY 27585 [facility] 1 1 [facility] DEPARTMEN INC T VISIT LOW/MODER SEVERITY EMERGENCY 59827 COURTNEY FRANKS 1 1 EMERGENCY DEPARTMEN SERVICES T VISIT HIGH/URGE NT SEVERITY [facility] [place] [facility] 1 1 [facility] INC T EMERGENCY 39043 COURTNEY FRANKS 1 1 EMERGENCY DEPARTMEN SERVICES T VISIT HIGH/URGE NT SEVERITY [facility] INC T EMERGENCY 26844 [facility] 1 1 [facility] DEPARTMEN INC T VISIT LOW/MODER SEVERITY EMERGENCY 62754 [facility] 1 1 [facility] DEPARTMEN INC T VISIT LOW/MODER SEVERITY EMERGENCY 45017 COURTNEY FRANKS 1 1 EMERGENCY DEPARTMEN SERVICES T VISIT MODERATE SEVERITY [facility] [place] T [facility] - 1 1 N OUTPATIEN COMMUNITY T HOSPITA OFFICE 20347 LEE PAD LEE PAD OUTPATIEN 1 1 T VISIT 15 MINUTES EMERGENCY 76084 [place] 1 1 [facility] DEPARTMEN INC T VISIT LOW/MODER SEVERITY [facility] [place] - 1 1 [facility] OUT[facility]EN INC T EMERGENCY 30357 COURTNEY LEUNG 1 1 EMERGENCY DEPARTMEN SERVICES T VISIT MODERATE SEVERITY OFFICE 46771 LEE PAD LEE PAD OUTPATIEN 1 1 T VISIT 25 MINUTES [facility] - 1 1 N OUTPATIEN [facility] T HOSPITA EMERGENCY 77899 COURTNEY RIVAS DEPT 1 1 EMERGENCY VISIT SERVICES HIGH SEVERITY& THREAT [facility] [place] - 1 1 [facility] OUT[facility]EN INC T EMERGENCY 61328 [place] 1 1 [facility] DEPARTMEN INC T VISIT LOW/MODER SEVERITY [facility] [place] - 1 1 [facility] OUTPATIEN [facility] T EMERGENCY 91204 [place] 1 1 [facility] DEPARTMEN INC T VISIT LOW/MODER SEVERITY EMERGENCY 00005 COURTNEY PACHECO 1 1 EMERGENCY [facility] DEPARTMEN SERVICES T VISIT HIGH/URGE NT SEVERITY EMERGENCY 23646 [place] 0 0 [facility] DEPARTMEN INC T VISIT LOW/MODER SEVERITY [facility] [place] - 0 0 [facility] OUTPATIEN INC T EMERGENCY 75881 COURTNEY ROSS 0 0 EMERGENCY [facility] DEPARTMEN SERVICES T VISIT MODERATE SEVERITY EMERGENCY 98807 [place] 0 0 [facility] DEPARTMEN INC T VISIT LOW/MODER SEVERITY [facility] [place] - 0 0 [facility] OUTPAT[facility]EN INC T EMERGENCY 12126 COURTNEY ROSS 0 0 EMERGENCY [facility] DEPARTMEN SERVICES T VISIT HIGH/URGE NT SEVERITY [facility] - 0 0 N OUTPATIEN COMMUNITY T HOSPITA OFFICE 75422 LEE PAD LEE PAD OUTPATIEN 0 0 T VISIT 15 MINUTES PERIODIC 05414 LEE PAD LEE PAD PREVENTIV 0 0 E MED EST PATIENT 40-64YRS EMERGENCY 17400 COURTNEY DEGROOT AND 0 0 EMERGENCY DEPARTMEN SERVICES T VISIT HIGH/URGE NT SEVERITY [facility] 0 0 [facility] OUTPATIEN INC T EMERGENCY 54899 [facility] 0 0 [facility] DEPARTMEN INC T VISIT MODERATE SEVERITY OFFICE 38158 LEE PAD LEE PAD OUTPATIEN 0 0 T NEW 30 MINUTES EMERGENCY 93415 COURTNEY KEARNEY, 0 0 [facility] T VISIT MODERATE ASSOCIATE SEVERITY S EMERGENCY 38706 COURTNEY STOVALL, 0 0 EMERGENCY [place] DEPARTMEN SERVICES O T VISIT HIGH/URGE ASSOCIATE NT S SEVERITY EMERGENCY 44913 [facility] 0 0 [facility] DEPARTMEN INC T VISIT LOW/MODER SEVERITY [facility] [facility] 0 0 [facility] OUTPATIEN INC T EMERGENCY 82615 [facility] 0 0 [facility] DEPARTMEN INC T VISIT LOW/MODER SEVERITY EMERGENCY 65328 COURTNEY NELSON, DEPT 0 0 EMERGENCY [place] VISIT SERVICES M HIGH SEVERITY& ASSOCIATE THREAT S [facility] [place] [facility] 0 0 [facility] OUTPATIEN INC T EMERGENCY 89536 COURTNEY HERNANDEZAGE 0 0 [facility]ISIT MODERATE SEVERITY EMERGENCY 37090 COURTNEY HERNANDEZAGE 0 0 [facility] VISIT MODERATE SEVERITY EMERGENCY 02453 [facility] 0 0 [facility] DEPARTMEN INC T VISIT MODERATE SEVERITY [facility] [facility] 0 0 [facility] OUTPATIEN INC T EMERGENCY 66833 COURTNEY PACHECO, 0 0 EMERGENCY ZAC S DEPARTMEN SERVICES T VISIT HIGH/URGE ASSOCIATE NT S SEVERITY [facility]OSPITAL [facility] - 0 0 N [facility] EMERGENCY 60662 COURTNEY HERNANDEZ DEPT 9 9 EMERGENCY , KAYLYNN VISIT SERVICES HIGH SEVERITY& ASSOCIATE THREAT S [facility] EMERGENCY 71327 COURTNEY FOY, 9 9 EMERGENCY MIKY DEPARTMEN SERVICES T VISIT MODERATE ASSOCIATE SEVERITY S EMERGENCY 18722 COURTNEY ZHENGAROSI 9 9 EMERGENCY - YORBA, DEPARTMEN SERVICES BRI T VISIT M MODERATE ASSOCIATE SEVERITY S EMERGENCY 56482 COURTNEY MCCORD 9 9 EMERGENCY - YORBA, DEPARTMEN SERVICES BRI T VISIT M MODERATE ASSOCIATE SEVERITY S [facility] 11868 [facility] 9 9 N [facility] T VISIT HOSPITAL MODERATE SEVERITY EMERGENCY 59501 COURTNEY LAZARO, 9 9 EMERGENCY ALVERTO L DEPARTMEN SERVICES T VISIT HIGH/URGE ASSOCIATE NT S SEVERITY OFFICE 69092 [facility] 9 9 [facility] SELENE W T VISIT E CENTER 15 MINUTES EMERGENCY 12799 [facility] 9 9 N [facility] T VISIT HOSPITAL LOW/MODER SEVERITY [facility]PITAL [facility] - 9 9 N OUTPATIEN [facility] T HOSPITAL [facility] 97928 [facility] 9 9 N [facility] T VISIT HOSPITAL LOW/MODER SEVERITY EMERGENCY 72245 MICHELLE YOUNG, 9 9 KEVIN ANITA Ruth DEPARTMEN EMERGENCY T VISIT PHYS INC MODERATE SEVERITY EMERGENCY 35340 [facility] 9 9 KEVIN - YORBA, DEPARTMEN EMERGENCY BRI T VISIT PHYS INC M MODERATE SEVERITY HOSPITAL [facility] - 9 9 N OUTPATIEN COMMUNITY T HOSPITAL EMERGENCY 04977 [facility] 9 9 N DEPARTMEN COMMUNITY T VISIT HOSPITAL LOW/MODER SEVERITY EMERGENCY 31663 [facility] YOUNG, 9 9 KEVIN ANITA L DEPARTMEN EMERGENCY T VISIT PHYS INC MODERATE SEVERITY EMERGENCY 00912 [facility] SADEK, 9 9 KEVIN SALLY H DEPARTMEN EMERGENCY T VISIT PHYS INC MODERATE SEVERITY EMERGENCY 10338 [facility] AHMED, 9 9 KEVIN FIGUEROA DEPARTMEN EMERGENCY A T VISIT PHYS INC MODERATE SEVERITY OFFICE 05679 [facility] GRAVES, OUTPATIEN 9 9 [facility] W T VISIT E CENTER 15 MINUTES EMERGENCY 60065 [facility] 9 9 KEVIN - YORBA, DEPARTMEN EMERGENCY BRI T VISIT PHYS INC M MODERATE SEVERITY OFFICE 69393 [facility]RA[facility], OUTPATIEN 9 9 [facility] W T VISIT E CENTER 15 MINUTES OFFICE 85511 [facility] OUT[facility] 9 9 LTH JR, T VISIT UROLOGY MAR K 15 PSC MINUTES EMERGENCY 33490 [facility] 9 9 KEVIN - YORBA, DEPARTMEN EMERGENCY BRI T VISIT PHYS INC M HIGH/URGE NT SEVERITY OFFICE 50929 HORIZON GRAVES, OUTPATIEN 9 9 [facility] S[facility]ENE W T VISIT E CENTER 15 MINUTES OFFICE 71310 [facility] OUTPATIEN 9 9 LTH JR, T VISIT UROLOGY MAR K 10 PSC MINUTES OFFICE 26677 [facility] OUTPATIEN 9 9 LTH JR, T VISIT UROLOGY MAR K 10 PSC MINUTES OFFICE 41350 [facility]OR[facility] OUTPATIEN 9 9 [facility] SELENE W T VISIT E CENTER 15 MINUTES HOSPITAL [facility] - 8 8 HOSPITAL INPATIENT EMERGENCY 07118 [facility] DEPT 8 8 KEVIN - YORBA, VISIT EMERGENCY BRI HIGH PHYS INC M SEVERITY& THREAT FUNCJ EMERGENCY 46726 [facility] CELL[facility] 8 8 KEVIN - YORBA, DEPARTMEN EMERGENCY BRI T VISIT PHYS INC M HIGH/URGE NT SEVERITY OFFICE 06584 [facility] OUTPATIEN 8 8 [facility] W T VISIT E CENTER 15 MINUTES [facility] [place] [address] 8 N [facility] OFFICE 13033 [facility] OUTPATIEN 8 8 [facility] W T VISIT E CENTER 15 MINUTES EMERGENCY 68420 [facility], 8 8 KEVIN ANITA Ruth DEPARTMEN EMERGENCY T VISIT PHYS INC HIGH/URGE NT SEVERITY OFFICE 20865 [facility] OUTPATIEN 8 8 [facility] JONATHAN T NEW 45 E CENTER MINUTES EMERGENCY 11660 [facility] 8 8 KEVIN - YORBA, DEPARTMEN EMERGENCY BRI T VISIT PHYS INC M MODERATE SEVERITY OFFICE 59681 MIKKI KAYE OUTPATIEN 8 8 DON R DON R T VISIT 15 MINUTES EMERGENCY 01122 [facility] 8 8 [facility] DEPARTMEN INC T VISIT MODERATE SEVERITY [facility] 8 8 [facility] OUTPATIEN INC T EMERGENCY 37789 [facility] 8 8 [facility] DEPARTMEN INC T VISIT MODERATE SEVERITY [facility] 8 8 [facility] INC T [facility] [place] [facility] 8 8 [facility] T [facility] [place] [facility] 8 8 [facility]EN INC T OFFICE 91552 MIKKI KAYE OUTPATIEN 8 8 DON R AILYN Floyd T VISIT 15 MINUTES EMERGENCY 54506 [facility] 8 8 [facility] T VISIT LOW/MODER SEVERITY [facility] [place] - 8 8 [facility]EN [facility] T EMERGENCY 79911 [place]OWN, [address] [facility] T VISIT PROF SERV MODERATE SEVERITY
--- OUTSIDE RECORDS SUMMARY | 2016-11-02 20:05 | External Medical Summary Rpt ---
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 DIFRNTL WBC CREATINE 69263 B[facility] GARCIAON KINASE 6 [facility] TOTAL INC INC RADEX 01715 [facility] BEINEKE ELBOW 6 MEDICAL AMELIE COMPLETE IMAGING MINIMUM 3 ASS VIEWS PHYSICAL 06235 B[facility] THERAPY 6 [facility] EVALUATIO INC INC N INJ J0702 CHANCE TRA CHANCE TRA BETAMETHA 6 SONE ACETATE & PHOSPHATE 3 MG RADEX HIP 51219 CHANCE TRA CHANCE TRA 6 UNILATERA L WITH PELVIS 2-3 VIEWS ARTHROCEN 20302 CHANCE TRA CHANCE TRA TESIS 6 ASPIR&/IN J MAJOR JT/BURSA W/O US INJECTION S0020 CHANCE TRA CHANCE TRA 6 BUPIVICAI NE HYDROCHLO RIDE 30 ML SERVICE G0151 [facility] PHYS 6 HOME HOME THERAP HEALTH HEALTH HOME AGENCY AGENCY HLTH/HOSP ICE EA 15 [place] [address] [facility] LIPASE 6 [place] [address] [facility] ABDOMEN & 6 [facility] PELVIS [place] [address] [facility] INFUSION 6 [facility] THERAPY/P INC INC ROPHYLAXI S /DX 1ST TO 1 HR URNLS DIP 54812 [facility] VERMA 6 [facility] STICK/TAB INC INC LET REAGENT AUTO MICROSCOP Y BLOOD 55940 [facility] COUNT 6 [facility] COMPLETE INC INC AUTO&AUTO DIFRNTL WBC THERAPEUT 74573 [facility] IC 6 MEM HOSP MEM [...] HLTH/HOSP ICE EA 15 MIN URNLS DIP 93694 [facility] VERMA 5 [facility] STICK/TAB INC INC [place] [address] [facility] TROPONIN 5 [facility] QUANTITAT INC INC FAWAD NATRIURET 30825 [facility] IC 5 [facility] PEPTIDE INC INC GLUC BLD 98496 [facility] GLUC MNTR 5 [facility] DEV INC INC CLEARED FDA SPEC HOME USE CREATINE 64303 [facility] KINASE 5 [facility] TOTAL INC INC THER 91065 [facility] PROPH/DX 5 [facility] NJX IV INC INC PUSH SINGLE/1S T SBST/DRUG ECG 58031 [facility] ROUTINE 5 [facility] ECG INC INC W/LEAST 12 LDS TRCG ONLY W/O I&R COMPREHEN 08227 [facility] SIVE 5 [facility] METABOLIC INC INC PANEL CREATINE 19912 [facility] GARCIAON KINASE MB 5 [facility] FRACTION INC INC ONLY BLOOD 43428 [facility] COUNT 5 [facility] COMPLETE INC INC AUTO&AUTO DIFRNTL WBC RADIOLOGI 27754 [facility] C EXAM 5 [facility]OS[facility] [...] AGENCY HLTH/HOSP ICE EA 15 MIN COMPREHEN 38808 [facility] SIVE 5 DIAGNOSTI DIAGNOSTI METABOLIC CS CS PANEL HEMOGLOBI 05193 [facility] QUEST N 5 DIAGNOSTI DIAGNOSTI GLYCOSYLA CS CS MIKY A1C SERVICE G0151 [facility] PHYS 5 HOME HOME THERAP HEALTH HEALTH HOME AGENCY AGENCY HLTH/HOSP ICE EA 15 MIN INJ J0702 CHANCE TRA CHANCE TRA BETAMETHA 5 SONE ACETATE & PHOSPHATE 3 MG ARTHROCEN 25508 CHANCE TRA CHANCE TRA TESIS 5 ASPIR&/IN J MAJOR JT/BURSA W/O US INJECTION S0020 CHANCE TRA CHANCE TRA 5 BUPIVICAI NE HYDROCHLO RIDE 30 ML RADEX HIP 58703 CHANCE TRA CHANCE TRA 5 UNILATERA L COMPLETE MINIMUM 2 VIEWS RADEX HIP 62416 [facility] CHANCE TRA 5 [place] UNILATER[place] ORTHOPAED L [facility]CS PLC COMPLETE MINIMUM 2 VIEWS SBSQ 85788 [facility] 5 JUAN JUAN CARE/DAY 25 MINUTES SBSQ 47005 [facility] 5 JUAN JUAN CARE/DAY 25 MINUTES SBSQ 98089 [facility] 5 JUAN JUAN CARE/DAY 25 MINUTES WALKER E0143 [facility] FOLDING 5 WHEELED ADJUSTABL E/FIXED HEIGHT COMMODE E0163 [facility] CHAIR 5 MOBILE OR STATIONAR Y W/FIXED ARMS ARTHRP 45492 [facility] CHANCE TRA ACETBLR/P 5 [place] CANDACE FEM ORTHOPAED PROSTC ICS PLC AGRFT/ALG RFT ANESTHESI 75895 ANESTHESI TERRA HEA A OPEN 5 A TOTAL HIP ASSOCIATE S PSC ARTHROPLA STY LEVEL III 73217 [facility] SURG 5 [facility] PSC GROSS&AZAR ROSCOPIC EXAM DECALCIFI 77997 [facility] 5 [facility] PSC REPL LT [id number] [facility] HIP [address] CERAM POLY SYNTH UNCEMENTE D OPEN INITIAL 25469 [facility] 5 JUAN JUAN CARE/DAY 70 MINUTES RADIOLOGI 51009 [facility] EXAM 5 N N CHEST 2 COMMUNTIY COMMUNTIY VIEWS HOSPITA HOSPITA FRONTAL&L ATERAL LIPID [address] HEPATIC [address] PANEL HEMOGLOBI [address] GLYCOSYLA MIKY A1C BLOOD [address] COMPLETE AUTOMATED RADIOLOGI [address] CHEST 2 VIEWS FRONTAL&L ATERAL URNLS DIP [address] STICK/TAB LET RGNT AUTO W/O MICROSCOP Y BASIC [address] PANEL CALCIUM TOTAL THROMBOPL 74691 [facility] ASTIN [address] [place] [address] TIME PARTIAL PLASMA/WH OLE BLOOD PROTHROMB 62462 [facility] IN TIME [address] [place] [address] ECG 54893 [facility] ROUTINE [address] [place] [address] ECG W/LEAST 12 LDS TRCG ONLY W/O I&R RADIOLOGI 91044 [facility] ALL C EXAM 5 MEDICAL CHEST 2 IMAGING VIEWS ASS FRONTAL&L ATERAL TECHNETIU A9502 [facility] M TC-99M [address] [place] [address] TETROFOSM IN DX PER STUDY DOSE INJECTION J2785 [address] REG[place]ENOS ON 0.1 MG MYOCARDIA 51816 [facility] SPECT [address] [place] [address] MULTIPLE STUDIES RADEX 41321 [facility] CHANCE TRA SPINE 5 [place] LUMBOSACR ORTHOPAED AL 2/3 [facility]CS PLC VIEWS CANE INCL E0100 IDRIS IDRIS CANES 5 HOME HOME ALL MEDICAL MEDICAL MATERIAL EQUIPME EQUIPME ADJUSTBLE /FIX W/TIP APPL 43052 [facility] MODALITY 5 [facility] 1/> AREAS INC INC ELEC STIMJ UNATTENDE D APPLICATI 78524 [facility] ON 5 [facility] MODALITY INC INC 1/> AREAS HOT/COLD PACKS APPL 87278 [facility] MODALITY 5 [facility] 1/> AREAS INC INC ULTRASOUN D EA 15 MIN THERAPEUT 76837 [facility] IC PX 1/> 5 [facility] AREAS INC INC EACH 15 MIN EXERCISES THERAPEUT 00749 [facility] IC PX 1/> 5 [facility] AREAS INC INC EACH 15 MIN EXERCISES APPL 46667 [facility] MODALITY 5 [facility] 1/> AREAS INC INC ULTRASOUN D EA 15 MIN APPLICATI 91685 [facility] ON 5 [facility] MODALITY INC INC 1/> AREAS HOT/COLD PACKS APPL 76057 [facility] MODALITY 5 [facility] 1/> AREAS INC INC ELEC STIMJ UNATTENDE D APPL 01257 [facility] MODALITY 5 [facility] 1/> AREAS INC INC ELEC STIMJ UNATTENDE D APPL 20149 [facility] MODALITY 5 [facility] 1/> AREAS INC INC ULTRASOUN D EA 15 MIN APPLICATI 32100 [facility] ON 5 [facility] MODALITY INC INC 1/> AREAS HOT/COLD PACKS THERAPEUT 65387 [facility] VERMA IC PX 1/> 5 [facility] AREAS INC INC EACH 15 MIN EXERCISES THERAPEUT 09343 [facility] IC PX 1/> 5 [facility] AREAS INC INC EACH 15 MIN EXERCISES APPLICATI 14599 [facility] ON 5 [facility] MODALITY INC INC 1/> AREAS HOT/COLD PACKS MANUAL 57549 [facility] THERAPY 5 [facility] TQS 1/> INC INC REGIONS EACH 15 MINUTES APPL 71471 [facility] MODALITY 5 [facility] 1/> AREAS INC INC ELEC STIMJ UNATTENDE D PHYSICAL 60139 B[facility] VREMA THERAPY 5 [facility] EVALUATIO INC INC N RADIOLOGI 93620 [facility] [place] RABIA C EXAM 5 RADIOLOGY RHO CHEST 2 VIEWS FRONTAL&L ATERAL RADIOLOGI 50934 [facility]ANCE TRA C 5 [place] EXAMINATI ORTHOPAED ON PELVIS ICS PLC 1/2 VIEWS RADEX 42921 [facility] CHANCE TRA SPINE 5 [place] LUMBOSACR ORTHOPAED AL 2/[address] [place] [address] [place] ABDOMEN & 4 MEDICAL KARLY PELVIS IMAGING W/O ASS CONTRAST MATERIAL RADEX 01094 [facility] SHOULDER 4 N N COMPLETE COMMUNITY COMMUNITY MINIMUM 2 HOSPITA HOSPITA VIEWS RADEX 74765 [facility] SPINE 4 N N CERVICAL COMMUNITY COMMUNITY 2 OR 3 HOSPITA HOSPITA VIEWS RADEX 04862 [facility] LINUS FOREARM 2 4 MEDICAL KARLY VIEWS IMAGING ASS RADEX 16977 [facility] 4 MEDICAL KARLY MINIMUM 2 IMAGING VIEWS ASS RADIOLOGI 21623 [place] LIN[place] C EXAM 4 MEDICAL KARLY CHEST 2 IMAGING VIEWS ASS FRONTAL&L ATERAL ECG 09034 SHAZIA ANGELICA SHAZIA ANGELICA ROUTINE 4 ECG W/LEAST 12 LDS I&R ONLY LIPID 78894 [facility] PANEL 4 [facility] [facility] [facility] HEMOGLOBI 84107 [facility] LAB CHERYL N 4 [facility] [place] GLYCOSYLA [facility] MIKY A1C COMPREHEN 79934 [facility] LAB CHERYL SIVE 4 [place] METABOLIC [facility] HOLDINGS PANEL COMPREHEN 44060 LAB [facility] LAB CHERYL SIVE 3 [facility] METABOLIC HOLDINGS HOLDINGS PANEL ECG 96409 JOSE MARIA ROSS ROUTINE 3 MARCELINA ECG PEDIATRIC W/LEAST S & INTER 12 LDS W/I&R BLOOD 12121 LAB [facility] LAB CHERYL COUNT 3 [place] COMPLETE HOLDINGS HOLDINGS AUTO&AUTO DIFRNTL WBC ECG 93557 COURTNEY PACHECO ROUTINE 3 EMERGENCY AZAR ECG SERVICES W/LEAST 12 LDS I&R ONLY RADIOLOGI 36156 [place] LIN[place] C EXAM 3 MEDICAL KARLY CHEST 2 IMAGING VIEWS ASS FRONTAL&[place] [address] [place] HEAD/BRAI 3 MEDICAL KARLY N W/O IMAGING CONTRAST ASS MATERIAL RADEX HIP 16837 [facility] 3 N N [facility] L HOSPITA HOSPITA COMPLETE MINIMUM 2 VIEWS RADEX 05950 [facility]NEY BELLAMY BRA FOOT 3 EMERGENCY COMPLETE SERVICES MINIMUM 3 VIEWS BASIC 62809 LAB [facility] LAB CHERYL METABOLIC 3 [place] PANEL [facility] HOLDINGS CALCIUM TOTAL HEMOGLOBI 76058 LAB [facility] LAB CHERYL N 3 BONY BONY GLYCOSYLA HOLDINGS HOLDINGS MIKY A1C RADIOLOGI 32578 COURTNEY GARCIA C 3 EMERGENCY RYA EXAMINATI SERVICES ON KNEE 3 VIEWS CYTP C/V 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 THIN 3 Y CHERYL OF Y CHERYL OF LYR BONY BONY PREPJ SCR H H MNL RESCR PHYS IADNA 16418 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 PAPILLOMA 3 Y CHERYL OF Y CHERYL OF VIRUS BONY BONY HUMAN H H AMPLIFIED PROBE TQ LIPID 27226 LAB [facility] LAB CHERYL PANEL 3 [place] [facility] HEMOGLOBI 91019 LAB [facility] LAB CHERYL N 3 [facility] GLYCOSYLA [facility] HOLDINGS MIKY A1C COMPREHEN 79881 LAB CH[facility]L LAB CHERYL SIVE 3 [facility] METABOLIC [employer] HOLDINGS PANEL INCISION 65887 COURTNEY STEPHENS & 3 EMERGENCY III ADRIENNE DRAINAGE SERVICES ABSCESS SIMPLE/SI NGLE NONEMERG A0120 LKLP LKLP TRNSPRT: 2 COMMUNITY COMMUNITY MINI-BUS ACTION ACTION MTN AREA/[place] [address] CHRISTI BARRIGA HEAD/BRAI 2 MEDICAL KARLY N W/[place] [address] [facility] TROPONIN 2 [facility] QUANTITAT INC INC FAWAD BLOOD 45130 [facility] COUNT 2 [facility] COMPLETE INC INC AUTO&AUTO DIFRNTL WBC COMPREHEN 61745 [facility] SIVE 2 [facility] METABOLIC INC INC PANEL CREATINE 03908 [facility] KINASE MB 2 MEM [facility] FRACTION INC INC ONLY CREATINE 86623 [facility] KINASE 2 [facility] TOTAL INC INC 3D 43714 [facility] RENDERING 2 [facility] W/INTERP INC INC & POSTPROCE SS SUPERVISI ON ECG 92760 [facility] ROUTINE 2 [facility] ECG INC INC W/LEAST 12 LDS TRCG ONLY W/O I&R ECG 91978 COURTNEY STEPHENS ROUTINE 2 EMERGENCY III ADRIENNE ECG SERVICES W/LEAST 12 LDS I&R ONLY THERAPEUT 71790 [facility] IC 2 [facility] PROPHYLAC INC INC TIC/DX INJECTION SUBQ/[place] [address] [facility] ABDOMEN & 2 [facility] PELVIS INC INC W/O CONTRAST MATERIAL URNLS DIP 76478 [facility] VERMA 2 [facility] STICK/TAB INC INC LET REAGENT AUTO MICROSCOP Y BLOOD 67670 [facility] COUNT 2 [facility] COMPLETE INC INC AUTO&AUTO DIFRNTL WBC BASIC 86038 [facility] METABOLIC 2 [facility] PANEL INC INC CALCIUM TOTAL 3D 60270 [facility] RENDERING 2 [facility] INC INC W/INTERP& POSTPROC DIFF WORK STATION THERAPEUT 29742 [facility] IC 2 [facility] PROPHYLAC INC INC TIC/DX INJECTION SUBQ/IM NONEMERG A0120 LKLP LKLP TRNSPRT: 2 COMMUNITY COMMUNITY MINI-BUS ACTION ACTION MTN AREA/OTH SYS ECG 20812 [facility] ROUTINE 2 [facility] W/LEAST P P 12 LDS I&R ONLY RADIOLOGI 48811 [place] C 2 MEDICAL KARLY EXAMINATI IMAGING ON CHEST ASS SINGLE VIEW FRONTAL BASIC 64165 [facility] METABOLIC 2 [facility] PANEL INC INC CALCIUM TOTAL COMPREHEN 21671 [facility] SIVE 2 [facility] METABOLIC INC INC PANEL CREATINE 69548 [facility] KINASE MB 2 [facility] FRACTION INC INC ONLY CREATINE 11298 [facility] KINASE 2 [facility] TOTAL INC INC ECG 53580 [facility] ROUTINE 2 [facility] ECG INC INC W/LEAST 12 LDS TRCG ONLY W/O I&[place] [address] [facility] TROPONIN 2 [facility] QUANTITAT INC INC FAWAD BLOOD 92217 [facility] COUNT 2 [facility] COMPLETE INC INC AUTO&AUTO DIFRNTL WBC URNLS DIP 81982 [facility] 1 [facility] LET RGNT P P NON-AUTO W/O MICRSCP BASIC 63991 [facility] METABOLIC 1 [facility] PANEL INC INC CALCIUM TOTAL CULTURE 59082 [facility] BACTERIAL 1 [facility] INC INC QUANTTATI VE COLONY COUNT URINE BLOOD 07324 [facility] COUNT 1 [facility] COMPLETE INC INC AUTO&AUTO DIFRNTL WBC URNLS DIP 74104 [facility] 1 [facility]OSP STICK/TAB INC INC LET REAGENT AUTO MICROSCOP Y RADEX 01027 [facility] ABDOMEN 1 1 MEDICAL MEDICAL IMAGING IMAGING ANTEROPOS ASS ASS TERIOR VIEW FIBRIN 63377 [facility] DGRADJ 1 [facility] HOSP PRODUCTS INC INC D-DIMER QUAL/SEMI JUANIS DUP-SCAN 87549 [facility] XTR VEINS 1 [facility]OS[facility] COMPLETE INC INC BILATERAL STUDY CYSTO 20998 [facility] W/INSERT 1 [facility]ERT ROBERT URETERAL STENT CYSTO 20036 [facility] VALERO W/URETERO 1 ROBERT ROBERT SCOPY W/LITHOTR IPSY CALCULUS 01805 [employer] limited QUEST INFRARED 1 DIAGNOSTI DIAGNOSTI SPECTROSC CS CS OPY PROSTHETI L8699 [facility] IMPLANT 1 [facility] CLINIC OTHERWISE PSC PSC SPECIFIED INJECTION J2405 [facility] ONDANSETR CLINIC CLINIC ON HCL PSC PSC PER 1 MG URNLS DIP 37195 [facility] VALERO 1 [facility] STICK/[facility] LET RGNT P NON-AUTO W/O MICRSCP RAD 6045F [facility] EXPOS/ROBERT 1 MEDICAL MEDICAL E IN LAST IMAGING IMAGING RPRT ASS ASS FLUORO PRXD DOCD FLUOROSCO 57603 [facility] PY SPX UP 1 MEDICAL MEDICAL TO 1 IMAGING IMAGING HOUR ASS ASS PHYS/QHP TIME URNLS DIP 69058 [facility] B[facility]RON 1 [facility] LET RGNT P P NON-AUTO W/O MICRSCP ECG 78653 [facility] TEJADA JR ROUTINE 1 [facility] W/LEAST P 12 LDS I&R ONLY INTRO 05023 [facility] URETERAL 1 [facility] HOSP CATH/STEN [place] T PRQ RS&[place] [address] [facility] INFUSION 1 [facility] THERAPY/P INC INC ROPHYLAXI S /DX 1ST TO 1 HR CYSTO 21338 [facility] W/INSERT 1 [facility] URETERAL INC INC STENT THERAPEUT 34566 [facility] IC 1 [facility] INJECTION INC INC IV PUSH EACH NEW DRUG ECG 56013 [facility] ROUTINE 1 [facility] ECG INC INC W/LEAST 12 LDS TRCG ONLY W/O I&R GUIDE C1769 [facility] WIRE 1 [facility] INC INC STENT C2617 [facility] NON-COR 1 [facility] TEMPORARY INC INC WITHOUT DELIVERY SYSTEM CULTURE 99412 [facility] BACTERIAL 1 [facility] INC INC QUANTTATI VE COLONY COUNT URINE 3D 28200 [facility] LINUS RENDERING 1 MEDICAL KARLY IMAGING W/INTERP& ASS POSTPROC DIFF WORK STATION BLOOD 79036 [facility] COUNT 1 [facility] COMPLETE INC INC AUTO&AUTO DIFRNTL WBC URNLS DIP 20124 [facility] VERMA 1 [facility] STICK/TAB INC [place] [address] [facility] INFUSION 1 [facility] MEM HOS[facility] THERAPY/P INC INC ROPHYLAXI S /DX [address] [place] [address] [place] [address] CHRISTI BARRIGA ABDOMEN & 1 MEDICAL KARLY PELVIS IMAGING W/O ASS CONTRAST MATERIAL COMPREHEN 40009 [facility] SIVE 1 [facility] [place] [address] [facility] INFUSION 1 [facility] THER INC INC PROPH ADDL SEQUENTIA L TO 1 HR INJECTION J2405 [facility]MA 1 [facility] HOSP ONDANSETR INC INC ON HCL PER 1 MG SLINGS A4565 HE L.P. HE L.P. 1 CREATINE 60417 [facility] KINASE 1 N N TOTAL COMMUNITY COMMUNITY HOSPITA HOSPITA COMPREHEN 79721 [facility] SIVE 1 N N METABOLIC [facility] COMMUNITY PANEL HOSPITA HOSPITA COLLECTIO 29377 [facility] N VENOUS 1 N N BLOOD [facility] COMMUNITY VENIPUNCT HOSPITA HOSPITA URE HEMOGLOBI 91128 [facility] N 1 [place] [facility] GLYCOSYLA MIKY A1C MRI BRAIN 80075 [facility] BRAIN 1 N N STEM W/O COMMUNITY COMMUNITY W/CONTRAS HOSPITA HOSPITA T MATERIAL LIPOPROTE 69646 [facility] IN DIRECT 1 [facility] MEASUREME NT LDL CHOLESTER OL LIPID 95823 [facility] PANEL 1 [facility] COMPREHEN 44210 [facility] SIVE 1 [facility] METABOLIC PANEL COLLECTIO 91386 LEE PAD LEE PAD N VENOUS [place] [address] [facility] HEAD/BRAI 1 [facility] N W/O INC INC CONTRAST MATERIAL 3D 44624 [facility] RENDERING 1 [facility] W/INTERP INC INC & POSTPROCE SS SUPERVISI ON SEDIMENTA 98598 [facility] TION RATE 1 [facility] RBC INC INC NON-AUTOM ATED CYANOCOBA 04785 [facility] NKECHI 1 [facility] VITAMIN INC INC B-12 BLOOD 48156 [facility] COUNT 1 [facility] COMPLETE INC INC AUTO&AUTO DIFRNTL WBC COMPREHEN 03721 [facility] SIVE 1 [facility] METABOLIC INC INC PANEL RADIOLOGI 14633 [facility] C EXAM 0 [facility] CHEST 2 INC INC VIEWS FRONTAL&L ATERAL URNLS DIP 32982 [facility] 0 [facility] STICK/TAB INC INC LET REAGENT AUTO MICROSCOP Y RADEX 63949 [facility] RIBS UNI 0 [facility] W/POSTERO INC INC ANT CH MINIMUM 3 VIEWS CULTURE 72376 [facility] BACTERIAL 0 [facility] MEM [...] STRIPS HOME BLD GLU MON-50 SCREENING G0202 [facility] 0 N N MAMMOGRAP [facility] HOSPITA INCL CAD WHEN PERFORMD COMPUTER- 83198 [facility] AIDED 0 N N DETECTION [facility] HOSPITA HOSPITA SCREENING MAMMOGRAP HY CYTP C/V 89548 PATHOLOGY PATHOLOGY AUTO THIN 0 & & LYR CYTOLOGY CYTOLOGY PREPJ SCR LAB LAB MNL RESCR PHYS LIPOPROTE 19313 [facility] IN DIRECT 0 [facility] MEASUREME NT LDL CHOLESTER OL LIPID 55503 [facility] PANEL 0 [facility] HEMOGLOBI 05233 [facility] N 0 [facility] GLYCOSYLA MIKY A1C COMPREHEN 68120 [facility] SIVE 0 [facility] METABOLIC PANEL COLLECTIO 70829 LEE PAD LEE PAD N VENOUS 0 BLOOD VENIPUNCT URE COMPREHEN 37450 [facility] SIVE 0 [facility] METABOLIC [facility] INC PANEL RADIOLOGI 70084 [facility] C EXAM 0 [facility] CHEST 2 INC INC VIEWS FRONTAL&L ATERAL BLOOD 33214 [facility] COUNT 0 [facility] COMPLETE INC INC AUTO&AUTO DIFRNTL WBC URNLS DIP 72817 [facility] [...] 0 SUPPLIES SUPPLIES OF 100 URNLS DIP 71183 [facility] STICK/TAB INC INC LET REAGENT AUTO MICROSCOP Y RADIOLOGI 84442 [place] [facility] EXAM 0 [facility] CHEST 2 IMAGING VIEWS ASSOCIATE FRONTAL&L S ATERAL CULTURE 20785 [facility] BACTERIAL 0 [facility] INC INC QUANTTATI VE COLONY COUNT URINE URINE 98718 [facility] [...] HIGH CALIBRATO R SOLUTION/ CHIPS CT PELVIS 79683 [facility] W/O 0 [facility] CONTRAST INC INC MATERIAL 3D 59456 [facility] RENDERING 0 [facility] INC INC W/INTERP& POSTPROC DIFF WORK STATION URNLS DIP 14059 [facility] 0 [facility] STICK/TAB INC [place] [address] [facility] ABDOMEN 0 [facility] W/O INC INC CONTRAST MATERIAL BLD GLU A4253 M E D M E D TEST/REAG 0 SUPPLIES SUPPLIES T STRIPS HOME BLD GLU MON-50 LANCETS A4259 M E D M E D PER BOX 0 SUPPLIES SUPPLIES OF [address] [place] [address] [facility] STREPTOCO 0 [facility] MEM [...] [address] PELVIS [address] [facility] [place] [facility], W/O 9 [place] [address] [facility] [place] [facility], ABDOMEN 9 RADIOLOGY MARY [...] AYLIN BG MON OWN PT EA INCISION 32615 COURTNEY LAZARO, & 9 EMERGENCY ALVERTO L DRAINAGE SERVICES ABSCESS SIMPLE/SI ASSOCIATE NGLE S LANCETS A4259 M E D M E D PER BOX 9 SUPPLIES SUPPLIES OF 100 BLD GLU A4253 M E D M E D TEST/REAG 9 SUPPLIES SUPPLIES T STRIPS HOME BLD GLU MON-50 INCISION 18868 [facility] [place], & 9 KEVIN ANITA L DRAINAGE EMERGENCY ABSCESS PHYS INC COMPLICAT ED/MULTIP LE LANCETS A4259 M E D M E D PER BOX 9 SUPPLIES SUPPLIES OF 100 BLD GLU A4253 M E D M E D TEST/REAG 9 SUPPLIES SUPPLIES T STRIPS HOME BLD GLU MON-50 RADIOLOGI 71485 [facility] TIFFANY HE, C 9 RADIOLOGY J [...] T STRIPS HOME BLD GLU WED-50 COLLECTIO 06578 HORIZON COLIN, N VENOUS 9 [facility] BLOOD E CENTER VENIPUNCT URE COMPREHEN 07827 LAB CHERYL LAB CHERYL SIVE 9 [employer] MET[employer]OLIC [employer] PANEL LIPID 45003 LAB CHERYL LAB CHERYL PANEL 9 [employer] BLD GLU A4253 M E D M E D TEST/REAG 9 SUPPLIES SUPPLIES T STRIPS HOME BLD GLU WED-50 LANCETS A4259 M E D M E D PER BOX 9 SUPPLIES SUPPLIES OF 100 URNLS DIP 96683 [facility] SULEMA 9 LTH JR, STICK/TAB UROLOGY [...] [place] [address] [place] KOSTEL[place], ABDOMEN 9 RADIOLOGY MARY K W/O CONTRAST MATERIAL CT PELVIS 37270 [place] [place]OST[place], W/O 9 RADIOLOGY MARY K CONTRAST MATERIAL ANES 26179 ANESTHESI DUNFEE, TRANSURET 9 A REYNA Murphy HRAL ASSOCIATE W/URETHRO S, PSC CYSTOSCOP Y NOS CYSTO 54621 [facility] SULEMA W/URETERO 9 LTH JR, SCOPY UROLOGY MAR Osuna W/RMVL/MA PSC [place] STONES CYSTO 63669 COMMONMARYBETH LEONE W/INSERT 9 LT JR, URETERAL UROLOGY MAR Osuna STENT PSC URNLS DIP 98843 [facility] 9 LTH JR, STICK/TAB UROLOGY MAR Osuna LET RGNT PSC AUTO W/O MICROSCOP Y ANES 34551 ANESTHESI SMITH, TRANSURET 8 A VINCE Gonzalez HRAL ASSOCIATE W/URETHRO S, PSC CYSTOSCOP Y NOS CYSTO 95066 [facility] W/INSERT 8 LTH JR, URETERAL UROLOGY MAR Osuna STENT PSC URETERAL 598 [facility] 8 [facility] ZATION GROUND A0425 [facility] MILEAGE 8 CARTER MACHADO PER CO EMS CO EMS STATUTE MILE INITIAL [address] [facility] 8 LT JR, CARE/DAY UROLOGY MAR Osuna 70 PSC MINUTES ECG 38787 NEW SARTINI, ROUTINE 8 SWITCHBACK J C ECG CLINIC W/LEAST PSC 12 LDS I&[place] [address] [facility] [place] HE, ABDOMEN 8 RADIOLOGY J W/O CONTRAST MATERIAL AMB A0427 [facility] SERVICE 8 CARTER MACHADO ALS CO EMS CO EMS EMERGENCY TRANSPORT LEVEL [address] PELVIS [address] [place] NERI, W/O [address] [place] [address] [place] JUAN JOSE, ABDOMEN 8 RADIOLOGY MARY K W/O CONTRAST MATERIAL CT PELVIS 90760 [place]OST[place], W/O 8 RADIOLOGY MARY K CONTRAST MATERIAL HEMOGLOBI 48154 LAB CHERYL LAB CHERYL N 8 [employer] GLYCOSYLA HOLDING HOLDING MIKY A1C COLLECTIO 70128 [facility] [place], VENOUS 8 [facility] SARAH BLOOD E CENTER VENIPUNCT URE GLUCOSE 53169 LAB CHERYL LAB CHERYL QUANTITAT 8 AMERIC AMER[employer] FAWAD BLOOD HOLDING HOLDING XCPT REAGENT STRIP COLLECTIO 73749 [facility] [place] N VENOUS 8 [facility] AMANDA BLOOD E CENTER VENIPUNCT URE SCREENING G0202 [facility] 8 N N MAMMOGRAP [facility] INCL CAD WHEN PERFORMD LIPID 82870 LAB CHERYL LAB CHERYL PANEL 8 [employer] COMPUTER- 80615 [facility] AIDED 8 N N DETECTION [facility] SCREENING MAMMOGRAP HY GENERAL 97349 LAB CHERYL LAB CHERYL HEALTH 8 [employer] PANEL HOLDING HOLDING CYTP 98140 [facility] [place], CERV/VAG 8 [place] INC MICHAEL D AUTO THIN LAYER PREP MNL SCREEN IADNA 86635 [facility] [place], CHLAMYDIA 8 [place] INC MICHAEL D TRACHOMAT IS AMPLIFIED PROBE TQ IADNA 34814 [facility] [place], NEISSERIA 8 [place] INC MICHAEL D GONORRHOE AE AMPLIFIED PROBE TQ IADNA 76134 [facility] [place], GARDNEREL 8 [place] INC MICHAEL D LA VAGINALIS AMPLIFIED PROBE TQ IADNA 42020 [facility] [place], MELLO 8 [place] INC MICHAEL D SPECIES AMPLIFIED PROBE TQ IADNA 72884 [facility] TRICHOMON 8 [facility] INC INC VAGINALIS DIRECT PROBE TQ URNLS DIP 89657 [facility] JONATHAN STICK/TAB E CENTER LET RGNT AUTO W/O MICROSCOP Y CT PELVIS 01434 [facility] [place] MARCELINO, W/O 8 [place] [address] [facility], ABDOMEN 8 RADIOLOGY ONIEL P W/[place] [address] [place] [facility], ABDOMEN 8 MEDICAL MONIQUE W/O IMAGING CONTRAST ASSOCIATE MATERIAL S CT PELVIS 35360 [place] [facility], W/O 8 MEDICAL [place] CONTRAST IMAGING MATERIAL ASSOCIATE S 3D 74019 [place] [facility], RENDERING 8 MEDICAL [place] IMAGING W/INTERP& ASSOCIATE POSTPROC S DIFF WORK STATION URNLS DIP 29215 [facility] [facility] 8 [facility] STICK/TAB INC INC LET REAGENT AUTO MICROSCOP Y IAADI 90119 [facility] [facility] INFLUENZA 8 [facility] B VIRUS INC INC BASIC 83578 [facility] METABOLIC 8 [facility] [address] [place] [facility] THER 8 [facility] PROPH/DX INC INC 1ST >1 HR IAADI 61136 [place] [facility] INFFLUENZ 8 [facility] A A VIRUS INC INC BLOOD 22409 [facility] [facility] COUNT 8 [facility] COMPLETE INC INC AUTO&AUTO DIFRNTL WBC RADIOLOGI 03495 Carlos NUNEZ EXAM 8 MEDICAL JAMES P CHEST 2 IMAGING VIEWS ASSOCIATE FRONTAL&L S ATERAL APPL 20696 [facility] MODALITY 8 [facility] 1/> AREAS INC INC ELEC STIMJ UNATTENDE D THERAPEUT 60205 [facility] [facility] IC PX 1/> 8 [facility] AREAS INC INC EACH 15 MIN EXERCISES PHYSICAL 42292 [facility] [facility] THERAPY 8 [facility] EVALUATIO INC INC N CT LUMBAR 85236 CHRISTI WILSON SPINE 8 MEDICAL JAMES P W/O IMAGING CONTRAST ASSOCIATE MATERIAL S 3D 70695 [place] [facility] RENDERING 8 [facility] INC INC W/INTERP& POSTPROC DIFF WORK STATION RADEX 35009 [facility] SPINE 8 [facility] LUMBOSACR INC INC AL MINIMUM 4 VIEWS RADIOLOGI 55328 Carlos NUNEZ 8 RIKI Norris EXAMINATI IMAGING ON FEMUR ASSOCIATE 2 VIEWS S RADEX HIP 21619 [place] [facility]MA 8 [facility] UNILATERA INC INC L COMPLETE MINIMUM 2 VIEWS Encounters Encounter Start End Date Code Location Performer Type Date OFFICE 90858 [facility] NATHALIE OUTPATIEN 7 7 PHYSICIAN T VISIT S GROUP 25 MINUTES OFFICE 46539 [facility] NATHALIE OUTPATIEN 7 7 PHYSICIAN T VISIT S GROUP 40 MINUTES EMERGENCY 35738 TIFFANY BOWER 7 7 MEDICAL DEPARTMEN SERV T VISIT FOUNDATIO HIGH/URGE N NT SEVERITY [facility] - 7 7 [facility] OUTPATIEN E T HOSPITALS OFFICE 48972 DERICK BRUNSON OUTPATIEN 7 7 FOOT & T NEW 30 ANKLE CE MINUTES EMERGENCY 08420 [facility] 7 7 [facility] DEPARTMEN INC T VISIT LOW/MODER SEVERITY [facility]OS[facility] - 7 7 [facility] OUTPATIEN INC T EMERGENCY 33699 LEONEL LEE DEPT 7 7 PHYSICIAN VISIT S, [facility] HIGH SEVERITY& THREAT [facility] [place] - 7 7 [facility] OUTPATIEN INC T OFFICE 14085 [facility] 7 7 [facility] T VISIT 5 INC MINUTES [facility]OSP[facility] [place] - 7 7 [facility] OUTPATIEN INC T EMERGENCY 04875 [facility] 7 7 [facility] DEPARTMEN INC T VISIT LOW/MODER SEVERITY OFFICE 89914 JOSE MARIA ROSS OUTPATIEN 6 6 MARCELINA T VISIT PEDIATRIC 15 S & INTER MINUTES [facility]OSPITAL [facility] 6 6 N OUTPATIEN COMMUNTIY T HOSPITA OFFICE 85908 SCIFRES SCIFRES OUTPATIEN 6 6 ANG ANG T VISIT 15 MINUTES OFFICE 02913 SCIFRES SCIFRES OUTPATIEN 6 6 ANG ANG T VISIT 15 MINUTES OFFICE 53611 [facility] PETTEY OUTPATIEN 6 6 PHYSICIAN JAM T NEW 20 S GROUP MINUTES EMERGENCY 68558 LEONEL CROWDER DEPT 6 6 PHYSICIAN OLGA VISIT S, [facility] HIGH SEVERITY& THREAT [facility] [place] - 6 6 [facility] OUTPATIEN INC T EMERGENCY 84656 [facility] 6 6 [facility] DEPARTMEN INC T VISIT MODERATE SEVERITY OFFICE 87139 [facility] OUTPATIEN 6 6 PHYSCIAN LES T VISIT PRACTICE 15 LL MINUTES [facility] [place] - 6 6 [facility] OUTPATIEN INC T OFFICE 27548 CHANCE TRA CHANCE TRA OUTPATIEN 6 6 T VISIT 15 MINUTES OFFICE 45553 ANN KEARNS CONSULTAT 6 6 PHYSCIAN LES ION PRACTICE NEW/ESTAB LL PATIENT 40 MIN OFFICE 12339 JOSE MARIA ROSS OUTPATIEN 6 6 MARCELINA T VISIT PEDIATRIC 15 S & INTER MINUTES HOME [facility], 6 6 HOME INPATIENT HEALTH AGENCY EMERGENCY 10116 [facility] 6 6 [facility] T VISIT MODERATE SEVERITY EMERGENCY 33565 LEONEL US 6 6 PHYSICIAN U [facility] S, PLL[facility] T VISIT HIGH/URGE NT SEVERITY [facility] [place] [facility] [address] [facility] OUTPATIEN INC HOSPITAL [place] - [address] [facility] OUTPATIEN [facility] EMERGENCY 87531 [facility] 5 5 [facility] T VISIT HIGH/URGE NT SEVERITY EMERGENCY 28138 LEONEL PACHECO DEPT 5 5 PHYSICIAN AZAR VISIT S, PLLC HIGH SEVERITY& THREAT [facility] OFFICE 29322 JOSE MARIA ROSS OUTPATIEN 5 5 MARCELINA T VISIT PEDIATRIC 15 S & INTER MINUTES HOME [facility], 5 5 HOME INPATIENT HEALTH AGENCY [facility] [place] [address] HOSPITAL INPATIENT OFFICE 17764 JOSE MARIA ROSS OUTPATIEN 5 5 MARCELINA T VISIT PEDIATRIC 15 S & INTER MINUTES HOSPITAL [place] [address] 5 N OUTPATIEN COMMUNTIY T [facility] [address] OUTPATIEN T EMERGENCY 65484 LEONEL PACHECO DEPT 5 5 PHYSICIAN AZAR VISIT S, PLLC HIGH SEVERITY& THREAT [facility] [address] OUTPATIEN T OFFICE 58513 JOSE MARIA ROSS OUTPATIEN 5 5 MARCELINA T VISIT PEDIATRIC 15 S & INTER MINUTES OFFICE 48268 [facility] OUTPATIEN 5 5 [place] T VISIT ORTHOPAED 15 [facility] MINUTES EMERGENCY 44850 BARRY Ruth 5 5 DEPARTMEN T VISIT MODERATE SEVERITY OFFICE 69196 JOSE MARIA ROSS OUTPATIEN 5 5 MARCELINA T VISIT PEDIATRIC 15 S & INTER MINUTES EMERGENCY 08651 NALLELY PACHECO DEPT 5 5 AZAR AZAR VISIT HIGH SEVERITY& THREAT FUNCJ OFFICE 86112 [facility] OUTPATIEN 5 5 [place] T VISIT ORTHOPAED 15 [facility] MINUTES [facility] [place] - 5 5 [facility] OUTPATIEN INC T EMERGENCY 93960 CHRISTEL KEARNEY 5 5 DORI DORI DEPARTMEN T VISIT HIGH/URGE NT SEVERITY OFFICE 16583 [facility] TRA OUTPATIEN 5 5 [place] T NEW 45 ORTHOPAED MINUTES [facility] OFFICE 70683 LISAMONICA VANDANA OUTPATIEN 4 4 MARCELINA T VISIT PEDIATRIC 15 S & INTER MINUTES EMERGENCY 18566 NALLELY PACHECO 4 4 AZAR AZAR DEPARTMEN T VISIT MODERATE SEVERITY EMERGENCY 91049 NALLELY PACHECO DEPT 4 4 AZAR AZAR VISIT HIGH SEVERITY& THREAT [facility] - 4 4 N OUTPATIEN COMMUNITY T HOSPITA EMERGENCY 05667 LEATHA LEATHA 4 4 IMT IMT DEPARTMEN T VISIT MODERATE SEVERITY OFFICE 28379 LISAMONICA VANDANA OUTPATIEN 4 4 MARCELINA T VISIT PEDIATRIC 15 S & INTER MINUTES EMERGENCY 13900 ALFARIS ALFARIS 4 4 [facility] DEPARTMEN T VISIT HIGH/URGE NT SEVERITY EMERGENCY 03050 SHAZIA ANGELICA SHAZIA ANGELICA DEPT 4 4 VISIT HIGH SEVERITY& THREAT [facility] OFFICE 12084 JOSE MARIA ROSS OUTPATIEN 4 4 MARCELINA T VISIT PEDIATRIC 15 S & INTER MINUTES EMERGENCY 89978 ABIGAIL HAYES 4 4 BRO BRO DEPARTMEN T VISIT HIGH/URGE NT SEVERITY OFFICE 95636 JOSE MARIA ROSS OUTPATIEN 3 3 MARCELINA T VISIT PEDIATRIC 15 S & INTER MINUTES Emergency PAULINE [place] Pacheco MD (ER) 3 19:30 3 21:20 [facility] EMERGENCY 22509 COURTNEY PACHECO DEPT 3 3 EMERGENCY AZAR VISIT SERVICES HIGH SEVERITY& THREAT [facility] - 3 3 N OUTPATIEN COMMUNITY T HOSPITA OFFICE 56992 JOSE MARIA ROSS OUTPATIEN 3 3 MARCELINA T VISIT PEDIATRIC 15 S & INTER MINUTES OFFICE 83339 JOSE MARIA ROSS OUTPATIEN 3 3 MARCELINA T VISIT PEDIATRIC 10 S & INTER MINUTES EMERGENCY 01317 COURTNEY LEWIS 3 3 EMERGENCY DEPARTMEN SERVICES T VISIT MODERATE SEVERITY OFFICE 13531 JOSE MARIA ROSS OUTPATIEN 3 3 MARCELINA T VISIT PEDIATRIC 15 S & INTER MINUTES EMERGENCY 08155 COURTNEY GARCIA 3 3 EMERGENCY RYA DEPARTMEN SERVICES T VISIT HIGH/URGE NT SEVERITY PERIODIC 93626 JOSE MARIA ROSS PREVENTIV 3 3 MARCELINA E MED EST PEDIATRIC PATIENT S & INTER 40-64YRS OFFICE 22303 LUZ ESCOBAR OUTPATIEN 3 3 MARKO MARKO T VISIT 15 MINUTES OFFICE 18457 [facility] EDIL BAKER 3 3 PHYSICIAN CAM T NEW 45 S GROUP [facility] [place] - 3 3 [facility] OUTPATIEN INC T EMERGENCY 88390 [facility] 3 3 [facility] DEPARTMEN INC T VISIT LOW/MODER SEVERITY EMERGENCY 37573 COURTNEY STEPHENS 3 3 EMERGENCY III ADRIENNE DEPARTMEN SERVICES T VISIT HIGH/URGE NT SEVERITY OFFICE 61665 LUZ BAKER 2 2 MARKO MARKO T VISIT 15 MINUTES [facility]OSP[facility] [place] - 2 2 [facility] OUTPATIEN INC T EMERGENCY 84654 COURTNEY STEPHENS DEPT 2 2 EMERGENCY III ADRIENNE VISIT SERVICES HIGH SEVERITY& THREAT [facility]J EMERGENCY 45206 [facility] 2 2 [facility] DEPARTMEN INC T VISIT MODERATE SEVERITY [facility] [place] - 2 2 [facility] OUTPATIEN INC T EMERGENCY 13290 COURTNEY MCKENNA DEPT 2 2 EMERGENCY ADRIENNE VISIT SERVICES HIGH SEVERITY& THREAT [facility] EMERGENCY 87920 [facility] 2 2 [facility] DEPARTMEN INC T VISIT MODERATE SEVERITY OFFICE 66532 LUZ BAKER 2 2 MARKO MARKO T VISIT 15 MINUTES [facility]OSP[facility] [place] - 2 2 [facility] OUTPATIEN INC T EMERGENCY 32697 COURTNEY MCKENNA 2 2 EMERGENCY [facility] DEPARTMEN SERVICES T VISIT HIGH/URGE NT SEVERITY EMERGENCY 39308 [facility] 2 2 [facility] DEPARTMEN INC T VISIT MODERATE SEVERITY EMERGENCY 49353 COURTNEY PACHECO 2 2 EMERGENCY [facility] DEPARTMEN SERVICES T VISIT MODERATE SEVERITY OFFICE 76475 TIFFANY VILLAGOMEZ CONSULTAT 2 2 MEDICAL L ION SERV NEW/ESTAB FOUNDATIO PATIENT 80 MIN OFFICE 96581 LUZ BAKER 2 2 MARKO MARKO T VISIT 15 MINUTES EMERGENCY 60361 COURTNEY RIVAS DEPT 2 2 EMERGENCY VISIT SERVICES HIGH SEVERITY& THREAT [facility] [place] [facility] 2 [facility] OUTPATIEN INC T EMERGENCY 61587 [facility] 2 2 [facility] DEPARTMEN INC T VISIT MODERATE SEVERITY EMERGENCY 27062 [facility] 1 1 [facility] DEPARTMEN INC T VISIT MODERATE SEVERITY [facility] 1 [facility] OUTPATIEN INC T EMERGENCY 43042 COURTNEY VALDEZ 1 1 EMERGENCY EMERGENCY DEPARTMEN SERVICES SERVICES T VISIT HIGH/URGE NT SEVERITY OFFICE 92358 [facility] VALERO OUTPATIEN 1 1 [facility] T VISIT HOSPITAL 25 P MINUTES OFFICE 24231 [place] OUTPATIEN 1 1 [facility] VISIT [facility]OSP[facility] 25 P MINUTES [facility] [place] [facility] 1 1 [facility] OUTPATIEN INC T EMERGENCY 51099 COURTNEY FRANKS DEPT 1 1 EMERGENCY VISIT SERVICES HIGH SEVERITY& THREAT FUN EMERGENCY 44684 [place] 1 1 [facility] DEPARTMEN INC T VISIT HIGH/URGE NT SEVERITY [facility] - 1 1 [facility] OUTPATIEN INC T EMERGENCY 49118 [facility] 1 1 [facility] DEPARTMEN INC T VISIT LOW/MODER SEVERITY EMERGENCY 34566 COURTNEY FRANKS 1 1 EMERGENCY DEPARTMEN SERVICES T VISIT HIGH/URGE NT SEVERITY [facility] [place] - 1 1 [facility] OUTPATIEN INC T EMERGENCY 13658 COURTNEY FRANKS 1 1 EMERGENCY DEPARTMEN SERVICES T VISIT HIGH/URGE NT SEVERITY [facility] [place] - 1 1 [facility] OUTPATIEN INC T EMERGENCY 47246 [facility] 1 1 [facility] DEPARTMEN INC T VISIT LOW/MODER SEVERITY EMERGENCY 17859 [facility] 1 1 [facility] DEPARTMEN INC T VISIT LOW/MODER SEVERITY EMERGENCY 28748 COURTNEY FRANKS 1 1 EMERGENCY DEPARTMEN SERVICES T VISIT MODERATE SEVERITY [facility] [place] [facility] 1 1 [facility] OUTPATIEN INC T [facility] - 1 1 N OUTPATIEN COMMUNITY T HOSPITA OFFICE 82007 LEE PAD LEE PAD OUTPATIEN 1 1 T VISIT 15 MINUTES EMERGENCY 13305 [place] 1 1 [facility] DEPARTMEN INC T VISIT LOW/MODER SEVERITY [facility] [place] - 1 1 [facility] OUTPATIEN INC T EMERGENCY 27175 COURTNEY LEUNG 1 1 EMERGENCY DEPARTMEN SERVICES T VISIT MODERATE SEVERITY OFFICE 52714 LEE PAD LEE PAD OUTPATIEN 1 1 T VISIT 25 MINUTES HOSPITAL [facility] - 1 1 N OUTPATIEN [facility] T HOSPITA EMERGENCY 98564 COURTNEY RIVAS DEPT 1 1 EMERGENCY VISIT SERVICES HIGH SEVERITY& THREAT [facility] [place] - 1 1 [facility] OUTPATIEN INC T EMERGENCY 43059 [place] 1 1 [facility] DEPARTMEN INC T VISIT LOW/MODER SEVERITY [facility]OSP[facility] [place] - 1 1 [facility] OUTPATIEN [facility] T EMERGENCY 32218 [place] 1 1 [facility] DEPARTMEN INC T VISIT LOW/MODER SEVERITY EMERGENCY 99784 COURTNEY PACHECO 1 1 EMERGENCY [facility] DEPARTMEN SERVICES T VISIT HIGH/URGE NT SEVERITY EMERGENCY 51007 [place] 0 0 [facility] DEPARTMEN INC T VISIT LOW/MODER SEVERITY [facility] [place] - 0 0 [facility] OUTPATIEN INC T EMERGENCY 79768 COURTNEY ROSS 0 0 EMERGENCY [facility] DEPARTMEN SERVICES T VISIT MODERATE SEVERITY EMERGENCY 46908 [place] 0 0 [facility] DEPARTMEN INC T VISIT LOW/MODER SEVERITY [facility]OSPITAL [place] - 0 0 [facility] OUTPATIEN INC T EMERGENCY 77895 COURTNEY ROSS 0 0 EMERGENCY [facility] DEPARTMEN SERVICES T VISIT HIGH/URGE NT SEVERITY [facility] - 0 0 N OUTPATIEN COMMUNITY T HOSPITA OFFICE 15500 LEE PAD LEE PAD OUTPATIEN 0 0 T VISIT 15 MINUTES PERIODIC 22102 LEE PAD LEE PAD PREVENTIV 0 0 E MED EST PATIENT 40-64YRS EMERGENCY 90813 COURTNEY DEGROOT AND 0 0 EMERGENCY DEPARTMEN SERVICES T VISIT HIGH/URGE NT SEVERITY [facility] - 0 0 [facility] OUTPATIEN INC T EMERGENCY 58412 [facility] 0 0 [facility] DEPARTMEN INC T VISIT MODERATE SEVERITY OFFICE 43470 LEE PAD LEE PAD OUTPATIEN 0 0 T NEW 30 MINUTES EMERGENCY 57824 COURTNEY KEARNEY, 0 0 [facility] T VISIT MODERATE ASSOCIATE SEVERITY S EMERGENCY 73524 COURTNEY STOVALL, 0 0 EMERGENCY [place] DEPARTMEN SERVICES O T VISIT HIGH/URGE ASSOCIATE NT S SEVERITY EMERGENCY 82710 [facility] 0 0 [facility] DEPARTMEN INC T VISIT LOW/MODER SEVERITY [facility] [facility] 0 0 [facility] OUTPATIEN INC T EMERGENCY 40188 [facility] 0 0 [facility] DEPARTMEN INC T VISIT LOW/MODER SEVERITY EMERGENCY 30339 COURTNEY NELSON, DEPT 0 0 EMERGENCY [place] VISIT SERVICES M HIGH SEVERITY& ASSOCIATE THREAT S [facility] [place] - 0 0 [facility] OUTPATIEN INC T EMERGENCY 84662 COURTNEY HERNANDEZAGE 0 0 [facility] T VISIT MODERATE SEVERITY EMERGENCY 55393 COURTNEY HERNANDEZAGE 0 0 [facility] T [facility]ISIT MODERATE SEVERITY EMERGENCY 76018 [facility] 0 0 [facility] DEPARTMEN INC T VISIT MODERATE SEVERITY [facility] [place] [facility] 0 0 [facility] OUTPATIEN INC T EMERGENCY 26842 COURTNEY PACHECO, 0 0 EMERGENCY ZAC S DEPARTMEN SERVICES T VISIT HIGH/URGE ASSOCIATE NT S SEVERITY [facility] 77891 COURTNEY HERNANDEZ DEPT 9 9 EMERGENCY , KAYLYNN VISIT SERVICES HIGH SEVERITY& ASSOCIATE THREAT S [facility] EMERGENCY 51272 COURTNEY FOY, 9 9 EMERGENCY MIKY DEPARTMEN SERVICES T VISIT MODERATE ASSOCIATE SEVERITY S EMERGENCY 40245 COURTNEY ZHENGAROSI 9 9 EMERGENCY - YORBA, DEPARTMEN SERVICES BRI T VISIT M MODERATE ASSOCIATE SEVERITY S EMERGENCY 70943 COURTNEY MCCORD 9 9 EMERGENCY - YORBA, DEPARTMEN SERVICES BRI T VISIT M MODERATE ASSOCIATE SEVERITY S [facility]OS[facility] 07028 [facility] 9 9 N [facility] COMMUNITY T VISIT HOSPITAL MODERATE SEVERITY EMERGENCY 60574 COURTNEY LAZARO, 9 9 EMERGENCY ALVERTO L DEPARTMEN SERVICES T VISIT HIGH/URGE ASSOCIATE NT S SEVERITY OFFICE 98881 [facility] [place], [facility] 9 9 [facility] T VISIT E CENTER 15 MINUTES EMERGENCY 50795 [facility] 9 9 N [facility] COMMUNITY T VISIT HOSPITAL LOW/MODER SEVERITY [facility] - 9 9 N OUTPATIEN [facility] T HOSPITAL [facility] 54224 [facility] 9 9 N [facility] COMMUNITY T VISIT HOSPITAL LOW/MODER SEVERITY EMERGENCY 70722 MICHELLE YOUNG, 9 9 KEVIN ANITA Ruth DEPARTMEN EMERGENCY T VISIT PHYS INC MODERATE SEVERITY EMERGENCY 96853 [facility] CELLAROSI 9 9 KEVIN - YORBA, DEPARTMEN EMERGENCY BRI T VISIT PHYS INC M MODERATE SEVERITY [facility]OSPITAL [facility] - 9 9 N OUTPATIEN COMMUNITY T HOSPITAL EMERGENCY 11766 [facility] 9 9 N DEPARTMEN COMMUNITY T VISIT HOSPITAL LOW/MODER SEVERITY EMERGENCY 31336 [facility] YOUNG, 9 9 KEVIN ANITA L DEPARTMEN EMERGENCY T VISIT PHYS INC MODERATE SEVERITY EMERGENCY 57259 [facility] SADEK, 9 9 KEVIN SALLY H DEPARTMEN EMERGENCY T VISIT PHYS INC MODERATE SEVERITY EMERGENCY 08199 [facility] AHMED, 9 9 KEVIN FIGUEROA DEPARTMEN EMERGENCY A T VISIT PHYS INC MODERATE SEVERITY OFFICE 89938 [facility], [facility]IEN 9 9 [facility] E CENTER 15 MINUTES EMERGENCY 85163 [facility] CELLAROSI 9 9 KEVIN - YORBA, DEPARTMEN EMERGENCY BRI T VISIT PHYS INC M MODERATE SEVERITY OFFICE 91042 [facility], OUTPATIEN 9 9 [facility] T V[facility] E CENTER 15 MINUTES OFFICE 57735 [facility] OUT[facility] 9 9 LTH JR, T VISIT UROLOGY MAR K 15 PSC MINUTES EMERGENCY 11980 [facility] CE[facility] 9 9 KEVIN - YORBA, DEPARTMEN EMERGENCY BRI T VISIT PHYS INC M HIGH/URGE NT SEVERITY OFFICE 44336 [facility], OUTPATIEN 9 9 [facility] T VIS[facility] E CENTER 15 MINUTES OFFICE 08703 [facility] OUT[facility] 9 9 LTH JR, T VISIT UROLOGY MAR K 10 PSC MINUTES OFFICE 80515 [facility] OUT[facility] 9 9 LTH JR, T VISIT UROLOGY MAR K 10 PSC MINUTES OFFICE 36094 [facility] OUT[facility]IEN 9 9 [facility] W T VISIT E CENTER 15 MINUTES [facility] - 8 8 HOSPITAL INPATIENT EMERGENCY 32982 [facility] CE[facility] DEPT 8 8 KEVIN - YORBA, VISIT EMERGENCY BRI HIGH PHYS INC M SEVERITY& THREAT FUNCJ EMERGENCY 57813 [facility] CELLARO 8 8 KEVIN - YORBA, DEPARTMEN EMERGENCY BRI T VISIT PHYS INC M HIGH/URGE NT SEVERITY OFFICE 85351 [facility] OUTPATIEN 8 8 [facility] T VISIT E CENTER 15 MINUTES [facility] [place] [address] 8 N [facility] OFFICE 76310 [facility] OUTPATI[facility] 8 8 [facility] W T VISIT E CENTER 15 MINUTES EMERGENCY 20659 [facility], 8 8 KEVIN ANITA Ruth DEPARTMEN EMERGENCY T VISIT PHYS INC HIGH/URGE NT SEVERITY OFFICE 06774 [facility] [place] OUTPATIEN 8 8 [facility]ATHAN T [facility] MINUTES EMERGENCY 83014 [facility] 8 8 KEVIN - YORBA, DEPARTMEN EMERGENCY BRI T VISIT PHYS INC M MODERATE SEVERITY OFFICE 10144 [facility] OUTPATIEN 8 8 DON R DON R T VISIT 15 MINUTES EMERGENCY 24939 [facility] 8 8 [facility] DE[facility] INC T VISIT MODERATE SEVERITY [facility] 8 8 [facility] OUT[facility] INC T EMERGENCY 30714 [facility] 8 8 [facility] DE[facility] INC T VISIT MODERATE SEVERITY [facility] 8 [facility] 8 [facility] 8 [facility] INC T OFFICE 00259 [facility] OUTPATIEN 8 8 DON R AILYN Floyd T VISIT 15 MINUTES EMERGENCY 91346 [place] 8 8 [facility] T VISIT LOW/MODER SEVERITY [facility] [place] - 8 8 [facility] OUTPATIEN [facility] T EMERGENCY 94904 [facility] [place], 8 8 [facility] T VISIT PROF SERV MODERATE SEVERITY
[2016-11-02] MEDS ORDERED: KEFLEX 500MG.500 MG PO (20:16)
[2016-11-02] MEDS ORDERED: BACTROBAN2% TP (20:16)
--- OUTSIDE RECORDS SUMMARY | 2016-11-02 20:16 | External Medical Summary Rpt ---
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 HEAD/BRAI 7 MEDICAL N W/O IMAGING CONTRAST ASS MATERIAL COMPREHEN 57181 [facility] SIVE 7 [facility] METABOLIC INC INC PANEL CREATINE 22521 [facility] KINASE MB 7 [facility] FRACTION INC INC ONLY FINAL G9638 CHRISTI BARRIGA REPORTS 7 MEDICAL W/O DOC IMAGING 1/MORE ASS DOSE REDUCTION TECH DIAB ONLY A5500 [facility] FIT CSTM 7 MEDICAL MEDICAL PREP&SPL SUPPLY [employer]PPLY [employer] DNSITY INSRT FOR DIAB A5512 ELITE ELITE ONLY MX 7 MEDICAL MEDICAL DNSITY SUPPLY SUPPLY INSRT [employer] FORMD PRFAB EA HEMOGLOBI 85533 [facility] N 7 S[place], [place], GLYCOSYLA INC. INC. MIKY A1C LIPID 69749 [facility] PANEL 7 [place], [place], INC. INC. BLOOD 67895 [facility] COUNT 7 [facility], [place], COMPLETE INC. INC. AUTO&AUTO DIFRNTL WBC CYTP C/V 16261 [facility] AUTO THIN 7 [facility], [place], LYR INC. INC. PREPJ SCR MNL RESCR PHYS COMPREHEN 79440 [facility] SIVE 7 [facility], [place], METABOLIC INC. INC. PANEL COMPUTER- 94793 [facility] [place] RADMANESH AIDED 6 RADIOLOGY SHA DETECTION SCREENING MAMMOGRAP HY SCREENING G0202 [facility] [place] RADMANESH 6 RADIOLOGY SHA MAMMOGRAP HY TERESA INCL CAD WHEN PERFORMD VISUAL 68260 SCIFRES SCIFRES FIELD XM 6 ANG ANG UNI/BI W/INTERP EXTENDED EXAM OPHTH 53207 SCIFRES SCIFRES MEDICAL 6 ANG ANG XM&EVAL COMPRE NEW PT 1/> VST ARTHROCEN 74737 [facility] TESIS 6 PHYSICIAN JAY ASPIR&/IN S GROUP J MAJOR JT/BURSA W/O US INJ J0702 [facility] BETAMETHA 6 PHYSICIAN JAY SONE S GROUP ACETATE & PHOSPHATE 3 MG COMPREHEN 86095 [facility] SIVE 6 [facility] METABOLIC INC INC PANEL CREATINE 75408 B[facility] KINASE MB 6 [facility] FRACTION INC INC ONLY RADEX 71429 [place] [facility] EL[place]OW 6 MEDICAL AMELIE COMPLETE IMAGING MINIMUM 3 ASS VIEWS ECG 10052 [facility] ROUTINE 6 [facility] ECG INC INC W/LEAST 12 LDS TRCG ONLY W/O I&R CREATINE 99875 [facility] VER[facility] KINASE 6 [facility] [place] [address] [facility] TROPONIN 6 [facility] QUANTITAT INC INC FAWAD BLOOD 07474 [facility] COUNT 6 [facility] COMPLETE INC INC AUTO&AUTO DIFRNTL WBC ECG 94844 LULY BESSON ROUTINE 6 ANGELICA ANGELICA ECG W/LEAST 12 LDS I&R ONLY RADEX 96083 CHRISTI UNGERINEKE SHOULDER 6 MEDICAL AMELIE COMPLETE IMAGING MINIMUM 2 ASS VIEWS PHYSICAL 03925 [facility] THERAPY 6 [facility] EVALUATIO INC INC N RADEX HIP 45135 CHANCE TRA CHANCE TRA 6 UNILATERA L WITH PELVIS 2-3 VIEWS INJ J0702 HCANCE TRA CHANCE TRA BETAMETHA 6 SONE ACETATE & PHOSPHATE 3 MG ARTHROCEN 15279 CHANCE TRA CHANCE TRA TESIS 6 ASPIR&/IN J MAJOR JT/BURSA W/O US INJECTION S0020 CHANCE TRA CHANCE TRA 6 BUPIVICAI NE HYDROCHLO RIDE 30 ML SERVICE G0151 [facility] 6 HOME HOME THERAP HEALTH HEALTH HOME AGENCY AGENCY HLTH/HOSP ICE EA 15 MIN INJECTION J2405 [facility] 6 [facility] ONDANSETR INC INC ON HCL PER 1 [place] [address] [facility] INFUSION 6 [facility] THERAPY/P INC INC ROPHYLAXI S /DX 1ST TO 1 HR URNLS DIP 91754 [facility] 6 [facility] STICK/TAB INC INC LET REAGENT AUTO MICROSCOP Y BLOOD 83419 [facility] COUNT 6 [facility] COMPLETE INC INC AUTO&AUTO DIFRNTL WBC THERAPEUT 66405 [facility] IC 6 [facility] INJECTION INC [place] [address] [facility] LIPASE 6 [place] [address] [facility] ABDOMEN & 6 [facility] PELVIS INC INC W/O CONTRAST MATERIAL SERVICE G0151 [facility] PH[facility] 5 HOME HOME THERAP HEALTH HEALTH HOME AGENCY AGENCY HLTH/HOSP ICE EA 15 MIN SERVICE G0151 [facility] PHYS 5 HOME HOME THERAP HEALTH HEALTH HOME AGENCY AGENCY HLTH/HOSP ICE EA 15 MIN COMPREHEN 29654 [facility] SIVE 5 [facility] METABOLIC INC INC PANEL CREATINE 69529 [facility] KINASE MB 5 [facility] FRACTION INC INC ONLY CREATINE 72874 [facility] KINASE 5 [facility] TOTAL INC INC THER 28748 [facility] PROPH/DX 5 [facility] NJX IV INC INC PUSH SINGLE/1S T SBST/DRUG ECG 13042 [facility] ROUTINE 5 [facility] ECG INC INC W/LEAST 12 LDS TRCG ONLY W/O I&R URNLS DIP 23988 [facility] 5 [facility] STICK/TAB INC INC [place] [address] [facility] TROPONIN 5 [facility] QUANTITAT INC INC FAWAD NATRIURET 72357 [facility] IC 5 [facility] PEPTIDE INC INC GLUC BLD 69368 [facility] GLUC MNTR 5 [facility] DEV INC INC CLEARED FDA SPEC HOME USE BLOOD 64260 [facility] COUNT 5 [facility] COMPLETE INC INC AUTO&AUTO DIFRNTL WBC RADIOLOGI 16519 [facility] C EXAM 5 [facility] [...] AGENCY HLTH/HOSP ICE EA 15 MIN HEMOGLOBI 97757 [facility]ST N 5 DIAGNOSTI DIAGNOSTI GLYCOSYLA CS CS MIKY A1C COMPREHEN 96527 [facility] QUEST SIVE 5 DIAGNOSTI DIAGNOSTI METABOLIC CS CS PANEL SERVICE G0151 [facility] PHYS 5 HOME HOME THERAP HEALTH HEALTH HOME AGENCY AGENCY HLTH/HOSP ICE EA 15 MIN RADEX HIP 09900 CHANCE TRA CHANCE TRA 5 UNILATERA L COMPLETE MINIMUM 2 VIEWS ARTHROCEN 75782 CHANCE TRA CHANCE TRA TESIS 5 ASPIR&/IN J MAJOR JT/BURSA W/O US INJECTION S0020 CHANCE TRA CHANCE TRA 5 BUPIVICAI NE HYDROCHLO RIDE 30 ML INJ J0702 CHANCE TRA CHANCE TRA BETAMETHA 5 SONE ACETATE & PHOSPHATE 3 MG RADEX HIP 77446 [facility] CHANCE TRA 5 [place] UNILATERA ORTHOPAED L [facility] COMPLETE MINIMUM 2 VIEWS SBSQ 60632 [facility] 5 JUAN JUAN CARE/DAY 25 MINUTES SBSQ 40290 [facility] 5 JUAN JUAN CARE/DAY 25 MINUTES SBSQ 40003 [facility] 5 JUAN JUAN CARE/DAY 25 MINUTES WALKER E0143 [facility] FOLDING 5 WHEELED ADJUSTABL E/FIXED HEIGHT COMMODE E0163 [facility] CHAIR 5 MOBILE OR STATIONAR Y W/FIXED ARMS LEVEL III 16298 [place] SURG 5 [facility] PATHOLOGY [facility] GROSS&AZAR ROSCOPIC EXAM DECALCIFI 66197 [place] CATION 5 [facility] PROCEDURE CLINIC PSC REPL LT [id number] [facility] HIP JNT 5 [facility] CERAM POLY SYNTH UNCEMENTE D OPEN INITIAL 83863 [facility] 5 JUAN JUAN CARE/DAY 70 MINUTES ANESTHESI 00917 ANESTHESI TERRA HEA A OPEN 5 A TOTAL HIP ASSOCIATE S PSC ARTHROPLA STY ARTHRP 41495 CENTRAL CHANCE TRA ACETBLR/P 5 [place] CANDACE FEM ORTHOPAED PROSTC ICS PLC AGRFT/ALG RFT RADIOLOGI 14037 [facility] [place] RABIA C EXAM 5 RADIOLOGY RHO CHEST 2 VIEWS FRONTAL&L ATERAL LIPID 73286 [facility] PANEL [address] [place] [address] HOSPITAL HEPATIC 21297 [facility] FUNCTION [address] [place] [address] PANEL HEMOGLOBI 51323 [facility] N [address] [place] [address] GLYCOSYLA MIKY A1C BLOOD 57145 [facility] COUNT [address] [place] [address] COMPLETE AUTOMATED RADIOLOGI 33924 [facility] [place] WESTERFIE C EXAM 5 RADIOLOGY LD IV ALL CHEST 2 VIEWS FRONTAL&L ATERAL PROTHROMB 60434 [facility] IN TIME [address] [place] [address] ECG 75872 [facility] ROUTINE [address] [place] [address] ECG W/LEAST 12 LDS TRCG ONLY W/O I&R URNLS DIP [address] STICK/TAB LET RGNT AUTO W/O MICROSCOP Y BASIC [address] PANEL CALCIUM TOTAL THROMBOPL 82198 [facility] ASTIN [address] [place] [address] TIME PARTIAL PLASMA/WH OLE BLOOD RADIOLOGI 58003 CHRISTI BRASWELL ALL C EXAM 5 MEDICAL CHEST 2 IMAGING VIEWS ASS FRONTAL&L ATERAL INJECTION J2785 [address] REGADENOS ON 0.1 MG MYOCARDIA 03973 [facility] SPECT [address] [place] [address] MULTIPLE STUDIES TECHNETIU A9502 [facility] M TC-99M [address] [place] [address] TETROFOSM IN DX PER STUDY DOSE RADEX 02023 [facility] CHANCE TRA SPINE 5 [place] LUMBOSACR ORTHOPAED AL 2/3 [facility] VIEWS CANE INCL E0100 IDRIS MARCHRELL CANES 5 HOME HOME ALL MEDICAL MEDICAL MATERIAL EQUIPME EQUIPME ADJUSTBLE /FIX W/TIP APPL 06679 [facility] MODALITY 5 [facility] 1/> AREAS INC INC ELEC STIMJ UNATTENDE D APPLICATI 23160 [facility] ON 5 [facility] MODALITY INC INC 1/> AREAS HOT/COLD PACKS APPL 47730 [facility] MODALITY 5 [facility] 1/> AREAS INC INC ULTRASOUN D EA 15 MIN THERAPEUT 07715 [facility] IC PX 1/> 5 [facility] AREAS INC INC EACH 15 MIN EXERCISES THERAPEUT 52930 [facility] IC PX 1/> 5 [facility] AREAS INC INC EACH 15 MIN EXERCISES APPL 52687 [facility] MODALITY 5 [facility] 1/> AREAS INC INC ULTRASOUN D EA 15 MIN APPLICATI 56114 [facility] ON 5 [facility] MODALITY INC INC 1/> AREAS HOT/COLD PACKS APPL 20575 [facility] MODALITY 5 [facility] 1/> AREAS INC INC ELEC STIMJ UNATTENDE D APPL 46862 [facility] MODALITY 5 [facility] 1/> AREAS INC INC ELEC STIMJ UNATTENDE D APPLICATI 70889 [facility] ON 5 [facility] MODALITY INC INC 1/> AREAS HOT/COLD PACKS APPL 36879 [facility] MODALITY 5 [facility] 1/> AREAS INC INC ULTRASOUN D EA 15 MIN THERAPEUT 25807 [facility] IC PX 1/> 5 [facility] AREAS INC INC EACH 15 MIN EXERCISES THERAPEUT 41299 [facility] IC PX 1/> 5 [facility] AREAS INC INC EACH 15 MIN EXERCISES MANUAL 76476 [facility] THERAPY 5 [facility] TQS 1/> INC INC REGIONS EACH 15 MINUTES APPLICATI 99037 [facility] ON 5 [facility] MODALITY INC INC 1/> AREAS HOT/COLD PACKS APPL 26490 [facility] MODALITY 5 [facility] 1/> AREAS INC INC ELEC STIMJ UNATTENDE D PHYSICAL 43450 [facility] THERAPY 5 [facility] EVALUATIO INC INC N RADIOLOGI 54180 [facility] [place] RABIA C EXAM 5 RADIOLOGY RHO CHEST 2 VIEWS FRONTAL&L ATERAL RADIOLOGI 27369 CEN[facility]AL CHANCE TRA C 5 [place] EXAMINATI ORTHOPAED ON PELVIS ICS PLC 2 VIEWS RADEX 13826 CEN[facility]AL CHANCE TRA SPINE 5 [place] LUMBOSACR ORTHOPAED AL 2/[address] [place] [address] CHRISTI PERALTAUTCHER ABDOMEN & 4 MEDICAL KARLY PELVIS IMAGING W/O ASS CONTRAST MATERIAL RADEX 46580 [facility] [place] SCALF MARKO SHOULDER 4 RADIOLOGY COMPLETE MINIMUM 2 VIEWS RADEX 13094 [facility] [place] SCALF MARKO SPINE 4 RADIOLOGY CERVICAL 2 OR 3 VIEWS RADEX 70297 CHRISTI LINUS HUMERUS 4 MEDICAL KARLY MINIMUM 2 IMAGING VIEWS ASS RADEX 19545 [facility] LIN[facility] FOREARM 2 4 MEDICAL KARLY VIEWS IMAGING ASS RADIOLOGI 77867 [facility] [place]IG[facility] C EXAM 4 MEDICAL KARLY CHEST 2 IMAGING VIEWS ASS FRONTAL&L ATERAL ECG 53117 SHAZIA ANGELICA SHAZIA ANGELICA ROUTINE 4 ECG W/LEAST 12 LDS I&R ONLY LIPID 88105 [facility] PANEL 4 [facility] [employer] HEMOGLOBI 00572 [facility]ERY[facility] N 4 [facility]Y GLYCOSYLA [employer]INGS MIKY A1C COMPREHEN 55644 [facility] CH[facility] SIVE 4 [place]Y METABOLIC [employer] HOLDINGS PANEL COMPREHEN 10029 [facility] LAB CHERYL SIVE 3 [place] METABOLIC [employer] PANEL BLOOD 60171 [facility] COUNT 3 [place] COMPLETE HOLDINGS HOLDINGS AUTO&AUTO DIFRNTL WBC ECG 04158 JOSE MARIA ROSS ROUTINE 3 MARCELINA ECG PEDIATRIC W/LEAST S & INTER 12 LDS W/I&R ECG 33461 COURTNEY BROWNING ROUTINE 3 EMERGENCY AZAR ECG SERVICES W/LEAST 12 LDS I&R ONLY RADIOLOGI 30648 [facility] [place] C EXAM 3 MEDICAL KARLY CHEST 2 IMAGING VIEWS ASS FRONTAL&[place] [address] CHRISTI BARRIGA HEAD/BRAI 3 MEDICAL KARLY N W/O IMAGING CONTRAST ASS MATERIAL RADEX HIP 45816 [facility] 3 N N UNILATERA COMMUNITY COMMUNITY L HOSPITA HOSPITA COMPLETE MINIMUM 2 VIEWS RADEX 43041 COURTNEY BELLAMY BRA FOOT 3 EMERGENCY COMPLETE SERVICES MINIMUM 3 VIEWS HEMOGLOBI 48591 LAB [facility] LAB CHERYL N 3 [facility]Y GLYCOSYLA [employer] MIKY A1C BASIC 65102 LAB [facility] LAB CHERYL METABOLIC 3 BONY BONY PANEL HOLDINGS HOLDINGS CALCIUM TOTAL RADIOLOGI 23595 COURTNEY Gonzalez 3 EMERGENCY RYA EXAMINATI SERVICES ON KNEE 3 VIEWS CYTP C/V 60242 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 THIN 3 Y CHERYL OF Y CHERYL OF LYR BONY BONY PREPJ SCR H H MNL RESCR PHYS IADNA 12880 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 PAPILLOMA 3 Y CHERYL OF Y CHERYL OF VIRUS BONY BONY HUMAN H H AMPLIFIED PROBE TQ LIPID 40630 LAB [facility]L LAB CHERYL PANEL 3 [facility] HEMOGLOBI 32878 LAB CH[facility]L LAB CHERYL N 3 [facility] GLYCOSYLA HOLDINGS HOLDINGS MIKY A1C COMPREHEN 01542 LAB CHERYL LAB CHERYL SIVE 3 [facility] METABOLIC HOLDINGS HOLDINGS PANEL INCISION 09656 COURTNEY STEPHENS & 3 EMERGENCY III ADRIENNE DRAINAGE SERVICES ABSCESS SIMPLE/SI NGLE NONEMERG A0120 LKLP LKLP TRNSPRT: 2 COMMUNITY COMMUNITY MINI-BUS ACTION ACTION NEN AREA/OTH SYS ECG 59429 COURTNEY STEPHENS ROUTINE 2 EMERGENCY III ADRIENNE ECG SERVICES W/LEAST 12 LDS I&R ONLY COMPREHEN 47906 [facility] SIVE 2 [facility] METABOLIC INC INC PANEL CREATINE 18046 [facility] KINASE MB 2 [facility] FRACTION INC INC ONLY CREATINE 60540 [facility] KINASE 2 [facility] TOTAL INC INC 3D 35769 [facility] RENDERING 2 [facility] W/INTERP INC INC & POSTPROCE SS SUPERVISI ON ECG 97146 [facility] ROUTINE 2 [facility] ECG INC INC W/LEAST 12 LDS TRCG ONLY W/O I&[place] [address] [facility] TROPONIN 2 [facility] QUANTITAT INC INC FAWAD BLOOD 56052 [facility] COUNT 2 [facility] COMPLETE INC INC AUTO&[place] [address] CHRISTI BARRIGA HEAD/BRAI 2 MEDICAL KARLY N W/O IMAGING CONTRAST ASS MATERIAL THERAPEUT 00114 [facility] IC 2 [facility]OS[facility] PROPHYLAC INC INC TIC/DX INJECTION SUBQ/[place] [address] CHRISTI BARRIGA ABDOMEN & 2 MEDICAL KARLY PELVIS IMAGING W/O ASS CONTRAST MATERIAL BASIC 38630 [facility] METABOLIC 2 [facility] PANEL INC INC CALCIUM TOTAL 3D 13282 CHRISTI BARRIGA RENDERING 2 MEDICAL KARLY IMAGING W/INTERP& ASS POSTPROC DIFF WORK STATION URNLS DIP 40484 [facility] GARCIAON 2 [facility] STICK/TAB INC INC LET REAGENT AUTO MICROSCOP Y BLOOD 66633 [facility] COUNT 2 [facility] COMPLETE INC INC AUTO&AUTO DIFRNTL WBC THERAPEUT 23358 [facility] IC 2 [facility] PROPHYLAC INC INC TIC/DX INJECTION SUBQ/IM NONEMERG A0120 LKLP LKLP TRNSPRT: 2 COMMUNITY COMMUNITY MINI-BUS ACTION ACTION [facility] AREA/OT SYS BASIC 73669 [facility] METABOLIC 2 [facility] PANEL INC INC CALCIUM TOTAL RADIOLOGI 23035 [facility] C 2 [facility] EXAMINATI INC INC ON CHEST SINGLE VIEW FRONTAL CREATINE 43239 [facility] KINASE 2 [facility] TOTAL INC INC ECG 77283 [facility] ROUTINE 2 [facility] ECG INC INC W/LEAST 12 LDS TRCG ONLY W/O I&R COMPREHEN 69088 [facility] SIVE 2 [facility] METABOLIC INC INC PANEL CREATINE 19734 [facility] KINASE MB 2 [facility] [place] [address] [facility] TROPONIN 2 [facility] QUANTITAT INC INC FAWAD BLOOD 17535 [facility] COUNT 2 [facility] COMPLETE INC INC AUTO&AUTO DIFRNTL WBC ECG 98392 [facility] BAYRON ROUTINE 2 [facility] W/LEAST P P 12 LDS I&R ONLY URNLS DIP 47475 [facility] VERMA 1 [facility] LET RGNT P P NON-AUTO W/O MICRSCP BLOOD 17454 [facility] COUNT 1 [facility] COMPLETE INC INC AUTO&AUTO DIFRNTL WBC URNLS DIP 75694 [facility] 1 [facility] STICK/TAB INC INC LET REAGENT AUTO MICROSCOP Y RADEX 35724 [facility] ABDOMEN 1 1 MEDICAL MEDICAL IMAGING IMAGING ANTEROPOS ASS ASS TERIOR VIEW FIBRIN 31771 [facility] DGRADJ 1 [facility] MEM [facility]OS[facility] PRODUCTS INC INC D-DIMER QUAL/SEMI JUANIS BASIC 95558 [facility] METABOLIC 1 [facility]OS[facility] PANEL INC INC CALCIUM TOTAL CULTURE 08822 B[facility] BACTERIAL 1 [facility] INC INC QUANTTATI VE COLONY COUNT URINE DUP-SCAN 50274 [facility] XTR VEINS 1 [facility] COMPLETE INC INC BILATERAL STUDY CALCULUS 61429 [facility] INFRARED 1 DIAGNOSTI DIAGNOSTI SPECTROSC CS CS OPY CYSTO 67405 ANJUM VALERO W/URETERO 1 ROBERT ROBERT SCOPY W/LITHOTR IPSY CYSTO 57702 ANJUM VALERO W/INSERT 1 ROBERT ROBERT URETERAL STENT PROSTHETI L8699 [facility] IMPLANT 1 [facility] OTHERWISE PSC PSC SPECIFIED INJECTION J24[address] ONDANSETR CLINIC CLINIC ON HCL PSC PSC PER 1 MG URNLS DIP 70499 [facility] VALERO 1 [facility] LET RGNT P NON-AUTO W/O MICRSCP RAD 6045F [facility] EXPOS/ROBERT 1 MEDICAL MEDICAL E IN LAST IMAGING IMAGING RPRT ASS ASS FLUORO PRXD DOCD FLUOROSCO 97685 [facility] PY SPX UP 1 MEDICAL MEDICAL TO 1 IMAGING IMAGING HOUR ASS ASS PHYS/QHP TIME URNLS DIP 32729 BAYRNO B[facility]RON 1 [facility] LET RGNT P P NON-AUTO W/O MICRSCP INTRO 30578 [facility] URETERAL 1 [facility] CATH/STEN INC INC T PRQ RS&I GUIDE C1769 [facility] WIRE 1 [facility] INC INC STENT C2617 [facility] NON-COR 1 [facility] TEMPORARY INC INC WITHOUT DELIVERY SYSTEM ECG 06290 [facility] ROUTINE 1 [facility] ECG INC INC W/LEAST 12 LDS TRCG ONLY W/[place] I&[place] [address] [facility]FUSION [facility] THERAPY/P INC INC ROPHYLAXI S /DX 1ST TO 1 HR CYSTO 83727 [facility] W/INSERT 1 [facility] URETERAL INC INC STENT THERAPEUT 85678 [facility] IC 1 [facility] INJECTION INC INC IV PUSH EACH NEW DRUG ECG 78039 [facility] TEJADA JR ROUTINE 1 [facility] W/LEAST P 12 LDS I&[place] [address] [facility] THERAPY/P INC INC ROPHYLAXI S /DX 1ST TO 1 HR URNLS DIP 38514 [facility] STICK/TAB INC INC LET REAGENT AUTO MICROSCOP Y BLOOD 46757 [facility] COUNT 1 [facility] COMPLETE INC INC AUTO&[place] [address] [facility] ABDOMEN & 1 [facility] PELVIS IMAGING W/O ASS CONTRAST MATERIAL 3D [facility] RENDER[facility] 1 [facility] IMAGING W/INTERP& ASS POSTPROC DIFF WORK STATION CULTURE 72634 [facility] BACTERIAL 1 [facility] INC INC QUANTTATI VE COLONY COUNT URINE INJECTION J2405 [facility] ONDANSETR INC [place] HCL [place] 1 [place] [address] [facility]FUSION [facility] THER INC INC PROPH ADDL SEQUENTIA L TO 1 HR COMPREHEN 33089 [facility] SIVE 1 [facility] METABOLIC INC INC PANEL SLINGS A4565 HE L.P. HE L.P. 1 CREATINE 10537 [facility] KINASE 1 N N TOTAL [facility] HOSPITA HOSPITA COLLECTIO 51561 [facility] N VENOUS 1 N N BLOOD [facility] VENIPUNCT HOSPITA HOSPITA URE COMPREHEN 43572 [facility] SIVE 1 N N METABOLIC [facility] COMMUNITY PANEL HOSPITA HOSPITA HEMOGLOBI 13248 [facility] N 1 [email or web address] [facility] GLYCOSYLA MIKY A1C MRI BRAIN 06973 [facility] [place] MAT BRAIN 1 RADIOLOGY STEM W/O W/CONTRAS T MATERIAL COLLECTIO 07096 LEE PAD LEE PAD N VENOUS 1 BLOOD VENIPUNCT URE COMPREHEN 37437 [facility] SIVE 1 [email or web address] [facility] METABOLIC PANEL LIPID 17268 [facility] PANEL 1 [email or web address] [facility] LIPOPROTE 93947 [facility] IN DIRECT 1 [employer] MEASUREME NT LDL CHOLESTER OL 3D 93188 [facility] RENDERING 1 MEDICAL MEDICAL W/INTERP IMAGING IMAGING & [place] [address] [place] [facility] HEAD/BRAI 1 MEDICAL KARLY N W/O IMAGING CONTRAST ASS MATERIAL COMPREHEN 42797 [facility] SIVE 1 [facility] METABOLIC INC INC PANEL BLOOD 91598 [facility] COUNT 1 [facility] COMPLETE INC INC AUTO&AUTO DIFRNTL WBC CYANOCOBA 36336 [facility] NKECHI 1 [facility] VITAMIN INC INC B-12 SEDIMENTA 42338 [facility] TION RATE 1 [facility] RBC INC INC NON-AUTOM ATED URNLS DIP 53468 [facility] 0 [facility] HOS[facility] STICK/TAB INC INC LET REAGENT AUTO MICROSCOP Y RADIOLOGI 44780 [place] [facility] C EXAM 0 [facility] CHEST 2 IMAGING VIEWS ASS FRONTAL&L ATERAL CULTURE 44831 [facility] BACTERIAL 0 [facility] INC INC QUANTTATI VE COLONY COUNT URINE RADEX 42258 [place] [facility] RIBS UNI 0 MEDICAL [facility]ARLY W/POSTERO IMAGING ANT CH ASS MINIMUM 3 VIEWS BLD GLU A4253 M E D M [...] SUPPLIES SUPPLIES DEVICE FOR LANCET EACH COMPUTER- 89755 [facility] [place] AIDED 0 RADIOLOGY RHO DETECTION SCREENING MAMMOGRAP HY SCREENING G0202 [facility] [place] 0 RADIOLOGY RHO MAMMOGRAP HY TERESA INCL CAD WHEN PERFORMD LIPOPROTE 74316 [facility] IN DIRECT 0 [employer] Communications [facility] MEASUREME NT LDL CHOLESTER OL CYTP C/V 98901 PATHOLOGY PATHOLOGY AUTO THIN 0 & & LYR CYTOLOGY CYTOLOGY PREPJ SCR LAB LAB MNL RESCR PHYS HEMOGLOBI 78222 [facility] N 0 [facility] GLYCOSYLA MIKY A1C LIPID 42041 [facility] PANEL 0 [facility] INC COLLECTIO 94055 LEE PAD LEE PAD N VENOUS 0 BLOOD VENIPUNCT URE COMPREHEN 51209 [facility] SIVE 0 [facility] INC METABOLIC PANEL COMPREHEN 73534 [facility] [facility] SIVE 0 [facility] METABOLIC INC INC PANEL URNLS DIP 68408 [place] [facility] STICK/TAB INC INC LET REAGENT AUTO MICROSCOP Y BLOOD 06070 [place] [facility] COUNT 0 [facility] COMPLETE INC INC AUTO&AUTO DIFRNTL WBC RADIOLOGI 23778 [facility] C EXAM 0 MEDICAL KARLY CHEST 2 IMAGING VIEWS ASS FRONTAL&L ATERAL BLD GLU A4253 M E [...] NECES AYLIN BG MON OWN PT EA LANCETS A4259 M E D M E D PER BOX 0 SUPPLIES SUPPLIES OF 100 BLD GLU A4253 M E D M E D TEST/REAG 0 SUPPLIES SUPPLIES T STRIPS HOME BLD GLU MON-50 RADIOLOGI 98572 [place] LINUS, C EXAM 0 MEDICAL MONIQUE CHEST 2 IMAGING VIEWS ASSOCIATE FRONTAL&L S ATERAL URNLS DIP 23863 [place] [facility] STICK/TAB INC INC LET REAGENT AUTO MICROSCOP Y URINE 03576 [place] [facility] TEST INC INC VISUAL COLOR CMPRSN METHS CULTURE 85133 [place] [facility] BACTERIAL 0 [facility] MEM [...] SUPPLIES T STRIPS HOME BLD GLU MON-50 URNLS DIP 05169 [place] [facility] 0 [facility] STICK/TAB INC INC LET REAGENT AUTO MICROSCOP Y CT PELVIS 17152 [place] KATIE, W/O 0 MEDICAL JAMES P CONTRAST IMAGING MATERIAL ASSOCIATE S 3D 49769 [place] KATIE, RENDERING 0 MEDICAL JAMES P IMAGING W/INTERP& [place]OCI[place] [address] [place] KATIE, ABDOMEN 0 MEDICAL JAMES P W/O IMAGING CONTRAST ASSOCIATE MATERIAL S LANCETS A4259 M E D M E D PER BOX 0 SUPPLIES SUPPLIES OF 100 BLD GLU A4253 M E D M E D TEST/REAG 0 SUPPLIES SUPPLIES T STRIPS HOME BLD GLU MON-50 [place] [address] [place] [facility] STREPTOCO 0 [facility] MEM [...] [address] PELVIS [address] [place] LUZ ELENATELIC, W/O 9 [place] [address] [place] ELENATELIC, ABDOMEN 9 RADIOLOGY MARY K W/O CONTRAST MATERIAL BLD GLU 11-26-200 A4253 M E D M E D TEST/REAG 9 SUPPLIES SUPPLIES T STRIPS HOME BLD GLU MON-50 LANCETS 200 A4259 M E D M E D PER BOX 9 SUPPLIES SUPPLIES OF 100 LANCETS 200 A4259 M E D M [...] T STRIPS HOME BLD GLU MON-50 INCISION 59331 COURTNEY LAZARO, & 9 EMERGENCY ALVERTO L DRAINAGE SERVICES ABSCESS SIMPLE/SI ASSOCIATE NGLE S BLD GLU A4253 M E D M E D TEST/REAG 9 SUPPLIES SUPPLIES T STRIPS HOME BLD GLU MON-50 LANCETS 200 A4259 M E D M E D PER BOX 9 SUPPLIES SUPPLIES OF 100 INCISION 20422 MICHELLE YOUNG, & 9 KEVIN ANITA L DRAINAGE EMERGENCY ABSCESS PHYS INC COMPLICAT ED/MULTIP LE LANCETS 200 A4259 M E D M E D PER BOX 9 SUPPLIES SUPPLIES OF 100 BLD GLU 200 A4253 M E D M E D TEST/REAG 9 SUPPLIES SUPPLIES T STRIPS HOME BLD GLU MON-50 RADIOLOGI 57021 [facility] [place] HE, C 9 RADIOLOGY J [...] PER BOX 9 SUPPLIES SUPPLIES OF 100 LIPID 65749 LAB [facility]L LAB CHERYL PANEL 9 [employer] COMPREHEN 65618 LAB CH[facility]L LAB CHERYL SIVE 9 [employer] METABOLIC HOLDING HOLDING PANEL COLLECTIO 48490 HORIZON COLIN, N VENOUS [address] [facility] BLOOD E CENTER VENIPUNCT URE BLD GLU A4253 M E D M E D TEST/REAG 9 SUPPLIES SUPPLIES T STRIPS HOME BLD GLU MON-50 LANCETS A4259 M E D M E D PER BOX 9 SUPPLIES SUPPLIES OF 100 URNLS DIP 98380 [facility] 9 LTH JR, STICK/TAB UROLOGY [...] SUPPLIES [place] [address] [place] KOSTELIC, ABDOMEN 9 RADIOLOGY MARY K W/O CONTRAST MATERIAL CT PELVIS 96897 [place] KOSTELIC, W/O 9 RADIOLOGY MARY K CONTRAST MATERIAL CYSTO 55186 [facility] W/URETERO 9 LTH JR, SCOPY UROLOGY MAR Thao W/RMVL/MA PSC [place] STONES CYSTO 60638 [facility] W/INSERT 9 LTH JR, URETERAL UROLOGY MAR K STENT PSC ANES 25073 ANESTHESI DUNFEE, TRANSURET 9 Deniz Murphy HRAL ASSOCIATE W/URETHRO S, PSC CYSTOSCOP Y NOS URNLS DIP 45772 [facility] 9 LTH JR, STICK/TAB UROLOGY MAR K LET RGNT PSC AUTO W/O MICROSCOP Y CYSTO 19209 [facility] W/INSERT 8 LTH JR, URETERAL UROLOGY MAR K STENT PSC ANES 09780 ANESTHESI SMITH, TRANSURET 8 Deniz Gonzalez HRAL ASSOCIATE W/URETHRO S, PSC CYSTOSCOP Y NOS URETERAL 598 [facility] [address] [facility] GROUND A0425 [facility] CARTER MACHADO PER CO EMS CO EMS STATUTE MILE ECG 39821 [facility], ROUTINE 8 [place] J ECG CLINIC W/LEAST PSC 12 LDS I&R ONLY CT PELVIS 80864 [place] NERI, W/O 8 RADIOLOGY J CONTRAST MATERIAL INITIAL 41035 [facility] 8 LT JR, CARE/DAY UROLOGY MAR [place] [address] [place] [address] [place] NER[place], ABDOMEN 8 RADIOLOGY J W/O CONTRAST MATERIAL AMB A0427 [facility] SERVICE 8 CARTER MACHADO ALS CO EMS CO EMS [place]GENC[place] [address] [place] KOSTELIC, ABDOMEN 8 RADIOLOGY MARY K W/O CONTRAST MATERIAL CT PELVIS 21399 [place] KOSTELIC, W/O 8 RADIOLOGY MARY K CONTRAST MATERIAL COLLECTIO 64092 H[facility]IZ[place] COLIN, N VENOUS 8 [facility] BLOOD E CENTER VENIPUNCT URE HEMOGLOBI 20454 LAB CHERYL LAB CHERYL N 8 [employer] GLYCOSYLA HOLDING HOLDING MIKY A1C GLUCOSE 16551 LAB CHERYL LAB CHERYL QUANTITAT 8 AMERIC AMERIC FAWAD BLOOD HOLDING HOLDING XCPT REAGENT STRIP LIPID 71555 LAB CHERYL LAB CHERYL PANEL 8 [employer]ING SCREENING G0202 [facility] 8 N N MAMMOGRAP [facility] INCL CAD WHEN PERFORMD COMPUTER- 24401 [facility] AIDED 8 N N DETECTION [facility] SCREENING MAMMOGRAP HY COLLECTIO 33553 H[place]IZON OVERBEE, N VENOUS 8 [facility] AMANDA BLOOD E CENTER VENIPUNCT URE GENERAL 50490 LAB CHERYL LAB CHERYL HEALTH 8 [employer] PANEL HOLDING HOLDING IADNA 88270 [facility] [place], NEISSERIA 8 [place] INC MICHAEL D GONORRHOE AE AMPLIFIED PROBE TQ IADNA 28840 [facility] TRICHOMON 8 [facility] INC INC VAGINALIS DIRECT PROBE TQ IADNA 79856 [employer] [place], MELLO 8 [place] INC MICHAEL D SPECIES AMPLIFIED PROBE TQ IADNA 61262 [employer] [place], GARDNEREL 8 [place] INC MICHAEL D LA VAGINALIS AMPLIFIED PROBE TQ CYTP 29436 [facility] [place], CERV/VAG 8 [place] INC MICHAEL D AUTO THIN LAYER PREP MNL SCREEN IADNA 09798 [employer] [place], CHLAMYDIA 8 [place] INC MICHAEL D TRACHOMAT IS AMPLIFIED PROBE TQ URNLS DIP 18332 H[place]IZ[place] OSPINA, 8 [facility] JONATHAN STICK/TAB E CENTER LET RGNT AUTO W/O MICROSCOP Y CT PELVIS 19600 [place] RY[place], W/O 8 [place] [address] [place], ABDOMEN 8 RADIOLOGY ONIEL P W/[place] [address] [facility] [facility] ABDOMEN 8 [facility] W/O INC INC CONTRAST MATERIAL 3D 61706 [facility] RENDERING 8 [facility] INC INC W/INTERP& POSTPROC DIFF WORK STATION CT PELVIS 76688 [place] [facility] W/O 8 [facility] CONTRAST INC INC MATERIAL URNLS DIP 29090 [place] [facility] 8 [facility] STICK/TAB INC INC LET REAGENT AUTO MICROSCOP Y RADIOLOGI 21894 [place] Gonzalez EXAM 8 [facility] CHEST 2 INC INC VIEWS FRONTAL&L ATERAL BLOOD 34064 [place] [facility] COUNT 8 [facility] COMPLETE INC INC AUTO&AUTO DIFRNTL WBC IAADI 81943 [place] GARCIAON INFFLUENZ 8 [facility] A A VIRUS INC INC IAADI 51996 [facility] [facility] INFLUENZA 8 [facility] [place] [place] [address] [place] [facility] THER 8 [facility] PROPH/DX INC INC 1ST >1 HR BASIC 48633 [facility] METABOLIC 8 [facility] PANEL INC INC CALCIUM TOTAL APPL 83057 [place] [facility] MODALITY 8 [facility] 1/> AREAS INC INC ELEC STIMJ UNATTENDE D THERAPEUT 66917 [facility] IC PX 1/> 8 [facility] AREAS INC INC EACH 15 MIN EXERCISES PHYSICAL 37008 [place] [facility] THERAPY 8 [facility] EVALUATIO INC INC N CT LUMBAR 47376 [place] KATIE, SPINE 8 MEDICAL JAMES P W/O IMAGING CONTRAST ASSOCIATE MATERIAL S 3D 20798 [place] CHRISTY WILSON 8 MEDICAL JAMES P IMAGING W/INTERP& ASSOCIATE POSTPROC S DIFF WORK STATION RADEX 60259 [place] KATIE, SPINE 8 MEDICAL JAMES P LUMBOSACR IMAGING AL ASSOCIATE MINIMUM 4 S VIEWS RADIOLOGI 47258 [place] Gonzalez 8 [facility] EXAMINATI INC INC ON FEMUR 2 VIEWS RADEX HIP 39407 [place] KATIE 8 MEDICAL JAMES P UNILATERA IMAGING L ASSOCIATE COMPLETE S MINIMUM 2 VIEWS Encounters Encounter Start End Date Code Location Performer Type Date OFFICE 44847 [facility] NATHALIE OUTPATIEN 7 7 PHYSICIAN T VISIT S GROUP 25 MINUTES OFFICE 87843 [facility] NATHALIE OUTPATIEN 7 7 PHYSICIAN T VISIT S GROUP 40 MINUTES EMERGENCY 94343 TIFFANY BOWER 7 7 MEDICAL DEPARTMEN SERV T VISIT FOUNDATIO HIGH/URGE N NT SEVERITY [facility] - 7 7 [facility] OUTPATIEN E T HOSPITALS OFFICE 28513 [facility] NANNETTE OUTPATIEN 7 7 FOOT & T NEW 30 ANKLE CE MINUTES EMERGENCY 27872 LEONEL LEE DEPT 7 7 PHYSICIAN VISIT S, [facility] HIGH SEVERITY& THREAT [facility] [place] - 7 7 [facility] OUTPATIEN INC T EMERGENCY 14936 [facility] 7 7 [facility] DEPARTMEN INC T VISIT LOW/MODER SEVERITY [facility] [place] - 7 7 [facility] OUTPATIEN INC T OFFICE 08398 [facility] BOATENGPATIEN 7 7 [facility] T VISIT 5 INC MINUTES [facility] [place] - 7 7 [facility] OUTPATIEN INC T EMERGENCY 72662 [facility] 7 7 [facility] DEPARTMEN INC T VISIT LOW/MODER SEVERITY OFFICE 33086 JOSE MARIA ROSS OUTPATIEN 6 6 MARCELINA T VISIT PEDIATRIC 15 S & INTER MINUTES HOSPITAL [facility] 6 6 N OUTPATIEN COMMUNTIY T HOSPITA OFFICE 17607 SCIFRES SCIFRES OUTPATIEN 6 6 ANG ANG T VISIT 15 MINUTES OFFICE 65994 SCIFRES SCIFRES OUTPATIEN 6 6 ANG ANG T VISIT 15 MINUTES OFFICE 27241 [facility] PETTEY OUTPATIEN 6 6 PHYSICIAN JAM T NEW 20 S GROUP MINUTES EMERGENCY 47809 [facility] 6 6 [facility] DEPARTMEN INC T VISIT MODERATE SEVERITY EMERGENCY 71818 LEONEL CROWDER DEPT 6 6 PHYSICIAN OLGA VISIT S, [facility] HIGH SEVERITY& THREAT FUN [facility] [place] - 6 6 [facility] OUTPATIEN INC T OFFICE 42079 ANN KEARNS OUTPATIEN 6 6 PHYSCIAN LES T VISIT PRACTICE 15 LL MINUTES [facility]OSP[facility] [place] - 6 6 [facility] OUTPATIEN INC T OFFICE 66285 CHANCE TRA CHANCE TRA OUTPATIEN 6 6 T VISIT 15 MINUTES OFFICE 60138 BODARIANON SOM CONSULTAT 6 6 PHYSCIAN LES ION PRACTICE NEW/ESTAB LL PATIENT 40 MIN OFFICE 00356 JOSE MARIA ROSS OUTPATIEN 6 6 MARCELINA T VISIT PEDIATRIC 15 S & INTER MINUTES HOME [facility] 6 6 [place] [facility] [place] - 6 6 [facility] OUTPATIEN INC T EMERGENCY 14361 LEONEL US 6 6 PHYSICIAN Payal [facility] T VISIT HIGH/URGE NT SEVERITY EMERGENCY 54550 [place] 6 6 [facility]OS[facility] DEPARTMEN INC T VISIT MODERATE SEVERITY [facility]OSPITAL [place] - 5 5 [facility] OUTPATIEN INC T EMERGENCY 70975 LEONEL BROWNING DEPT 5 5 PHYSICIAN AZAR VISIT S, [facility] HIGH SEVERITY& THREAT FUNJ EMERGENCY 63807 [place] 5 5 [facility] DEPARTMEN INC T VISIT HIGH/URGE NT SEVERITY OFFICE 47292 JOSE MARIA ROSS OUTPATIEN 5 5 MARCELINA T VISIT PEDIATRIC 15 S & INTER MINUTES HOME [facility], 5 5 [place] INPATIENT [facility] ST DANA - 5 5 HOSPITAL INPATIENT [facility] - 5 5 N OUTPATIEN COMMUNTIY T HOSPITA OFFICE 78201 JOSE MARIA ROSS OUTPATIEN 5 5 MARCELINA T VISIT PEDIATRIC 15 S & INTER MINUTES HOSPITAL [address] OUTPATI T EMERGENCY 22403 LEONEL BROWNING DEPT 5 5 PHYSICIAN AZAR VISIT S, PLL HIGH SEVERITY& THREAT [facility] [address] OUTPATIEN T OFFICE 73800 JOSE MARIA ROSS OUTPATIEN 5 5 MARCELINA T VISIT PEDIATRIC 15 S & INTER MINUTES OFFICE 22092 [facility] TRA OUTPATIEN 5 5 [place] T VISIT ORTHOPAED 15 [facility] MINUTES EMERGENCY 41807 BARRY Ruth 5 5 DEPARTMEN T VISIT MODERATE SEVERITY OFFICE 48930 JOSE MARIA ROSS OUTPATIEN 5 5 MARCELINA T VISIT PEDIATRIC 15 S & INTER MINUTES EMERGENCY 37099 NALLELY BROWNING DEPT 5 5 AZAR AZAR VISIT HIGH SEVERITY& THREAT [facility] OFFICE 43994 [facility] CHANCE TRA OUTPATIEN 5 5 [place] T VISIT ORTHOPAED 15 [facility] MINUTES [facility] [place] - 5 5 [facility] OUTPATIEN INC T EMERGENCY 24097 CHRISTEL KEARNEY 5 5 DORI DORI DEPARTMEN T VISIT HIGH/URGE NT SEVERITY OFFICE 18691 [facility] CH[facility] TRA OUTPATIEN 5 5 [place] T NEW 45 ORTHOPAED MINUTES [facility] OFFICE 80826 JOSE MARIA ROSS OUTPATIEN 4 4 MARCELINA T VISIT PEDIATRIC 15 S & INTER MINUTES EMERGENCY 63214 NALLELY BROWNING 4 4 AZAR AZAR DEPARTMEN T VISIT MODERATE SEVERITY EMERGENCY 45192 NALLELY BROWNING DEPT 4 4 AZAR AZAR VISIT HIGH SEVERITY& THREAT [facility] GE[facility]GE[facility] - 4 4 N OUTPATIEN COMMUNITY T HOSPITA EMERGENCY 05644 LEATHA LEMONIN 4 4 IMT IMT DEPARTMEN T VISIT MODERATE SEVERITY OFFICE 25955 JOSE MARIA ROSS OUTPATIEN 4 4 MARCELINA T VISIT PEDIATRIC 15 S & INTER MINUTES EMERGENCY 88229 ALFARIS ALFARIS 4 4 [facility] DEPARTMEN T VISIT HIGH/URGE NT SEVERITY EMERGENCY 62548 SHAZIA ANGELICA SHAZIA ANGELICA DEPT 4 4 VISIT HIGH SEVERITY& THREAT FUN OFFICE 59469 JOSE MARIA ROSS OUTPATIEN 4 4 MARCELINA T VISIT PEDIATRIC 15 S & INTER MINUTES EMERGENCY 35102 ABIGAIL ELKINSNES 4 4 BRO BRO DEPARTMEN T VISIT HIGH/URGE NT SEVERITY OFFICE 84328 JOSE MARIA ROSS OUTPATIEN 3 3 MARCELINA T VISIT PEDIATRIC 15 S & INTER MINUTES EMERGENCY 36617 COURTNEY BROWNING DEPT 3 3 EMERGENCY AZAR VISIT SERVICES HIGH SEVERITY& THREAT [facility] OFFICE 04002 JOSE MARIA ROSS OUTPATIEN 3 3 MARCELINA T VISIT PEDIATRIC 15 S & INTER MINUTES [facility] - 3 3 N OUTPATIEN COMMUNITY T HOSPITA OFFICE 64143 JOSE MARIA ROSS OUTPATIEN 3 3 MARCELINA T VISIT PEDIATRIC 10 S & INTER MINUTES EMERGENCY 33458 COURTNEY LEWIS 3 3 EMERGENCY DEPARTMEN SERVICES T VISIT MODERATE SEVERITY OFFICE 47933 JOSE MARIA ROSS OUTPATIEN 3 3 MARCELINA T VISIT PEDIATRIC 15 S & INTER MINUTES EMERGENCY 87100 COURTNEY GARCIA 3 3 EMERGENCY RYA DEPARTMEN SERVICES T VISIT HIGH/URGE NT SEVERITY PERIODIC 23191 JOSE MARIA ROSS PREVENTIV 3 3 MARCELINA E MED EST PEDIATRIC PATIENT S & INTER 40-64YRS OFFICE 24548 LUZ BAKER 3 3 MARKO MARKO T VISIT 15 MINUTES OFFICE 00809 [facility] EDIL BAKER 3 3 PHYSICIAN CAM T NEW 45 S GROUP MINUTES EMERGENCY 27924 COURTNEY STEPHENS 3 3 EMERGENCY III ADRIENNE DEPARTMEN SERVICES T VISIT HIGH/URGE NT SEVERITY [facility]OSP[facility] [place] - 3 3 [facility] OUTPATIEN INC T EMERGENCY 94494 [facility] 3 3 [facility] DEPARTMEN INC T VISIT LOW/MODER SEVERITY OFFICE 93163 LUZ BAKER 2 2 MARKO MARKO T VISIT 15 MINUTES HOSPITAL [place] - 2 2 [facility] OUTPATIEN INC T EMERGENCY 14116 COURTNEY STEPHENS DEPT 2 2 EMERGENCY III ADRIENNE VISIT SERVICES HIGH SEVERITY& THREAT FUNCJ EMERGENCY 93588 [facility] 2 2 [facility] DEPARTMEN INC T VISIT MODERATE SEVERITY [facility] [place] - 2 2 [facility] OUTPATIEN INC T EMERGENCY 97487 COURTNEY MCKENNA DEPT 2 2 EMERGENCY ADRIENNE VISIT SERVICES HIGH SEVERITY& THREAT FUNCJ EMERGENCY 18577 [facility] 2 2 [facility] DEPARTMEN INC T VISIT MODERATE SEVERITY OFFICE 67338 LUZ BAKER 2 2 MARKO MARKO T VISIT 15 MINUTES EMERGENCY 03583 COURTNEY MCKENNA 2 2 EMERGENCY ADRIENNE DEPARTMEN SERVICES T VISIT HIGH/URGE NT SEVERITY [facility] [place] - 2 2 [facility] OUTPATIEN INC T EMERGENCY 10678 [facility] 2 2 [facility] DEPARTMEN INC T VISIT MODERATE SEVERITY EMERGENCY 22919 COURTNEY BROWNING 2 2 EMERGENCY [facility] DEPARTMEN SERVICES T VISIT MODERATE SEVERITY OFFICE 40505 [place] VILLAGOMEZ CONSULTAT 2 2 MEDICAL L ION SERV NEW/ESTAB FOUNDATIO PATIENT 80 MIN OFFICE 16266 LUZ ESCOBAR OUTPATIEN 2 2 MARKO MARKO T VISIT 15 MINUTES EMERGENCY 70405 COURTNEY FRANKS DEPT 2 2 EMERGENCY VISIT SERVICES HIGH SEVERITY& THREAT [facility] [place] - 2 2 [facility] OUTPATIEN INC T EMERGENCY 34452 [facility] 2 2 [facility] DEPARTMEN INC T VISIT MODERATE SEVERITY [facility] [place] - 1 1 [facility] OUTPATIEN INC T EMERGENCY 04333 COURTNEY VALDEZ 1 1 EMERGENCY EMERGENCY DEPARTMEN SERVICES SERVICES T VISIT HIGH/URGE NT SEVERITY EMERGENCY 95279 [place] 1 1 [facility] DEPARTMEN INC T VISIT MODERATE SEVERITY OFFICE 89996 [facility] [facility] OUTPATIEN 1 1 [facility] VISIT HOSPITAL 25 P MINUTES OFFICE 30877 [place] OUTPATIEN 1 1 [facility] VISIT HOSPITAL 25 P MINUTES HOSPITAL [place] - 1 1 [facility] OUTPATIEN INC T EMERGENCY 89616 [place] 1 1 [facility] DEPARTMEN INC T VISIT HIGH/URGE NT SEVERITY EMERGENCY 86495 COURTNEY RIVAS DEPT 1 1 EMERGENCY VISIT SERVICES HIGH SEVERITY& THREAT [facility] [place] - 1 1 [facility] OUTPATIEN INC T [facility] [place] - 1 1 [facility] OUTPATIEN INC T EMERGENCY 73057 COURTNEY RIVAS 1 1 EMERGENCY DEPARTMEN SERVICES T VISIT HIGH/URGE NT SEVERITY EMERGENCY 65645 [place] 1 1 [facility] DEPARTMEN INC T VISIT LOW/MODER SEVERITY EMERGENCY 08671 COURTNEY RIVAS 1 1 EMERGENCY DEPARTMEN SERVICES T VISIT HIGH/URGE NT SEVERITY [facility] [place] - 1 1 [facility] OUTPATIEN INC T EMERGENCY 08245 [facility] 1 1 [facility] DEPARTMEN INC T VISIT LOW/MODER SEVERITY [facility] [place] - 1 1 [facility] OUTPATIEN INC T EMERGENCY 57013 COURTNEY FRANKS 1 1 EMERGENCY DEPARTMEN SERVICES T VISIT MODERATE SEVERITY EMERGENCY 51561 [place] 1 1 [facility] DEPARTMEN INC T VISIT LOW/MODER SEVERITY OFFICE 59414 LEE PAD LEE PAD OUTPATIEN 1 1 T VISIT 15 MINUTES [facility] [place] [address] 1 N OUTPATIEN [facility] [place] - 1 1 [facility] OUTPATIEN INC T EMERGENCY 28992 COURTNEY LEUNG 1 1 EMERGENCY DEPARTMEN SERVICES T VISIT MODERATE SEVERITY EMERGENCY 15731 [place] 1 1 [facility] DEPARTMEN INC T VISIT LOW/MODER SEVERITY OFFICE 93241 LEE PAD LEE PAD OUTPATIEN 1 1 T VISIT 25 MINUTES [facility] [place] [address] 1 N [facility] 22163 [place] 1 1 [facility] DEPARTMEN INC T VISIT LOW/MODER SEVERITY EMERGENCY 79614 COURTNEY RIVAS DEPT 1 1 EMERGENCY VISIT SERVICES HIGH SEVERITY& THREAT [facility] [place] - 1 1 [facility] OUTPATIEN INC T EMERGENCY 37705 [place] 1 1 [facility] DEPARTMEN INC T VISIT LOW/MODER SEVERITY EMERGENCY 14385 COURTNEY BROWNING 1 1 EMERGENCY AZAR DEPARTMEN SERVICES T VISIT HIGH/URGE NT SEVERITY [facility]OSP[facility] [place] - 1 1 [facility] OUTPATIEN INC T EMERGENCY 37514 [place] 0 0 [facility] DEPARTMEN INC T VISIT LOW/MODER SEVERITY [facility] [place] - 0 0 [facility] OUTPATIEN INC T EMERGENCY 19884 COURTNEY ROSS 0 0 EMERGENCY [facility] DEPARTMEN SERVICES T VISIT MODERATE SEVERITY [facility] [place] - 0 0 [facility] OUTPATIEN INC T EMERGENCY 44659 [place] 0 0 [facility] DEPARTMEN INC T VISIT LOW/MODER SEVERITY EMERGENCY 00998 COURTNEY ROSS 0 0 EMERGENCY [facility] DEPARTMEN SERVICES T VISIT HIGH/URGE NT SEVERITY [facility] - 0 0 N OUTPATIEN COMMUNITY T HOSPITA OFFICE 24264 LEE PAD LEE PAD OUTPATIEN 0 0 T VISIT 15 MINUTES PERIODIC 35139 LEE PAD LEE PAD PREVENTIV 0 0 E MED EST PATIENT 40-64YRS [facility] [place] - 0 0 [facility] OUTPATIEN INC T EMERGENCY 80720 COURTNEY DEGROOT AND 0 0 EMERGENCY DEPARTMEN SERVICES T VISIT HIGH/URGE NT SEVERITY EMERGENCY 97149 [place] 0 0 [facility] DEPARTMEN INC T VISIT MODERATE SEVERITY OFFICE 07206 LEE PAD LEE PAD OUTPATIEN 0 0 T NEW 30 MINUTES EMERGENCY 97052 COURTNEY KEARNEY, 0 0 EMERGENCY [facility] DEPARTMEN SERVICES T VISIT MODERATE ASSOCIATE SEVERITY S EMERGENCY 05854 [place] 0 0 [facility] DEPARTMEN INC T VISIT LOW/MODER SEVERITY EMERGENCY 52568 COURTNEY STOVALL, 0 0 EMERGENCY [place] DEPARTMEN SERVICES O T VISIT HIGH/URGE ASSOCIATE NT S SEVERITY [facility] [place] [facility] 0 0 [facility] [place] - 0 0 [facility] OUTPATIEN INC T EMERGENCY 81036 COURTNEY NELSON DEPT 0 0 EMERGENCY [place] VISIT SERVICES M HIGH SEVERITY& ASSOCIATE THREAT S FUNCJ EMERGENCY 41468 [place] 0 0 [facility] DEPARTMEN INC T VISIT LOW/MODER SEVERITY EMERGENCY 40535 COURTNEY PARIKH 0 0 EMERGENCY [place] DEPARTMEN SERVICES T VISIT MODERATE SEVERITY EMERGENCY 10969 COURTNEY PARIKH 0 0 EMERGENCY [facility] DEPARTMEN SERVICES T VISIT MODERATE SEVERITY EMERGENCY 52636 COURTNEY BROWNING, [address] [facility] DEPARTMEN SERVICES T VISIT HIGH/URGE ASSOCIATE NT S SEVERITY EMERGENCY 97637 [place] 0 0 [facility] DEPARTMEN INC T VISIT MODERATE SEVERITY [facility] [place] - 0 0 [facility] OUTPATIEN [facility] T [facility] 48319 COURTNEY HERNANDEZ DEPT 9 9 EMERGENCY , KAYLYNN VISIT SERVICES HIGH SEVERITY& ASSOCIATE THREAT S FUNCJ EMERGENCY 58283 COURTNEY FOY, 9 9 EMERGENCY [place] DEPARTMEN SERVICES T VISIT MODERATE ASSOCIATE SEVERITY S EMERGENCY 46466 COURTNEY ZHENGAROSI 9 9 EMERGENCY - YORBA, DEPARTMEN SERVICES BRI T VISIT M MODERATE ASSOCIATE SEVERITY S EMERGENCY 25495 COURTNEY ZHENGAROSI 9 9 EMERGENCY - [place], DEPARTMEN SERVICES BRI T VISIT M MODERATE ASSOCIATE SEVERITY S EMERGENCY 27779 COURTNEY LAZARO, 9 9 EMERGENCY ALVERTO L DEPARTMEN SERVICES T VISIT HIGH/URGE ASSOCIATE NT S SEVERITY [facility] 79388 [facility] MODERATE SEVERITY OFFICE 97519 [facility] 9 9 [facility] SELENE Cassidy T VISIT E CENTER 15 MINUTES EMERGENCY 56297 [facility] [address] [facility] LOW/MODER SEVERITY [facility] - 9 9 N OUTPATIEN COMMUNITY T HOSPITAL [facility] 19614 [facility] 9 9 N [facility] COMMUNITY T VISIT HOSPITAL LOW/MODER SEVERITY EMERGENCY 56273 [facility] YOUNG, 9 9 KEVIN ANITA L DEPARTMEN EMERGENCY T VISIT PHYS INC MODERATE SEVERITY EMERGENCY 34343 [facility] CE[facility] 9 9 KEVIN - [facility]AMANTHAA[facility] BRI T VISIT PHYS INC M MODERATE SEVERITY [facility] 72518 [facility] YOU[facility], 9 9 KEVIN ANITA Ruth DEPARTMEN EMERGENCY T VISIT PHYS INC MODERATE SEVERITY EMERGENCY 18923 [facility] 9 9 N [facility] COMMUNITY T VISIT HOSPITAL LOW/MODER SEVERITY EMERGENCY 69013 [facility] LAUR[facility], 9 9 KEVIN MOHAMED H DEPARTMEN EMERGENCY T VISIT PHYS INC MODERATE SEVERITY EMERGENCY 67456 [facility] KEVIN HENRY DEPARTMEN EMERGENCY A T VISIT PHYS INC MODERATE SEVERITY OFFICE 27998 [facility] GRAVES, OUTPATIEN 9 9 [facility] W T VISIT E CENTER 15 MINUTES EMERGENCY 89672 [facility] 9 9 KEV[facility] - YORBA[facility] BRI T VISIT PHYS INC M MODERATE SEVERITY OFFICE 84363 [facility], OUTPATIEN 9 9 [facility] W T VISIT E CENTER 15 MINUTES OFFICE 95554 ARIELLA LEONE OUTPATIEN 9 9 [facility] JR, T VISIT UROLOGY MAR K 15 PSC MINUTES EMERGENCY 10066 [facility] 9 9 KEVIN - SOPHIARBA, DEPARTMEN EMERGENCY BRI T VISIT PHYS INC M HIGH/URGE NT SEVERITY OFFICE 74969 HORIZON BABAK, OUTPATIEN 9 9 [facility] T VISIT E CENTER 15 MINUTES OFFICE 44901 COMMONBLANCAA SULEMA OUTPATIEN 9 9 LTH JR, T VISIT UROLOGY MAR K 10 PSC MINUTES OFFICE 17395 COMMONWEA SULEMA OUTPATIEN 9 9 LTH JR, T VISIT UROLOGY MAR K 10 PSC MINUTES OFFICE 25927 HORIZON BABAK, OUTPATIEN 9 9 [facility]ELENE W T VISIT E CENTER 15 MINUTES EMERGENCY 65060 [facility] DEPT 8 8 KEVIN - TREVON, VISIT EMERGENCY BRI HIGH PHYS INC M SEVERITY& THREAT [facility] [place] [id number] 8 HOSPITAL INPATIENT EMERGENCY 58181 [facility] KEVIN - TREVON [facility] EMERGENCY BRI T VISIT PHYS INC M HIGH/URGE NT SEVERITY OFFICE 88131 HORIZON BABAK, OUTPATIEN 8 8 [facility] SELENE W T VISIT E CENTER 15 MINUTES [facility] [place] [address] 8 N [facility] OFF[facility] 59048 JORGE LUIS HILLIARD, OUTPATIEN 8 8 [facility] SELENE W T VISIT E CENTER 15 MINUTES EMERGENCY 59576 [facility], 8 8 KEVIN ANITA Ruth DEPARTMEN EMERGENCY T VISIT PHYS INC HIGH/URGE NT SEVERITY OFFICE 91418 HORIZON OSPINA, OUTPATIEN 8 8 [facility] JONATHAN T NEW 45 E CENTER MINUTES EMERGENCY 06604 [facility] 8 KEVIN - TREVON DEPARTMEN EMERGENCY BRI T VISIT PHYS INC M MODERATE SEVERITY OFFICE 16220 MIKKI KAYE, OUTPATIEN 8 8 DON R DON R T VISIT 15 MINUTES [facility] 8 8 [facility] OUTPATIEN INC T EMERGENCY 63975 [place] 8 8 [facility] T VISIT MODERATE [facility]VERITY [facility] [place] - 8 8 [facility] 36183 [place] 8 8 [facility] T VISIT MODERATE [facility]VERITY [facility] [place] - 8 8 [facility] [place] [facility] 8 8 [facility] OFFICE 79535 MIKKI KAYE OUTPATIEN 8 8 DON R DON [place] T VISIT 15 MINUTES EMERGENCY 49644 [place]OWN, 8 8 [facility] T VISIT PROF SERV MODERATE SEVERITY EMERGENCY 36179 [place] 8 [address] [facility] T VISIT LOW/MODER [facility]VERITY [facility]OSPITAL [place] - 8 8 [facility]
--- OUTSIDE RECORDS SUMMARY | 2016-11-02 20:16 | External Medical Summary Rpt ---
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 [facility] COUNT 6 [facility] COMPLETE INC INC AUTO&AUTO DIFRNTL WBC ECG 34497 LULY BESSON ROUTINE 6 ANGELICA ANGELICA ECG W/LEAST 12 LDS I&R ONLY RADEX 40054 CHRISTI UNGERINEKE SHOULDER 6 MEDICAL AMELIE COMPLETE IMAGING MINIMUM 2 ASS VIEWS PHYSICAL 72086 [facility] THERAPY 6 [facility] EVALUATIO INC INC N RADEX HIP 38943 CHANCE TRA CHANCE TRA 6 UNILATERA L WITH PELVIS 2-3 VIEWS INJ J0702 CHANCE TRA CHANCE TRA BETAMETHA 6 SONE ACETATE & PHOSPHATE 3 MG ARTHROCEN 13592 CHANCE TRA CHANCE TRA TESIS 6 ASPIR&/IN J MAJOR JT/BURSA W/O US INJECTION S0020 CHANCE TRA CHANCE TRA 6 BUPIVICAI NE HYDROCHLO RIDE 30 ML SERVICE G0151 [facility] PH[facility] 6 HOME HOME THERAP HEALTH HEALTH HOME AGENCY AGENCY HLTH/HOSP ICE EA 15 MIN INJECTION J2405 [facility] B[facility]RON 6 [facility] ONDANSETR INC INC ON HCL PER 1 [place] [address] [facility] INFUSION 6 [facility] THERAPY/P INC INC ROPHYLAXI S /DX 1ST TO 1 HR URNLS DIP 19596 [facility] 6 [facility] STICK/TAB INC INC LET REAGENT AUTO MICROSCOP Y BLOOD 17457 [facility]MA COUNT 6 [facility] COMPLETE INC INC AUTO&AUTO DIFRNTL WBC THERAPEUT 93990 [facility] IC 6 [facility] INJECTION INC [place] [address] [facility] LIPASE 6 [place] [address] [facility] ABDOMEN & 6 [facility] PELVIS INC INC W/O CONTRAST MATERIAL SERVICE G0151 [facility] PHYS 5 HOME HOME THERAP HEALTH HEALTH HOME AGENCY AGENCY HLTH/HOSP ICE EA 15 MIN SERVICE G0151 [facility] PHYS 5 HOME HOME THERAP HEALTH HEALTH HOME AGENCY AGENCY HLTH/HOSP ICE EA 15 MIN COMPREHEN 85458 [facility] SIVE 5 [facility] METABOLIC INC INC PANEL CREATINE 12421 [facility] KINASE MB 5 [facility] FRACTION INC INC ONLY CREATINE 17208 B[facility] KINASE 5 [facility] TOTAL INC INC THER 50141 [facility] VER[facility] PROPH/DX 5 [facility] NJX IV INC INC PUSH SINGLE/1S T SBST/DRUG ECG 30095 [facility] ROUTINE 5 [facility] ECG INC INC W/LEAST 12 LDS TRCG ONLY W/O I&R URNLS DIP 95081 [facility] VERMA 5 [facility] STICK/TAB INC INC [place] [address] [facility] TROPONIN 5 [facility] QUANTITAT INC INC FAWAD NATRIURET 37813 [facility] IC 5 [facility] PEPTIDE INC INC GLUC BLD 02457 [facility] GLUC MNTR 5 [facility] DEV INC INC CLEARED FDA SPEC HOME USE BLOOD 92254 [facility] COUNT 5 [facility] COMPLETE INC INC AUTO&AUTO DIFRNTL WBC RADIOLOGI 36800 B[facility] VERMA C EXAM 5 [facility] [...] AGENCY HLTH/HOSP ICE EA 15 MIN HEMOGLOBI 72597 [facility] N 5 DIAGNOSTI DIAGNOSTI GLYCOSYLA CS CS MIKY A1C COMPREHEN 65820 [facility] QUEST SIVE 5 DIAGNOSTI DIAGNOSTI METABOLIC CS CS PANEL SERVICE G0151 [facility] PHYS 5 HOME HOME THERAP HEALTH HEALTH HOME AGENCY AGENCY HLTH/HOSP ICE EA 15 MIN RADEX HIP 77418 CHANCE TRA CHANCE TRA 5 UNILATERA L COMPLETE MINIMUM 2 VIEWS ARTHROCEN 36331 CHANCE TRA CHANCE TRA TESIS 5 ASPIR&/IN J MAJOR JT/BURSA W/O US INJECTION S0020 CHANCE TRA CHANCE TRA 5 BUPIVICAI NE HYDROCHLO RIDE 30 ML INJ J0702 CHANCE TRA CHANCE TRA BETAMETHA 5 SONE ACETATE & PHOSPHATE 3 MG RADEX HIP 83386 [facility] TRA 5 [place] ORTHOPAED L [facility] COMPLETE MINIMUM 2 VIEWS SBSQ 81681 [facility] 5 JUAN JUAN CARE/DAY 25 MINUTES SBSQ 12569 [facility] 5 JUAN JUAN CARE/DAY 25 MINUTES SBSQ 80613 [facility] 5 JUAN JUAN CARE/DAY 25 MINUTES WALKER E0143 [facility] FOLDING 5 WHEELED ADJUSTABL E/FIXED HEIGHT COMMODE E0163 [facility] CHAIR 5 MOBILE OR STATIONAR Y W/FIXED ARMS LEVEL III 57252 [place] SURG 5 [facility] PATHOLOGY [facility] GROSS&AZAR ROSCOPIC EXAM DECALCIFI 58911 [place] CATION 5 [facility] PROCEDURE CLINIC PSC REPL LT [id number] [facility] HIP JNT 5 [facility] CERAM POLY SYNTH UNCEMENTE D OPEN INITIAL 18382 [facility] 5 JUAN JUAN CARE/DAY 70 MINUTES ANESTHESI [address] ANEST[address]I TERRA [facility]A A OPEN 5 A TOTAL HIP ASSOCIATE S PSC ARTHROPLA STY ARTHRP 03670 [facility] CHANCE TRA ACETBLR/P 5 [place] CANDACE FEM ORTHOPAED PROSTC [facility]CS PLC AGRFT/ALG RFT RADIOLOGI 04543 [facility] [place] RABIA C EXAM 5 RADIOLOGY RHO CHEST 2 VIEWS FRONTAL&L ATERAL LIPID 66899 [facility] PANEL [address] [place] [address] HOSPITAL HEPATIC 47652 [facility] FUNCTION [address] [place] [address] PANEL HEMOGLOBI 90243 [facility] N [address] [place] [address] GLYCOSYLA MIKY A1C BLOOD 11269 [facility] COUNT [address] [place] [address] COMPLETE AUTOMATED RADIOLOGI 40436 [facility] [place] WESTERFI[place] C EXAM 5 RADIOLOGY LD IV ALL CHEST 2 VIEWS FRONTAL&L ATERAL PROTHROMB 29836 [facility] IN TIME [address] [place] [address] ECG 61124 [facility] ROUTINE [address] [place] [address] ECG W/LEAST 12 LDS TRCG ONLY W/O I&R URNLS DIP [address] STICK/TAB LET RGNT AUTO W/O MICROSCOP Y BASIC [address] PANEL CALCIUM TOTAL THROMBOPL 97503 [facility] ASTIN [address] [place] [address] TIME PARTIAL PLASMA/WH OLE BLOOD RADIOLOGI 39449 CHRISTI BRASWELL ALL C EXAM 5 MEDICAL CHEST 2 IMAGING VIEWS ASS FRONTAL&L ATERAL INJECTION J2785 [address] [place] ON 0.1 MG MYOCARDIA 46222 [facility] SPECT [address] [place] [address] MULTIPLE STUDIES TECHNETIU A9502 [facility] M TC-99M [address] [place] [address] TETROFOSM IN DX PER STUDY DOSE RADEX 78629 [facility] CHANCE TRA SPINE 5 [place] LUMBOSACR ORTHOPAED AL 2/3 [facility] VIEWS CANE INCL E0100 IDRIS MARCHRELL CANES 5 HOME HOME ALL MEDICAL MEDICAL MATERIAL EQUIPME EQUIPME ADJUSTBLE /FIX W/TIP APPL 84123 [facility] MODALITY 5 [facility] 1/> AREAS INC INC ELEC STIMJ UNATTENDE D APPLICATI 48633 [facility] ON 5 [facility] MODALITY INC INC 1/> AREAS HOT/COLD PACKS APPL 11480 [facility] MODALITY 5 [facility] 1/> AREAS INC INC ULTRASOUN D EA 15 MIN THERAPEUT 29684 [facility] IC PX 1/> 5 [facility] AREAS INC INC EACH 15 MIN EXERCISES THERAPEUT 46192 [facility] IC PX 1/> 5 [facility] AREAS INC INC EACH 15 MIN EXERCISES APPL 05115 [facility] MODALITY 5 [facility] 1/> AREAS INC INC ULTRASOUN D EA 15 MIN APPLICATI 25492 [facility] ON 5 [facility] MODALITY INC INC 1/> AREAS HOT/COLD PACKS APPL 36252 [facility] MODALITY 5 [facility] 1/> AREAS INC INC ELEC STIMJ UNATTENDE D APPL 73920 [facility] MODALITY 5 [facility] 1/> AREAS INC INC ELEC STIMJ UNATTENDE D APPLICATI 65544 [facility]MA ON 5 [facility] MODALITY INC INC 1/> AREAS HOT/COLD PACKS APPL 35776 [facility]MA MODALITY 5 [facility] 1/> AREAS INC INC ULTRASOUN D EA 15 MIN THERAPEUT 66732 [facility] VERMA IC PX 1/> 5 [facility] AREAS INC INC EACH 15 MIN EXERCISES THERAPEUT 82133 [facility] IC PX 1/> 5 [facility] AREAS INC INC EACH 15 MIN EXERCISES MANUAL 46976 [facility] THERAPY 5 [facility] TQS 1/> INC INC REGIONS EACH 15 MINUTES APPLICATI 99224 [facility]MA ON 5 [facility] MODALITY INC INC 1/> AREAS HOT/COLD PACKS APPL 04235 B[facility] MODALITY 5 [facility] 1/> AREAS INC INC ELEC STIMJ UNATTENDE D PHYSICAL 91758 [facility] THERAPY 5 [facility] EVALUATIO INC INC N RADIOLOGI 86740 [facility] [place] RABIA C EXAM 5 RADIOLOGY RHO CHEST 2 VIEWS FRONTAL&L ATERAL RADIOLOGI 18175 [facility] CHANCE TRA C 5 [place] EXAMINATI ORTHOPAED ON PELVIS [facility]CS PLC 2 VIEWS RADEX 37428 [facility] CHANCE TRA SPINE 5 [place] LUMBOSACR ORTHOPAED AL 2/[address] [place] [address] CHRISTI PERALTAUTCHER ABDOMEN & 4 MEDICAL KARLY PELVIS IMAGING W/O ASS CONTRAST MATERIAL RADEX 29831 [facility] [place] SCALF MARKO SHOULDER 4 RADIOLOGY COMPLETE MINIMUM 2 VIEWS RADEX 66919 [facility] [place] SCALF MARKO SPINE 4 RADIOLOGY CERVICAL 2 OR 3 VIEWS RADEX 68341 CHRISTI LINUS HUMERUS 4 MEDICAL KARLY MINIMUM 2 IMAGING VIEWS ASS RADEX 64574 [facility] LIN[facility] FOREARM 2 4 MEDICAL KARLY VIEWS IMAGING ASS RADIOLOGI 95691 [facility]IG[facility] C EXAM 4 MEDICAL KARLY CHEST 2 IMAGING VIEWS ASS FRONTAL&L ATERAL ECG 96205 SHAZIA ANGELICA SHAZIA ANGELICA ROUTINE 4 ECG W/LEAST 12 LDS I&R ONLY LIPID 11501 LAB [facility] PANEL 4 [place] HEMOGLOBI 77086 [facility]ERY[facility] N 4 [place] GLYCOSYLA [employer] MIKY A1C COMPREHEN 48038 [facility]ERY[facility] SIVE 4 [place] METABOLIC [employer] PANEL COMPREHEN 76117 [facility] CHERYL SIVE 3 [place] METABOLIC [employer] [employer] PANEL BLOOD 32235 [facility] CHERYL COUNT 3 [place] COMPLETE HOLD[facility] HOLDINGS AUTO&AUTO DIFRNTL WBC ECG 94153 JOSE MARIA ROSS ROUTINE 3 MARCELINA ECG PEDIATRIC W/LEAST S & INTER 12 LDS W/I&R ECG 92659 COURTNEY BORWNING ROUTINE 3 EMERGENCY AZAR ECG SERVICES W/LEAST 12 LDS I&R ONLY RADIOLOGI 29691 [facility]IG[facility] C EXAM 3 MEDICAL KARLY CHEST 2 IMAGING VIEWS ASS FRONTAL&[place] [address] CHRISTI BARRIGA HEAD/BRAI 3 MEDICAL KARLY N W/O IMAGING CONTRAST ASS MATERIAL RADEX HIP 05347 [facility] 3 N N [facility] HOSPITA COMPLETE MINIMUM 2 VIEWS RADEX 28817 COURTNEY BELLAMY BRA FOOT 3 EMERGENCY COMPLETE SERVICES MINIMUM 3 VIEWS HEMOGLOBI 93845 LAB [facility] LAB CHERYL N 3 [place] GLYCOSYLA [employer] [facility] MIKY A1C BASIC 76163 LAB [facility] LAB CHERYL METABOLIC 3 BONY BONY PANEL [facility]INGS HOLDINGS CALCIUM TOTAL RADIOLOGI 28740 COURTNEY Gonzalez 3 EMERGENCY RYA EXAMINATI SERVICES ON KNEE 3 VIEWS CYTP C/V 14219 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 THIN 3 Y CHERYL OF Y CHERYL OF LYR BONY BONY PREPJ SCR H H MNL RESCR PHYS IADNA 84949 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 PAPILLOMA 3 Y CHERYL OF Y CHERYL OF VIRUS BONY BONY HUMAN H H AMPLIFIED PROBE TQ LIPID 58153 LAB [facility]L LAB CHERYL PANEL 3 [facility] HEMOGLOBI 08703 [facility] LAB [facility]ERYL N 3 [facility] GLYCOSYLA HOLDINGS HOLDINGS MIKY A1C COMPREHEN 07773 LAB [facility] LAB CHERYL SIVE 3 [facility] METABOLIC HOLDINGS HOLDINGS PANEL INCISION 95642 COURTNEY STEPHENS & 3 EMERGENCY III ADRIENNE DRAINAGE SERVICES ABSCESS SIMPLE/SI NGLE NONEMERG A0120 LKLP LKLP TRNSPRT: 2 COMMUNITY COMMUNITY MINI-BUS ACTION ACTION NCN AREA/OTH SYS ECG 14533 COURTNEY STEPHENS ROUTINE 2 EMERGENCY III ADRIENNE ECG SERVICES W/LEAST 12 LDS I&R ONLY COMPREHEN 42671 [facility] VERMA SIVE 2 [facility] METABOLIC INC INC PANEL CREATINE 00823 [facility] KINASE MB 2 [facility] FRACTION INC INC ONLY CREATINE 97209 [facility] KINASE 2 [facility] TOTAL INC INC 3D 73188 [facility] RENDERING 2 [facility] W/INTERP INC INC & POSTPROCE SS SUPERVISI ON ECG 79849 [facility] ROUTINE 2 [facility] ECG INC INC W/LEAST 12 LDS TRCG ONLY W/O I&[place] [address] [facility] TROPONIN 2 [facility] QUANTITAT INC INC FAWAD BLOOD 85682 [facility] COUNT 2 [facility] COMPLETE INC INC AUTO&[place] [address] CHRISTI BARRIGA HEAD/BRAI 2 MEDICAL KARLY N W/O IMAGING CONTRAST ASS MATERIAL THERAPEUT 39812 [facility] IC 2 [facility] PROPHYLAC INC INC TIC/DX INJECTION SUBQ/[place] [address] CHRISTI BARRIGA ABDOMEN & 2 MEDICAL KARLY PELVIS IMAGING W/O ASS CONTRAST MATERIAL BASIC 49719 [facility] VER[facility] METABOLIC 2 [facility] PANEL INC INC CALCIUM TOTAL 3D 64546 CHRISTI BARRIGA RENDERING 2 MEDICAL KARLY IMAGING W/INTERP& ASS POSTPROC DIFF WORK STATION URNLS DIP 20145 [facility] GARCIAON 2 [facility] STICK/TAB INC INC LET REAGENT AUTO MICROSCOP Y BLOOD 26582 [facility] COUNT 2 [facility] COMPLETE INC INC AUTO&AUTO DIFRNTL WBC THERAPEUT 87966 [facility] IC 2 [facility] PROPHYLAC INC INC TIC/DX INJECTION SUBQ/IM NONEMERG A0120 LKLP LKLP TRNSPRT: 2 COMMUNITY COMMUNITY MINI-BUS ACTION ACTION [facility] AREA/OT SYS BASIC 77404 [facility] METABOLIC 2 [facility] PANEL INC INC CALCIUM TOTAL RADIOLOGI 77566 [facility] VERMA C 2 [facility] EXAMINATI INC INC ON CHEST SINGLE VIEW FRONTAL CREATINE 15739 [facility] KINASE 2 [facility] TOTAL INC INC ECG 89953 [facility] ROUTINE 2 [facility] ECG INC INC W/LEAST 12 LDS TRCG ONLY W/O I&R COMPREHEN 53549 [facility] SIVE 2 [facility] METABOLIC INC INC PANEL CREATINE 29921 [facility] KINASE MB 2 [facility] [place] [address] [facility] TROPONIN 2 [facility] QUANTITAT INC INC FAWAD BLOOD 48418 [facility] COUNT 2 [facility] COMPLETE INC INC AUTO&AUTO DIFRNTL WBC ECG 41065 [facility] BAYRON ROUTINE 2 [facility] W/LEAST P P 12 LDS I&R ONLY URNLS DIP 08263 [facility] VERMA 1 [facility] LET RGNT P P NON-AUTO W/O MICRSCP BLOOD 63856 [facility] COUNT 1 [facility] COMPLETE INC INC AUTO&AUTO DIFRNTL WBC URNLS DIP 07719 [facility] VERMA 1 [facility] STICK/TAB INC INC LET REAGENT AUTO MICROSCOP Y RADEX 04818 [facility] ABDOMEN 1 1 MEDICAL MEDICAL IMAGING IMAGING ANTEROPOS ASS ASS TERIOR VIEW FIBRIN 45338 [facility] DGRADJ 1 [facility] PRODUCTS INC INC D-DIMER QUAL/SEMI JUANIS BASIC 14753 [facility] METABOLIC 1 [facility] HOSP PANEL INC INC CALCIUM TOTAL CULTURE 43885 B[facility] BACTERIAL 1 [facility] INC INC QUANTTATI VE COLONY COUNT URINE DUP-SCAN 27725 [facility] XTR VEINS 1 [facility] COMPLETE INC INC BILATERAL STUDY CALCULUS 62969 [facility] INFRARED 1 DIAGNOSTI DIAGNOSTI SPECTROSC CS CS OPY CYSTO 98903 ANJUM VALERO W/URETERO 1 [facility] SCOPY W/LITHOTR IPSY CYSTO 92556 ANJUM VALERO W/INSERT 1 [facility] ROBERT URETERAL STENT PROSTHETI L8699 [facility] IMPLANT 1 [facility] NOT CLINIC CLINIC OTHERWISE PSC PSC SPECIFIED INJECTION J[address] ONDANSETR CLINIC CLINIC ON HCL PSC PSC PER 1 MG URNLS DIP 39540 [facility] VALERO 1 [facility] LET RGNT P NON-AUTO W/O MICRSCP RAD 6045F [facility] EXPOS/ROBERT 1 MEDICAL MEDICAL E IN LAST IMAGING IMAGING RPRT ASS ASS FLUORO PRXD DOCD FLUOROSCO 81244 [facility] PY SPX UP 1 MEDICAL MEDICAL TO 1 IMAGING IMAGING HOUR ASS ASS PHYS/QHP TIME URNLS DIP 09192 [facility] BAYRON 1 [facility] LET RGNT P P NON-AUTO W/O MICRSCP INTRO 25433 [facility] URETERAL 1 [facility] CATH/STEN INC INC T PRQ RS&I GUIDE C1769 [facility] WIRE 1 [facility] INC INC STENT C2617 [facility] NON-COR 1 [facility] TEMPORARY INC INC WITHOUT DELIVERY SYSTEM ECG 49815 [facility] ROUTINE 1 [facility] ECG INC INC W/LEAST 12 LDS TRCG ONLY W/O I&[place] [address] [facility] INFUSION 1 [facility] THERAPY/P INC INC ROPHYLAXI S /DX 1ST TO 1 HR CYSTO 21649 [facility] W/INSERT 1 [facility] URETERAL INC INC STENT THERAPEUT 66296 B[facility] IC 1 [facility] INJECTION INC INC IV PUSH EACH NEW DRUG ECG 82253 [facility] TEJADA JR ROUTINE 1 [facility] W/LEAST P 12 LDS I&[place] [address] [facility] INFUSION 1 [facility] THERAPY/P INC INC ROPHYLAXI S /DX 1ST TO 1 HR URNLS DIP 26920 [facility] VERMA 1 [facility] STICK/TAB INC INC LET REAGENT AUTO MICROSCOP Y BLOOD 54149 [facility] COUNT 1 [facility] COMPLETE INC INC AUTO&[place] [address] CHRISTI BARRIGA ABDOMEN & 1 MEDICAL KARLY PELVIS IMAGING W/O ASS CONTRAST MATERIAL 3D 69940 [facility] PERALTALINUS RENDERING 1 MEDICAL KARLY IMAGING W/INTERP& ASS POSTPROC DIFF WORK STATION CULTURE 14909 [facility] BACTERIAL 1 [facility] INC INC QUANTTATI VE COLONY COUNT URINE INJECTION J2405 [facility]MA 1 [facility] ONDANSETR INC [place] HCL PER 1 [place] [address] [facility] INFUSION 1 [facility] THER INC INC PROPH ADDL SEQUENTIA L TO 1 HR COMPREHEN 66059 [facility] SIVE 1 [facility] METABOLIC INC INC PANEL SLINGS A4565 HE L.P. HE L.P. 1 CREATINE 98848 [facility] KINASE 1 N N TOTAL [facility] HOSPITA HOSPITA COLLECTIO 44963 [facility] N VENOUS 1 N N BLOOD [facility] VENIPUNCT HOSPITA HOSPITA URE COMPREHEN 65841 [facility] SIVE 1 N N METABOLIC [facility] PANEL HOSPITA HOSPITA HEMOGLOBI 22274 [facility] N 1 [employer] [facility] GLYCOSYLA MIKY A1C MRI BRAIN 97952 [facility] [place] LESLIE MAT BRAIN 1 RADIOLOGY STEM W/O W/CONTRAS T MATERIAL COLLECTIO 89074 LEE PAD LEE PAD N VENOUS 1 BLOOD VENIPUNCT URE COMPREHEN 14838 [facility] SIVE 1 [employer] [facility] METABOLIC PANEL LIPID 80845 [facility] PANEL 1 [employer] [facility] LIPOPROTE 64172 [facility] IN DIRECT 1 [employer] MEASUREME NT LDL CHOLESTER OL 3D 56486 [facility] RENDERING 1 MEDICAL MEDICAL W/INTERP IMAGING IMAGING & [place] [address] [place] [facility] HEAD/BRAI 1 MEDICAL KARLY N W/O IMAGING CONTRAST ASS MATERIAL COMPREHEN 63419 [facility] GARCIAON SIVE 1 [facility] METABOLIC INC INC PANEL BLOOD 07561 [facility] COUNT 1 [facility] COMPLETE INC INC AUTO&AUTO DIFRNTL WBC CYANOCOBA 53655 [facility] NKECHI 1 [facility] VITAMIN INC INC B-12 SEDIMENTA 92379 [facility] [facility] TION RATE 1 [facility] RBC INC INC NON-AUTOM ATED URNLS DIP 55098 [facility] [facility]MA 0 [facility] STICK/TAB INC INC LET REAGENT AUTO MICROSCOP Y RADIOLOGI 29952 [facility] [place] [facility] C EXAM 0 MEDICAL KARLY CHEST 2 IMAGING VIEWS ASS FRONTAL&L ATERAL CULTURE 16800 [facility] BACTERIAL 0 [facility] INC INC QUANTTATI VE COLONY COUNT URINE RADEX 39297 [facility] [place] [facility] RIBS UNI 0 MEDICAL KARLY W/POSTERO [...] SUPPLIES SUPPLIES DEVICE FOR LANCET EACH COMPUTER- 98470 [facility] [place] AIDED 0 RADIOLOGY RHO DETECTION SCREENING MAMMOGRAP HY SCREENING G0202 [facility] [place] 0 RADIOLOGY RHO MAMMOGRAP HY TERESA INCL CAD WHEN PERFORMD LIPOPROTE 16811 [facility] IN DIRECT 0 [facility] MEASUREME NT LDL CHOLESTER OL CYTP C/V 03247 PATHOLOGY PATHOLOGY AUTO THIN 0 & & LYR CYTOLOGY CYTOLOGY PREPJ SCR LAB LAB MNL RESCR PHYS HEMOGLOBI 10336 [facility] N 0 [facility] GLYCOSYLA MIKY A1C LIPID 46291 [facility] PANEL 0 [facility] INC COLLECTIO 31265 LEE PAD LEE PAD N VENOUS 0 BLOOD VENIPUNCT URE COMPREHEN 45510 [facility] SIVE 0 [facility] INC METABOLIC PANEL COMPREHEN 99385 [facility] SIVE 0 [facility] METABOLIC INC INC PANEL URNLS DIP 04611 [facility]MA 0 [facility] STICK/TAB INC INC LET REAGENT AUTO MICROSCOP Y BLOOD 04601 [facility] COUNT 0 [facility] COMPLETE INC INC AUTO&AUTO DIFRNTL WBC RADIOLOGI 96099 [facility] C EXAM 0 MEDICAL KARLY CHEST [...] T [facility] BLD GLU MON-50 RADIOLOGI 60845 [place] [place] [facility], C EXAM 0 MEDICAL MONIQUE CHEST 2 IMAGING VIEWS ASSOCIATE FRONTAL&L S ATERAL URNLS DIP 46641 [facility] 0 [facility] STICK/TAB INC INC LET REAGENT AUTO MICROSCOP Y URINE 80641 [facility] 0 [facility] TEST INC INC VISUAL COLOR CMPRSN METHS CULTURE 20873 [facility] BACTERIAL 0 [facility] MEM [...] [facility]IPS HOME BLD GLU MON-50 URNLS DIP 57493 [facility] STICK/TAB INC INC LET REAGENT AUTO MICROSCOP Y CT PELVIS 11787 [place], W/O 0 MEDICAL JAMES P CONTRAST IMAGING MATERIAL ASSOCIATE S 3D 21273 [place], RENDERING 0 MEDICAL JAMES P IMAGING W/INTERP& [place]OCI[place] [address] [place], ABDOMEN 0 MEDICAL JAMES P W/O IMAGING CONTRAST ASSOCIATE MATERIAL S LANCETS A4259 M E D M E D PER BOX 0 SUPPLIES SUPPLIES OF 100 BLD GLU A4253 M E D M E D TEST/REAG 0 SUPPLIES SUPPLIES T [facility] BLD GLU MON-50 [place] [address] [facility] STREPTOCO 0 [facility] MEM [...] [address] PELVIS [address] [facility] [place] ELENATELIC, W/O [address] [place] [address] [facility] [place] EL[place], ABDOMEN 9 RADIOLOGY [...] T [facility]IPS HOME BLD GLU MON-50 INCISION 07958 COURTNEY LAZARO, & 9 EMERGENCY ALVERTO L [employer]RAIN[employer] SERVICES ABSCESS SIMPLE/SI ASSOCIATE NGLE S BLD GLU A4253 M E D M E D TEST/REAG 9 SUPPLIES SUPPLIES T [facility] BLD GLU MON-50 LANCETS 200 A4259 M E D M E D PER BOX 9 SUPPLIES SUPPLIES OF 100 INCISION 45495 MICHELLE YOUNG, & 9 KEVIN ANITA L DRAINAGE EMERGENCY ABSCESS PHYS INC COMPLICAT ED/MULTIP LE LANCETS 200 A4259 M E D M E D PER BOX 9 SUPPLIES SUPPLIES OF 100 BLD GLU 200 A4253 M E D M E D TEST/REAG 9 SUPPLIES SUPPLIES T STRIPS HOME BLD GLU MON-50 RADIOLOGI 64682 [facility] [place] HE, C 9 RADIOLOGY J [...] BOX 9 SUPPLIES SUPPLIES OF 100 LIPID 57805 LAB [facility] LAB CHERYL PANEL 9 [employer] COMPREHEN 30844 LAB [facility] LAB CHERYL SIVE 9 [employer] PANEL COLLECTIO 31888 HORIZON COLIN, N VENOUS 9 [facility]LOOD [facility] VENIPUNCT URE BLD GLU [id number] M E D M E D TEST/REAG 9 SUPPLIES SUPPLIES T STRIPS HOME BLD GLU MON-50 LANCETS A4259 M E D M E D PER BOX 9 SUPPLIES SUPPLIES OF 100 URNLS DIP 20401 [facility] 9 LTH JR, STICK/TAB UROLOGY [...] SUPPL[place] [address] [place] KOSTEL[place], ABDOMEN 9 RADIOLOGY MARY K W/O CONTRAST MATERIAL CT PELVIS 53531 [facility] KOST[place], W/O 9 RADIOLOGY MARY K CONTRAST MATERIAL CYSTO 27130 [facility] W/URETERO 9 LTH JR, SCOPY UROLOGY MAR Thao W/RMVL/MA PSC [place] STONES CYSTO 16831 [facility] W/INSERT 9 LTH JR, URETERAL UROLOGY MAR K STENT PSC ANES 66758 ANESTHESI DUNFEE, TRANSURET 9 Deniz Murphy HRAL ASSOCIATE W/URETHRO S, PSC CYSTOSCOP Y NOS URNLS DIP 27008 [facility] 9 LTH JR, STICK/TAB UROLOGY MAR K LET RGNT PSC AUTO W/O MICROSCOP Y CYSTO 41825 [facility] W/INSERT 8 LTH JR, URETERAL UROLOGY MAR K STENT PSC ANES 94127 ANESTHESI SMITH, TRANSURET 8 Deniz Gonzalez HRAL ASSOCIATE W/URETHRO S, PSC CYSTOSCOP Y NOS URETERAL 598 [facility] 8 [facility] GR[facility] A0425 [facility] 8 CARTER MACHADO PER CO EMS CO EMS STATUTE MILE ECG 05588 [facility], ROUTINE 8 [place] J ECG CLINIC W/LEAST PSC 12 LDS I&R ONLY CT PELVIS 00486 [place] NERI, W/O 8 RADIOLOGY J CONTRAST MATERIAL INITIAL 82878 [facility] 8 LT JR, CARE/DAY UROLOGY MAR [place] [address] [place] [address] [place] NER[place], ABDOMEN 8 RADIOLOGY J W/O CONTRAST MATERIAL AMB A0427 [facility] SERVICE 8 CARTER MACHADO ALS CO EMS CO EMS [place] [address] [place] KOSTEL[place], ABDOMEN 8 RADIOLOGY MARY K W/O CONTRAST MATERIAL CT PELVIS 29798 [place] KOSTEL[place], W/O 8 RADIOLOGY MARY K CONTRAST MATERIAL COLLECTIO 95154 [facility] COL[place], N VENOUS 8 [facility] VENIPUNCT URE HEMOGLOBI 98255 LAB [facility] CHERYL N 8 [facility] GLYCOSYLA HOLDING HOLDING MIKY A1C GLUCOSE 10004 LAB [facility] CHERYL QUANTITAT 8 [facility] FAWAD BLOOD HOLDING HOLDING XCPT REAGENT STRIP LIPID 12176 LAB [facility] LAB CHERYL PANEL 8 [facility] SCREENING G0202 [facility] 8 N N MAMMOGRAP [facility] INCL CAD WHEN PERFORMD COMPUTER- 05419 [facility] AIDED 8 N N DETECTION [facility] SCREENING MAMMOGRAP HY COLLECTIO 85404 [facility] OVERBEE, N VENOUS 8 [facility] AMANDA BLOOD E CENTER VENIPUNCT URE GENERAL 86277 LAB CHERYL LAB CHERYL HEALTH 8 [facility] PANEL HOLDING HOLDING IADNA 14674 [facility] [place], NEISSERIA 8 [place] INC MICHAEL D GONORRHOE AE AMPLIFIED PROBE TQ IADNA 12452 [facility] TRICHOMON 8 [facility] INC INC VAGINALIS DIRECT PROBE TQ IADNA 24969 [facility] [place], MELLO 8 [place] INC MICHAEL D SPECIES AMPLIFIED PROBE TQ IADNA 97594 [facility] [place], GARDNEREL 8 [place] INC MICHAEL D LA VAGINALIS AMPLIFIED PROBE TQ CYTP 90684 [facility] [place], CERV/VAG 8 [place] INC MICHAEL D AUTO THIN LAYER PREP MNL SCREEN IADNA 82941 [facility] [place], CHLAMYDIA 8 [place] INC MICHAEL D TRACHOMAT IS AMPLIFIED PROBE TQ URNLS DIP 24180 [facility] OSPINA, 8 [facility] JONATHAN STICK/TAB E CENTER LET RGNT AUTO W/O MICROSCOP Y CT PELVIS 98585 [place] RY[place], W/O 8 [place] [address] [place], ABDOMEN 8 RADIOLOGY ONIEL P W/[place] [address] [place] [facility]MA ABDOMEN 8 [facility] W/O INC INC CONTRAST MATERIAL 3D 20882 [facility] RENDERING 8 [facility] INC INC W/INTERP& POSTPROC DIFF WORK STATION CT PELVIS 48059 [place] VERMA W/O 8 [facility] CONTRAST INC INC MATERIAL URNLS DIP 75978 [place] VERMA 8 [facility] STICK/TAB INC INC LET REAGENT AUTO MICROSCOP Y RADIOLOGI 98571 [place] Gonzalez EXAM 8 [facility] CHEST 2 INC INC VIEWS FRONTAL&L ATERAL BLOOD 34539 [place] [facility] COUNT 8 [facility] COMPLETE INC INC AUTO&AUTO DIFRNTL WBC IAADI 54458 [place] GARCIAON INFFLUENZ 8 [facility] A A VIRUS INC INC IAADI 36511 [place] INFLUENZA 8 [facility] [place] [place] [address] [place] [facility] THER 8 [facility] PROPH/DX INC INC 1ST >1 HR BASIC 81164 [place] METABOLIC 8 [facility] PANEL INC INC CALCIUM TOTAL APPL 83456 [place] [facility] MODALITY 8 [facility] 1/> AREAS INC INC ELEC STIMJ UNATTENDE D THERAPEUT 95095 [facility] [facility] IC PX 1/> 8 [facility] AREAS INC INC EACH 15 MIN EXERCISES PHYSICAL 22187 [place] [facility] THERAPY 8 [facility] EVALUATIO INC INC N CT LUMBAR 56950 [place] KATIE, SPINE 8 MEDICAL JAMES P W/O IMAGING CONTRAST ASSOCIATE MATERIAL S 3D 81164 [place] CHRISTY WILSON 8 MEDICAL JAMES P IMAGING W/INTERP& ASSOCIATE POSTPROC S DIFF WORK STATION RADEX 78109 [place] KATIE, SPINE 8 MEDICAL JAMES P LUMBOSACR IMAGING AL ASSOCIATE MINIMUM 4 S VIEWS RADIOLOGI 90447 [place] Gonzalez 8 [facility] EXAMINATI INC INC ON FEMUR 2 VIEWS RADEX HIP 89503 [place] KATIE 8 MEDICAL JAMES P UNILATERA IMAGING L ASSOCIATE COMPLETE S MINIMUM 2 VIEWS Encounters Encounter Start End Date Code Location Performer Type Date OFFICE 90022 [facility] NATHALIE OUTPATIEN 7 7 PHYSICIAN T VISIT S GROUP 25 MINUTES OFFICE 73708 [facility] NATHALIE OUTPATIEN 7 7 PHYSICIAN T VISIT S GROUP 40 MINUTES EMERGENCY 23715 TIFFANY BOWER 7 7 MEDICAL DEPARTMEN SERV T VISIT FOUNDATIO HIGH/URGE N NT SEVERITY [facility]OS[facility] - 7 7 [facility] OUTPATIEN E T HOSPITALS OFFICE 75504 [facility] NANNETTE OUTPATIEN 7 7 FOOT & T NEW 30 ANKLE CE MINUTES EMERGENCY 17732 LEONEL LEE DEPT 7 7 PHYSICIAN VISIT S, [facility] HIGH SEVERITY& THREAT [facility] [place] 7 7 [facility] OUTPATIEN INC T EMERGENCY 14744 [facility] 7 7 [facility] DEPARTMEN INC T VISIT LOW/MODER SEVERITY [facility] [place] - 7 7 [facility] OUTPATIEN INC T OFFICE 95085 [place] BOATENGPATIEN 7 7 [facility] T VISIT 5 INC MINUTES [facility]OSPITAL [place] - 7 7 [facility] OUTPATIEN INC T EMERGENCY 53578 [facility] 7 7 [facility] DEPARTMEN INC T VISIT LOW/MODER SEVERITY OFFICE 06179 JOSE MARIA ROSS OUTPATIEN 6 6 MARCELINA T VISIT PEDIATRIC 15 S & INTER MINUTES [facility]PITAL [facility] 6 6 N OUTPATIEN COMMUNTIY T HOSPITA OFFICE 98817 SCIFRES SCIFRES OUTPATIEN 6 6 ANG ANG T VISIT 15 MINUTES OFFICE 53997 SCIFRES SCIFRES OUTPATIEN 6 6 ANG ANG T VISIT 15 MINUTES OFFICE 12423 [facility] PETTEY OUTPATIEN 6 6 PHYSICIAN JAM T NEW 20 S GROUP MINUTES EMERGENCY 85683 [facility] 6 6 [facility] DEPARTMEN INC T VISIT MODERATE SEVERITY EMERGENCY 65531 LEONEL CROWDER DEPT 6 6 PHYSICIAN OLGA VISIT S, [facility] HIGH SEVERITY& THREAT FUN [facility] [place] - 6 6 [facility] OUTPATIEN INC T OFFICE 60922 ANN KEARNS OUTPATIEN 6 6 PHYSCIAN LES T VISIT PRACTICE 15 LL MINUTES HOSPITAL [place] - 6 6 [facility] OUTPATIEN INC T OFFICE 77032 CHANCE TRA CHANCE TRA OUTPATIEN 6 6 T VISIT 15 MINUTES OFFICE 97601 BODAR[facility] SOM CONSULTAT 6 6 PHYSCIAN LES ION PRACTICE NEW/ESTAB LL PATIENT 40 MIN OFFICE 30862 JOSE MARIA ROSS OUTPATIEN 6 6 MARCELINA T VISIT PEDIATRIC 15 S & INTER MINUTES HOME [facility] 6 6 GAY INPATIENT [facility] [place] - 6 6 [facility] OUTPATIEN INC T EMERGENCY 19517 LEONEL US 6 6 PHYSICIAN Payal [facility] T VISIT HIGH/URGE NT SEVERITY EMERGENCY 82334 [place] 6 6 [facility] DEPARTMEN INC T VISIT MODERATE SEVERITY [facility]OSP[facility] [place] - 5 5 [facility] OUTPATIEN INC T EMERGENCY 44265 LEONEL BROWNING DEPT 5 5 PHYSICIAN AZAR VISIT S, [facility] HIGH SEVERITY& THREAT FUNJ EMERGENCY 10400 [place] 5 5 [facility] DEPARTMEN INC T VISIT HIGH/URGE NT SEVERITY OFFICE 58406 JOSE MARIA ROSS OUTPATIEN 5 5 MARCELINA T VISIT PEDIATRIC 15 S & INTER MINUTES HOME [facility], 5 5 GAY INPATIENT [facility] ST DANA - 5 5 HOSPITAL INPATIENT [facility]OSPITAL [facility] - 5 5 N OUTPATIEN COMMUNTIY T HOSPITA OFFICE 24806 JOSE MARIA ROSS OUTPATIEN 5 5 MARCELINA T VISIT PEDIATRIC 15 S & INTER MINUTES HOSPITAL [address] OUTPATI T EMERGENCY 60790 LEONEL BROWNING DEPT 5 5 PHYSICIAN AZAR VISIT S, PLL HIGH SEVERITY& THREAT [facility] [address] OUTPATIEN T OFFICE 80991 JOSE MARIA ROSS OUTPATIEN 5 5 MARCELINA T VISIT PEDIATRIC 15 S & INTER MINUTES OFFICE 99118 [facility] TRA OUTPATIEN 5 5 [place] T VISIT ORTHOPAED 15 [facility] MINUTES EMERGENCY 44137 BARRY Ruth 5 5 DEPARTMEN T VISIT MODERATE SEVERITY OFFICE 77195 JOSE MARIA ROSS OUTPATIEN 5 5 MARCELINA T VISIT PEDIATRIC 15 S & INTER MINUTES EMERGENCY 42884 NALLELY BROWNING DEPT 5 5 AZAR AZAR VISIT HIGH SEVERITY& THREAT [facility] OFFICE 38546 [facility] CHANCE TRA OUTPATIEN 5 5 [place] T VISIT ORTHOPAED 15 [facility] MINUTES [facility] [place] - 5 5 [facility] OUTPATIEN INC T EMERGENCY 68070 CHRISTEL KEARNEY 5 5 DORI DORI DEPARTMEN T VISIT HIGH/URGE NT SEVERITY OFFICE 04611 [facility] CH[facility] TRA OUTPATIEN 5 5 [place] T NEW 45 ORTHOPAED MINUTES [facility] OFFICE 39900 JOSE MARIA ROSS OUTPATIEN 4 4 MARCELINA T VISIT PEDIATRIC 15 S & INTER MINUTES EMERGENCY 24386 NALLELY BROWNING 4 4 AZAR AZAR DEPARTMEN T VISIT MODERATE SEVERITY EMERGENCY 79531 NALLELY BROWNING DEPT 4 4 AZAR AZAR VISIT HIGH SEVERITY& THREAT [facility] GEORGEW - 4 4 N OUTPATIEN COMMUNITY T HOSPITA EMERGENCY 88234 LEATHA LEMONIN 4 4 IMT IMT DEPARTMEN T VISIT MODERATE SEVERITY OFFICE 97904 JOSE [facility] ROSS OUTPATIEN 4 4 MARCELINA T VISIT PEDIATRIC 15 S & INTER MINUTES EMERGENCY 72437 ALFARIS ALFARIS 4 4 [facility] DEPARTMEN T VISIT HIGH/URGE NT SEVERITY EMERGENCY 71079 SHAZIA ANGELICA SHAZIA ANGELICA DEPT 4 4 VISIT HIGH SEVERITY& THREAT FUN OFFICE 71099 JOSE MARIA ROSS OUTPATIEN 4 4 MARCELINA T VISIT PEDIATRIC 15 S & INTER MINUTES EMERGENCY 90852 ABIGAIL ELKINSNES 4 4 BRO BRO DEPARTMEN T VISIT HIGH/URGE NT SEVERITY OFFICE 45279 JOSE MARIA ROSS OUTPATIEN 3 3 MARCELINA T VISIT PEDIATRIC 15 S & INTER MINUTES EMERGENCY 71255 COURTNEY BROWNING DEPT 3 3 EMERGENCY AZAR VISIT SERVICES HIGH SEVERITY& THREAT [facility] OFFICE 37925 JOSE MARIA ROSS OUTPATIEN 3 3 MARCELINA T VISIT PEDIATRIC 15 S & INTER MINUTES [facility] - 3 3 N OUTPATIEN COMMUNITY T HOSPITA OFFICE 07368 JOSE MARIA ROSS OUTPATIEN 3 3 MARCELINA T VISIT PEDIATRIC 10 S & INTER MINUTES EMERGENCY 89730 COURTNEY LEWIS 3 3 EMERGENCY DEPARTMEN SERVICES T VISIT MODERATE SEVERITY OFFICE 38276 JOSE MARIA ROSS OUTPATIEN 3 3 MARCELINA T VISIT PEDIATRIC 15 S & INTER MINUTES EMERGENCY 19781 COURTNEY GARCIA 3 3 EMERGENCY RYA DEPARTMEN SERVICES T VISIT HIGH/URGE NT SEVERITY PERIODIC 29560 JOSE MARIA ROSS PREVENTIV 3 3 MARCELINA E MED EST PEDIATRIC PATIENT S & INTER 40-64YRS OFFICE 67468 LUZ BAKER 3 3 MARKO MARKO T VISIT 15 MINUTES OFFICE 98935 [facility] EDIL BAKER 3 3 PHYSICIAN CAM T NEW 45 S GROUP MINUTES EMERGENCY 54461 COURTNEY STEPHENS 3 3 EMERGENCY III ADRIENNE DEPARTMEN SERVICES T VISIT HIGH/URGE NT SEVERITY [facility]OSPITAL [place] - 3 3 [facility] OUTPATIEN INC T EMERGENCY 60125 [facility] 3 3 [facility] DEPARTMEN INC T VISIT LOW/MODER SEVERITY OFFICE 41483 LUZ BAKER 2 2 MARKO MARKO T VISIT 15 MINUTES HOSPITAL [place] - 2 2 [facility] OUTPATIEN INC T EMERGENCY 49326 COURTNEY STEPHENS DEPT 2 2 EMERGENCY III ADRIENNE VISIT SERVICES HIGH SEVERITY& THREAT FUNCJ EMERGENCY 69308 [place] 2 2 [facility] DEPARTMEN INC T VISIT MODERATE SEVERITY [facility] [place] - 2 2 [facility] OUTPATIEN INC T EMERGENCY 84487 COURTNEY MCKENNA DEPT 2 2 EMERGENCY ADRIENNE VISIT SERVICES HIGH SEVERITY& THREAT FUNCJ EMERGENCY 02941 [place] 2 2 [facility] DEPARTMEN INC T VISIT MODERATE SEVERITY OFFICE 50626 LUZ BAKER 2 2 MARKO MARKO T VISIT 15 MINUTES EMERGENCY 79305 COURTNEY MCKENNA 2 2 EMERGENCY ADRIENNE DEPARTMEN SERVICES T VISIT HIGH/URGE NT SEVERITY [facility]OSP[facility] [place] - 2 2 [facility] OUTPATIEN INC T EMERGENCY 70041 [facility] 2 2 [facility] DEPARTMEN INC T VISIT MODERATE SEVERITY EMERGENCY 69404 COURTNEY BROWNING 2 2 EMERGENCY [facility] DEPARTMEN SERVICES T VISIT MODERATE SEVERITY OFFICE 12804 [place] VILLAGOMEZ CONSULTAT 2 2 MEDICAL L ION SERV NEW/ESTAB FOUNDATIO PATIENT 80 MIN OFFICE 38046 LUZ ESCOBAR OUTPATIEN 2 2 MARKO MARKO T VISIT 15 MINUTES EMERGENCY 87291 COURTNEY FRANKS DEPT 2 2 EMERGENCY VISIT SERVICES HIGH SEVERITY& THREAT [facility] [place] - 2 2 [facility] OUTPATIEN INC T EMERGENCY 07250 [facility] 2 2 [facility] DEPARTMEN INC T VISIT MODERATE SEVERITY [facility] [place] - 1 1 [facility] OUTPATIEN INC T EMERGENCY 79664 COURTNEY VALDEZ 1 1 EMERGENCY EMERGENCY DEPARTMEN SERVICES SERVICES T VISIT HIGH/URGE NT SEVERITY EMERGENCY 80015 [place] 1 1 [facility] DEPARTMEN INC T VISIT MODERATE SEVERITY OFFICE 85951 [place] VALERO OUTPATIEN 1 1 [facility] VISIT HOSPITAL 25 P MINUTES OFFICE 19776 [place] OUTPATIEN 1 1 [facility] VISIT HOSPITAL 25 P MINUTES HOSPITAL [place] - 1 1 [facility] OUTPATIEN INC T EMERGENCY 50185 [place] 1 1 [facility] DEPARTMEN INC T VISIT HIGH/URGE NT SEVERITY EMERGENCY 23393 COURTNEY RIVAS DEPT 1 1 EMERGENCY VISIT SERVICES HIGH SEVERITY& THREAT [facility] [place] - 1 1 [facility] OUTPATIEN INC T [facility] [place] - 1 1 [facility] OUTPATIEN INC T EMERGENCY 43622 COURTNEY RIVAS 1 1 EMERGENCY DEPARTMEN SERVICES T VISIT HIGH/URGE NT SEVERITY EMERGENCY 51057 [place] 1 1 [facility] DEPARTMEN INC T VISIT LOW/MODER SEVERITY EMERGENCY 76799 COURTNEY RIVAS 1 1 EMERGENCY DEPARTMEN SERVICES T VISIT HIGH/URGE NT SEVERITY [facility] [place] - 1 1 [facility] OUTPATIEN INC T EMERGENCY 91325 [place] 1 1 [facility] DEPARTMEN INC T VISIT LOW/MODER SEVERITY [facility] [place] - 1 1 [facility] OUTPATIEN INC T EMERGENCY 81401 COURTNEY FRANKS 1 1 EMERGENCY DEPARTMEN SERVICES T VISIT MODERATE SEVERITY EMERGENCY 23237 [place] 1 1 [facility] DEPARTMEN INC T VISIT LOW/MODER SEVERITY OFFICE 26146 LEE PAD LEE PAD OUTPATIEN 1 1 T VISIT 15 MINUTES HOSP[facility] [place] [address] 1 N OUTPATIEN COMMUNITY [facility] [place] - 1 1 [facility] OUTPATIEN INC T EMERGENCY 70511 COURTNEY LEUNG 1 1 EMERGENCY DEPARTMEN SERVICES T VISIT MODERATE SEVERITY EMERGENCY 59071 [place] 1 1 [facility] DEPARTMEN INC T VISIT LOW/MODER SEVERITY OFFICE 77204 LEE PAD LEE PAD OUTPATIEN 1 1 T VISIT 25 MINUTES HOSPITAL [place] [address] 1 N OUTPATIEN COMM[facility]ITY [facility] EM[facility]ENC[facility] 42710 [place] 1 1 [facility] DEPARTMEN INC T VISIT LOW/MODER SEVERITY EMERGENCY 56512 COURTNEY RIVAS DEPT 1 1 EMERGENCY VISIT SERVICES HIGH SEVERITY& THREAT [facility] [place] - 1 1 [facility] OUTPATIEN INC T EMERGENCY 09681 [place] 1 1 [facility] DEPARTMEN INC T VISIT LOW/MODER SEVERITY EMERGENCY 99741 COURTNEY BROWNING 1 1 EMERGENCY AZAR DEPARTMEN SERVICES T VISIT HIGH/URGE NT SEVERITY [facility]OSPITAL [place] - 1 1 [facility] OUTPATIEN INC T EMERGENCY 19215 [place] 0 0 [facility] DEPARTMEN INC T VISIT LOW/MODER SEVERITY [facility] [place] - 0 0 [facility] OUTPATIEN INC T EMERGENCY 74596 COURTNEY ROSS 0 0 EMERGENCY [facility] DEPARTMEN SERVICES T VISIT MODERATE SEVERITY [facility] [place] - 0 0 [facility] OUTPATIEN INC T EMERGENCY 59585 [facility] 0 0 [facility] DEPARTMEN INC T VISIT LOW/MODER SEVERITY EMERGENCY 06899 COURTNEY ROSS 0 0 EMERGENCY [facility] DEPARTMEN SERVICES T VISIT HIGH/URGE NT SEVERITY HOSPITAL [facility] - 0 0 N OUTPATIEN COMMUNITY T HOSPITA OFFICE 94881 LEE PAD LEE PAD OUTPATIEN 0 0 T VISIT 15 MINUTES PERIODIC 05929 LEE PAD LEE PAD PREVENTIV 0 0 E MED EST PATIENT 40-64YRS [facility] [place] - 0 0 [facility] OUTPATIEN INC T EMERGENCY 19645 COURTNEY DEGROOT AND 0 0 EMERGENCY DEPARTMEN SERVICES T VISIT HIGH/URGE NT SEVERITY EMERGENCY 46340 [place] 0 0 [facility] DEPARTMEN INC T VISIT MODERATE SEVERITY OFFICE 15719 LEE PAD LEE PAD OUTPATIEN 0 0 T NEW 30 MINUTES EMERGENCY 18468 COURTNEY KEARNEY, 0 0 EMERGENCY [facility] DEPARTMEN SERVICES T VISIT MODERATE ASSOCIATE SEVERITY S EMERGENCY 28141 [place] 0 0 [facility] DEPARTMEN INC T VISIT LOW/MODER SEVERITY EMERGENCY 15507 COURTNEY STOVALL, 0 0 EMERGENCY [place] DEPARTMEN SERVICES O T VISIT HIGH/URGE ASSOCIATE NT S SEVERITY [facility] [place] [facility] 0 0 [facility]PATIEN [facility] T [facility] [place] - 0 0 [facility] OUTPATIEN INC T EMERGENCY 31709 COURTNEY NELSON DEPT 0 0 EMERGENCY MARJORIE VISIT SERVICES M HIGH SEVERITY& ASSOCIATE THREAT S FUNCJ EMERGENCY 23885 [place] 0 0 [facility] DEPARTMEN INC T VISIT LOW/MODER SEVERITY EMERGENCY 04712 COURTNEY PARIKH 0 0 EMERGENCY [place] DEPARTMEN SERVICES T VISIT MODERATE SEVERITY EMERGENCY 91496 COURTNEY PARIKH [address] [facility] DEPARTMEN SERVICES T VISIT MODERATE SEVERITY EMERGENCY 40734 COURTNEY BROWNING, 0 0 EMERGENCY [facility] DEPARTMEN SERVICES T VISIT HIGH/URGE ASSOCIATE NT S SEVERITY EMERGENCY 82844 [place] 0 0 [facility] DEPARTMEN INC T VISIT MODERATE SEVERITY [facility] [place] - 0 0 [facility] OUTPATIEN [facility] T HOSPITAL [facility] EMERGENCY 18163 COURTNEY HERNANDEZ DEPT 9 9 EMERGENCY , KAYLYNN VISIT SERVICES HIGH SEVERITY& ASSOCIATE THREAT S FUNCJ EMERGENCY 20469 COURTNEY FOY, 9 9 EMERGENCY MIKY DEPARTMEN SERVICES T VISIT MODERATE ASSOCIATE SEVERITY S EMERGENCY 30341 COURTNEY ZHENGAROSI 9 9 EMERGENCY - YORBA, DEPARTMEN SERVICES BRI T VISIT M MODERATE ASSOCIATE SEVERITY S EMERGENCY 55572 COURTNEY ZHENGAROSI 9 9 EMERGENCY - YORBA, DEPARTMEN SERVICES BRI T VISIT M MODERATE ASSOCIATE SEVERITY S EMERGENCY 88749 COURTNEY LAZARO, 9 9 EMERGENCY ALVERTO L DEPARTMEN SERVICES T VISIT HIGH/URGE ASSOCIATE NT S SEVERITY HOSPITAL [facility] 9 [facility] EMERGENC[facility] 46973 [facility] MODERATE SEVERITY OFFICE 93899 [facility] 9 [facility] SELENE Cassidy T VISIT E CENTER 15 MINUTES EMERGENCY 30910 [facility] 9 9 N [facility] T VISIT HOSPITAL LOW/MODER SEVERITY [facility]PITAL [facility] - 9 9 N OUTPATIEN COMMUNITY T HOSPITAL [facility] - 9 9 N OUTPATIMARY [facility] T HOSPITAL EMERGENCY 48375 [facility] 9 9 N [facility] COMMUNITY T VISIT HOSPITAL LOW/MODER SEVERITY EMERGENCY 07814 [facility] YOUNG, 9 9 KEVIN ANITA L DEPARTMEN EMERGENCY T VISIT PHYS INC MODERATE SEVERITY EMERGENCY 49309 [facility] CELLAROSI 9 9 KEVIN - YOSAMANTHAA, [facility] EMERGENCY BRI T VISIT PHYS INC M MODERATE SEVERITY HOSPITAL [facility] - 9 9 N OUTPATIMARY [facility] T HOSPITAL EMERGENCY 47299 [facility] YOUNG, 9 9 KEVIN ANITA Ruth DEPARTMEN EMERGENCY T VISIT PHYS INC MODERATE SEVERITY EMERGENCY 84037 [facility] 9 9 N [facility] COMMUNITY T VISIT HOSPITAL LOW/MODER SEVERITY EMERGENCY 14607 [facility] LAURAEK, 9 9 KEVIN MOHAMED H DEPARTMEN EMERGENCY T VISIT PHYS INC MODERATE SEVERITY [facility] 21775 [facility] KEVIN HENRY DEPARTMEN EMERGENCY A T VISIT PHYS INC MODERATE SEVERITY OFFICE 68956 [facility] GRAVES, OUTPATIEN 9 9 [facility] SELENE W T VISIT E CENTER 15 MINUTES EMERGENCY 62415 [facility] CELLAROSI 9 9 KEVIN - YORBA, [facility] EMERGENCY BRI T VISIT PHYS INC M MODERATE SEVERITY OFFICE 59450 [facility] GRAVES, OUTPATIEN 9 9 [facility] SELENE W T VISIT E CENTER 15 MINUTES OFFICE 51120 ARIELLA LEONE OUTPATIEN 9 9 [facility] JR, T VISIT UROLOGY MAR K 15 PSC MINUTES EMERGENCY 50733 [facility] CELLAROSI 9 9 KEVIN - SOPHIARBA, DEPARTMEN EMERGENCY BRI T VISIT PHYS INC M HIGH/URGE NT SEVERITY OFFICE 80289 [facility]IZON BABAK, OUTPATIEN 9 9 [facility] W T VISIT E CENTER 15 MINUTES OFFICE 15149 [facility] SULEMA OUTPATIEN 9 9 [facility] JR, T VISIT UROLOGY MAR K 10 PSC MINUTES OFFICE 05606 [facility] SULEMA OUTPATIEN 9 9 [facility] JR, T VISIT UROLOGY MAR K 10 PSC MINUTES OFFICE 05718 H[facility]IZON BAABK, OUTPATIEN 9 9 [facility] W T VISIT E CENTER 15 MINUTES EMERGENCY 99890 [facility] CELLAROSI DEPT 8 8 KEVIN - TREVON, VISIT EMERGENCY BRI HIGH PHYS INC M SEVERITY& THREAT [facility] [place] [id number] 8 HOSPITAL INPATIENT EMERGENCY 91337 [facility] KEVIN - TREVON [facility] EMERGENCY BRI T VISIT PHYS INC M HIGH/URGE NT SEVERITY OFFICE 43340 [facility]IZON BABAK, OUTPATIEN 8 8 [facility] SELENE W T VISIT E CENTER 15 MINUTES [facility] [place] [address] 8 N [facility] OFF[facility] 39344 JORGE LUIS HILLIARD, OUTPATIEN 8 8 [facility] SELENE W T VISIT E CENTER 15 MINUTES EMERGENCY 62280 [facility], 8 8 KEVIN ANITA Ruth DEPARTMEN EMERGENCY T VISIT PHYS INC HIGH/URGE NT SEVERITY OFFICE 57437 [facility] OSPINA, OUTPATIEN 8 8 [facility] JONATHAN T NEW 45 E CENTER MINUTES EMERGENCY 53709 [facility] 8 KEVIN - TREVON DEPARTMEN EMERGENCY BRI T VISIT PHYS INC M MODERATE SEVERITY OFFICE 87746 MIKKI KAYE, OUTPATIEN 8 8 DON R DON R T VISIT 15 MINUTES [facility]OSPITAL [facility] 8 8 [facility] OUTPATI[facility] INC T EMERGENCY 71355 [place] 8 8 [facility] T VISIT MODERATE [facility]VERITY [facility] [place] - 8 8 [facility] 01447 [place] 8 8 [facility] T VISIT MODERATE [facility]VERITY [facility] [place] - 8 8 [facility] [place] [facility] 8 8 [facility] T OFFICE 79307 MIKKI KAYE OUTPATIEN 8 8 DON R DON [place] T VISIT 15 MINUTES EMERGENCY 41238 [place] [facility]OWN, 8 8 [facility] T VISIT PROF SERV MODERATE SEVERITY EMERGENCY 03493 [place] 8 8 [facility] T VISIT LOW/MODER SEVERITY [facility]OSPITAL [place] - 8 8 [facility]
--- NOTE | 2016-11-02 20:17 | Emergency Room Report ---
History of Present Illness Time Seen by 2009 Presenting Problem in Triage Pt arrived:Walked Presenting Problem:PT SEES NATHALIE FOR VASCULAR PROBLEMS IN FEET. PT STATES THAT TODAY SHE NOTICED A WOUND ON HER POSTERIOR LATERAL RIGHT FOOT AFTER DRIVING. PT DID NOT CONTACT NATHALIE REGARDING COMPLAINT. 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 B/P: 106/73 MAP: 84 Pulse: 102 Resp: 20 Recent fever? N Clinical Suspician of Infection? N Mental Status: 1 - Regular (Normal Baseline) Sepsis Risk:Possible Sepsis Risk Have you (or family members/close friends) recently traveled outside the [place]? N If Yes, where/when: Have you had exposure to infectious disease within the past month? TB? Other? Specify: Source patient, RN notes reviewed, family, old records Exam Limitations no limitations Comment pt with diabetes and has pvd with changes to her feet with area on rt lat heel with possible infection - no abscess or fever Cardiac Chest Pain Chest pain indicative of cardiac No Timing/Duration this evening Severity moderate ALLERGIES Coded Allergies: No Known Allergies (07/28/16) Home Medications Active Scripts HYDROCODONE/ACETAMINOPHEN (Lortab 10-325 MG Tablet) 1 TAB PO TIDP PRN pain #12 TAB Prov: 10/04/16 Carvedilol 6.25 MG PO BID #60 TAB Prov: 07/26/16 Atorvastatin Calcium (Atorvastatin) 80 MG PO DAILY #30 TABLET Prov: 07/26/16 Nitroglycerin (Nitrostat 0.4MG (1/150 Gr) Tabs #25) 0.4 MG SL [id number] PRN CHEST PAIN #20 TAB Prov: 07/26/16 Reported Medications Insulin Glargine (Lantus Insulin Vial) 10 UNITS SC QHS LISINOPRIL (Lisinopril) 20 MG PO DAILY METFORMIN HCL (Metformin) 1,000 MG PO DAILY Glipizide 10 MG PO DAILY Aspirin 81 MG PO DAILY FENOFIBRATE,MICRONIZED (Fenofibrate) 200 MG PO DAILY #30 CLOPIDOGREL BISULFATE (Clopidogrel) 75 MG PO DAILY #30 History Medical History General CAD? No Angina: Yes IN: No Hypertension? Yes Hyperlipidemia? Yes CHF? No DVT? No PE? No COPD? No Asthma? No Anemia? No GERD? No Gastric ulcers? No GI Bleed? No Hernia? No Thyroid Problems? No Hypothyroidism? No CVA? No Seizures? No Diabetes? Yes Insulin Dependent: Yes Insulin Pump: No Home FSBS? Yes Renal Insuffiency? No End Stage Renal Disease? No UTI? Yes Stones? Yes BPH? No GB Disease: Yes Nephritic Syndrome? No Asplenia? No Hepatitis? No Sickle Cell Disease? No Arthritis? No Migraines? No Cataracts? No Glaucoma? No MRSA? No HIV? No TB? No Anxiety? No Depression? Yes Cancer? No Additional hx: 1. TIA 2. Kidney stones with stenting Immunization Hx DT/Tetanus Unknown Flu Refused Pneumonia Refuses Surgical Hx Previous Surgery?Y OPEN HEART-CYST ON ARTERY OVARIAN CYST REMOVAL [place] CYSTOSCOPY WITH [id number] STENT REMOVAL LITHOTRIPSY CYSTOSCOPY WITH [id number] L HIP REPLACEMENT HEART STENTS Family History Family Hx Diabetes Yes CAD Yes Hypertension Yes Hyperlipidemia Yes Cancer Yes TB No Social History Smoking Hx Smoker: Former Smoker Tobacco: No Packs/day < 1 Pack Alcohol Alcohol: No Drugs none Review of Systems All Other Systems Reviewed and Negative Constitutional denies fever Eyes denies drainage ENT denies: ear pain, epistaxis, throat pain. Respiratory denies cough, denies shortness of breath, denies wheezing Cardiovascular denies chest pain, denies palpitations, denies syncope Gastrointestinal denies abdominal pain, denies diarrhea, denies vomiting Genitourinary denies: dysuria, frequency, hesitancy, hematuria. Musculoskeletal denies back pain, denies joint pain, denies joint swelling, denies neck pain Skin see HPI, denies rash, other Psychiatric/Neurological denies headache Physical Exam Vital Signs Vital Signs Date Time Temp Pulse Resp B/P Pulse O2 O2 Flow FiO2 Ox Delivery Rate 11/03 1943 98.0 102 20 106/73 93 - WBC >12,000 or <4,000 or 10% bands? 2 or more SIRS Criteria Met? B/P:106/73 MAP:84 Creatinine >2.0? UA output<0.5ml/kg/hr for 2 hrs? Platelet count >100,000? Lactate >2.0mmol/1? INR >1.2 or PTT > than 60 sec? Evidence of Organ Dysfunction? Provider documented clinical suspician of infection? N Sepsis Criteria Count: 2 Sepsis Risk: Possible Sepsis Risk General Appearance no apparent distress Eye Exam - bilateral eye PERRL, bilateral eye EOMI Ear, Nose, Throat normal ENT inspection Neck non-tender Respiratory Status No: respiratory distress. 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 No Departure Departure Time of Disposition 2009 Disposition DC Home or Self Care(routine) Clinical Impression Primary Impression: Cellulitis Qualifiers: Site of cellulitis: extremity Site of cellulitis of extremity: lower extremity Laterality: right Qualified Code: L03.115 - Cellulitis of right lower limb Condition STABLE Referrals JESSICA ROSS (Family) Patient Instructions DI for Cellulitis -- Adult Additional Instructions use meds and see pcp for follow up Discharge Counseling Counseled pt/family regarding diagnosis, medications/RX, follow up needs Prescriptions Current Visit Scripts CEPHALEXIN (Keflex 500MG Capsule) 500 MG PO Q8H #21 CAP MUPIROCIN 2% (Bactroban Oint) 1 MICHELLE TP BID #1 TUBE ED Critical Care Critical Care No at 2017
--- NOTE | 2016-11-02 20:17 | Emergency Room Report ---
History of Present Illness Time Seen by 2009 Presenting Problem in Triage Pt arrived:Walked Presenting Problem:PT SEES NATHALIE FOR VASCULAR PROBLEMS IN FEET. PT STATES THAT TODAY SHE NOTICED A WOUND ON HER POSTERIOR LATERAL RIGHT FOOT AFTER DRIVING. PT DID NOT CONTACT NATHALIE REGARDING COMPLAINT. 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 B/P: 106/73 MAP: 84 Pulse: 102 Resp: 20 Recent fever? N Clinical Suspician of Infection? N Mental Status: 1 - Regular (Normal Baseline) Sepsis Risk:Possible Sepsis Risk Have you (or family members/close friends) recently traveled outside the [place]? N If Yes, where/when: Have you had exposure to infectious disease within the past month? TB? Other? Specify: Source patient, RN notes reviewed, family, old records Exam Limitations no limitations Comment pt with diabetes and has pvd with changes to her feet with area on rt lat heel with possible infection - no abscess or fever Cardiac Chest Pain Chest pain indicative of cardiac No Timing/Duration this evening Severity moderate ALLERGIES Coded Allergies: No Known Allergies (07/28/16) Home Medications Active Scripts HYDROCODONE/ACETAMINOPHEN (Lortab 10-325 MG Tablet) 1 TAB PO TIDP PRN pain #12 TAB Prov: 10/04/16 Carvedilol 6.25 MG PO BID #60 TAB Prov: 07/26/16 Atorvastatin Calcium (Atorvastatin) 80 MG PO DAILY #30 TABLET Prov: 07/26/16 Nitroglycerin (Nitrostat 0.4MG (1/150 Gr) Tabs #25) 0.4 MG SL [id number] PRN CHEST PAIN #20 TAB Prov: 07/26/16 Reported Medications Insulin Glargine (Lantus Insulin Vial) 10 UNITS SC QHS LISINOPRIL (Lisinopril) 20 MG PO DAILY METFORMIN HCL (Metformin) 1,000 MG PO DAILY Glipizide 10 MG PO DAILY Aspirin 81 MG PO DAILY FENOFIBRATE,MICRONIZED (Fenofibrate) 200 MG PO DAILY #30 CLOPIDOGREL BISULFATE (Clopidogrel) 75 MG PO DAILY #30 History Medical History General CAD? No Angina: Yes NE: No Hypertension? Yes Hyperlipidemia? Yes CHF? No DVT? No PE? No COPD? No Asthma? No Anemia? No GERD? No Gastric ulcers? No GI Bleed? No Hernia? No Thyroid Problems? No Hypothyroidism? No CVA? No Seizures? No Diabetes? Yes Insulin Dependent: Yes Insulin Pump: No Home FSBS? Yes Renal Insuffiency? No End Stage Renal Disease? No UTI? Yes Stones? Yes BPH? No GB Disease: Yes Nephritic Syndrome? No Asplenia? No Hepatitis? No Sickle Cell Disease? No Arthritis? No Migraines? No Cataracts? No Glaucoma? No MRSA? No HIV? No TB? No Anxiety? No Depression? Yes Cancer? No Additional hx: 1. TIA 2. Kidney stones with stenting Immunization Hx DT/Tetanus Unknown Flu Refused Pneumonia Refuses Surgical Hx Previous Surgery?Y OPEN HEART-CYST ON ARTERY OVARIAN CYST REMOVAL [place] CYSTOSCOPY WITH [id number] STENT REMOVAL LITHOTRIPSY CYSTOSCOPY WITH [id number] L HIP REPLACEMENT HEART STENTS Family History Family Hx Diabetes Yes CAD Yes Hypertension Yes Hyperlipidemia Yes Cancer Yes TB No Social History Smoking Hx Smoker: Former Smoker Tobacco: No Packs/day < 1 Pack Alcohol Alcohol: No Drugs none Review of Systems All Other Systems Reviewed and Negative Constitutional denies fever Eyes denies drainage ENT denies: ear pain, epistaxis, throat pain. Respiratory denies cough, denies shortness of breath, denies wheezing Cardiovascular denies chest pain, denies palpitations, denies syncope Gastrointestinal denies abdominal pain, denies diarrhea, denies vomiting Genitourinary denies: dysuria, frequency, hesitancy, hematuria. Musculoskeletal denies back pain, denies joint pain, denies joint swelling, denies neck pain Skin see HPI, denies rash, other Psychiatric/Neurological denies headache Physical Exam Vital Signs Vital Signs Date Time Temp Pulse Resp B/P Pulse O2 O2 Flow FiO2 Ox Delivery Rate 11/03 1943 98.0 102 20 106/73 93 - WBC >12,000 or <4,000 or 10% bands? 2 or more SIRS Criteria Met? B/P:106/73 MAP:84 Creatinine >2.0? UA output<0.5ml/kg/hr for 2 hrs? Platelet count >100,000? Lactate >2.0mmol/1? INR >1.2 or PTT > than 60 sec? Evidence of Organ Dysfunction? Provider documented clinical suspician of infection? N Sepsis Criteria Count: 2 Sepsis Risk: Possible Sepsis Risk General Appearance no apparent distress Eye Exam - bilateral eye PERRL, bilateral eye EOMI Ear, Nose, Throat normal ENT inspection Neck non-tender Respiratory Status No: respiratory distress. 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 No Departure Departure Time of Disposition 2009 Disposition DC Home or Self Care(routine) Clinical Impression Primary Impression: Cellulitis Qualifiers: Site of cellulitis: extremity Site of cellulitis of extremity: lower extremity Laterality: right Qualified Code: L03.115 - Cellulitis of right lower limb Condition STABLE Referrals JESSICA ROSS (Family) Patient Instructions DI for Cellulitis -- Adult Additional Instructions use meds and see pcp for follow up Discharge Counseling Counseled pt/family regarding diagnosis, medications/RX, follow up needs Prescriptions Current Visit Scripts CEPHALEXIN (Keflex 500MG Capsule) 500 MG PO Q8H #21 CAP MUPIROCIN 2% (Bactroban Oint) 1 MICHELLE TP BID #1 TUBE ED Critical Care Critical Care No at 2017
--- OUTSIDE RECORDS SUMMARY | 2016-11-02 20:19 | External Medical Summary Rpt ---
Demographics Preferred Language Polish Marital Status Unknown Samaritan Affiliation Unknown Race Unknown Ethnic Group Unknown Author Author , Organization [employer] Address Unknown Phone Unavailable Purpose Continuity of Care Document - through 2016 Immunization No patient found.
--- OUTSIDE RECORDS SUMMARY | 2016-11-02 20:19 | External Medical Summary Rpt ---
Demographics Preferred Language Turkish Marital Status Unknown Anglican Affiliation Unknown Race Unknown Ethnic Group Unknown Author Author , Organization [employer] Address Unknown Phone Unavailable Purpose Continuity of Care Document - through 2016 Immunization No patient found.
[2016-11-02 20:25] VITALS: BP 106/73
[2016-11-09] MEDS ORDERED: LYRICA 100 MG100 MG PO (10:41)
[2016-11-09] MEDS ORDERED: PROMETHAZINE HC25 M1 PO (10:42)
[2016-11-09] MEDS ORDERED: CARVEDILOL6.25 MG PO (10:42)
[2016-11-09] MEDS ORDERED: ROPINIROLE HYDRO1 MG PO (10:44)
[2016-11-09] MEDS ORDERED: CILOSTAZOL100 MG PO (10:44)
== END 2016-11-02 20:25 | disposition home or self-care (01) ==
LOC: ER 19:38
DX: L03.115 Cellulitis of right lower limb (principal); I73.9 Peripheral vascular disease, unspecified; I10 Essential (primary) hypertension